=== PATIENT | female | born 1965 | race Caucasian/White ===

== ENCOUNTER 2016-11-21 07:45 | Emergency (ER) | payer OTHER ==
[2016-11-21] MEDS ORDERED: HYDROmorphone 1 MG/ML 1 ML SYRINGE IM STA (08:35)
[2016-11-21] MEDS ORDERED: KETOROLAC 60 MG/2 ML VIAL IM STA (08:35)
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
[2016-11-21 09:26] VITALS: BP 136/69; PULSE 84; RESP 18; TEMP 97.2
== END 2016-11-21 09:26 | disposition home or self-care (01) ==
LOC: EC 07:45
DX: G89.29 Other chronic pain (principal); M54.9 Dorsalgia, unspecified; F32.9 Major depressive disorder, single episode, unspecified; F41.9 Anxiety disorder, unspecified; M79.7 Fibromyalgia; F17.200 Nicotine dependence, unspecified, uncomplicated; Z88.0 Allergy status to penicillin; Z88.2 Allergy status to sulfonamides; Z88.1 Allergy status to other antibiotic agents; Z91.030 Bee allergy status; Z79.899 Other long term (current) drug therapy
CPT/HCPCS: 99283; 96372 ×2; J1885; J1170

== ENCOUNTER 2017-02-06 12:24 | Emergency (ER) | payer OTHER ==
[2017-02-06] MEDS ORDERED: HYDROmorphone 1 MG/ML 1 ML SYRINGE IM STA (13:33)
[2017-02-06] MEDS ORDERED: ORPHENADRINE 30 MG/ML 2 ML VIAL IM STA (13:33)
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
[2017-02-06 14:33] VITALS: BP 110/72; PULSE 97; RESP 18; TEMP 97.8
== END 2017-02-06 14:32 | disposition home or self-care (01) ==
LOC: EC 12:24
DX: G89.29 Other chronic pain (principal); M54.9 Dorsalgia, unspecified; F41.9 Anxiety disorder, unspecified; F32.9 Major depressive disorder, single episode, unspecified; F41.0 Panic disorder [episodic paroxysmal anxiety]; F17.200 Nicotine dependence, unspecified, uncomplicated; Z79.899 Other long term (current) drug therapy; Z88.0 Allergy status to penicillin; Z88.2 Allergy status to sulfonamides; Z91.030 Bee allergy status
CPT/HCPCS: 99283; 96372 ×2; J2360; J1170

== ENCOUNTER 2017-03-14 03:00 | Emergency (ER) | payer OTHER ==
[2017-03-14 03:07] VITALS: TEMP 97.3
[2017-03-14] MEDS ORDERED: KETOROLAC 60 MG/2 ML VIAL IM STA (03:14)
[2017-03-14] MEDS ORDERED: HYDROmorphone 1 MG/ML 1 ML SYRINGE IM STA (03:14)
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
[2017-03-14] MEDS ORDERED: ONDANSETRON ODT 4 MG TAB PO STA (03:24)
[2017-03-14 03:31] VITALS: BP 120/74; PULSE 80; RESP 16
== END 2017-03-14 03:40 | disposition home or self-care (01) ==
LOC: EC 03:00
DX: G89.29 Other chronic pain (principal); M54.5 Low back pain; M79.7 Fibromyalgia; F17.200 Nicotine dependence, unspecified, uncomplicated; Z88.0 Allergy status to penicillin; Z88.2 Allergy status to sulfonamides; Z91.030 Bee allergy status; Z79.899 Other long term (current) drug therapy
CPT/HCPCS: 99283; 96372 ×2; J1885; J1170

== ENCOUNTER 2017-05-10 03:58 | Emergency (ER) | payer OTHER ==
[2017-05-10 04:05] VITALS: TEMP 98
[2017-05-10] MEDS ORDERED: ONDANSETRON ODT 4 MG TAB PO STA (04:28)
[2017-05-10] MEDS ORDERED: KETOROLAC 60 MG/2 ML VIAL IM STA (04:28)
[2017-05-10] MEDS ORDERED: HYDROmorphone 1 MG/ML 1 ML SYRINGE IM STA (04:28)
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
[2017-05-10 04:55] VITALS: BP 146/80; PULSE 72; RESP 20
== END 2017-05-10 05:07 | disposition home or self-care (01) ==
LOC: EC 03:58
DX: M54.9 Dorsalgia, unspecified (principal); G89.29 Other chronic pain; R11.0 Nausea; M79.7 Fibromyalgia; F32.9 Major depressive disorder, single episode, unspecified; F41.9 Anxiety disorder, unspecified; F17.200 Nicotine dependence, unspecified, uncomplicated; Z79.899 Other long term (current) drug therapy; Z88.0 Allergy status to penicillin; Z88.1 Allergy status to other antibiotic agents; Z91.030 Bee allergy status
CPT/HCPCS: 99283; 96372; J1885

== ENCOUNTER 2018-01-16 08:26 | Emergency (ER) | payer OTHER ==
[2018-01-16 08:29] VITALS: TEMP 97.8
[2018-01-16] MEDS ORDERED: ONDANSETRON ODT 4 MG TAB PO STA (08:48)
[2018-01-16] MEDS ORDERED: BACLOFEN 10 MG TAB PO PRN (08:48)
[2018-01-16] MEDS ORDERED: oxyCODONE-APAP 10-325MG 1 EACH TAB PO STA (08:48)
--- NOTE | 2018-01-16 08:51 | ED ---
General Adult HPI - General Chief complaint: Back Pain/Injury Stated complaint: Back pain Time Seen by Provider: 01/16/18 08:41 Source: patient, RN notes reviewed, old records reviewed Mode of arrival: ambulatory Limitations: no limitations - History of Present Illness Initial comments: Patient 53-year-old female with significant past medical history for chronic back pain, presenting with a chief complaint of increased back pain. She states she had a fall earlier in the week. She states she was pushing a shopping cart when she had a hole in it went forward causing her to fall over. Patient states she tracks parents with pain at the time she had her Percocet. She states she's on Percocet yesterday. He is feeling increased pain today. States she does not receive her pain prescription until tomorrow. Patient does admit to some pain that radiates on the right leg tingling type sensation. She states she's had this in the past. Denies any bowel or bladder incontinence or retention. Denies any saddle anesthesia. Patient admits that she's had similar symptoms in the past with her chronic back pain. Patient denies any recent fever, chills, shortness of breath, chest pain, abdominal pain, nausea or vomiting, headaches or visual changes, or any other complaints. - Related Data Home Medications Medication Instructions Recorded Confirmed oxyCODONE-APAP 10-325MG [Percocet 1 tab PO Q6HR PRN 05/06/14 01/16/18 10-325 mg] Previous Rx's Medication Instructions Recorded Baclofen 10 mg PO TID #20 tab 01/16/18 Allergies Allergy/AdvReac Type Severity Reaction Status Date / Time Penicillins Allergy Rash/Hives Verified 01/16/18 09:01 sulfamethoxazole Allergy Unknown Verified 01/16/18 09:01 [From Bactrim] trimethoprim [From Bactrim] Allergy Unknown Verified 01/16/18 09:01 venom-honey bee Allergy Anaphylaxis Verified 01/16/18 09:01 [bee venom (honey bee)] Review of Systems ROS Statement: Those systems with pertinent positive or pertinent negative responses have been documented in the HPI. ROS Other: All systems not noted in ROS Statement are negative. Past Medical History Past Medical History: Fibromyalgia, Thyroid Disorder Additional Past Medical History / Comment(s): back pain, pt states she has lesions on her brain that could be the onset of MS History of Any Multi-Drug Resistant Organisms: None Reported Past Surgical History: Appendectomy, Hysterectomy Additional Past Surgical History / Comment(s): d&c Past Anesthesia/Blood Transfusion Reactions: No Reported Reaction Past Psychological History: Anxiety, Depression, Panic Disorder, PTSD Smoking Status: Current every day smoker Past Alcohol Use History: None Reported Past Drug Use History: None Reported - Past Family History Daughter(s) Family Medical History: Asthma General Exam - General Exam Comments Initial Comments: General: The patient is awake and alert, in no distress, and does not appear acutely ill. Eye: Pupils are equal, round and reactive to light, extra-ocular movements are intact. No nystagmus. There is normal conjunctiva bilaterally. No signs of icterus. Ears, nose, mouth and throat: There are moist mucous membranes and no oral lesions. Neck: The neck is supple, there is no tenderness or JVD. Cardiovascular: There is a regular rate and rhythm. No murmur, rub or gallop is appreciated. Respiratory: Lungs are clear to auscultation, respirations are non-labored, breath sounds are equal. No wheezes, stridor, rales, or rhonchi. Musculoskeletal: Normal ROM. Normal appearance of the cervical, thoracic, lumbar spine with no step-off or deformity. Patient does have tenderness midthoracic spine with mild tenderness to the lower lumbar. Strength 5/5. Sensation intact. Pulses equal bilaterally 2+. Neurological: A&O x 3. CN II-XII intact, There are no obvious motor or sensory deficits. Coordination appears grossly intact. Speech is normal. Skin: Skin is warm and dry and no rashes or lesions are noted. Psychiatric: Cooperative, appropriate mood & affect, normal judgment. Limitations: no limitations Course Vital Signs 01/16/18 01/16/18 08:28 09:31 Temperature 97.8 F Pulse Rate 99 86 Respiratory 20 16 Rate Blood Pressure 144/80 126/74 O2 Sat by Pulse 100 97 Oximetry Medical Decision Making - Medical Decision Making Patient reexamined at this time shows no signs of distress. Her x-rays are negative for any acute abnormalities. Results were discussed with the patient. Patient will be discharged home. He urinated prescription for baclofen. She is advised to follow-up with her pain specialist to make sure that it's okay but she feels this prescription. Advised to return for any other concerns. Disposition Clinical Impression: Chronic back pain Disposition: HOME SELF-CARE Condition: Good Instructions: Chronic Back Pain (ED) Additional Instructions: Please use medication as discussed and confirmed with your pain specialist prior to filling. Please return to emergency room if the symptoms increase or worsen or for any other concerns. Prescriptions: Baclofen 10 mg PO TID #20 tab Referrals: Dashawn Lopez DO [Primary Care Provider] - 1-2 days Time of Disposition: 10:03
[2018-01-16 09:32] VITALS: BP 126/74; PULSE 86; RESP 16
--- NOTE | 2018-01-16 09:42 | XR ---
EXAMINATION TYPE: XR thoracic spine complete DATE OF EXAM: 01/16/2018 COMPARISON: NONE HISTORY: 53 year-old female chronic back pain, fall TECHNIQUE: 3 views FINDINGS: 12 rib-bearing thoracic vertebral bodies. All pedicles are visualized. Mild endplate spondylosis mid to lower thoracic spine. Vertebral body heights are maintained and alignment is preserved. IMPRESSION: Mild endplate spondylosis mid to lower thoracic spine. No vertebral compression collapse or malalignm ent.
--- NOTE | 2018-01-16 09:54 | XR ---
EXAMINATION TYPE: XR lumbar spine 2 or 3V DATE OF EXAM: 01/16/2018 COMPARISON: 03/02/2016 HISTORY: 53-year-old female chronic back pain, worse since yesterday TECHNIQUE: 3 views FINDINGS: 5 lumbar type vertebral bodies. Facet arthropathy mid to lower lumbar spine. Trace grade 1 retrolisth esis at L3-L4 and also at L2-L3 was also present on 03/02/2016. Vertebral body heights are maintained. Small superior endplate Schmorl's node from T12 through L2 are unchanged. Mild degenerative disc dis ease mid to lower lumbar spine. IMPRESSION: 1. No vertebral compression collapse. Stable degenerative grade 1 retrolistheses at L2-L3 and L3-L4. 2. Facet arthropathy mid to lower lumbar spine and mild multilevel degenerative disc disease.
== END 2018-01-16 10:13 | disposition home or self-care (01) ==
LOC: EC 08:26
DX: M54.9 Dorsalgia, unspecified (principal); G89.29 Other chronic pain; M79.7 Fibromyalgia; F17.200 Nicotine dependence, unspecified, uncomplicated; Z88.0 Allergy status to penicillin; Z88.2 Allergy status to sulfonamides; Z91.030 Bee allergy status
CPT/HCPCS: 72072; 72100; 99284

== ENCOUNTER 2018-02-12 22:32 | Emergency (ER) | payer OTHER ==
[2018-02-12 22:36] VITALS: TEMP 97.4
[2018-02-13 00:17] LABS: Appearance,Urine Clear (Clear); Bacteria,Urine Rare /hpf; Bilirubin,Urine Negative (Negative); Blood,Urine Trace (Negative); Color,Urine Dark Yellow; Glucose,Urine (UA) Negative (Negative); Hyaline Casts,Urine 1 /lpf (0-2); Ketones,Urine Negative (Negative); Leukocyte Esterase,Urine Large (Negative); Mucus,Urine Rare /hpf; Nitrite,Urine Positive (Negative); PH, Urine 5.5 (5.0-8.0); Protein,Urine Trace (Negative); RBC,Urine 6 /hpf (0-5); Specific Gravity,Urine 1.022 (1.001-1.035); Squamous Epithelial Cell,Urine 2 /hpf (0-4); Urobilinogen,Urine <2.0 mg/dL (<2.0); WBC,Urine 67 /hpf (0-5)
--- NOTE | 2018-02-13 00:22 | ED ---
Nausea/Vomiting/Diarrhea HPI - General Chief complaint: Nausea/Vomiting/Diarrhea Stated complaint: Back pain Time Seen by Provider: 02/12/18 22:58 Source: patient Mode of arrival: ambulatory Limitations: no limitations - History of Present Illness Initial comments: 53-year-old female patient presents to the emergency department today complaining of withdrawal from her pain medication. Patient states that she has chronic back pain caused by a fracture many years ago. Patient states that she takes Percocet 10/325. States that she took too many over the month and has ran out early. States that she is unable to get a new prescription from her house painter helper for another week. States that she is having withdrawal symptoms that include shaking, sweats, nausea, and diarrhea. She denies any fevers or chills. States that she has gone through withdrawal before and her symptoms are the same. Patient states her last Percocet was yesterday morning. Patient also reports dysuria, frequency and urgency. States this been going on for the last few days. She is concerned she has a urinary tract infection. States that she has been taking [id number] Azo tablets and drinking cranberry juice without relief. Patient denies any recent rash, shortness breath, chest pain, abdominal pain, diarrhea, constipation, numbness, tingling, dizziness, weakness, headache, visual changes, or any other complaints. - Related Data Home Medications Medication Instructions Recorded Confirmed oxyCODONE-APAP 10-325MG [Percocet 1 tab PO Q6HR PRN 05/06/14 02/12/18 10-325 mg] Previous Rx's Medication Instructions Recorded Nitrofurantoin Monohyd/M-Cryst 100 mg PO Q12HR #14 cap 02/13/18 [Macrobid] Ondansetron [Zofran ODT] 4 mg PO Q8HR PRN #10 tab 02/13/18 Allergies Allergy/AdvReac Type Severity Reaction Status Date / Time Penicillins Allergy Rash/Hives Verified 02/12/18 22:41 sulfamethoxazole Allergy Unknown Verified 02/12/18 22:41 [From Bactrim] trimethoprim [From Bactrim] Allergy Unknown Verified 02/12/18 22:41 venom-honey bee Allergy Anaphylaxis Verified 02/12/18 22:41 [bee venom (honey bee)] Review of Systems ROS Statement: Those systems with pertinent positive or pertinent negative responses have been documented in the HPI. ROS Other: All systems not noted in ROS Statement are negative. Past Medical History Past Medical History: Fibromyalgia, Thyroid Disorder Additional Past Medical History / Comment(s): back pain, pt states she has lesions on her brain that could be the onset of MS History of Any Multi-Drug Resistant Organisms: None Reported Past Surgical History: Appendectomy, Hysterectomy Additional Past Surgical History / Comment(s): d&c Past Anesthesia/Blood Transfusion Reactions: No Reported Reaction Past Psychological History: Anxiety, Depression, Panic Disorder, PTSD Smoking Status: Current every day smoker Past Alcohol Use History: None Reported Past Drug Use History: None Reported - Past Family History Daughter(s) Family Medical History: Asthma General Exam Limitations: no limitations General appearance: alert, anxious, other (This is a well-developed, well- nourished adult female patient in no acute distress. Vital signs upon presentation are temperature 97.4F, pulse 123, respirations 24, blood pressure 141/90, pulse ox 100% on room air.) Eye exam: Present: normal appearance, PERRL, EOMI. Absent: scleral icterus, conjunctival injection, periorbital swelling ENT exam: Present: normal exam, normal oropharynx, mucous membranes moist Respiratory exam: Present: normal lung sounds bilaterally. Absent: respiratory distress, wheezes, rales, rhonchi, stridor Cardiovascular Exam: Present: regular rate, normal rhythm, normal heart sounds. Absent: systolic murmur, diastolic murmur, rubs, gallop, clicks GI/Abdominal exam: Present: soft, normal bowel sounds. Absent: distended, tenderness, guarding, rebound, rigid Back exam: Present: normal inspection Neurological exam: Present: alert, oriented X3, CN II-XII intact Psychiatric exam: Present: normal affect, normal mood Skin exam: Present: warm, dry, intact, normal color. Absent: rash Course Vital Signs 02/12/18 22:33 Temperature 97.4 F L Pulse Rate 123 H Respiratory 24 Rate Blood Pressure 141/90 O2 Sat by Pulse 100 Oximetry Medical Decision Making - Medical Decision Making 53-year-old female patient presents to the emergency department today complaining of opiate withdrawal and dysuria. Physical examination was unremarkable. Urine did show trace protein, trace blood, positive nitrates, large leukocyte esterase, 6 red blood cells, 67 white blood cells, rare bacteria , and rare mucous. We did give patient a dose of methadone 10 mg. She is instructed to follow-up with her house painter helper for any further medications. We will treat her with Macrobid for urinary tract infection as she is ALLERGIC to sulfa and penicillins. Urine was sent for culture. Return parameters discussed in detail. She verbalizes understanding and agrees with this plan. - Lab Data Lab Results 02/13/18 Range/Units 00:03 Urine Color Dark Yellow Urine Appearance Clear (Clear) Urine pH 5.5 (5.0-8.0) Ur Specific [place] 1.022 (1.001-1.035) Urine Protein Trace H (Negative) Urine Glucose (UA) Negative (Negative) Urine Ketones Negative (Negative) Urine Blood Trace H (Negative) Urine Nitrite Positive H (Negative) Urine Bilirubin Negative (Negative) Urine Urobilinogen <2.0 (<2.0) mg/dL Ur Leukocyte Esterase Large H (Negative) Urine RBC 6 H (0-5) /hpf Urine WBC 67 H (0-5) /hpf Ur Squamous Epith Cells 2 (0-4) /hpf Urine Bacteria Rare H (None) /hpf Hyaline Casts 1 (0-2) /lpf Urine Mucus Rare H (None) /hpf Disposition Clinical Impression: Urinary tract infection, Chronic back pain, Opiate withdrawal Disposition: HOME SELF-CARE Condition: Good Instructions: Urinary Tract Infection in Women (ED), Opioid Withdrawal (ED), Chronic Back Pain (ED) Additional Instructions: Increase fluids. Complete antibiotic prescription in full. Follow-up with your primary care physician for recheck in 1-2 days. Follow-up with your house painter helper for further narcotic medications. Return here immediately for any new, worsening, or concerning symptoms. Prescriptions: Nitrofurantoin Monohyd/M-Cryst [Macrobid] 100 mg PO Q12HR #14 cap Ondansetron [Zofran ODT] 4 mg PO Q8HR PRN #10 tab PRN Reason: Nausea Referrals: Dashawn Lopez DO [Primary Care Provider] - 1-2 days Time of Disposition: 01:24
[2018-02-13] MEDS ORDERED: METHADONE 10 MG TAB PO STA (00:41)
[2018-02-13] MEDS ORDERED: ONDANSETRON ODT 4 MG TAB PO STA (00:41)
[2018-02-13] MEDS ORDERED: NITROFURANTOIN MONOHYD/M-CRYST 100 MG CAP PO STA (01:20)
[2018-02-13 01:45] VITALS: BP 128/70; PULSE 87; RESP 18
== END 2018-02-13 01:45 | disposition home or self-care (01) ==
LOC: EC 22:32
DX: N39.0 Urinary tract infection, site not specified (principal); F11.23 Opioid dependence with withdrawal; M54.9 Dorsalgia, unspecified; G89.29 Other chronic pain; F17.200 Nicotine dependence, unspecified, uncomplicated; Z88.0 Allergy status to penicillin; Z88.1 Allergy status to other antibiotic agents; Z88.2 Allergy status to sulfonamides; Z91.030 Bee allergy status
CPT/HCPCS: 81001; 99283; S0109

== ENCOUNTER 2018-02-14 05:23 | Emergency (ER) | payer OTHER ==
[2018-02-14 05:35] LABS: Glucose,Whole Blood 123 mg/dL (75-99)
[2018-02-14] MEDS ORDERED: SODIUM CHLORIDE 0.9% 1,000 ML IV STA (05:47)
[2018-02-14] MEDS ORDERED: IPRATROPIUM-ALBUTEROL 3 ML NEB INHALATION STA (05:47)
[2018-02-14] MEDS ORDERED: ACETAMINOPHEN IV (For NPO) 1,000 MG in EMPTY BAG 1 BAG IVPB STA (05:48)
[2018-02-14 06:02] LABS: Basophils # (A) 0.1 k/uL (0-0.2); Basophils % (A) 1 %; Eosinophils # (A) 0.1 k/uL (0-0.7); Eosinophils % (A) 1 %; HCT 38.1 % (34.0-46.0); HGB 13.4 gm/dL (11.4-16.0); Lymphocytes # (A) 3.4 k/uL (1.0-4.8); Lymphocytes % (A) 35 %; MCH 31.5 pg (25.0-35.0); MCHC 35.1 g/dL (31.0-37.0); MCV 89.8 fL (80.0-100.0); Mean Platelet Volume 7.6; Monocytes # (A) 0.5 k/uL (0-1.0); Monocytes % (A) 6 %; Neutrophils # (A) 5.4 k/uL (1.3-7.7); Neutrophils % (A) 57 %; Platelet Count 297 k/uL (150-450); RBC 4.24 m/uL (3.80-5.40); RDW 12.5 % (11.5-15.5); WBC 9.6 k/uL (3.8-10.6)
[2018-02-14] MEDS ORDERED: cefTRIAXone 2,000 MG in SODIUM CHLORIDE 0.9% 100 ML IVPB STA (06:07)
[2018-02-14] MEDS ORDERED: KETOROLAC 30 MG/ML 1 ML VIAL IVP STA (06:11)
--- NOTE | 2018-02-14 06:11 | ED ---
General Adult HPI - General Source: patient, RN notes reviewed, old records reviewed Mode of arrival: EMS Limitations: no limitations <Carlos Roberts - Last Filed: 02/14/18 06:10> <Graham Daniel - Last Filed: 02/14/18 08:27> - General Chief complaint: Shortness of Breath Stated complaint: Abd pain Time Seen by Provider: 02/14/18 05:28 - History of Present Illness Initial comments: This is a 53-year-old female the ER for evaluation of shortness of breath. Shortness of breath chest pain chest pain radiating to her back. Positive cough and congestion recent fever. No recent travel history is no known sick contacts. Patient was recently hospitalized with some abdominal pain but in the ER and at the time so she'll urinary tract infection. (Carlos Roberts) - Related Data Home Medications Medication Instructions Recorded Confirmed oxyCODONE-APAP 10-325MG [Percocet 1 tab PO Q6HR PRN 05/06/14 02/12/18 10-325 mg] Previous Rx's Medication Instructions Recorded Nitrofurantoin Monohyd/M-Cryst 100 mg PO Q12HR #14 cap 02/13/18 [Macrobid] Ondansetron [Zofran ODT] 4 mg PO Q8HR PRN #10 tab 02/13/18 Azithromycin [Zithromax Z-pack] 250 mg PO DIRECTED #6 tab 02/14/18 predniSONE 50 mg PO DAILY #5 tablet 02/14/18 Allergies Allergy/AdvReac Type Severity Reaction Status Date / Time Penicillins Allergy Rash/Hives Verified 02/12/18 22:41 sulfamethoxazole Allergy Unknown Verified 02/12/18 22:41 [From Bactrim] trimethoprim [From Bactrim] Allergy Unknown Verified 02/12/18 22:41 venom-honey bee Allergy Anaphylaxis Verified 02/12/18 22:41 [bee venom (honey bee)] Review of Systems ROS Other: All systems not noted in ROS Statement are negative. <Carlos Roberts - Last Filed: 02/14/18 06:10> ROS Other: All systems not noted in ROS Statement are negative. <Graham Daniel - Last Filed: 02/14/18 08:27> ROS Statement: Those systems with pertinent positive or pertinent negative responses have been documented in the HPI. Past Medical History Past Medical History: Fibromyalgia, Thyroid Disorder Additional Past Medical History / Comment(s): back pain, pt states she has lesions on her brain that could be the onset of MS History of Any Multi-Drug Resistant Organisms: None Reported Past Surgical History: Appendectomy, Hysterectomy Additional Past Surgical History / Comment(s): d&c Past Anesthesia/Blood Transfusion Reactions: No Reported Reaction Past Psychological History: Anxiety, Depression, Panic Disorder, PTSD Smoking Status: Current every day smoker Past Alcohol Use History: None Reported Past Drug Use History: None Reported - Past Family History Daughter(s) Family Medical History: Asthma <Carlos Roberts - Last Filed: 02/14/18 06:10> General Exam Limitations: no limitations General appearance: alert, in no apparent distress Head exam: Present: atraumatic, normocephalic, normal inspection Eye exam: Present: normal appearance, PERRL, EOMI. Absent: scleral icterus, conjunctival injection, periorbital swelling ENT exam: Present: normal exam, mucous membranes moist Neck exam: Present: normal inspection. Absent: tenderness, meningismus, lymphadenopathy Respiratory exam: Present: normal lung sounds bilaterally. Absent: respiratory distress, wheezes, rales, rhonchi, stridor Cardiovascular Exam: Present: regular rate, normal rhythm, normal heart sounds. Absent: systolic murmur, diastolic murmur, rubs, gallop, clicks GI/Abdominal exam: Present: soft, normal bowel sounds. Absent: distended, tenderness, guarding, rebound, rigid Extremities exam: Present: normal inspection, full ROM, normal capillary refill. Absent: tenderness, pedal edema, joint swelling, calf tenderness Back exam: Present: normal inspection Neurological exam: Present: alert, oriented X3, CN II-XII intact Psychiatric exam: Present: normal affect, normal mood Skin exam: Present: warm, dry, intact, normal color. Absent: rash <Carlos Roberts - Last Filed: 02/14/18 06:10> Course <Carlos Roberts - Last Filed: 02/14/18 06:10> <Graham Daniel - Last Filed: 02/14/18 08:27> Vital Signs 02/14/18 02/14/18 02/14/18 05:25 06:03 06:12 Temperature 100.3 F H Pulse Rate 87 81 83 Respiratory 16 Rate Blood Pressure 138/78 O2 Sat by Pulse 99 Oximetry Is reassessed at down at 23, CT chest injuries unremarkable for pulmonary embolism notice a small nodule 2.4 mm in size, patient was advised to follow-up with family doctor with repeat chest CT in about a year time, there is no pneumonia noticed he is a smoker and we'll treat her bronchitis with Zithromax and no prednisone 50 mg daily for next 5 days she will continue her home meds and will return to the ER if symptoms get worse (Graham Daniel) - Reevaluation(s) Reevaluation #1: 02/14/18 06:11 Patient improvement breathing treatment of fever control (Carlos Roberts) EKG Findings - EKG Comments: EKG Findings:: EKG shows normal sinus rhythm rate of 82, ND 124, QRS 86, QTc 453 <Carlos Roberts - Last Filed: 02/14/18 06:10> Medical Decision Making - Lab Data Result diagrams: 02/14/18 05:29 <Carlos Roberts - Last Filed: 02/14/18 06:10> - Lab Data Result diagrams: 02/14/18 05:29 02/14/18 05:29 <Graham Daniel - Last Filed: 02/14/18 08:27> - Lab Data Lab Results 02/14/18 02/14/18 02/14/18 Range/Units 05:29 05:29 05:29 WBC 9.6 (3.8-10.6) k/uL RBC 4.24 (3.80-5.40) m/uL Hgb 13.4 (11.4-16.0) gm/dL Hct 38.1 (34.0-46.0) % MCV 89.8 (80.0-100.0) fL MCH 31.5 (25.0-35.0) pg MCHC 35.1 (31.0-37.0) g/dL RDW 12.5 (11.5-15.5) % Plt Count 297 (150-450) k/uL Neutrophils % 57 % Lymphocytes % 35 % Monocytes % 6 % Eosinophils % 1 % Basophils % 1 % Neutrophils # 5.4 (1.3-7.7) k/uL Lymphocytes # 3.4 (1.0-4.8) k/uL Monocytes # 0.5 (0-1.0) k/uL Eosinophils # 0.1 (0-0.7) k/uL Basophils # 0.1 (0-0.2) k/uL PT (9.0-12.0) sec INR (<1.2) APTT (22.0-30.0) sec Sodium (137-145) mmol/L Potassium (3.5-5.1) mmol/L Chloride (98-107) mmol/L Carbon Dioxide (22-30) mmol/L Anion Gap mmol/L BUN (7-17) mg/dL Creatinine (0.52-1.04) mg/dL Est GFR (CKD-EPI)AfAm (>60 ml/min/1.73 sqM) Est GFR (CKD-EPI)NonAf (>60 ml/min/1.73 sqM) Glucose (74-99) mg/dL POC Glucose (mg/dL) 123 H (75-99) mg/dL POC Glu Director Service ID Mark, Maria Eugenia Calcium (8.4-10.2) mg/dL Magnesium (1.6-2.3) mg/dL Total Bilirubin (0.2-1.3) mg/dL AST (14-36) U/L ALT (9-52) U/L Alkaline Phosphatase (38-126) U/L Total Creatine Kinase 82 (30-135) U/L CK-MB (CK-2) 0.9 (0.0-2.4) ng/mL CK-MB (CK-2) Rel Index 1.1 Troponin I <0.012 (0.000-0.034) ng/mL NT-Pro-B Natriuret Pep pg/mL Total Protein (6.3-8.2) g/dL Albumin (3.5-5.0) g/dL 02/14/18 02/14/18 02/14/18 Range/Units 05:29 05:29 05:29 WBC (3.8-10.6) k/uL RBC (3.80-5.40) m/uL Hgb (11.4-16.0) gm/dL Hct (34.0-46.0) % MCV (80.0-100.0) fL MCH (25.0-35.0) pg MCHC (31.0-37.0) g/dL RDW (11.5-15.5) % Plt Count (150-450) k/uL Neutrophils % % Lymphocytes % % Monocytes % % Eosinophils % % Basophils % % Neutrophils # (1.3-7.7) k/uL Lymphocytes # (1.0-4.8) k/uL Monocytes # (0-1.0) k/uL Eosinophils # (0-0.7) k/uL Basophils # (0-0.2) k/uL PT 10.5 (9.0-12.0) sec INR 1.1 (<1.2) APTT 25.4 (22.0-30.0) sec Sodium 142 (137-145) mmol/L Potassium 3.7 (3.5-5.1) mmol/L Chloride 106 (98-107) mmol/L Carbon Dioxide 22 (22-30) mmol/L Anion Gap 14 mmol/L BUN 11 (7-17) mg/dL Creatinine 0.70 (0.52-1.04) mg/dL Est GFR (CKD-EPI)AfAm >90 (>60 ml/min/1.73 sqM) Est GFR (CKD-EPI)NonAf >90 (>60 ml/min/1.73 sqM) Glucose 119 H (74-99) mg/dL POC Glucose (mg/dL) (75-99) mg/dL POC Glu Director Service ID Calcium 9.9 (8.4-10.2) mg/dL Magnesium 2.0 (1.6-2.3) mg/dL Total Bilirubin 0.6 (0.2-1.3) mg/dL AST 21 (14-36) U/L ALT 24 (9-52) U/L Alkaline Phosphatase 77 (38-126) U/L Total Creatine Kinase (30-135) U/L CK-MB (CK-2) (0.0-2.4) ng/mL CK-MB (CK-2) Rel Index Troponin I (0.000-0.034) ng/mL NT-Pro-B Natriuret Pep 103 pg/mL Total Protein 7.0 (6.3-8.2) g/dL Albumin 4.2 (3.5-5.0) g/dL Disposition <Carlos Roberts - Last Filed: 02/14/18 06:10> <Graham Daniel - Last Filed: 02/14/18 08:27> Clinical Impression: Dyspnea, Bronchitis, Lung nodule Disposition: HOME SELF-CARE Condition: Good Instructions: Acute Bronchitis (ED) Prescriptions: Azithromycin [Zithromax Z-pack] 250 mg PO DIRECTED #6 tab predniSONE 50 mg PO DAILY #5 tablet Referrals: Dashawn Lopez DO [Primary Care Provider] - 1-2 days
[2018-02-14 06:12] LABS: INR 1.1 (<1.2); Partial Thromboplastin Time 25.4 sec (22.0-30.0); Prothrombin Time 10.5 sec (9.0-12.0)
--- NOTE | 2018-02-14 06:13 | XR ---
EXAM: XR Chest, 2 Views CLINICAL HISTORY: ITS.REASON XR Reason: difficulty breathing TECHNIQUE: Frontal and lateral views of the chest. COMPARISON: Chest x-ray dated 03/02/2016. FINDINGS: Lungs: Unremarkable. The lungs are clear. Pleural space: Unremarkable. No pneumothorax. Heart: Unremarkable. No cardiomegaly. Mediastinum: Unremarkable. Bones/joints: Unremarkable. IMPRESSION: Normal chest x-rays.
[2018-02-14 06:15] LABS: ALT 24 U/L (9-52); AST 21 U/L (14-36); Albumin 4.2 g/dL (3.5-5.0); Alkaline Phosphatase 77 U/L (38-126); Anion Gap 14 mmol/L; Blood Urea Nitrogen 11 mg/dL (7-17); Calcium 9.9 mg/dL (8.4-10.2); Carbon Dioxide 22 mmol/L (22-30); Chloride 106 mmol/L (98-107); Glucose 119 mg/dL (74-99); Potassium 3.7 mmol/L (3.5-5.1); Sodium 142 mmol/L (137-145); Total Bilirubin 0.6 mg/dL (0.2-1.3)
[2018-02-14] MEDS ORDERED: cefTRIAXone IN SWFI 2,000 MG/20 ML SYRINGE IVP ONE (06:15)
[2018-02-14 06:33] LABS: Creatine Kinase 82 U/L (30-135)
[2018-02-14] MEDS ORDERED: MORPHINE SULFATE 4MG/4ML SYRG IVP STA (06:37)
[2018-02-14 06:46] LABS: Creatine Kinase MB 0.9 ng/mL (0.0-2.4); Troponin I <0.012 ng/mL (0.000-0.034)
[2018-02-14] MEDS ORDERED: RX INFO: IV CONTRAST WAS GIVEN 1 EACH MISC MISCELLANE PRN (06:54)
--- NOTE | 2018-02-14 08:11 | CT ---
EXAMINATION TYPE: CT angio chest DATE OF EXAM: 02/14/2018 COMPARISON: NONE HISTORY: 53-year-old female with abdominal pain TECHNIQUE: Contiguous axial scanning of the chest performed with IV Contrast, patient injected with 1 00 ml mL of Isovue 370. Coronal/sagittal MIP reconstructions performed. CT DLP: 152.40 mGycm Automated exposure control for dose reduction was used. FINDINGS: The heart is normal size with trace anterior pericardial thickening/fluid. Mild coronary vessel calci fications are present. Aorta is normal caliber with conventional arch vessel branching anatomy. Satisfactory opacification of the pulmonary arterial system without evidence for pulmonary embolus. Scattered nonenlarged mediastinal lymph nodes are present. No thoracic lymphadenopathy. 4 mm left upper lobe pulmonary nodule axial image 21. No consolidation or pleural effusion. Low attenuation of the hepatic parenchyma compatible with fatty infiltration. Bones: No osseous destructive process. IMPRESSION: 1. NO EVIDENCE FOR PULMONARY EMBOLUS OR ACUTE PULMONARY PROCESS. 2. 4 MM LEFT UPPER LOBE PULMONARY NODULE. ONE-YEAR FOLLOW-UP CT RECOMMENDED. 3. FINDINGS SUGGEST HEPATIC STEATOSIS.
[2018-02-14 08:49] VITALS: BP 110/81; PULSE 74; RESP 18; TEMP 97.8
== END 2018-02-14 09:27 | disposition home or self-care (01) ==
LOC: EC 05:23
DX: J40 Bronchitis, not specified as acute or chronic (principal); R91.1 Solitary pulmonary nodule; M54.9 Dorsalgia, unspecified; N39.0 Urinary tract infection, site not specified; F17.200 Nicotine dependence, unspecified, uncomplicated; Z88.0 Allergy status to penicillin; Z88.1 Allergy status to other antibiotic agents; Z91.030 Bee allergy status; Z82.5 Family history of asthma and other chronic lower respiratory diseases; Z53.9 Procedure and treatment not carried out, unspecified reason
CPT/HCPCS: 36415; 94640; 93005; 83880; 80053; 82550; 82553; 83735; 84484; 85025; 85610; 85730; 87040; 71046; 71275; 99285; 96374; 96375 ×3; 96361 ×3; J0696; J1885; J0131; Q9967; J2270

== ENCOUNTER 2018-04-15 22:50 | Emergency (ER) | payer OTHER ==
[2018-04-15 22:55] VITALS: RESP 18; TEMP 98.2
[2018-04-15] MEDS ORDERED: ACET/COD 300 MG/30 MG STARTER PACK 6 TAB BTL PO STA (23:09)
[2018-04-15] MEDS ORDERED: oxyCODONE-APAP 5-325MG 1 EACH TAB PO STA (23:09)
[2018-04-15] MEDS ORDERED: ONDANSETRON 4 MG ODT STARTER PACK 2 TAB BTL PO STA (23:09)
--- NOTE | 2018-04-15 23:28 | ED ---
Back Pain HPI - General Chief Complaint: Back Pain/Injury Stated Complaint: back pain Time Seen by Provider: 04/15/18 23:00 Source: patient, RN notes reviewed, old records reviewed Limitations: no limitations - History of Present Illness Initial Comments: 53-year-old female with history of chronic pain and chronic back pain and fractured presents today out of her pain medication. She states she's been out of her medicine for the past 4 days. Her last dose was on Monday. She was. It filled however the boat painter with the wrong date on her prescription. She cannot have her medications filled until Monday. Patient relates that she has had some nausea vomiting diarrhea. Denies any new or worsening changes in her back pain. No falls. - Related Data Home Medications Medication Instructions Recorded Confirmed oxyCODONE-APAP 10-325MG [Percocet 1 tab PO Q6HR PRN 05/06/14 04/15/18 10-325 mg] Allergies Allergy/AdvReac Type Severity Reaction Status Date / Time Penicillins Allergy Rash/Hives Verified 04/15/18 22:55 sulfamethoxazole Allergy Unknown Verified 04/15/18 22:55 [From Bactrim] trimethoprim [From Bactrim] Allergy Unknown Verified 04/15/18 22:55 venom-honey bee Allergy Anaphylaxis Verified 04/15/18 22:55 [bee venom (honey bee)] Review of Systems ROS Statement: Those systems with pertinent positive or pertinent negative responses have been documented in the HPI. ROS Other: All systems not noted in ROS Statement are negative. Past Medical History Past Medical History: Fibromyalgia, Thyroid Disorder Additional Past Medical History / Comment(s): back pain, pt states she has lesions on her brain that could be the onset of MS History of Any Multi-Drug Resistant Organisms: None Reported Past Surgical History: Appendectomy, Hysterectomy Additional Past Surgical History / Comment(s): d&c Past Anesthesia/Blood Transfusion Reactions: No Reported Reaction Past Psychological History: Anxiety, Depression, Panic Disorder, PTSD Smoking Status: Current every day smoker Past Alcohol Use History: None Reported Past Drug Use History: None Reported - Past Family History Daughter(s) Family Medical History: Asthma General Exam - General Exam Comments Initial Comments: 53-year-old female. Alert and oriented. No significant distress. Limitations: no limitations General appearance: alert, in no apparent distress Head exam: Present: atraumatic, normocephalic, normal inspection Eye exam: Present: normal appearance, PERRL, EOMI. Absent: scleral icterus, conjunctival injection, periorbital swelling ENT exam: Present: normal exam Neck exam: Present: normal inspection Respiratory exam: Present: normal lung sounds bilaterally. Absent: respiratory distress, wheezes, rales, rhonchi, stridor Cardiovascular Exam: Present: regular rate, normal rhythm, normal heart sounds. Absent: systolic murmur, diastolic murmur, rubs, gallop, clicks Extremities exam: Present: normal inspection, full ROM, normal capillary refill. Absent: tenderness, pedal edema, joint swelling, calf tenderness Back exam: Present: normal inspection, vertebral tenderness (Lumbar) Neurological exam: Present: alert, oriented X3, CN II-XII intact Psychiatric exam: Present: normal affect, normal mood Skin exam: Present: warm, dry, intact, normal color. Absent: rash Course Vital Signs 04/15/18 22:53 Temperature 98.2 F Pulse Rate 108 H Respiratory 18 Rate Blood Pressure 144/98 O2 Sat by Pulse 98 Oximetry Medical Decision Making - Medical Decision Making Patient's 53-year-old female presents today chief complaint of lower back pain. She's been out of her pain medication. Patient does not report was ran and consistent with the history. This time Patient was given 1 by mouth Percocet. Discussed I will write her for any further pain medication she contract. Was given Zofran. No other symptoms related to her percent pain. Is chronic. Denies any urinary symptoms per she is somewhat tender over her lumbar spine. Will be discharged at this time. Disposition Clinical Impression: Withdrawal from opioids, Chronic back pain greater than 3 months duration Disposition: HOME SELF-CARE Condition: Good Instructions: Chronic Back Pain (ED) Additional Instructions: Patient is follow-up with her primary care provider. His medication as prescribed. Return to emergency department if any alarming signs or symptoms occur. Is patient prescribed a controlled substance at d/c from ED?: No When asked, does pt state using other controlled substances?: No If prescribed controlled substance>3 days was MAPS reviewed?: No If opioid is for acute pain is fill amount 7 days or less?: No If Rx opioid, was Start Talking consent form obtained?: No Referrals: Dashawn Lopez DO [Primary Care Provider] - 1-2 days Time of Disposition: 23:27
[2018-04-15 23:59] VITALS: BP 140/78; PULSE 81
== END 2018-04-15 23:59 | disposition home or self-care (01) ==
LOC: EC 22:50
DX: M54.5 Low back pain (principal); G89.29 Other chronic pain; F11.23 Opioid dependence with withdrawal; R11.2 Nausea with vomiting, unspecified; R19.7 Diarrhea, unspecified; Z88.0 Allergy status to penicillin; Z88.2 Allergy status to sulfonamides; Z88.1 Allergy status to other antibiotic agents; Z91.030 Bee allergy status
CPT/HCPCS: 99284; S0119

== ENCOUNTER 2018-10-10 14:54 | Emergency (ER) | payer OTHER ==
[2018-10-10] MEDS ORDERED: HYDROmorphone 1 MG/ML 1 ML SYRINGE IVP STA ×2 (15:23→15:26)
--- NOTE | 2018-10-10 15:59 | ED ---
General Adult HPI - General Chief complaint: Back Pain/Injury Stated complaint: Pain all over Time Seen by Provider: 10/10/18 15:03 Source: patient, RN notes reviewed Mode of arrival: ambulatory Limitations: no limitations - History of Present Illness Initial comments: 53-year-old female presents to the emergency department for a chief complaint of back pain. Patient has a history of fibromyalgia. She describes the pain as a pain in the middle of her back. She states this pain is consistent with past flareups of fibromyalgia. She states her pain medicine is not working. Patient also complains of numbness and tingling in the right lower extremity with mild lower back pain. She states this is somewhat different than normal. She denies any weakness in the legs. She denies any fevers or chills. She denies any recent injuries. Patient denies any numbness or tingling in the groin or buttock, denies any difficulty urinating or having a bowel movement. Patient has no other complaints at this time including shortness of breath, chest pain, abdominal pain, nausea or vomiting, headache, or visual changes. - Related Data Home Medications Medication Instructions Recorded Confirmed oxyCODONE-APAP 10-325MG [Percocet 1 tab PO Q6HR PRN 05/06/14 10/10/18 10-325 mg] Allergies Allergy/AdvReac Type Severity Reaction Status Date / Time Penicillins Allergy Rash/Hives Verified 10/10/18 15:27 sulfamethoxazole Allergy Unknown Verified 10/10/18 15:27 [From Bactrim] trimethoprim [From Bactrim] Allergy Unknown Verified 10/10/18 15:27 venom-honey bee Allergy Anaphylaxis Verified 10/10/18 15:27 [bee venom (honey bee)] Review of Systems ROS Statement: Those systems with pertinent positive or pertinent negative responses have been documented in the HPI. ROS Other: All systems not noted in ROS Statement are negative. Past Medical History Past Medical History: Fibromyalgia, Thyroid Disorder Additional Past Medical History / Comment(s): back pain, pt states she has lesions on her brain that could be the onset of MS History of Any Multi-Drug Resistant Organisms: None Reported Past Surgical History: Appendectomy, Hysterectomy Additional Past Surgical History / Comment(s): d&c Past Anesthesia/Blood Transfusion Reactions: No Reported Reaction Past Psychological History: Anxiety, Depression, Panic Disorder, PTSD Smoking Status: Current every day smoker Past Alcohol Use History: None Reported Past Drug Use History: None Reported - Past Family History Daughter(s) Family Medical History: Asthma General Exam Limitations: no limitations General appearance: alert, in no apparent distress Head exam: Present: atraumatic, normocephalic, normal inspection Eye exam: Present: normal appearance, PERRL, EOMI. Absent: scleral icterus, conjunctival injection, periorbital swelling ENT exam: Present: normal exam, mucous membranes moist Neck exam: Present: normal inspection, full ROM. Absent: tenderness, meningismus, lymphadenopathy Respiratory exam: Present: normal lung sounds bilaterally. Absent: respiratory distress, wheezes, rales, rhonchi, stridor Cardiovascular Exam: Present: regular rate, normal rhythm, normal heart sounds. Absent: systolic murmur, diastolic murmur, rubs, gallop, clicks GI/Abdominal exam: Present: soft, normal bowel sounds. Absent: distended, tenderness, guarding, rebound, rigid Extremities exam: Present: normal capillary refill (Capillary refill less than 2 seconds and DP pulse 2+ in lower extremities bilaterally) Back exam: Present: tenderness (Tenderness noted in the thoracic and lumbar spines). Absent: full ROM (Patient has about 45 flexion of the lumbar spine), CVA tenderness (R), CVA tenderness (L) Neurological exam: Present: alert, oriented X3, CN II-XII intact Psychiatric exam: Present: normal affect, normal mood Course Vital Signs 10/10/18 14:57 Temperature 97.4 F L Pulse Rate 89 Respiratory 24 Rate Blood Pressure 149/89 O2 Sat by Pulse 99 Oximetry Medical Decision Making - Medical Decision Making 53-year-old female well known to this emergency department with a chief complaint of chronic pain. Patient states the pain in the middle of her back is consistent with previous episodes of fibromyalgia. However patient is having some numbness of the right proximal lower extremity. She does have intact sensation. Tenderness noted in the thoracic and lumbar spines. Lumbar CT was ordered which demonstrated degenerative disc disease without any canal compromise. There is mild bilateral neural foraminal stenosis. Patient was given pain medicine here in the emergency department, states she is much better. She is ready for discharge. She did ask for referral to another provider so will be given a referral to Dr. Oshea. She will return here if she has any worsening symptoms. Disposition Clinical Impression: Back pain, chronic Disposition: HOME SELF-CARE Condition: Good Instructions: Chronic Back Pain (ED) Additional Instructions: Please follow up with primary care or Dr. Oshea in one to 2 days. Please return to the emergency department if you have any worsening symptoms. Is patient prescribed a controlled substance at d/c from ED?: No Referrals: Dashawn Lopez DO [Primary Care Provider] - 1-2 days Tracey Oshea DO [Doctor of Osteopathic Medicine] - 1-2 days Time of Disposition: 17:11
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
--- NOTE | 2018-10-10 16:35 | CT ---
EXAMINATION TYPE: CT pelvis wo con DATE OF EXAM: 10/10/2018 COMPARISON: None HISTORY: 53-year-old female thoracolumbar pain. hx fracture TECHNIQUE: Contiguous axial scanning of the pelvis without IV contrast. Coronal and sagittal reconstr uctions performed. CT DLP: 806.5 mGycm Automated exposure control for dose reduction was used. FINDINGS: Osteopenia. SI joints appear symmetric and intact. Pubic symphysis is intact. Mild degenerative changes at the hips. No evidence for acute fracture, subluxation, or dislocation. There seems to be a small fat-containing indirect left inguinal hernia. No significant soft tissue abnormality otherwise identified. IMPRESSION: OSTEOPENIA WITHOUT ACUTE OSSEOUS ABNORMALITY SEEN. MILD BILATERAL HIP OA.
[2018-10-10 17:35] VITALS: BP 121/85; PULSE 93; RESP 18; TEMP 97.3
== END 2018-10-10 17:34 | disposition home or self-care (01) ==
LOC: EC 14:54
DX: G89.29 Other chronic pain (principal); M54.5 Low back pain; M51.36 Other intervertebral disc degeneration, lumbar region; M99.73 Connective tissue and disc stenosis of intervertebral foramina of lumbar region; R20.0 Anesthesia of skin; R20.2 Paresthesia of skin; F17.200 Nicotine dependence, unspecified, uncomplicated; Z88.0 Allergy status to penicillin; Z88.2 Allergy status to sulfonamides; Z91.030 Bee allergy status; Z53.8 Procedure and treatment not carried out for other reasons
CPT/HCPCS: 72192; 72131; 99283; 96374; J1170

== ENCOUNTER 2018-10-11 02:49 | Emergency (ER) | payer OTHER ==
--- NOTE | 2018-10-11 03:25 | ED ---
Back Pain HPI - General Chief Complaint: Back Pain/Injury Stated Complaint: BACK PAIN Time Seen by Provider: 10/11/18 03:24 Source: patient Limitations: no limitations - History of Present Illness Initial Comments: Kayley is a 53-year-old female with a history of chronic back pain, fibromyalgia for which she has been on 10 mg Percocet q6 hours for approximately the past 5 years. Patient states that recently she was referred to a new stained glass painter who decreased her Percocet from 6 hours to every 8 hours and she now only receives 120 rather than 150 Percocet at a time. Patient reports that she has attempted to be compliant with this new perception however her pain is not controlled and she is frequently still taking the medication every 6 hours. Patient states that her next refill is not until Monday and she ran medications yesterday and is in excruciating pain. Patient reports that the pain is in her lower back, similar to her chronic back pain. She was evaluated in our ER earlier today and had a full workup including a computed tomography scan with no acute findings. Patient states she is on no other medications aside from the Percocet, she is on no treatment for her fibromyalgia she does feel treated by the Percocet. Patient reports that she's undergone multiple therapies in the past including injections in her back which were unsuccessful in treating her pain. Patient denies any bowel or bladder incontinence or retention, any saddle anesthesia, any weakness in the lower extremities. - Related Data Home Medications Medication Instructions Recorded Confirmed oxyCODONE-APAP 10-325MG [Percocet 1 tab PO Q6HR PRN 05/06/14 10/10/18 10-325 mg] Previous Rx's Medication Instructions Recorded Lidocaine 5% Patch [Lidoderm] 1 patch TOPICAL DAILY #30 patch 10/11/18 Allergies Allergy/AdvReac Type Severity Reaction Status Date / Time Penicillins Allergy Rash/Hives Verified 10/11/18 02:56 sulfamethoxazole Allergy Unknown Verified 10/11/18 02:56 [From Bactrim] trimethoprim [From Bactrim] Allergy Unknown Verified 10/11/18 02:56 venom-honey bee Allergy Anaphylaxis Verified 10/11/18 02:56 [bee venom (honey bee)] Review of Systems ROS Statement: Those systems with pertinent positive or pertinent negative responses have been documented in the HPI. ROS Other: All systems not noted in ROS Statement are negative. Past Medical History Past Medical History: Fibromyalgia, Thyroid Disorder Additional Past Medical History / Comment(s): back pain, pt states she has lesions on her brain that could be the onset of MS History of Any Multi-Drug Resistant Organisms: None Reported Past Surgical History: Appendectomy, Hysterectomy Additional Past Surgical History / Comment(s): d&c Past Anesthesia/Blood Transfusion Reactions: No Reported Reaction Past Psychological History: Anxiety, Depression, Panic Disorder, PTSD Smoking Status: Current every day smoker Past Alcohol Use History: None Reported Past Drug Use History: None Reported - Past Family History Daughter(s) Family Medical History: Asthma General Exam - General Exam Comments Initial Comments: Physical Exam GENERAL: Patient is well-developed and well-nourished. Patient is nontoxic and well- hydrated and is in moderate distress. HENT: Normocephalic, Atraumatic. EYES: PERRL, EOMI PULMONARY: Unlabored respirations. No audible rales rhonchi or wheezing was noted. CARDIOVASCULAR: There is a regular rate and rhythm without any murmurs gallops or rubs. ABDOMEN: Soft and nontender with normal bowel sounds. SKIN: Skin is clear with no lesions or rashes and otherwise unremarkable. : Deferred NEUROLOGIC: Patient is alert and oriented x3. Moving all extremities spontaneously Normal strength in bilateral lower extremities Normal patellar reflexes bilaterally Will sensation bilateral lower extremities MUSCULOSKELETAL: Normal extremities with adequate strength and full range of motion. No lower extremity swelling or edema. No calf tenderness. PSYCHIATRIC: Tearful and agitated Limitations: no limitations Limitations: no limitations Course Vital Signs 10/11/18 10/11/18 02:52 05:19 Temperature 97.7 F 97.9 F Pulse Rate 95 100 Respiratory 18 19 Rate Blood Pressure 155/80 112/82 O2 Sat by Pulse 98 96 Oximetry Medical Decision Making - Medical Decision Making Patient was seen and evaluated history was obtained from patient with a history of chronic back pain returning to the ER tonight because she is out of her home Percocet because she took more than prescribed and she will not have a refill for another 2-3 days No red flags to her back pain, neurologically intact, ambulating throughout the emergency department Single dose by mouth Percocet given patient treated with Lidoderm patch and muscle relaxer Return parameters were discussed, questions pertaining to care were answered best my ability patient was discharged home in stable condition. Disposition Clinical Impression: Chronic back pain Disposition: HOME SELF-CARE Condition: Stable Instructions: Chronic Back Pain (ED) Prescriptions: Lidocaine 5% Patch [Lidoderm] 1 patch TOPICAL DAILY #30 patch Is patient prescribed a controlled substance at d/c from ED?: No Referrals: Dashawn Lopez DO [Primary Care Provider] - 1-2 days Ameena Tapia MD [STAFF PHYSICIAN] - 1-2 days Tracey Oshea DO [Doctor of Osteopathic Medicine] - 1-2 days Time of Disposition: 04:50
[2018-10-11] MEDS ORDERED: oxyCODONE-APAP 10-325MG 1 EACH TAB PO STA (04:16)
[2018-10-11] MEDS ORDERED: ORPHENADRINE 30 MG/ML 2 ML VIAL IM STA (04:16)
[2018-10-11] MEDS ORDERED: LIDOCAINE 5% PATCH TOPICAL ONE (05:00)
[2018-10-11 05:21] VITALS: BP 112/82; PULSE 100; RESP 19; TEMP 97.9
== END 2018-10-11 05:19 | disposition home or self-care (01) ==
LOC: EC 02:49
DX: G89.29 Other chronic pain (principal); M54.5 Low back pain; F17.200 Nicotine dependence, unspecified, uncomplicated; Z90.49 Acquired absence of other specified parts of digestive tract; Z90.710 Acquired absence of both cervix and uterus; Z88.0 Allergy status to penicillin; Z88.1 Allergy status to other antibiotic agents; Z88.2 Allergy status to sulfonamides; Z91.030 Bee allergy status
CPT/HCPCS: 96372; 99283

== ENCOUNTER 2018-12-11 03:49 | Emergency (ER) | payer OTHER ==
[2018-12-11] MEDS ORDERED: DIAZEPAM 5 MG/ML 2 ML INJ IVP STA (05:58)
[2018-12-11] MEDS ORDERED: HYDROmorphone 1 MG/ML 1 ML SYRINGE IVP STA (05:58)
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
[2018-12-11 06:57] VITALS: BP 141/86; PULSE 74; RESP 18; TEMP 98.2
== END 2018-12-11 06:46 | disposition home or self-care (01) ==
LOC: EC 03:49
DX: G89.29 Other chronic pain (principal); M54.9 Dorsalgia, unspecified; F17.200 Nicotine dependence, unspecified, uncomplicated; Z88.0 Allergy status to penicillin; Z88.2 Allergy status to sulfonamides; Z91.030 Bee allergy status
CPT/HCPCS: 99284; 96374; 96375; J3360; J1170

== ENCOUNTER 2019-06-09 16:23 | Emergency (ER) | payer OTHER ==
[2019-06-09 16:53] VITALS: RESP 18; TEMP 98.5
[2019-06-09] MEDS ORDERED: HYDROmorphone 0.5 MG/0.5 ML SYRINGE IM STA (17:37)
[2019-06-09] MEDS ORDERED: LIDOCAINE 5% PATCH TOPICAL STA (17:37)
[2019-06-09] MEDS ORDERED: KETOROLAC 30 MG/ML 1 ML VIAL IM STA (17:37)
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
[2019-06-09 18:24] VITALS: BP 133/80; PULSE 77
== END 2019-06-09 18:20 | disposition home or self-care (01) ==
LOC: EC 16:23
DX: M54.5 Low back pain (principal); F17.200 Nicotine dependence, unspecified, uncomplicated; Z88.0 Allergy status to penicillin; Z88.1 Allergy status to other antibiotic agents; Z88.2 Allergy status to sulfonamides; Z91.030 Bee allergy status
CPT/HCPCS: 99283; 96372 ×2; J1885; J1170

== ENCOUNTER 2019-09-03 08:38 | Emergency (ER) | payer OTHER ==
[2019-09-03] MEDS ORDERED: LIDOCAINE 5% PATCH TOPICAL STA (09:02)
[2019-09-03] MEDS ORDERED: MORPHINE SULFATE 4 MG/ML SYRINGE IVP STA (09:02)
[2019-09-03] MEDS ORDERED: methylPREDNISolone SOD SUCCI 125 MG/2 ML VIAL IV STA (09:02)
[2019-09-03] MEDS ORDERED: ORPHENADRINE 30 MG/ML 2 ML VIAL IVP STA (09:02)
[2019-09-03] MEDS ORDERED: KETOROLAC 30 MG/ML 1 ML VIAL IVP STA (09:02)
--- NOTE | 2019-09-03 09:08 | ED ---
Back Pain HPI - General Chief Complaint: Back Pain/Injury Stated Complaint: Back pain Time Seen by Provider: 09/03/19 08:48 Source: EMS, RN notes reviewed, old records reviewed Limitations: no limitations - History of Present Illness Initial Comments: Patient is a 54-year-old female presents restaurant today with treatment of chronic back pain. She denies any new fall or trauma. She denies any saddle anesthesias. Patient reports that she takes Percocet at home without any significant relief of her pain at this time. Patient states that she's had no fevers or chills or weight loss. She has known history of fracture at T12-L1. States she was in a back brace and follows up with Dr. Dunlap. Patient reports that today she felt that her pain management Percocet was not managed. Patient denies any recent fever, chills, shortness of breath, chest pain, abdominal pain, nausea vomiting, numbness or tingling, dysuria or hematuria, constipation or diarrhea, headaches or visual changes, or any other current symptoms - Related Data Home Medications Medication Instructions Recorded Confirmed oxyCODONE-APAP 10-325MG [Percocet 1 tab PO Q6HR PRN 05/06/14 10/10/18 10-325 mg] Previous Rx's Medication Instructions Recorded Lidocaine 5% Patch [Lidoderm] 1 patch TOPICAL DAILY #30 patch 10/11/18 Cyclobenzaprine [Flexeril] 10 mg PO TID #12 tab 09/03/19 Dexamethasone 0.75 mg PO DAILY #12 tab 09/03/19 Ibuprofen 800 mg PO TID #30 tablet 09/03/19 Allergies Allergy/AdvReac Type Severity Reaction Status Date / Time Penicillins Allergy Rash/Hives Verified 09/03/19 08:43 sulfamethoxazole Allergy Unknown Verified 09/03/19 08:43 [From Bactrim] trimethoprim [From Bactrim] Allergy Unknown Verified 09/03/19 08:43 venom-honey bee Allergy Anaphylaxis Verified 09/03/19 08:43 [bee venom (honey bee)] Review of Systems ROS Statement: Those systems with pertinent positive or pertinent negative responses have been documented in the HPI. ROS Other: All systems not noted in ROS Statement are negative. Past Medical History Past Medical History: Fibromyalgia, Thyroid Disorder Additional Past Medical History / Comment(s): back pain, pt states she has lesions on her brain that could be the onset of MS History of Any Multi-Drug Resistant Organisms: None Reported Past Surgical History: Appendectomy, Hysterectomy Additional Past Surgical History / Comment(s): d&c Past Anesthesia/Blood Transfusion Reactions: No Reported Reaction Past Psychological History: Anxiety, Depression, Panic Disorder, PTSD Smoking Status: Current every day smoker Past Alcohol Use History: None Reported Past Drug Use History: None Reported - Past Family History Daughter(s) Family Medical History: Asthma General Exam - General Exam Comments Initial Comments: 54 year old female. Alert and oriented. Patient appears in no significant distress at this time. Limitations: no limitations General appearance: alert Head exam: Present: atraumatic, normocephalic, normal inspection Eye exam: Present: normal appearance, PERRL, EOMI. Absent: scleral icterus, conjunctival injection, periorbital swelling ENT exam: Present: normal exam, mucous membranes moist Neck exam: Present: normal inspection. Absent: tenderness, meningismus, lymphadenopathy Respiratory exam: Present: normal lung sounds bilaterally. Absent: respiratory distress, wheezes, rales, rhonchi, stridor Cardiovascular Exam: Present: regular rate, normal rhythm, normal heart sounds. Absent: systolic murmur, diastolic murmur, rubs, gallop, clicks GI/Abdominal exam: Present: soft, normal bowel sounds. Absent: distended, tenderness, guarding, rebound, rigid Extremities exam: Present: normal inspection, other (2+ dorsalis pedis and posterior tibial pulse bilaterally. Patient has full range of motion of her knees and lower extremities. Strength is 5 out of 5 in lower extremities.) Back exam: Present: normal inspection, full ROM, paraspinal tenderness (Lumbar and thoracic right-sided paraspinal muscle tenderness. No skin changes. No vertebral tenderness at this time.). Absent: CVA tenderness (R), CVA tenderness (L) Neurological exam: Present: alert, oriented X3, CN II-XII intact Psychiatric exam: Present: normal affect, normal mood Skin exam: Present: warm, dry, intact, normal color. Absent: rash Course Vital Signs 09/03/19 08:39 Temperature 98.2 F Pulse Rate 102 H Respiratory 20 Rate Blood Pressure 127/92 O2 Sat by Pulse 98 Oximetry Medical Decision Making - Medical Decision Making Patient is a 34 [place] male with chronic back pain. She presents today via EMS. Patient states the pain is not being managed with her at-home Percocet. At this time Patient has no red flag symptoms. Denies saddle anesthesias. She states that she follows with Dr. Dunlap from pain management. She denies any new fall or trauma. She denies any abdominal pain, or dysuria. At this time Patient has some paraspinal muscle tenderness but no specific lumbar or thoracic vertebral tenderness. Patient states that she occasionally comes in for this. Upon review Patient started to spin to the emergency department multiple times for similar complaints. At this time Patient was given a short course and will start using a temperature medicine and one dose of pain medicine. Patient did tolerate these and states that she is feeling much better. I discussed the Patient can be discharged with a prescription for steroids and muscle relaxers. 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 All questions were answered. Disposition Clinical Impression: Chronic back pain greater than 3 months duration Disposition: HOME SELF-CARE Condition: Good Instructions (If sedation given, give patient instructions): Chronic Back Pain (DC) Additional Instructions: Please use medication as discussed. Please follow up with family doctor if symptoms have not improved over the next two days. Please return to the emergency room if your symptoms increase or worsen or for any other concerns. Prescriptions: Dexamethasone 0.75 mg PO DAILY #12 tab Cyclobenzaprine [Flexeril] 10 mg PO TID #12 tab Ibuprofen 800 mg PO TID #30 tablet Is patient prescribed a controlled substance at d/c from ED?: No Referrals: None,Stated [Primary Care Provider] - 1-2 days Dominique Bernard MD [STAFF PHYSICIAN] - 1-2 days Time of Disposition: 09:06
[2019-09-03 10:19] VITALS: BP 127/85; PULSE 82; RESP 16; TEMP 97.9
== END 2019-09-03 10:19 | disposition home or self-care (01) ==
LOC: EC 08:38
DX: G89.29 Other chronic pain (principal); M54.9 Dorsalgia, unspecified; F17.200 Nicotine dependence, unspecified, uncomplicated; Z88.0 Allergy status to penicillin; Z88.1 Allergy status to other antibiotic agents; Z88.2 Allergy status to sulfonamides; Z91.030 Bee allergy status
CPT/HCPCS: 99284; 96374; 96375 ×3; J2270; J2360; J2930; J1885

== ENCOUNTER 2019-09-03 21:37 | Emergency (ER) | payer OTHER ==
[2019-09-03 21:42] VITALS: TEMP 98.1
[2019-09-03] MEDS ORDERED: MORPHINE SULFATE 4 MG/ML SYRINGE IM STA (21:56)
--- NOTE | 2019-09-03 22:43 | XR ---
EXAMINATION TYPE: XR lumbar spine 2 or 3V DATE OF EXAM: 09/03/2019 COMPARISON: 01/16/2018 HISTORY: Back pain TECHNIQUE: 3 views FINDINGS: Lumbar vertebra have normal alignment. There is mild narrowing at L5-S1 disc. Abdominal aor ta is atheromatous. There is no compression fracture. There is some osteopenia. Sacroiliac joints are intact. IMPRESSION: Mild spondylosis at L5-S1. No fracture. No adverse change compared to old exam.
--- NOTE | 2019-09-03 22:45 | XR ---
EXAMINATION TYPE: XR thoracic spine complete 3 views DATE OF EXAM: 09/03/2019 COMPARISON: 02/14/2018 HISTORY: Back pain. FINDINGS: Thoracic vertebra have normal spacing and alignment. Posterior elements are intact. There is no para spinal mass. IMPRESSION: Normal thoracic spine. No change compared to old chest x-ray.
[2019-09-03 23:28] VITALS: BP 125/75; PULSE 80; RESP 18
[2019-09-03] MEDS ORDERED: ACET/COD 300 MG/30 MG STARTER PACK 6 TAB BTL PO STA (23:33)
[2019-09-03] MEDS ORDERED: KETOROLAC 30 MG/ML 1 ML VIAL IM STA (23:33)
--- NOTE | 2019-09-03 23:33 | ED ---
General Adult HPI - General Chief complaint: Back Pain/Injury Stated complaint: Pain all over Time Seen by Provider: 09/03/19 21:46 Source: patient, RN notes reviewed, old records reviewed Mode of arrival: ambulatory Limitations: no limitations - History of Present Illness Initial comments: 54-year-old female patient past history significant for chronic back pain. CV for chronic back pain. Patient to see seen in this emergency department today for the same problem. Patient points that she follows up with pain management however she ran out of her analgesics early. Patient complains of back pain thoracic and lumbar region denies any recent falls or trauma. Denies any other complaints. Systemic: Pt denies fatigue, fever/chills, rash. Pt denies weakness, night sweats, weight loss. Neuro: Pt denies headache, visual disturbances, syncope or pre-syncope. HEENT: Pt denies ocular discharge or irritation, otalgia, rhinorrhea, pharyngitis or notable lymphadenopathy. Cardiopulmonary: Pt denies chest pain, SOB, heart palpitations, dyspnea on exertion. Abdominal/GI: Pt denies abdominal pain, n/v/d. : Pt denies dysuria, burning w/ urination, frequency/urgency. Denies new onset urinary or bowel incontinence. MSK: Pt denies myalgia, loss of strength or function in extremities. Neuro: Pt denies new onset weakness, paresthesias. - Related Data Home Medications Medication Instructions Recorded Confirmed oxyCODONE-APAP 10-325MG [Percocet 1 tab PO Q6HR PRN 05/06/14 09/03/19 10-325 mg] Previous Rx's Medication Instructions Recorded Cyclobenzaprine [Flexeril] 10 mg PO TID #12 tab 09/03/19 Dexamethasone 0.75 mg PO DAILY #12 tab 09/03/19 Ibuprofen 800 mg PO TID #30 tablet 09/03/19 Allergies Allergy/AdvReac Type Severity Reaction Status Date / Time Penicillins Allergy Rash/Hives Verified 09/03/19 21:42 sulfamethoxazole Allergy Unknown Verified 09/03/19 21:42 [From Bactrim] trimethoprim [From Bactrim] Allergy Unknown Verified 09/03/19 21:42 venom-honey bee Allergy Anaphylaxis Verified 09/03/19 21:42 [bee venom (honey bee)] Review of Systems ROS Statement: Those systems with pertinent positive or pertinent negative responses have been documented in the HPI. ROS Other: All systems not noted in ROS Statement are negative. Past Medical History Past Medical History: Fibromyalgia, Thyroid Disorder Additional Past Medical History / Comment(s): back pain, pt states she has lesions on her brain that could be the onset of MS History of Any Multi-Drug Resistant Organisms: None Reported Past Surgical History: Appendectomy, Hysterectomy Additional Past Surgical History / Comment(s): d&c Past Anesthesia/Blood Transfusion Reactions: No Reported Reaction Past Psychological History: Anxiety, Depression, Panic Disorder, PTSD Smoking Status: Current every day smoker Past Alcohol Use History: None Reported Past Drug Use History: None Reported - Past Family History Daughter(s) Family Medical History: Asthma General Exam - General Exam Comments Initial Comments: Constitutional: NAD, AOX3, Pt has pleasant affect. HEENT: NC/AT, trachea midline, neck supple, no lymphadenopathy. Posterior pharynx non erythematous, without exudates. External ears appear normal, without discharge. Mucous membranes moist. Eyes PERRLA, EOM intact. There is no scleral icterus. No pallor noted. Cardiopulmonary: RRR, no murmurs, rubs or gallops, no JVD noted. Lungs CTAB in anterior and posterior paiz. No peripheral edema. Abdominal exam: Abdomen soft and non-distended. Abdomen non-tender to palpation in all 4 quadrants. Bowel sounds active in LLQ. No hepatosplenomegaly. No ecchymosis Neuro: CN II-XII grossly intact. No nuchal rigidity. No raccon eyes, no feliciano sign, no hemotympanum. No cervical spinal tenderness. MSK: 5 out of 5 strength psoas and quadriceps muscles. Ambulatory without difficulty. Right paralumbar region mildly nontender to palpation. No posterior calf tenderness bilaterally, homans sign negative bilaterally. Posterior tibialis and radial pulse +2 bilaterally. Sensation intact in upper and lower extremities. Full active ROM in upper and lower extremities, 5/5 stregnth. Limitations: no limitations Course Vital Signs 09/03/19 09/03/19 21:39 23:27 Temperature 98.1 F Pulse Rate 133 H 80 Respiratory 26 H 18 Rate Blood Pressure 155/96 125/75 O2 Sat by Pulse 98 98 Oximetry Medical Decision Making - Medical Decision Making 54 year old female patient is ED with chief complaint of chronic back pain. Patient is vital signs stable, afebrile. Physical exam displayed right paralumbar region tender to palpation. Plain films of thoracic and lumbar spine test acute process. Patient pain well-controlled ER. Patient discharged with outpatient follow-up with pain management. Case discussed with Dr. Guevara. Disposition Clinical Impression: Chronic back pain Disposition: HOME SELF-CARE Condition: Stable Instructions (If sedation given, give patient instructions): Back Pain (ED) Additional Instructions: Patient to adhere to previously discussed treatment plan and will take medication(s) as directed. Patient to follow up with PCP in 1-2 days. Patient to return to ED if symptoms do not improve. Follow up with pain management for continued evaluation. Is patient prescribed a controlled substance at d/c from ED?: No Referrals: None,Stated [Primary Care Provider] - 1-2 days
== END 2019-09-04 00:10 | disposition home or self-care (01) ==
LOC: EC 21:37
DX: M54.6 Pain in thoracic spine (principal); M54.5 Low back pain; G89.29 Other chronic pain; M79.7 Fibromyalgia; F17.200 Nicotine dependence, unspecified, uncomplicated; Z88.0 Allergy status to penicillin; Z88.2 Allergy status to sulfonamides; Z91.030 Bee allergy status; Z79.891 Long term (current) use of opiate analgesic
CPT/HCPCS: 72072; 72100; 99284; 96372 ×2; J2270; J1885

== ENCOUNTER 2019-10-01 06:14 | Emergency (ER) | payer OTHER ==
[2019-10-01 06:22] VITALS: BP 149/90; PULSE 90; RESP 17; TEMP 97.8
[2019-10-01] MEDS ORDERED: oxyCODONE-APAP 10-325MG 1 EACH TAB PO STA (06:22)
--- NOTE | 2019-10-01 06:36 | ED ---
Back Pain HPI - General Chief Complaint: Back Pain/Injury Stated Complaint: Generalized Pain Time Seen by Provider: 10/01/19 06:17 Source: convict guard Limitations: no limitations - History of Present Illness Initial Comments: 54 year female with history of fibromyalgia and chronic back pain presents emergency department for medication refill. Patient states she has been out of her medication of Percocet 10 mg for the past 2 days she states that she sees pain management. She openly admits that sometimes movement overnight which is severe pain she does take an extra tablet. She states that she ran out of her prescription to use early. She states she is beginning to have withdrawal symptoms and no longer take it she is unable to sleep and having abdominal upset. Denies any severe abdominal pain chest pain shortness of breath or any other complaints denies any changes in pain from her consistently chronic pain. Patient has no other complaints. Appears well. Brought in by EMS due to not having vehicle. - Related Data Home Medications Medication Instructions Recorded Confirmed oxyCODONE-APAP 10-325MG [Percocet 1 tab PO Q6HR PRN 05/06/14 09/03/19 10-325 mg] Previous Rx's Medication Instructions Recorded Cyclobenzaprine [Flexeril] 10 mg PO TID #12 tab 09/03/19 Dexamethasone 0.75 mg PO DAILY #12 tab 09/03/19 Ibuprofen 800 mg PO TID #30 tablet 09/03/19 oxyCODONE HCL/ACETAMINOPHEN 1 tab PO Q6HR PRN 3 Days #12 tab 10/01/19 [Percocet 10-325 mg] Allergies Allergy/AdvReac Type Severity Reaction Status Date / Time Penicillins Allergy Rash/Hives Verified 10/01/19 06:23 sulfamethoxazole Allergy Unknown Verified 10/01/19 06:23 [From Bactrim] trimethoprim [From Bactrim] Allergy Unknown Verified 10/01/19 06:23 venom-honey bee Allergy Anaphylaxis Verified 10/01/19 06:23 [bee venom (honey bee)] Review of Systems ROS Statement: Those systems with pertinent positive or pertinent negative responses have been documented in the HPI. ROS Other: All systems not noted in ROS Statement are negative. Past Medical History Past Medical History: Fibromyalgia, Thyroid Disorder Additional Past Medical History / Comment(s): back pain, pt states she has lesions on her brain that could be the onset of MS History of Any Multi-Drug Resistant Organisms: None Reported Past Surgical History: Appendectomy, Hysterectomy Additional Past Surgical History / Comment(s): d&c Past Anesthesia/Blood Transfusion Reactions: No Reported Reaction Past Psychological History: Anxiety, Depression, Panic Disorder, PTSD Smoking Status: Current every day smoker Past Alcohol Use History: None Reported Past Drug Use History: None Reported - Past Family History Daughter(s) Family Medical History: Asthma General Exam - General Exam Comments Initial Comments: General: The patient is awake and alert, in no distress, and does not appear acutely ill. Eye: +3 mm pupils are equal, round and reactive to light, extra-ocular movements are intact. No nystagmus. There is normal conjunctiva bilaterally. No signs of icterus. Ears, nose, mouth and throat: There are moist mucous membranes and no oral lesions. Neck: The neck is supple, there is no tenderness or JVD. Cardiovascular: There is a regular rate and rhythm. No murmur, rub or gallop is appreciated. Respiratory: Lungs are clear to auscultation, respirations are non-labored, breath sounds are equal. No wheezes, stridor, rales, or rhonchi. Gastrointestinal: Soft, non-distended, non-tender abdomen without masses or organomegaly noted. There is no rebound or guarding present. Musculoskeletal: Normal ROM, no tenderness. Strength 5/5. Sensation intact. Pulses equal bilaterally 2+. Neurological: A&O x 3. CN II-XII intact grossly, There are no obvious motor or sensory deficits. Coordination appears grossly intact. Speech is normal. Skin: Skin is warm and dry and no rashes or lesions are noted. No LE edema. Psychiatric: Cooperative, appropriate mood & affect, normal judgment. Limitations: no limitations Course Vital Signs 10/01/19 06:15 Temperature 97.8 F Pulse Rate 90 Respiratory 17 Rate Blood Pressure 149/90 O2 Sat by Pulse 98 Oximetry Medical Decision Making - Medical Decision Making 54 year old female presenting to emergency department for chief complaint of medication refill. Patient out of her chronic pain medication denies a change in her chronic pain. Patient states she is having withdrawals. I discussed the importance of keeping her contract with pain management as far as outpatient prescriptions, she verbalized understanding that this may interfere with future prescription. Patient MAPS reviewed, consistent with history, only 1 prescriber. Patient discharged after discussing case with attending Dr. Shipley who is agreeable with discharge at this time. Disposition Clinical Impression: Fibromyalgia, Chronic pain, Medication refill Disposition: HOME SELF-CARE Condition: Good Instructions (If sedation given, give patient instructions): Opioid Withdrawal (ED), Opioid Safety (ED) Additional Instructions: Please use medication as discussed. Please follow-up with pain management on as discussed. Please return to emergency room if the symptoms increase or worsen or for any other concerns. Prescriptions: oxyCODONE HCL/ACETAMINOPHEN [Percocet 10-325 mg] 1 tab PO Q6HR PRN 3 Days #12 tab PRN Reason: Severe Pain Is patient prescribed a controlled substance at d/c from ED?: Yes When asked, does pt state using other controlled substances?: Yes If prescribed controlled substance>3 days was MAPS reviewed?: Prescribed <3 Days If opioid is for acute pain is fill amount 7 days or less?: Yes If Rx opioid, was Start Talking consent form obtained?: Yes Referrals: None,Stated [Primary Care Provider] - 1-2 days [facility] Josesito morton [NON-STAFF] - 1-2 days Time of Disposition: 06:34
== END 2019-10-01 07:03 | disposition home or self-care (01) ==
LOC: EC 06:14
DX: M79.7 Fibromyalgia (principal); G89.29 Other chronic pain; M54.9 Dorsalgia, unspecified; Z76.0 Encounter for issue of repeat prescription; F19.939 Other psychoactive substance use, unspecified with withdrawal, unspecified; F17.200 Nicotine dependence, unspecified, uncomplicated; Z88.0 Allergy status to penicillin; Z88.2 Allergy status to sulfonamides; Z88.1 Allergy status to other antibiotic agents; Z91.030 Bee allergy status
CPT/HCPCS: 99284

== ENCOUNTER 2019-10-02 02:42 | Emergency (ER) | payer OTHER ==
[2019-10-02 02:49] VITALS: TEMP 98.4
--- NOTE | 2019-10-02 02:55 | ED ---
General Adult HPI - General Chief complaint: Back Pain/Injury Stated complaint: Vomiting,Back Pain Time Seen by Provider: 10/02/19 02:54 Source: EMS Mode of arrival: EMS Limitations: no limitations - History of Present Illness Initial comments: Laury is a 54-year-old female with a history of chronic back pain for which she follows with pain management and has been on Percocet 4 pills daily for a number of years. Patient admits she may have been taking extra pills over the past month and subsequently ran out of her medication 4 days early. Patient reports she ran medications on Monday, she was seen and evaluated in emergency department yesterday she was given a single pill which improved her symptoms of withdrawal, she was given a short prescription for Percocet however the pharmacy would not fill it due to her scheduled refill of 120 pills for . Patient contact her pain management doctor who will not refill her meds before . Patient reports she feels nauseated she's having diarrhea, cold sweats generalized muscle aches. Patient states that she has ran out of her medication one or 2 days early before and gone through some withdrawal but never this bad. Patient has been on narcotic pain medication for greater than 4 years. She denies any acute injuries falls or change in her pain. - Related Data Home Medications Medication Instructions Recorded Confirmed oxyCODONE-APAP 10-325MG [Percocet 1 tab PO Q6HR PRN 05/06/14 09/03/19 10-325 mg] Previous Rx's Medication Instructions Recorded Cyclobenzaprine [Flexeril] 10 mg PO TID #12 tab 09/03/19 Dexamethasone 0.75 mg PO DAILY #12 tab 09/03/19 Ibuprofen 800 mg PO TID #30 tablet 09/03/19 oxyCODONE HCL/ACETAMINOPHEN 1 tab PO Q6HR PRN 3 Days #12 tab 10/01/19 [Percocet 10-325 mg] Allergies Allergy/AdvReac Type Severity Reaction Status Date / Time Penicillins Allergy Rash/Hives Verified 10/02/19 02:50 sulfamethoxazole Allergy Unknown Verified 10/02/19 02:50 [From Bactrim] trimethoprim [From Bactrim] Allergy Unknown Verified 10/02/19 02:50 venom-honey bee Allergy Anaphylaxis Verified 10/02/19 02:50 [bee venom (honey bee)] Review of Systems ROS Statement: Those systems with pertinent positive or pertinent negative responses have been documented in the HPI. ROS Other: All systems not noted in ROS Statement are negative. Past Medical History Past Medical History: Fibromyalgia, Thyroid Disorder Additional Past Medical History / Comment(s): back pain, pt states she has lesions on her brain that could be the onset of MS, History of Any Multi-Drug Resistant Organisms: None Reported Past Surgical History: Appendectomy, Hysterectomy Additional Past Surgical History / Comment(s): d&c, Past Anesthesia/Blood Transfusion Reactions: No Reported Reaction Past Psychological History: Anxiety, Depression, Panic Disorder, PTSD Smoking Status: Current every day smoker Past Alcohol Use History: None Reported Past Drug Use History: Opiates, Prescription Drug Abuse - Past Family History Daughter(s) Family Medical History: Asthma General Exam - General Exam Comments Initial Comments: Physical Exam GENERAL: Patient is well-developed and well-nourished. Patient is nontoxic and well-hydrated and is in no distress. HENT: Normocephalic, Atraumatic. EYES: PERRL, EOMI PULMONARY: Unlabored respirations. CARDIOVASCULAR: RRR Warm and well perfused extremities ABDOMEN: Non-distended SKIN: No rashes or bruising Skin is Moist, patient is noted to be sweating and have piloerection : Deferred NEUROLOGIC: Alert and oriented Normal speech Normal gait MUSCULOSKELETAL: Moving all extremities with no apparent injury PSYCHIATRIC: No SI/HI Limitations: no limitations Course Vital Signs 10/02/19 10/02/19 02:43 03:21 Temperature 98.4 F Pulse Rate 99 101 H Respiratory 17 18 Rate Blood Pressure 98/67 131/82 O2 Sat by Pulse 94 L 94 L Oximetry Medical Decision Making - Medical Decision Making Patient was seen and evaluated, history is obtained from the patient, patient is dependent on narcotic pain medication and admits to taking extra medicines over the past month, therefore she grew Percocet 4 days early. Her withdrawal was abated somewhat after having a single dose of oral Percocet yesterday however she continues to have symptoms today and was unable to fill her prescription. Her pain management doctor would not fill her prescription early. She sees them on . On physical exam the patient appears to be acutely withdrawing, her skin is moist to the touch, she is clearly uncomfortable, she has piloerection. She's been experiencing nausea and diarrhea. At this point I do not feel it would benefit the patient to force her to withdraw for another day and a half, she will be given a Tylenol 3 starter pack to get her through until she gets her prescription filled. The long discussion with the patient about her narcotic dependence and need to follow up with pain management to discuss alternate pain management options. Patient does not have primary care and requests referral to a new clock and watch hands painter. Referrals to both were given at discharge. Disposition Clinical Impression: Chronic back pain greater than 3 months duration, Narcotic dependence Disposition: HOME SELF-CARE Condition: Stable Instructions (If sedation given, give patient instructions): Fibromyalgia (ED), Pain Management (ED), Chronic Pain (ED) Is patient prescribed a controlled substance at d/c from ED?: No Referrals: None,Stated [Primary Care Provider] - 1-2 days Dav Caba MD [STAFF PHYSICIAN] - 1-2 days Shanae Hidalgo MD [REFERRING] - 1-2 days Ameena Tapia MD [STAFF PHYSICIAN] - 1-2 days Tracey Oshea DO [Doctor of Osteopathic Medicine] - 1-2 days
[2019-10-02] MEDS ORDERED: ACET/COD 300 MG/30 MG STARTER PACK 6 TAB BTL PO STA (03:02)
[2019-10-02 03:21] VITALS: BP 131/82; PULSE 101; RESP 18
== END 2019-10-02 03:25 | disposition home or self-care (01) ==
LOC: EC 02:42
DX: G89.29 Other chronic pain (principal); M54.9 Dorsalgia, unspecified; F11.20 Opioid dependence, uncomplicated; F17.200 Nicotine dependence, unspecified, uncomplicated; Z88.0 Allergy status to penicillin; Z88.2 Allergy status to sulfonamides; Z91.030 Bee allergy status
CPT/HCPCS: 99284

== ENCOUNTER 2019-11-03 16:09 | Emergency (ER) | payer OTHER ==
[2019-11-03] MEDS ORDERED: HYDROmorphone 1 MG/ML 1 ML SYRINGE IVP STA (16:20)
[2019-11-03] MEDS ORDERED: ORPHENADRINE 30 MG/ML 2 ML VIAL IVP STA (16:20)
[2019-11-03] MEDS ORDERED: KETOROLAC 30 MG/ML 1 ML VIAL IVP STA (16:20)
--- NOTE | 2019-11-03 16:26 | ED ---
General Adult HPI - General Stated complaint: BACK PAIN Time Seen by Provider: 11/03/19 16:12 Source: patient, EMS, RN notes reviewed Mode of arrival: EMS Limitations: no limitations - History of Present Illness Initial comments: 54-year-old female presents emergency Department with chief complaint of chronic back pain exacerbation. Patient has increasing back pain, fibromyalgia issues. Patient does take chronic pain medication states is not helping. Patient states that she's has pain diffusely primary back. Patient offers no other complaints this time denies any medication changes. She did not run out of her medications. Patient denies fever, chills, headache, dizziness, shortness breath, vomiting diarrhea constipation. - Related Data Home Medications Medication Instructions Recorded Confirmed oxyCODONE-APAP 10-325MG [Percocet 1 tab PO Q6HR PRN 05/06/14 09/03/19 10-325 mg] Previous Rx's Medication Instructions Recorded Cyclobenzaprine [Flexeril] 10 mg PO TID #12 tab 09/03/19 Dexamethasone 0.75 mg PO DAILY #12 tab 09/03/19 Ibuprofen 800 mg PO TID #30 tablet 09/03/19 oxyCODONE HCL/ACETAMINOPHEN 1 tab PO Q6HR PRN 3 Days #12 tab 10/01/19 [Percocet 10-325 mg] Allergies Allergy/AdvReac Type Severity Reaction Status Date / Time Penicillins Allergy Rash/Hives Verified 10/02/19 02:50 sulfamethoxazole Allergy Unknown Verified 10/02/19 02:50 [From Bactrim] trimethoprim [From Bactrim] Allergy Unknown Verified 10/02/19 02:50 venom-honey bee Allergy Anaphylaxis Verified 10/02/19 02:50 [bee venom (honey bee)] Review of Systems ROS Statement: Those systems with pertinent positive or pertinent negative responses have been documented in the HPI. ROS Other: All systems not noted in ROS Statement are negative. Past Medical History Past Medical History: Fibromyalgia, Thyroid Disorder Additional Past Medical History / Comment(s): back pain, pt states she has lesions on her brain that could be the onset of MS, History of Any Multi-Drug Resistant Organisms: None Reported Past Surgical History: Appendectomy, Hysterectomy Additional Past Surgical History / Comment(s): d&c, Past Anesthesia/Blood Transfusion Reactions: No Reported Reaction Past Psychological History: Anxiety, Depression, Panic Disorder, PTSD Smoking Status: Current every day smoker Past Alcohol Use History: None Reported Past Drug Use History: Opiates, Prescription Drug Abuse - Past Family History Daughter(s) Family Medical History: Asthma General Exam Limitations: no limitations General appearance: alert, in no apparent distress Head exam: Present: atraumatic, normocephalic, normal inspection Eye exam: Present: normal appearance, PERRL, EOMI. Absent: scleral icterus, conjunctival injection, periorbital swelling ENT exam: Present: normal exam, normal oropharynx, mucous membranes moist Neck exam: Present: normal inspection, full ROM. Absent: tenderness, meningismus, lymphadenopathy Respiratory exam: Present: normal lung sounds bilaterally. Absent: respiratory distress, wheezes, rales, rhonchi, stridor Cardiovascular Exam: Present: regular rate, normal rhythm, normal heart sounds. Absent: systolic murmur, diastolic murmur, rubs, gallop, clicks Extremities exam: Present: normal inspection, full ROM, normal capillary refill. Absent: tenderness, pedal edema, joint swelling, calf tenderness Back exam: Present: full ROM, tenderness, paraspinal tenderness, vertebral tenderness Neurological exam: Present: alert, oriented X3 Skin exam: Present: warm, dry, intact, normal color. Absent: rash Medical Decision Making - Medical Decision Making Patient presented for acute exacerbation of chronic back issues. Patient has no red flag symptoms denies any bowel bladder incontinence or retention. Patient be discharged after pain medication return parameters were discussed. Disposition Clinical Impression: Acute exacerbation of chronic low back pain Disposition: HOME SELF-CARE Condition: Stable Instructions (If sedation given, give patient instructions): Chronic Back Pain (DC) Additional Instructions: Please return to the Emergency Department if symptoms worsen or any other concerns. Is patient prescribed a controlled substance at d/c from ED?: No Referrals: None,Stated [Primary Care Provider] - 1-2 days Time of Disposition: 16:25
[2019-11-03 16:33] VITALS: BP 127/75; PULSE 72; RESP 16; TEMP 97.9
== END 2019-11-03 18:02 | disposition home or self-care (01) ==
LOC: EC 16:09
DX: G89.29 Other chronic pain (principal); M54.5 Low back pain; M79.7 Fibromyalgia; F11.10 Opioid abuse, uncomplicated; F17.200 Nicotine dependence, unspecified, uncomplicated; Z88.0 Allergy status to penicillin; Z88.2 Allergy status to sulfonamides; Z88.1 Allergy status to other antibiotic agents; Z91.030 Bee allergy status
CPT/HCPCS: 99284; 96374; 96375 ×2; J2360; J1885; J1170

== ENCOUNTER 2020-01-07 13:07 | Emergency (ER) | payer OTHER ==
[2020-01-07] MEDS ORDERED: SODIUM CHLORIDE 0.9% 1,000 ML IV STA (13:49)
[2020-01-07] MEDS ORDERED: ACET/COD 300 MG/30 MG STARTER PACK 6 TAB BTL PO STA (14:24)
[2020-01-07] MEDS ORDERED: KETOROLAC 30 MG/ML 1 ML VIAL IVP STA (14:24)
[2020-01-07] MEDS ORDERED: HYDROmorphone 0.5 MG/0.5 ML SYRINGE IVP STA (14:24)
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
[2020-01-07 14:31] LABS: Basophils % (A) 0 %; Eosinophils % (A) 0 %; HCT 44.2 % (34.0-46.0); HGB 14.8 gm/dL (11.4-16.0); Lymphocytes # (A) 1.3 k/uL (1.0-4.8); Lymphocytes % (A) 12 %; MCH 30.7 pg (25.0-35.0); MCHC 33.5 g/dL (31.0-37.0); MCV 91.6 fL (80.0-100.0); Mean Platelet Volume 8.3; Monocytes # (A) 0.5 k/uL (0-1.0); Monocytes % (A) 5 %; Neutrophils # (A) 8.3 k/uL (1.3-7.7); Neutrophils % (A) 82 %; Platelet Count 228 k/uL (150-450); RBC 4.82 m/uL (3.80-5.40); RDW 12.5 % (11.5-15.5); WBC 10.2 k/uL (3.8-10.6)
[2020-01-07 14:42] LABS: African American GFR (CKD) >90 (>60 ml/min/1.73 sqM); Anion Gap 8 mmol/L; Blood Urea Nitrogen 11 mg/dL (7-17); Calcium 9.7 mg/dL (8.4-10.2); Carbon Dioxide 26 mmol/L (22-30); Chloride 106 mmol/L (98-107); Glucose 113 mg/dL (74-99); Non-African American GFR(CKD) >90 (>60 ml/min/1.73 sqM); Potassium 3.5 mmol/L (3.5-5.1); Sodium 140 mmol/L (137-145)
[2020-01-07 14:43] VITALS: BP 129/80; PULSE 79; RESP 18; TEMP 98.4
== END 2020-01-07 14:54 | disposition home or self-care (01) ==
LOC: EC 13:07
DX: G89.29 Other chronic pain (principal); M54.9 Dorsalgia, unspecified; M79.7 Fibromyalgia; R50.9 Fever, unspecified; F11.10 Opioid abuse, uncomplicated; F17.200 Nicotine dependence, unspecified, uncomplicated; Z76.5 Malingerer [conscious simulation]; Z88.0 Allergy status to penicillin; Z88.2 Allergy status to sulfonamides; Z88.1 Allergy status to other antibiotic agents; Z91.030 Bee allergy status
CPT/HCPCS: 36415; 93005; 80048; 85025; 99284; 96374; 96375; 96361; J1885; J1170

== ENCOUNTER 2020-02-04 19:39 | Emergency (ER) | payer OTHER ==
[2020-02-04 19:49] VITALS: TEMP 98.2
[2020-02-04 20:30] VITALS: RESP 18
[2020-02-04] MEDS ORDERED: cloNIDine 0.1 MG/24HR PATCH TRANSDERM STA (20:33)
[2020-02-04] MEDS ORDERED: ACET/COD 300 MG/30 MG STARTER PACK 6 TAB BTL PO STA (20:33)
[2020-02-04] MEDS ORDERED: HYDROmorphone 1 MG/ML 1 ML SYRINGE IM STA (20:33)
--- NOTE | 2020-02-04 20:38 | ED ---
Recheck HPI - General Chief Complaint: Neck Pain/Injury Stated Complaint: Back Pain Time Seen by Provider: 02/04/20 19:52 Source: patient, RN notes reviewed, old records reviewed Mode of arrival: ambulatory Limitations: no limitations - History of Present Illness Initial Comments: This is a 55-year-old female DF for evaluation no new injuries or trauma no fevers no falls. No neurological complaints no loss of bowel or bladder patient is going to some mild pain medication opiate withdrawal history of opiate use. Patient denying any new symptoms aside from the pain medication needed MD Complaint: other (pain control) -: days(s) Initial Visit For: other (pain) Returns Today for: Called Because of Abnormal Lab/Test Symptoms Since Prior Visit: no new symptoms Context: planned re-check Associated Symptoms: none Treatments Prior to Arrival: other medications - Related Data Home Medications Medication Instructions Recorded Confirmed oxyCODONE-APAP 10-325MG [Percocet 1 tab PO Q6HR PRN 05/06/14 01/07/20 10-325 mg] Allergies Allergy/AdvReac Type Severity Reaction Status Date / Time Penicillins Allergy Rash/Hives Verified 02/04/20 19:49 sulfamethoxazole Allergy Unknown Verified 02/04/20 19:49 [From Bactrim] trimethoprim [From Bactrim] Allergy Unknown Verified 02/04/20 19:49 venom-honey bee Allergy Anaphylaxis Verified 02/04/20 19:49 [bee venom (honey bee)] Review of Systems ROS Statement: Those systems with pertinent positive or pertinent negative responses have been documented in the HPI. ROS Other: All systems not noted in ROS Statement are negative. Past Medical History Past Medical History: Fibromyalgia, Thyroid Disorder Additional Past Medical History / Comment(s): back pain, pt states she has lesions on her brain that could be the onset of MS, History of Any Multi-Drug Resistant Organisms: None Reported Past Surgical History: Appendectomy, Hysterectomy Additional Past Surgical History / Comment(s): d&c, Past Anesthesia/Blood Transfusion Reactions: No Reported Reaction Past Psychological History: Anxiety, Depression, Panic Disorder, PTSD Smoking Status: Current every day smoker Past Alcohol Use History: None Reported Past Drug Use History: Opiates, Prescription Drug Abuse - Past Family History Daughter(s) Family Medical History: Asthma General Exam Limitations: no limitations General appearance: alert, in no apparent distress Head exam: Present: atraumatic, normocephalic, normal inspection Eye exam: Present: normal appearance, PERRL, EOMI. Absent: scleral icterus, conjunctival injection, periorbital swelling ENT exam: Present: normal exam, mucous membranes moist Neck exam: Present: normal inspection. Absent: tenderness, meningismus, lymphadenopathy Respiratory exam: Present: normal lung sounds bilaterally. Absent: respiratory distress, wheezes, rales, rhonchi, stridor Cardiovascular Exam: Present: normal rhythm, tachycardia, normal heart sounds. Absent: systolic murmur, diastolic murmur, rubs, gallop, clicks GI/Abdominal exam: Present: soft, normal bowel sounds. Absent: distended, tenderness, guarding, rebound, rigid Extremities exam: Present: normal inspection, full ROM, normal capillary refill. Absent: tenderness, pedal edema, joint swelling, calf tenderness Back exam: Present: normal inspection Neurological exam: Present: alert, oriented X3, CN II-XII intact Psychiatric exam: Present: normal affect, normal mood Skin exam: Present: warm, dry, intact, normal color. Absent: rash Course Vital Signs 02/04/20 02/04/20 19:46 20:29 Temperature 98.2 F Pulse Rate 138 H 120 H Respiratory 20 18 Rate Blood Pressure 100/73 O2 Sat by Pulse 95 99 Oximetry - Reevaluation(s) Reevaluation #1: 02/04/20 20:36 medical record is reviewed Reevaluation #2: 02/04/20 20:37 patients pain is controlled Medical Decision Making - Medical Decision Making 55 female to the ER for evaluation patient with us today for evaluation regards to back pain acute on chronic back pain patient given pain control can be discharged home Disposition Clinical Impression: Mechanical back pain, Medicine refill Disposition: HOME SELF-CARE Condition: Good Instructions (If sedation given, give patient instructions): Chronic Back Pain (DC) Is patient prescribed a controlled substance at d/c from ED?: No Referrals: Rajeev Grajeda MD [Primary Care Provider] - 1-2 days
[2020-02-04 20:57] VITALS: BP 115/75; PULSE 110
== END 2020-02-04 21:03 | disposition home or self-care (01) ==
LOC: EC 19:39
DX: M54.9 Dorsalgia, unspecified (principal); Z76.0 Encounter for issue of repeat prescription; F17.200 Nicotine dependence, unspecified, uncomplicated; Z88.0 Allergy status to penicillin; Z88.1 Allergy status to other antibiotic agents; Z88.2 Allergy status to sulfonamides; Z91.030 Bee allergy status
CPT/HCPCS: 99283; 96372; J1170

== ENCOUNTER 2020-02-17 15:17 | Emergency (ER) | payer OTHER ==
[2020-02-17 15:27] VITALS: BP 128/86; PULSE 112; RESP 22; TEMP 98.5
[2020-02-17] MEDS ORDERED: KETOROLAC 30 MG/ML 1 ML VIAL IM STA (16:00)
[2020-02-17] MEDS ORDERED: ACET/COD 300 MG/30 MG STARTER PACK 6 TAB BTL PO STA (16:00)
[2020-02-17] MEDS ORDERED: MORPHINE SULFATE 4 MG/ML SYRINGE IM STA (16:00)
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
== END 2020-02-17 16:22 | disposition home or self-care (01) ==
LOC: EC 15:17
DX: G89.29 Other chronic pain (principal); M54.9 Dorsalgia, unspecified; F17.200 Nicotine dependence, unspecified, uncomplicated; Z88.0 Allergy status to penicillin; Z88.1 Allergy status to other antibiotic agents; Z88.2 Allergy status to sulfonamides; Z91.030 Bee allergy status
CPT/HCPCS: 99283; 96372 ×2; J2270; J1885

== ENCOUNTER 2020-02-18 05:36 | Emergency (ER) | payer OTHER ==
[2020-02-18 05:42] VITALS: RESP 18
[2020-02-18] MEDS ORDERED: LORazepam 2 MG/ML INJ IV STA (06:29)
[2020-02-18] MEDS ORDERED: HYDROmorphone 0.5 MG/0.5 ML SYRINGE IVP STA (06:29)
[2020-02-18 06:32] LABS: Basophils % (A) 0 %; Eosinophils # (A) 0.1 k/uL (0-0.7); Eosinophils % (A) 1 %; HCT 41.5 % (34.0-46.0); Lymphocytes # (A) 2.1 k/uL (1.0-4.8); Lymphocytes % (A) 25 %; MCH 30.6 pg (25.0-35.0); MCHC 33.9 g/dL (31.0-37.0); MCV 90.3 fL (80.0-100.0); Monocytes # (A) 0.5 k/uL (0-1.0); Monocytes % (A) 6 %; Neutrophils # (A) 5.5 k/uL (1.3-7.7); Neutrophils % (A) 66 %; Platelet Count 208 k/uL (150-450); RBC 4.59 m/uL (3.80-5.40); RDW 12.5 % (11.5-15.5); WBC 8.4 k/uL (3.8-10.6)
[2020-02-18 06:37] VITALS: BP 115/85; PULSE 86
[2020-02-18 06:42] LABS: ALT 12 U/L (4-34); AST 19 U/L (14-36); African American GFR (CKD) >90 (>60 ml/min/1.73 sqM); Albumin 4.2 g/dL (3.5-5.0); Alkaline Phosphatase 77 U/L (38-126); Anion Gap 7 mmol/L; Blood Urea Nitrogen 10 mg/dL (7-17); Calcium 9.3 mg/dL (8.4-10.2); Carbon Dioxide 25 mmol/L (22-30); Chloride 105 mmol/L (98-107); Glucose 106 mg/dL (74-99); Non-African American GFR(CKD) >90 (>60 ml/min/1.73 sqM); Potassium 3.9 mmol/L (3.5-5.1); Sodium 137 mmol/L (137-145); Total Bilirubin 0.6 mg/dL (0.2-1.3); Total Protein 6.9 g/dL (6.3-8.2)
--- NOTE | 2020-02-18 06:44 | ED ---
Back Pain HPI - General Chief Complaint: Back Pain/Injury Stated Complaint: Back pain Source: patient, EMS - History of Present Illness Initial Comments: 55-year-old female presenting today for chief complaint of mid back pain x 3 days. Patient states that she has history of a thoracic bulging disc. She states the pain is midline. She denies any change in characteristic for her chronic back pain. She states she had recent MRI. No known aneurysm. Patient denies any chest pain abdominal pain and shortness of breath. Patient states that she was reduced from 4 Percocet to 2 Percocet she believes she is withdrawing from opioids. Patient states that her primary care provider is currently managing her pain management since he is going to increase the Percocet this afternoon. Patient states she presented yesterday however she states enough medications to hold her over until today. Patient is a vomiting, nausea, or diarrhea. Patient denies fevers, IVDU, history of cancer, denies arm weakness, leg weakness, sensation deficits, loss of bowel/bladder control. Patient has no other complaints, presenting for pain control. - Related Data Home Medications Medication Instructions Recorded Confirmed oxyCODONE-APAP 10-325MG [Percocet 1 tab PO Q6HR PRN 05/06/14 01/07/20 10-325 mg] Allergies Allergy/AdvReac Type Severity Reaction Status Date / Time Penicillins Allergy Rash/Hives Verified 02/17/20 15:27 sulfamethoxazole Allergy Unknown Verified 02/17/20 15:27 [From Bactrim] trimethoprim [From Bactrim] Allergy Unknown Verified 02/17/20 15:27 venom-honey bee Allergy Anaphylaxis Verified 02/17/20 15:27 [bee venom (honey bee)] Review of Systems ROS Statement: Those systems with pertinent positive or pertinent negative responses have been documented in the HPI. ROS Other: All systems not noted in ROS Statement are negative. Past Medical History Past Medical History: Fibromyalgia, Thyroid Disorder Additional Past Medical History / Comment(s): back pain, pt states she has lesions on her brain that could be the onset of MS, History of Any Multi-Drug Resistant Organisms: None Reported Past Surgical History: Appendectomy, Hysterectomy Additional Past Surgical History / Comment(s): d&c, Past Anesthesia/Blood Transfusion Reactions: No Reported Reaction Past Psychological History: Anxiety, Depression, Panic Disorder, PTSD Smoking Status: Current every day smoker Past Alcohol Use History: None Reported Past Drug Use History: Opiates, Prescription Drug Abuse - Past Family History Daughter(s) Family Medical History: Asthma General Exam - General Exam Comments Initial Comments: General: The patient is awake and alert, in no distress, and does not appear acutely ill. Eye: Pupils are equal, round and reactive to light, extra-ocular movements are intact. No nystagmus. There is normal conjunctiva bilaterally. No signs of icterus. Ears, nose, mouth and throat: There are moist mucous membranes and no oral lesions. Neck: The neck is supple, there is no tenderness or JVD. Cardiovascular: There is a regular rate and rhythm. No murmur, rub or gallop is appreciated. Respiratory: Lungs are clear to auscultation, respirations are non-labored, breath sounds are equal. No wheezes, stridor, rales, or rhonchi. GI: No abdominal pain to palpation or pulsatile masses. Musculoskeletal: Midline tenderness to palpation of the thoracic spine, mid/lower-patient nearly jumps to palpation, no skin changes. No pain of cervical or lumbar spine. Normal ROM, no tenderness of the UE and LE. Strength 5/5 of the UE and LE. Sensation intact of the UE and LE b/l equal. Radial pulses equal bilaterally 2+. Ambulating without difficulty. Neurological: A&O x 3. CN II-XII intact grossly, There are no obvious motor or sensory deficits. Coordination appears grossly intact. Speech is normal. Skin: Skin is warm and dry and no rashes or lesions are noted. Psychiatric: Cooperative, appropriate mood & affect, normal judgment. Course Vital Signs 02/18/20 02/18/20 02/18/20 05:39 06:37 07:24 Temperature 98.5 F 98 F Pulse Rate 105 H 86 Respiratory 18 18 Rate Blood Pressure 136/104 115/85 O2 Sat by Pulse 100 97 Oximetry Medical Decision Making - Medical Decision Making 55yo female presenting today for cc of thoracic back pain. Very reproducible. Pt described as typical back pain. Pt thinks she is withdrawing from opiods as her rx reduced. to be refilled today. Patient dimer (-). Labs WNL. NO chest pain no SOB. Patient is neurvascularly intact. Patient BP normalized. She states she feels better after treatment, will discharge with pcp f/u. Dr. Gonzalez agreeable to care plan. - Lab Data Result diagrams: 02/18/20 06:22 02/18/20 06:22 Lab Results 02/18/20 02/18/20 02/18/20 Range/Units 06:22 06:22 06:22 WBC 8.4 (3.8-10.6) k/uL RBC 4.59 (3.80-5.40) m/uL Hgb 14.0 (11.4-16.0) gm/dL Hct 41.5 (34.0-46.0) % MCV 90.3 (80.0-100.0) fL MCH 30.6 (25.0-35.0) pg MCHC 33.9 (31.0-37.0) g/dL RDW 12.5 (11.5-15.5) % Plt Count 208 (150-450) k/uL Neutrophils % 66 % Lymphocytes % 25 % Monocytes % 6 % Eosinophils % 1 % Basophils % 0 % Neutrophils # 5.5 (1.3-7.7) k/uL Lymphocytes # 2.1 (1.0-4.8) k/uL Monocytes # 0.5 (0-1.0) k/uL Eosinophils # 0.1 (0-0.7) k/uL Basophils # 0.0 (0-0.2) k/uL D-Dimer 0.23 (<0.60) mg/L FEU Sodium 137 (137-145) mmol/L Potassium 3.9 (3.5-5.1) mmol/L Chloride 105 (98-107) mmol/L Carbon Dioxide 25 (22-30) mmol/L Anion Gap 7 mmol/L BUN 10 (7-17) mg/dL Creatinine 0.51 L (0.52-1.04) mg/dL Est GFR (CKD-EPI)AfAm >90 (>60 ml/min/1.73 sqM) Est GFR (CKD-EPI)NonAf >90 (>60 ml/min/1.73 sqM) Glucose 106 H (74-99) mg/dL Calcium 9.3 (8.4-10.2) mg/dL Total Bilirubin 0.6 (0.2-1.3) mg/dL AST 19 (14-36) U/L ALT 12 (4-34) U/L Alkaline Phosphatase 77 (38-126) U/L Total Protein 6.9 (6.3-8.2) g/dL Albumin 4.2 (3.5-5.0) g/dL Disposition Clinical Impression: Chronic back pain, Elevated blood pressure reading Disposition: HOME SELF-CARE Condition: Good Instructions (If sedation given, give patient instructions): Acute Low Back Pain (ED) Additional Instructions: Please use medication as discussed. Please follow-up with family doctor in the next 2 days. Please return to emergency room if the symptoms increase or worsen or for any other concerns. Is patient prescribed a controlled substance at d/c from ED?: No Referrals: Rajeev Grajeda MD [Primary Care Provider] - 1-2 days Time of Disposition: 07:07
[2020-02-18 07:25] VITALS: TEMP 98
== END 2020-02-18 07:24 | disposition home or self-care (01) ==
LOC: EC 05:36
DX: M54.6 Pain in thoracic spine (principal); G89.29 Other chronic pain; R03.0 Elevated blood-pressure reading, without diagnosis of hypertension; Z76.0 Encounter for issue of repeat prescription; F17.200 Nicotine dependence, unspecified, uncomplicated; Z88.0 Allergy status to penicillin; Z88.2 Allergy status to sulfonamides; Z91.030 Bee allergy status
CPT/HCPCS: 36415; 85379; 80053; 85025; 99284; 96374; 96375; J2060; J1170

== ENCOUNTER 2020-02-24 05:37 | Emergency (ER) | payer OTHER ==
[2020-02-24] MEDS ORDERED: cloNIDine 0.3 MG/24HR PATCH TRANSDERM STA (05:43)
[2020-02-24] MEDS ORDERED: ACET/COD 300 MG/30 MG STARTER PACK 6 TAB BTL PO STA (05:43)
[2020-02-24] MEDS ORDERED: HYDROmorphone 1 MG/ML 1 ML SYRINGE IVP STA (05:43)
[2020-02-24] MEDS ORDERED: DEXAMETHASONE SOD PHOSPHATE 10 MG/ML 1 ML VIAL IV STA (05:43)
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
[2020-02-24 05:46] VITALS: TEMP 98.3
[2020-02-24 06:39] VITALS: BP 117/82; PULSE 89; RESP 18
== END 2020-02-24 06:42 | disposition home or self-care (01) ==
LOC: EC 05:37
DX: Z76.0 Encounter for issue of repeat prescription (principal); G89.29 Other chronic pain; M54.9 Dorsalgia, unspecified; F17.200 Nicotine dependence, unspecified, uncomplicated; Z88.0 Allergy status to penicillin; Z88.2 Allergy status to sulfonamides; Z91.030 Bee allergy status
CPT/HCPCS: 99284; 96374; 96375; J1100; J1170

== ENCOUNTER 2020-04-10 07:56 | Emergency (ER) | payer OTHER ==
[2020-04-10 08:05] VITALS: BP 125/90; PULSE 106; RESP 18; TEMP 98.7
[2020-04-10] MEDS ORDERED: HYDROmorphone 1 MG/ML 1 ML SYRINGE IVP STA (08:13)
[2020-04-10] MEDS ORDERED: ORPHENADRINE 30 MG/ML 2 ML VIAL IVP STA (08:13)
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
== END 2020-04-10 08:47 | disposition home or self-care (01) ==
LOC: EC 07:56
DX: G89.29 Other chronic pain (principal); M54.9 Dorsalgia, unspecified; T50.991A Poisoning by other drugs, medicaments and biological substances, accidental (unintentional), initial encounter; F17.200 Nicotine dependence, unspecified, uncomplicated; Z88.0 Allergy status to penicillin; Z88.2 Allergy status to sulfonamides; Z88.1 Allergy status to other antibiotic agents; Z91.030 Bee allergy status; Z87.81 Personal history of (healed) traumatic fracture
CPT/HCPCS: 96374; 96375; 99284; J2360; J1170

== ENCOUNTER 2020-04-10 15:14 | Emergency (ER) | payer OTHER ==
[2020-04-10 15:34] VITALS: PULSE 92; RESP 18; TEMP 98.2
[2020-04-10] MEDS ORDERED: ACET/COD 300 MG/30 MG STARTER PACK 6 TAB BTL PO STA (16:46)
[2020-04-10] MEDS ORDERED: HYDROmorphone 1 MG/ML 1 ML SYRINGE IM STA (16:46)
[2020-04-10] MEDS ORDERED: ORPHENADRINE 30 MG/ML 2 ML VIAL IM STA (16:46)
[2020-04-10] MEDS ORDERED: cloNIDine 0.1 MG/24HR PATCH TRANSDERM SCH (17:00)
--- NOTE | 2020-04-10 17:10 | ED ---
Back Pain HPI - General Chief Complaint: Back Pain/Injury Stated Complaint: back pain Time Seen by Provider: 04/10/20 16:19 Source: patient, RN notes reviewed, old records reviewed Limitations: physical limitation - History of Present Illness Initial Comments: Patient is a 55-year-old female presents emergency room today with chronic back pain, concern for opiate withdrawal. Patient reportedly seen her department earlier today. She reports that she has been out of her chronic pain medication for the past few days. Patient states she has had upcoming appointment on Monday with a orthopedic pain management back specialist. - Related Data Home Medications Medication Instructions Recorded Confirmed oxyCODONE-APAP 10-325MG [Percocet 1 tab PO Q6HR PRN 05/06/14 01/07/20 10-325 mg] Allergies Allergy/AdvReac Type Severity Reaction Status Date / Time Penicillins Allergy Rash/Hives Verified 04/10/20 15:33 sulfamethoxazole Allergy Unknown Verified 04/10/20 15:33 [From Bactrim] trimethoprim [From Bactrim] Allergy Unknown Verified 04/10/20 15:33 venom-honey bee Allergy Anaphylaxis Verified 04/10/20 15:33 [bee venom (honey bee)] Review of Systems ROS Statement: Those systems with pertinent positive or pertinent negative responses have been documented in the HPI. ROS Other: All systems not noted in ROS Statement are negative. Past Medical History Past Medical History: Fibromyalgia, Hypertension, Thyroid Disorder Additional Past Medical History / Comment(s): back pain, pt states she has lesions on her brain that could be the onset of MS, History of Any Multi-Drug Resistant Organisms: None Reported Past Surgical History: Appendectomy, Hysterectomy Additional Past Surgical History / Comment(s): d&c, Past Anesthesia/Blood Transfusion Reactions: No Reported Reaction Past Psychological History: Anxiety, Depression, Panic Disorder, PTSD Smoking Status: Current every day smoker Past Alcohol Use History: None Reported Past Drug Use History: Opiates, Prescription Drug Abuse - Past Family History Daughter(s) Family Medical History: Asthma General Exam - General Exam Comments Initial Comments: 55 year old female, no distress. He is tearful and anxious. She is somewhat shaky and states that she is going through withdrawal. Limitations: physical limitation General appearance: alert, in no apparent distress Head exam: Present: atraumatic, normocephalic, normal inspection Eye exam: Present: normal appearance, PERRL, EOMI. Absent: scleral icterus, conjunctival injection, periorbital swelling ENT exam: Present: normal exam, mucous membranes moist Neck exam: Present: normal inspection. Absent: tenderness, meningismus, lymphadenopathy Respiratory exam: Present: normal lung sounds bilaterally. Absent: respiratory distress, wheezes, rales, rhonchi, stridor Cardiovascular Exam: Present: regular rate, normal rhythm, normal heart sounds. Absent: systolic murmur, diastolic murmur, rubs, gallop, clicks GI/Abdominal exam: Present: soft, normal bowel sounds. Absent: distended, tenderness, guarding, rebound, rigid Extremities exam: Present: normal inspection, full ROM, normal capillary refill. Absent: tenderness, pedal edema, joint swelling, calf tenderness Back exam: Present: normal inspection Neurological exam: Present: alert, oriented X3, CN II-XII intact Psychiatric exam: Present: normal affect, normal mood Skin exam: Present: warm, dry, intact, normal color. Absent: rash Course Vital Signs 04/10/20 15:30 Temperature 98.2 F Pulse Rate 92 Respiratory 18 Rate Blood Pressure 128/68 O2 Sat by Pulse 100 Oximetry Medical Decision Making - Medical Decision Making This patient's a 55-year-old female presents emergency department today with evaluation for concern for chronic pain. She does have an upcoming appointment with a back orthopedic paint maker this coming Monday. She is out of her hydrocodone past 2 days. Patient seen earlier in the emergency department was given IM Dilaudid and Toradol. Patient was advised no further pain medication to be given from the ER at this time. Patient was given a clonidine patch to help with withdrawal symptoms. I did discuss the Patient can receive one Tylenol 3 starter pack. Otherwise Patient should be discharged in stable condition as all of her pain is chronic without any saddle anesthesias. She is ambulatory in the exam room with no assistive devices. She has no abdominal pain and denies any change in urination or bowel habits. Patient is agreeable to this plan. Discussed return parameters. Disposition Clinical Impression: Chronic back pain, Overuse of medication Disposition: HOME SELF-CARE Condition: Good Instructions (If sedation given, give patient instructions): Acute Low Back Pain (ED) Additional Instructions: Patient is to follow-up with your paint maker. Recommended keeping clonidine patch on for the next week. Patient advised to return to emergency department if any alarming signs or symptoms occur. Is patient prescribed a controlled substance at d/c from ED?: No Referrals: Rajeev Grajeda MD [Primary Care Provider] - 1-2 days Time of Disposition: 17:10
[2020-04-10 17:23] VITALS: BP 105/82
== END 2020-04-10 17:16 | disposition home or self-care (01) ==
LOC: EC 15:14
DX: G89.29 Other chronic pain (principal); M54.9 Dorsalgia, unspecified; T65.91XA Toxic effect of unspecified substance, accidental (unintentional), initial encounter; F17.200 Nicotine dependence, unspecified, uncomplicated; F11.23 Opioid dependence with withdrawal; Z88.0 Allergy status to penicillin; Z88.2 Allergy status to sulfonamides; Z88.1 Allergy status to other antibiotic agents; Z91.030 Bee allergy status
CPT/HCPCS: 96372 ×3; 99284 ×3; 96374; 96375; J2360; J1170

== ENCOUNTER 2020-04-12 00:49 | Emergency (ER) | payer OTHER ==
[2020-04-12 00:55] VITALS: TEMP 99.5
--- NOTE | 2020-04-12 01:22 | ED ---
Back Pain HPI - General Chief Complaint: Back Pain/Injury Stated Complaint: back pain Time Seen by Provider: 04/12/20 00:51 Source: patient Limitations: no limitations - History of Present Illness Initial Comments: 55yo female presenting today for cc of low back pain. Patient states she has chronic low back pain and has been out of her percocets for days. Patient states that she cannot stand the pain she cannot sleep. She states she is withdrawing, she states she has had loose stools and abdominal cramping. She states she woke up and had soiled herself. Denies urinary retention, leg weakness, radiation of the pain, numbness of legs. Patient denies fevers. Patient has no additional complaints. Patient is able to ambulate. Patient appears well on arrival. No distress. Brought in by EMS due to lack of transportation. - Related Data Home Medications Medication Instructions Recorded Confirmed oxyCODONE-APAP 10-325MG [Percocet 1 tab PO QID 05/06/14 04/12/20 10-325 mg] Atenolol 25 mg PO BID 04/12/20 04/12/20 QUEtiapine [SEROquel] 25 mg PO HS 04/12/20 04/12/20 Allergies Allergy/AdvReac Type Severity Reaction Status Date / Time Penicillins Allergy Rash/Hives Verified 04/12/20 11:37 sulfamethoxazole Allergy Unknown Verified 04/12/20 11:37 [From Bactrim] trimethoprim [From Bactrim] Allergy Unknown Verified 04/12/20 11:37 venom-honey bee Allergy Anaphylaxis Verified 04/12/20 11:37 [bee venom (honey bee)] Review of Systems ROS Statement: Those systems with pertinent positive or pertinent negative responses have been documented in the HPI. ROS Other: All systems not noted in ROS Statement are negative. Past Medical History Past Medical History: Fibromyalgia, Hypertension, Thyroid Disorder Additional Past Medical History / Comment(s): back pain, pt states she has lesions on her brain that could be the onset of MS, History of Any Multi-Drug Resistant Organisms: None Reported Past Surgical History: Appendectomy, Hysterectomy Additional Past Surgical History / Comment(s): d&c, Past Anesthesia/Blood Transfusion Reactions: No Reported Reaction Past Psychological History: Anxiety, Depression, Panic Disorder, PTSD Smoking Status: Current every day smoker Past Alcohol Use History: None Reported Past Drug Use History: Opiates, Prescription Drug Abuse - Past Family History Daughter(s) Family Medical History: Asthma General Exam - General Exam Comments Initial Comments: General: The patient is awake and alert, in no distress, and does not appear acutely ill. Eye: Pupils are equal, round and reactive to light, extra-ocular movements are intact. No nystagmus. There is normal conjunctiva bilaterally. No signs of icterus. Cardiovascular: There is a regular rate and rhythm. No murmur, rub or gallop is appreciated. Respiratory: Lungs are clear to auscultation, respirations are non-labored, breath sounds are equal. No wheezes, stridor, rales, or rhonchi. Musculoskeletal: Normal ROM of the hips, knees, ankles and feet b/l. Strength 5/5 of the LE b/l equally. Sensation intact of the LE equal b/l. DP Pulses equal bilaterally 2+. (-) SLR b/l. Patient has no myoclonus or fasiculations of the LE. Paient has +2/5 DTR of the achilles and patellar. IRAIDA/genital: Normal rectal tone. No perineal numbness. Neurological: A&O x 3. CN II-XII intact grossly, There are no obvious motor or sensory deficits. Coordination appears grossly intact. Speech is normal. Skin: Skin is warm and dry and no rashes or lesions are noted. Psychiatric: Cooperative, appropriate mood & affect, normal judgment. Limitations: no limitations Course Vital Signs 04/12/20 04/12/20 04/12/20 00:52 02:00 02:25 Temperature 99.5 F 99.5 F 99.5 F Pulse Rate 83 74 74 Respiratory 18 16 16 Rate Blood Pressure 118/72 99/65 99/65 O2 Sat by Pulse 99 100 100 Oximetry - Reevaluation(s) Reevaluation #1: 04/12/20 01:26 25-75cc Medical Decision Making - Medical Decision Making 55yo female presenting to the ER today for low back pain. History of chronic pain, out of medications. Patient has no fevers. Normal rectal tone. Very strong LE b/l. Normal DTR. Ambulates without difficulty, no fevers, no IVDU. Discussed history provided including diarrhea upon awakening, physical examination findings with attending Dr. Salgado who recommend and is agreeable to discharge with clonidine patch for withdrawal symptoms and one time dose of percocet, recommend patient discuss withdrawal with pain management clinic. Disposition Clinical Impression: Chronic low back pain, Opioid withdrawal Disposition: HOME SELF-CARE Condition: Good Instructions (If sedation given, give patient instructions): Acute Low Back Pain (ED) Additional Instructions: Please use medication as discussed. Please follow-up with family doctor in the next 2 days. Please return to emergency room if the symptoms increase or worsen or for any other concerns. Is patient prescribed a controlled substance at d/c from ED?: No Referrals: Rajeev Grajeda MD [Primary Care Provider] - 1-2 days Time of Disposition: 01:25
[2020-04-12] MEDS ORDERED: oxyCODONE-APAP 10-325MG 1 EACH TAB PO STA (01:24)
[2020-04-12] MEDS ORDERED: cloNIDine 0.3 MG/24HR PATCH TRANSDERM ONE (01:30)
[2020-04-12 02:07] VITALS: BP 99/65; PULSE 74; RESP 16
[2020-04-12] MEDS ORDERED: ACET/COD 300 MG/30 MG STARTER PACK 6 TAB BTL PO STA (02:19)
== END 2020-04-12 02:30 | disposition home or self-care (01) ==
LOC: EC 00:49
DX: M54.5 Low back pain (principal); G89.29 Other chronic pain; F11.23 Opioid dependence with withdrawal; I10 Essential (primary) hypertension; F41.0 Panic disorder [episodic paroxysmal anxiety]; F31.9 Bipolar disorder, unspecified; F17.200 Nicotine dependence, unspecified, uncomplicated; Z79.899 Other long term (current) drug therapy; Z88.0 Allergy status to penicillin; Z88.1 Allergy status to other antibiotic agents; Z88.2 Allergy status to sulfonamides; Z91.030 Bee allergy status
CPT/HCPCS: 99284

== ENCOUNTER 2020-04-12 08:31 | Observation (INO) | payer OTHER ==
[2020-04-12] MEDS ORDERED: KETOROLAC 30 MG/ML 1 ML VIAL IVP STA (08:38)
[2020-04-12] MEDS ORDERED: ORPHENADRINE 30 MG/ML 2 ML VIAL IVP STA (08:38)
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
[2020-04-12 09:12] LABS: Basophils % (A) 0 %; Eosinophils # (A) 0.2 k/uL (0-0.7); Eosinophils % (A) 2 %; HCT 41.4 % (34.0-46.0); HGB 13.9 gm/dL (11.4-16.0); Lymphocytes # (A) 3.8 k/uL (1.0-4.8); Lymphocytes % (A) 38 %; MCH 30.9 pg (25.0-35.0); MCHC 33.6 g/dL (31.0-37.0); Mean Platelet Volume 8.3; Monocytes # (A) 0.5 k/uL (0-1.0); Monocytes % (A) 5 %; Neutrophils # (A) 5.4 k/uL (1.3-7.7); Neutrophils % (A) 53 %; Platelet Count 247 k/uL (150-450); RBC 4.49 m/uL (3.80-5.40); RDW 12.5 % (11.5-15.5); WBC 10.2 k/uL (3.8-10.6)
[2020-04-12 09:18] LABS: ALT 15 U/L (4-34); AST 28 U/L (14-36); African American GFR (CKD) >90 (>60 ml/min/1.73 sqM); Albumin 4.4 g/dL (3.5-5.0); Alkaline Phosphatase 55 U/L (38-126); Anion Gap 13 mmol/L; Blood Urea Nitrogen 12 mg/dL (7-17); Calcium 9.7 mg/dL (8.4-10.2); Carbon Dioxide 21 mmol/L (22-30); Chloride 105 mmol/L (98-107); Glucose 85 mg/dL (74-99); Non-African American GFR(CKD) >90 (>60 ml/min/1.73 sqM); Potassium 3.4 mmol/L (3.5-5.1); Sodium 139 mmol/L (137-145); Total Bilirubin 1.1 mg/dL (0.2-1.3); Total Protein 7.3 g/dL (6.3-8.2)
[2020-04-12 09:34] LABS: Appearance,Urine Clear (Clear); Bacteria,Urine Rare /hpf; Bilirubin,Urine Negative (Negative); Blood,Urine Negative (Negative); Color,Urine Yellow; Glucose,Urine (UA) Negative (Negative); Hyaline Casts,Urine 22 /lpf (0-2); Ketones,Urine Negative (Negative); Leukocyte Esterase,Urine Small (Negative); Mucus,Urine Moderate /hpf; Nitrite,Urine Negative (Negative); Protein,Urine Trace (Negative); RBC,Urine <1 /hpf (0-5); Specific Gravity,Urine 1.033 (1.001-1.035); Squamous Epithelial Cell,Urine 9 /hpf (0-4); WBC,Urine 10 /hpf (0-5)
--- NOTE | 2020-04-12 10:05 | CT ---
EXAMINATION TYPE: CT thor lumbar spine w con DATE OF EXAM: 04/12/2020 COMPARISON: 10/02/2018 CT lumbar spine. HISTORY: Increased chronic back pain with incontinence CT DLP: 715.7 mGycm Automated exposure control for dose reduction was used. CONTRAST: Performed with IV Contrast, patient injected with 100 ml mL of Isovue 300. FINDINGS: There are chronic mild compression deformities of T12 and L1 as seen on the prior of 10/10/2018. No n ew compression deformity of the lumbar spine seen. Very minimal retrolisthesis of L5 on S1 otherwise no malalignment of the thoracolumbar spine. Multilevel degenerative disc disease. CT technique limits evaluation of the spinal canal. However no high-grade spinal canal stenosis is se en in the thoracic spine. Multilevel ligamentum flavum buckling and calcifications of the ligamentum flavum are seen with multilevel facet arthropathy and disc desiccation. Probable vertebral body heman gioma at T5. Left eccentric disc bulge at L1-L2 appears to create mild neural foraminal narrowing on CT. No gross evidence of spinal canal stenosis. Left eccentric disc bulge at L2-L3 appears to create mild bilatera l neural foraminal narrowing without gross spinal canal stenosis on CT. Broad-based disc bulge at L3- L4, facet arthropathy and minimal ligamentum flavum buckling contribute to mild bilateral neural fora kvng narrowing without significant spinal canal stenosis. Broad-based disc bulge at L4-L5 and facet arthropathy appears to create moderate bilateral neural foraminal narrowing and mild spinal canal stephanie nosis. At L5-S1 small central disc herniation and broad-based disc bulge appear to create mild bilate ral neural foraminal narrowing without significant spinal canal stenosis. There is a 3 mm solid pulmonary nodule in the left lung apex on image 13. Mild background centrilobul ar emphysematous change of the lungs. Mild coronary artery calcifications in the left main and left a nterior descending coronary arteries. Hypoattenuation of the hepatic parenchyma most commonly relates to hepatic steatosis and limits evaluation for hepatic masses. Moderate atheromatous change of the v isualized thoracic and abdominal aorta as well as its branches. Diffuse pancreatic ductal prominence is seen measuring 2 mm. Nonspecific 8 mm adrenal gland nodule. The sacrum demonstrates osseous demine ralization. IMPRESSION: 1. Chronic compression deformities of T12 and L1 and chronic mild retrolisthesis of L5 on S1. 2. Mild spinal canal stenosis at L4-L5 and multilevel disc desiccation. No gross disc herniation on C T other than a small herniation at L5-S1, however given the symptoms of incontinence neurology or luz rosurgical consultation recommended to evaluate the need for stat MRI to exclude cauda equina syndrom e. 3. Mild degenerative disc disease of the thoracic spine without evidence of high-grade spinal canal s tenosis. 4. 3 mm left apical solid pulmonary nodule and underlying mild emphysematous change. Nonemergent foll ow-up full CT thorax recommended for full evaluation of the chest. 5. Partially visualized probable steatosis. Correlate with liver function tests. 6. Diffuse pancreatic ductal prominence is seen. Nonemergent follow-up MRCP could be utilized to furt her assess this finding. Right adrenal gland nodule that also be assessed with MRCP with and without contrast performed as this nodule is currently indeterminant.
[2020-04-12] MEDS ORDERED: NALOXONE 0.4 MG/ML 1 ML VIAL IV PRN (11:09)
[2020-04-12] MEDS ORDERED: ONDANSETRON 4 MG/2 ML VIAL IVP PRN (11:09)
[2020-04-12] MEDS ORDERED: SODIUM CHLORIDE 0.9% 500 ML 500 ML IV ONE (11:34)
[2020-04-12] MEDS: HYDROmorphone 1 MG/ML 1 ML SYRINGE IVP PRN ×2 (11:41→15:11)
[2020-04-12] MEDS: SODIUM CHLORIDE 0.9% 1,000 ML IV SCH (11:43)
--- NOTE | 2020-04-12 15:09 | MR ---
EXAMINATION TYPE: MR tspine/lspine wo/w con DATE OF EXAM: 04/12/2020 COMPARISON: Thoracic spine MR scan 03/15/2016. Lumbar spine CT 10/10/2018 HISTORY: Intractable back pain with urinary and fecal incontinence CONTRAST: Standard multiplanar, multisequence MRI departmental protocol utilizing 4.5 mL intravenous Gadavist g adolinium contrast. There are multiple discrete foci of increased signal on the T2 images within the T1 T4 T5 T9 vertebra l bodies which show some variable enhancement. Thoracic lesions not changed compared to 03/15/2016 and consistent with multiple hemangiomas. There is no thoracic spinal stenosis. There is no significant p osterior thoracic disc herniation. There is small posterior disc herniation at C3-4. Thoracic spinal cord has normal signal pattern without evidence of edema. There is no evidence of a syrinx. There is small posterior disc bulging at T12-L1. Lumbar vertebra have normal alignment. There is mild narrowing of the disc spaces. There is mild post erior disc bulging at L4-5 and L5-S1. There is 5% depression of the superior endplate of T12 and L1. There is no significant edema. This is consistent with old minimal fractures. Unchanged compared to exam. There are scattered rounded areas of increased signal in the L5 and S1 vertebral bodies on T2 and T1 images without enhancement consistent with some fatty marrow replacement. There is no l umbar spinal stenosis. Posterior elements are intact. There is no lumbar paraspinal mass. The sacroil iac joints appear intact. The neural foramina are fairly well-maintained in the lumbar spine. IMPRESSION: Old minimal compression fractures of T12 and L1. No acute fracture seen. Multiple thoracic hemangioma ta. No thoracic or lumbar spinal stenosis.
[2020-04-12] MEDS ORDERED: POTASSIUM CHLORIDE ER 20 MEQ TAB.ER PO ONE (15:49)
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
[2020-04-12] MEDS ORDERED: oxyCODONE-APAP 10-325MG 1 EACH TAB PO SCH (18:00)
[2020-04-12] MEDS: ATENOLOL 25 MG TAB PO SCH (20:15)
[2020-04-12] MEDS ORDERED: SODIUM CHLORIDE 0.9% 1,000 ML IV ONE (20:33)
[2020-04-12] MEDS ORDERED: QUEtiapine 25 MG TAB PO SCH (21:00)
[2020-04-13] MEDS: HYDROmorphone 0.5 MG/0.5 ML SYRINGE IVP PRN ×4 (00:08→11:50)
[2020-04-13 08:02] VITALS: BP 105/57; PULSE 48; RESP 12; TEMP 98.4
[2020-04-13] MEDS: ATENOLOL 25 MG TAB PO SCH (08:31)
[2020-04-13] MEDS ORDERED: oxyCODONE-APAP 10-325MG 1 EACH TAB PO PRN (08:40)
[2020-04-13] MEDS: SODIUM CHLORIDE 0.9% 1,000 ML IV SCH (11:51)
[2020-04-13 15:00] VITALS: BMI 16.6
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
--- NOTE | 2020-04-13 15:58 | P.CNOR ---
History of Present Illness - [facility] Consult date: 04/13/20 Requesting physician: Jose Antonio Remy Consult reason: low back pain, back pain (Thoracic back pain) History of present illness: Patient is a very pleasant 55-year-old female who is seen and examined at bedside for further evaluation for intractable back pain. Patient has presented to the emergency department 4 times over the past week for treatment for her back pain. She is known to have chronic back pain. She previously followed with Dr. Farmer for pain management. She has been taking Percocet 10 mg/325 mg 4 times a day and Seroquel as prescribed for some control of her symptoms. More recently she does not feel this medication is providing any significant control of her symptoms. She denies any specific lower extremity weakness radiculopathy bilaterally. She states occasionally she feels generally weak in the lower extremities. She states she ready for discharge home today and has a scheduled appointment with Dr. Houston for pain management tomorrow, 04/14/2020. During her admission she has had CT and MRI imaging of the thoracic and lumbar spines. She does admit that prior to her most recent presentation to the emergency department she lost her bowel at home without her knowledge and had an episode of urinary incontinence. Since her admittance to the hospital she has been able to urinate without difficulty and states her urination is normal. She denies any saddle anesthesia. There was some concern for cauda equina syndrome and emergent MRI of the thoracic and lumbar spines was ordered. Patient does admit to fibromyalgia. She has a history of hypertension. Past Medical History Past Medical History: Fibromyalgia, Hypertension, Musculoskeletal Disorder Additional Past Medical History / Comment(s): back pain, pt states she has lesions on her brain that could be the onset of MS, History of Any Multi-Drug Resistant Organisms: None Reported Past Surgical History: Appendectomy, Hysterectomy Additional Past Surgical History / Comment(s): d&c, Past Anesthesia/Blood Transfusion Reactions: No Reported Reaction Past Psychological History: Anxiety, Depression, Panic Disorder, PTSD Smoking Status: Current every day smoker Past Alcohol Use History: None Reported Past Drug Use History: Opiates, Prescription Drug Abuse - Past Family History Mother Family Medical History: Cancer, Rheumatoid Arthritis (RA) Additional Family Medical History / Comment(s): lymphoma Daughter(s) Family Medical History: Asthma Medications and Allergies Home Medications Medication Instructions Recorded Confirmed Type oxyCODONE-APAP 10-325MG [Percocet 1 tab PO QID 05/06/14 04/12/20 History 10-325 mg] QUEtiapine [SEROquel] 25 mg PO HS 04/12/20 04/12/20 History Atenolol 12.5 mg PO BID #0 04/13/20 04/12/20 Rx oxyCODONE-APAP 10-325MG [Percocet 1 each PO Q6H PRN #4 tab 04/13/20 Rx 10-325 mg] Allergies Allergy/AdvReac Type Severity Reaction Status Date / Time Penicillins Allergy Rash/Hives Verified 04/12/20 11:37 sulfamethoxazole Allergy Unknown Verified 04/12/20 11:37 [From Bactrim] trimethoprim [From Bactrim] Allergy Unknown Verified 04/12/20 11:37 venom-honey bee Allergy Anaphylaxis Verified 04/12/20 11:37 [bee venom (honey bee)] Physical Examination Physical exam: Patient is awake, alert, and oriented 3 Vital signs stable Good chest excursion with deep inspiration and expiration Examination of thoracic and lumbar spine reveals skin is intact with no abrasions, serrations, or bruises; no erythema, purulence or signs of infection Some pain with palpation along the midline of the mid thoracic spine Mild pain with palpation along the midline of the lower lumbar spine Dorsiflexion, plantarflexion, and extensor hallucis longus positive sustained bilaterally Patient is able to perform active range of motion of the bilateral lower extremities without significant difficulty No lower extremity hyperreflexia bilaterally Straight leg test negative bilateral lower extremities Negative Lasegue's test bilaterally No signs or symptoms of DVT; no calf pain No pain with internal and external rotation of the hips bilaterally Neurovascularly intact Results Pertinent studies: MRIs of the thoracic and lumbar spine taken on 04/12/2020: Hemangioma at T1, T4, T5, and T9 which has not changes compared to previous imaging taken on 03/15/2016; evidence of chronic T12 and L1 superior endplate compression fractu re deformities with approximately 5% height loss consistent with chronic fracture which is unchanged as compared to previous imaging from 03/15/2016; L5 and S1 scatter around areas of increased signal consistent with fatty marrow replacement; no evidence of thoracic or lumbar spinal canal stenosis; thoracic spinal cord has normal signal and pattern without edema; no evidence of acute fractures; no lumbar paraspinal mass; L4-5 and L5-S1 mild disc bulging CT of the thoracic and lumbar spine taken on 04/12/2020: Mild T12 and L1 chronic superior endplate compression fracture deformity; L4-5 degenerative disc disease and slight retrolisthesis; L5-S1 retrolisthesis; midthoracic degenerative disc disease with anterior osteophytic spurring - Labs Labs: H & H 04/12/20 Range/Units 08:55 Hgb 13.9 (11.4-16.0) gm/dL Hct 41.4 (34.0-46.0) % Result Diagrams: 04/12/20 08:55 04/12/20 08:55 Assessment and Plan Assessment: Assessment: Intractable thoracic back pain Intractable lumbar back pain Episode of loss of bowel and bladder without sensation at home T12 and L1 chronic compression fracture deformities T1, T4, T5, and T9 hemangiomas Lumbar degenerative disc disease Fibromyalgia Hypertension (1) Thoracic back pain Current Visit: Yes Status: Acute Code(s): M54.6 - PAIN IN THORACIC SPINE SNOMED Code(s): 627589793 (2) Fibromyalgia Current Visit: Yes Status: Acute Code(s): M79.7 - FIBROMYALGIA SNOMED Code(s): 229665328 (3) Hypertension Current Visit: Yes Status: Acute Code(s): I10 - ESSENTIAL (PRIMARY) HYPERTENSION SNOMED Code(s): 07993172 (4) Hemangioma of bone Current Visit: Yes Status: Acute Code(s): D18.09 - HEMANGIOMA OF OTHER SITES SNOMED Code(s): 564528662229539 (5) Intractable back pain Current Visit: Yes Status: Acute Code(s): M54.9 - DORSALGIA, UNSPECIFIED SNOMED Code(s): 497497300 (6) Chronic back pain Current Visit: No Status: Acute Code(s): M54.9 - DORSALGIA, UNSPECIFIED; G8 9.29 - OTHER CHRONIC PAIN SNOMED Code(s): 897875970 Plan: Plan: 1. Patient has been discussed in detail with Dr. Tex Oshea. Imaging has been reviewed by myself and Dr. Tex Oshea. After physical examination of the pat ient, further discussion with the patient, and reviewing available, we are not currently planning for any acute surgical intervention in regards to her thoracic or lumbar spines. Patient has had multiple imaging performed since her admittance to the hospital including CT and MRI imaging of the thoracic and lumbar spines. This imaging does not show evidence of any significant herniated nucleus pulposus or canal stenosis throughout the thoracic or lumbar spines. She does not clinically appear to have cauda equina syndrome. She's had improvement in urination since her admittance. She denies any abnormal sensation including denying saddle anesthesia. There is no evidence of acute fracture. She does not have evidence of significant neural foraminal stenosis. She continues to experience thoracic back pain and low back pain. She is known to have chronic back pain and her imaging has not had significant changes compared to previous imaging taken on 03/15/2016. At this time, we recommend continuing with conservative treatment and exhausting conservative treatment before discussing the possibility of surgical intervention. She previously followed with Dr. Farmer in pain management. She is currently scheduled for further treatment and evaluation with Dr. Zavala tomorrow for further evaluation and to discuss treatment options. She feels she is ready for discharge home today. We discussed we feel that it is an appropriate plan of care to follow-up with pain management in the outpatient setting. At this time, patient is clear for discharge from an orthopedic spine standpoint. We will plan for follow-up in the outpatient setting on an as-needed basis. Patient feels his a good plan of care. 2. Patient will continue be seen and examined by medicine. Time with Patient: Greater than 30 (Including obtaining history, physical examination, reviewing of imaging, and dictation.)
== END 2020-04-13 15:58 | disposition home or self-care (01) ==
LOC: EC 08:31 → 1SOBS 11:24
PROVIDERS: ADMIT Internal Medicine; ATTEND Internal Medicine
DX: M48.55XG Collapsed vertebra, not elsewhere classified, thoracolumbar region, subsequent encounter for fracture with delayed healing (principal); M51.27 Other intervertebral disc displacement, lumbosacral region; M51.36 Other intervertebral disc degeneration, lumbar region; M43.17 Spondylolisthesis, lumbosacral region; M51.34 Other intervertebral disc degeneration, thoracic region; D18.09 Hemangioma of other sites; F11.20 Opioid dependence, uncomplicated; T40.0X5A Adverse effect of opium, initial encounter; R91.1 Solitary pulmonary nodule; I95.9 Hypotension, unspecified; M79.7 Fibromyalgia; E87.6 Hypokalemia; R15.9 Full incontinence of feces; R32 Unspecified urinary incontinence; I10 Essential (primary) hypertension; E07.9 Disorder of thyroid, unspecified; G93.9 Disorder of brain, unspecified; F41.9 Anxiety disorder, unspecified; F32.9 Major depressive disorder, single episode, unspecified; F41.0 Panic disorder [episodic paroxysmal anxiety]; F43.10 Post-traumatic stress disorder, unspecified; F17.200 Nicotine dependence, unspecified, uncomplicated; Z88.0 Allergy status to penicillin; Z88.2 Allergy status to sulfonamides; Z91.030 Bee allergy status; Z90.49 Acquired absence of other specified parts of digestive tract; Z90.710 Acquired absence of both cervix and uterus; Z98.890 Other specified postprocedural states; Z82.5 Family history of asthma and other chronic lower respiratory diseases; Z80.7 Family history of other malignant neoplasms of lymphoid, hematopoietic and related tissues; Z82.61 Family history of arthritis; V89.2XXD Person injured in unspecified motor-vehicle accident, traffic, subsequent encounter
CPT/HCPCS: 96361 ×3; 96376 ×2; 96374; 96375; 99284; 99285; 36415; 80053; 83690; 83735; 85025; 81001; 72129; 72132; 72157; 72158; G0378 ×2; U0003; J2360; J1885; J1170 ×2; A9585; Q9967

== ENCOUNTER 2020-04-15 05:29 | Emergency (ER) | payer OTHER ==
[2020-04-15 05:36] VITALS: BP 113/66; PULSE 57; RESP 18; TEMP 97.8
--- NOTE | 2020-04-15 06:15 | ED ---
Back Pain HPI - General Chief Complaint: Back Pain/Injury Stated Complaint: Back Pain Time Seen by Provider: 04/15/20 06:05 Source: patient - History of Present Illness Initial Comments: 55-year-old female history of chronic back pain recently admitted for r/o cauda equina with (-) MRI studies to support significant stenosis of lumbar region or findings suggestive of cauda equina. Pt state she still has pain and state she needs epidural injections and physical therapy that is starting next week. Patient states that she cannot take the pain. Patient denies urinary retention or loss of bowel bladder control. Denies fevers, IVDU. Patient denies numbness of her legs, or weakness. Patient states she just needs something to take the pain away. Patient states she is running low on her percocet. Patient frequently comes to the ER, and admit she is in opiod withdrawl she states the clonidine patches do not work. Patient has no additional complaints. Upon arrival pt appears well. - Related Data Home Medications Medication Instructions Recorded Confirmed oxyCODONE-APAP 10-325MG [Percocet 1 tab PO QID 05/06/14 04/12/20 10-325 mg] QUEtiapine [SEROquel] 25 mg PO HS 04/12/20 04/12/20 Previous Rx's Medication Instructions Recorded Atenolol 12.5 mg PO BID #0 04/13/20 oxyCODONE-APAP 10-325MG [Percocet 1 each PO Q6H PRN #4 tab 04/13/20 10-325 mg] Allergies Allergy/AdvReac Type Severity Reaction Status Date / Time Penicillins Allergy Rash/Hives Verified 04/12/20 11:37 sulfamethoxazole Allergy Unknown Verified 04/12/20 11:37 [From Bactrim] trimethoprim [From Bactrim] Allergy Unknown Verified 04/12/20 11:37 venom-honey bee Allergy Anaphylaxis Verified 04/12/20 11:37 [bee venom (honey bee)] Review of Systems ROS Statement: Those systems with pertinent positive or pertinent negative responses have been documented in the HPI. ROS Other: All systems not noted in ROS Statement are negative. Past Medical History Past Medical History: Fibromyalgia, Hypertension, Musculoskeletal Disorder Additional Past Medical History / Comment(s): back pain, pt states she has lesions on her brain that could be the onset of MS, History of Any Multi-Drug Resistant Organisms: None Reported Past Surgical History: Appendectomy, Hysterectomy Additional Past Surgical History / Comment(s): d&c, Past Anesthesia/Blood Transfusion Reactions: No Reported Reaction Past Psychological History: Anxiety, Depression, Panic Disorder, PTSD Smoking Status: Current every day smoker Past Alcohol Use History: None Reported Past Drug Use History: Opiates, Prescription Drug Abuse - Past Family History Mother Family Medical History: Cancer, Rheumatoid Arthritis (RA) Additional Family Medical History / Comment(s): lymphoma Daughter(s) Family Medical History: Asthma General Exam - General Exam Comments Initial Comments: General: The patient is awake and alert, in no distress Eye: +3 mm pupils are equal, round and reactive to light, extra-ocular movements are intact. No nystagmus. There is normal conjunctiva bilaterally. No signs of icterus. Cardiovascular: There is a regular rate and rhythm. No murmur, rub or gallop is appreciated. Respiratory: Lungs are clear to auscultation, respirations are non-labored, breath sounds are equal. No wheezes, stridor, rales, or rhonchi. Gastrointestinal: Soft, non-distended, non-tender abdomen without masses or organomegaly noted. There is no rebound or guarding present. Musculoskeletal: Normal ROM, no tenderness. Strength 5/5 of the LE b/l. Sensation intact of the LE b/l, including the saddle region.No myoclonus, flaccid nature of legs, fasciculations. Radial pulses equal bilaterally 2+. (_) SLR. Ambulatory. Refused rectal exam. Neurological: A&O x 3. CN II-XII intact grossly, There are no obvious motor or sensory deficits. Coordination appears grossly intact. Speech is normal. Skin: Skin is warm and dry and no rashes or lesions are noted. Psychiatric: Cooperative, appropriate mood & affect, normal judgment. Course Vital Signs 04/15/20 05:34 Temperature 97.8 F Pulse Rate 57 L Respiratory 18 Rate Blood Pressure 113/66 O2 Sat by Pulse 100 Oximetry Medical Decision Making - Medical Decision Making 55yo female presenting today for cc of low back pain. No complaints consistent with cauda equina. (-) MRI for significant low back stenosis/no signs of cauda equina. Denies loss of bowel bladder control, urinary retention, loss of sensation, weakness of the LE. Refused rectal exam. Patient will be discharged without opioids as she has management out patient with a pain clinic. Patient is agreeable to this, she appears disappointment. I did discuss subxone/methadone clinic as form of chronic pain management. Dr. Gonzalez is agreeable to care plan and discharge. Disposition Clinical Impression: Chronic back pain Disposition: HOME SELF-CARE Condition: Good Instructions (If sedation given, give patient instructions): Chronic Back Pain (DC) Additional Instructions: Please use medication as discussed. Please follow-up with your pain clinic for chronic low back pain. Please return to emergency room if the symptoms increase or worsen or for any other concerns. Is patient prescribed a controlled substance at d/c from ED?: No Referrals: None,Stated [Primary Care Provider] - 1-2 days Tracey Oshea DO [Doctor of Osteopathic Medicine] - 1-2 days Time of Disposition: 06:15
== END 2020-04-15 06:27 | disposition home or self-care (01) ==
LOC: EC 05:29
DX: M54.5 Low back pain (principal); G89.29 Other chronic pain; F32.9 Major depressive disorder, single episode, unspecified; F41.9 Anxiety disorder, unspecified; F43.10 Post-traumatic stress disorder, unspecified; F41.0 Panic disorder [episodic paroxysmal anxiety]; I10 Essential (primary) hypertension; F17.200 Nicotine dependence, unspecified, uncomplicated; F11.23 Opioid dependence with withdrawal; Z79.899 Other long term (current) drug therapy; Z88.0 Allergy status to penicillin; Z88.2 Allergy status to sulfonamides; Z91.030 Bee allergy status; Z90.710 Acquired absence of both cervix and uterus; Z90.49 Acquired absence of other specified parts of digestive tract; Z80.7 Family history of other malignant neoplasms of lymphoid, hematopoietic and related tissues
CPT/HCPCS: 99283

== ENCOUNTER 2020-05-08 08:35 | Emergency (ER) | payer OTHER ==
[2020-05-08 08:52] VITALS: BP 134/94; PULSE 91; RESP 16; TEMP 97.1
[2020-05-08] MEDS ORDERED: KETOROLAC 30 MG/ML 1 ML VIAL IM STA (09:08)
[2020-05-08] MEDS ORDERED: MORPHINE SULFATE 4 MG/ML SYRINGE IVP STA (09:08)
--- NOTE | 2020-05-08 09:17 | ED ---
General Adult HPI - General Chief complaint: Back Pain/Injury Stated complaint: BACK PAIN Time Seen by Provider: 05/08/20 08:46 Source: patient, EMS, RN notes reviewed, old records reviewed Mode of arrival: EMS Limitations: no limitations - History of Present Illness Initial comments: 55-year-old female with chronic back pain who follows with a pain doctor, neurologist, and spine Dr. presents with acute on chronic back pain after being out of her Percocet and Amory. She has been out for the past several days. She states she cannot have her prescription refilled until Monday of next week which is 5 days from now. She does have a pain contract. She denies any new injury, states the pain is typical of her chronic pain, no acute change. No b owel or bladder dysfunction. No fever. - Related Data Home Medications Medication Instructions Recorded Confirmed oxyCODONE-APAP 10-325MG [Percocet 1 tab PO QID 05/06/14 04/12/20 10-325 mg] QUEtiapine [SEROquel] 25 mg PO HS 04/12/20 04/12/20 Previous Rx's Medication Instructions Recorded Atenolol 12.5 mg PO BID #0 04/13/20 oxyCODONE-APAP 10-325MG [Percocet 1 each PO Q6H PRN #4 tab 04/13/20 10-325 mg] Ibuprofen [Motrin] 600 mg PO Q8HR PRN #24 tab 05/08/20 Allergies Allergy/AdvReac Type Severity Reaction Status Date / Time Penicillins Allergy Rash/Hives Verified 04/12/20 11:37 sulfamethoxazole Allergy Unknown Verified 04/12/20 11:37 [From Bactrim] trimethoprim [From Bactrim] Allergy Unknown Verified 04/12/20 11:37 venom-honey bee Allergy Anaphylaxis Verified 04/12/20 11:37 [bee venom (honey bee)] Review of Systems ROS Statement: Those systems with pertinent positive or pertinent negative responses have been documented in the HPI. ROS Other: All systems not noted in ROS Statement are negative. Past Medical History Past Medical History: Fibromyalgia, Hypertension, Musculoskeletal Disorder Additional Past Medical History / Comment(s): back pain, pt states she has lesions on her brain that could be the onset of MS, History of Any Multi-Drug Resistant Organisms: None Reported Past Surgical History: Appendectomy, Hysterectomy Additional Past Surgical History / Comment(s): d&c, Past Anesthesia/Blood Transfusion Reactions: No Reported Reaction Past Psychological History: Anxiety, Depression, Panic Disorder, PTSD Smoking Status: Current every day smoker Past Alcohol Use History: None Reported Past Drug Use History: Opiates, Prescription Drug Abuse - Past Family History Mother Family Medical History: Cancer, Rheumatoid Arthritis (RA) Additional Family Medical History / Comment(s): lymphoma Daughter(s) Family Medical History: Asthma General Exam Limitations: no limitations General appearance: alert, in no apparent distress Head exam: Present: atraumatic, normocephalic Eye exam: Present: normal appearance, PERRL ENT exam: Present: normal exam Neck exam: Present: normal inspection. Absent: tenderness, meningismus Respiratory exam: Present: normal lung sounds bilaterally. Absent: respiratory distress, wheezes Cardiovascular Exam: Present: regular rate, normal rhythm GI/Abdominal exam: Present: soft. Absent: distended, tenderness, guarding, re bound Extremities exam: Present: normal inspection, normal capillary refill. Absent: pedal edema Back exam: Present: normal inspection Neurological exam: Present: alert, oriented X3, CN II-XII intact. Absent: motor sensory deficit Psychiatric exam: Present: normal affect, normal mood Skin exam: Present: warm, dry, intact Course Vital Signs 05/08/20 08:48 Temperature 97.1 F L Pulse Rate 91 Respiratory 16 Rate Blood Pressure 134/94 O2 Sat by Pulse 99 Oximetry Medical Decision Making - Medical Decision Making 55-year-old female presents for chronic back pain out of her opiate pain medication. No alarming features on history or physical exam. Patient has an appointment with her pain specialist on Monday today is Monday. She's given Toradol, and morphine in the emergency department for symptomatic control. She is not currently on any anti-inflammatory and has no known ALLERGIES to anti- inflammatory medication. She will be prescribed Motrin. She will maintain her appointment with her pain specialist. Disposition Clinical Impression: Overuse of medication, Chronic back pain Disposition: HOME SELF-CARE Condition: Fair Instructions (If sedation given, give patient instructions): Chronic Pain (ED) Prescriptions: Ibuprofen [Motrin] 600 mg PO Q8HR PRN #24 tab PRN Reason: Pain Is patient prescribed a controlled substance at d/c from ED?: No Referrals: None,Stated [Primary Care Provider] - 1-2 days Andria Houston MD [Medical Doctor] - 1-2 days Time of Disposition: 09:16
== END 2020-05-08 09:41 | disposition home or self-care (01) ==
LOC: EC 08:35
DX: G89.29 Other chronic pain (principal); M54.9 Dorsalgia, unspecified; Z91.14 Patient's other noncompliance with medication regimen; I10 Essential (primary) hypertension; F41.0 Panic disorder [episodic paroxysmal anxiety]; F32.9 Major depressive disorder, single episode, unspecified; F17.200 Nicotine dependence, unspecified, uncomplicated; Z79.899 Other long term (current) drug therapy; Z88.0 Allergy status to penicillin; Z88.1 Allergy status to other antibiotic agents; Z88.2 Allergy status to sulfonamides; Z91.030 Bee allergy status
CPT/HCPCS: 96372; 96374; 99284

== ENCOUNTER 2020-05-09 07:22 | Emergency (ER) | payer OTHER ==
[2020-05-09] MEDS ORDERED: MORPHINE SULFATE 4 MG/ML SYRINGE IVP STA (07:44)
[2020-05-09] MEDS ORDERED: ONDANSETRON 4 MG/2 ML VIAL IVP STA (07:44)
[2020-05-09 07:56] VITALS: BP 135/95; PULSE 79; RESP 20; TEMP 98.2
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
== END 2020-05-09 08:11 | disposition home or self-care (01) ==
LOC: EC 07:22
DX: G89.29 Other chronic pain (principal); M54.5 Low back pain; F41.0 Panic disorder [episodic paroxysmal anxiety]; F31.9 Bipolar disorder, unspecified; F17.200 Nicotine dependence, unspecified, uncomplicated; Z79.899 Other long term (current) drug therapy; Z88.0 Allergy status to penicillin; Z88.1 Allergy status to other antibiotic agents; Z88.2 Allergy status to sulfonamides; Z91.030 Bee allergy status
CPT/HCPCS: 99284; 96374; 96375; J2270; J2405

== ENCOUNTER 2020-05-10 01:43 | Emergency (ER) | payer OTHER ==
--- NOTE | 2020-05-10 02:04 | ED ---
Recheck HPI - General Chief Complaint: Back Pain/Injury Stated Complaint: Back Pain Time Seen by Provider: 05/10/20 01:51 Source: patient, RN notes reviewed, old records reviewed Mode of arrival: ambulatory - History of Present Illness Initial Comments: This is a 55-year-old female facility for evaluation of recurrent chronic back pain. Patient will also admits nausea vomiting diarrhea today. Patient has been missing follow-up appointments for continued care. Multiple ER visits in the last week as well as patient has persistent symptoms here in the ER pain and severe anxiety MD Complaint: other (Worsening pain) -: unknown Returns Today for: persistent/worsening pain related to initial visit Symptoms Since Prior Visit: worsening pain Associated Symptoms: none - Related Data Previous Rx's Medication Instructions Recorded Famotidine [Pepcid] 20 mg PO BID #30 tablet 05/12/20 Ibuprofen [Motrin] 600 mg PO Q6HR PRN #30 tab 05/12/20 Sertraline [Zoloft] 50 mg PO DAILY #30 tab 05/12/20 Allergies Allergy/AdvReac Type Severity Reaction Status Date / Time Penicillins Allergy Rash/Hives Verified 05/12/20 07:11 sulfamethoxazole Allergy Unknown Verified 05/12/20 07:11 [From Bactrim] trimethoprim [From Bactrim] Allergy Unknown Verified 05/12/20 07:11 venom-honey bee Allergy Anaphylaxis Verified 05/12/20 07:11 [bee venom (honey bee)] Review of Systems ROS Statement: Those systems with pertinent positive or pertinent negative responses have been documented in the HPI. ROS Other: All systems not noted in ROS Statement are negative. Past Medical History Past Medical History: Fibromyalgia, Hypertension, Musculoskeletal Disorder Additional Past Medical History / Comment(s): back pain, pt states she has lesions on her brain that could be the onset of MS, History of Any Multi-Drug Resistant Organisms: None Reported Past Surgical History: Appendectomy, Hysterectomy Additional Past Surgical History / Comment(s): d&c, Past Anesthesia/Blood Transfusion Reactions: No Reported Reaction Past Psychological History: Anxiety, Depression, Panic Disorder, PTSD Smoking Status: Current every day smoker Past Alcohol Use History: None Reported Past Drug Use History: Opiates, Prescription Drug Abuse - Past Family History Mother Family Medical History: Cancer, Rheumatoid Arthritis (RA) Additional Family Medical History / Comment(s): lymphoma Daughter(s) Family Medical History: Asthma General Exam General appearance: alert, in no apparent distress, anxious Head exam: Present: atraumatic, normocephalic, normal inspection Eye exam: Present: normal appearance, PERRL, EOMI. Absent: scleral icterus, conjunctival injection, periorbital swelling ENT exam: Present: normal exam, mucous membranes moist Neck exam: Present: normal inspection. Absent: tenderness, meningismus, lymphadenopathy Respiratory exam: Present: normal lung sounds bilaterally. Absent: respiratory distress, wheezes, rales, rhonchi, stridor Cardiovascular Exam: Present: regular rate, normal rhythm, normal heart sounds. Absent: systolic murmur, diastolic murmur, rubs, gallop, clicks GI/Abdominal exam: Present: soft, normal bowel sounds. Absent: distended, tenderness, guarding, rebound, rigid Extremities exam: Present: normal inspection, full ROM, normal capillary refill. Absent: tenderness, pedal edema, joint swelling, calf tenderness Back exam: Present: normal inspection Neurological exam: Present: alert, oriented X3, CN II-XII intact Psychiatric exam: Present: normal affect, normal mood Skin exam: Present: warm, dry, intact, normal color. Absent: rash Course Vital Signs 05/10/20 05/10/20 01:51 03:17 Temperature 98.2 F 98 F Pulse Rate 107 H 88 Respiratory 19 16 Rate Blood Pressure 148/109 130/79 O2 Sat by Pulse 96 99 Oximetry - Reevaluation(s) Reevaluation #1: Medical records reviewed Patient has current pain control Medical Decision Making - Medical Decision Making 55 female DF for evaluation of pain patient has severe chronic back pain. Generalized pain. Symptoms resolved and patient will be discharged Disposition Clinical Impression: Chronic back pain, Intractable back pain, Medication requested Disposition: HOME SELF-CARE Condition: Good Instructions (If sedation given, give patient instructions): Acute Low Back Pain (ED) Is patient prescribed a controlled substance at d/c from ED?: No Referrals: None,Stated [Primary Care Provider] - 1-2 days
[2020-05-10] MEDS ORDERED: HYDROmorphone 1 MG/ML 1 ML SYRINGE IM STA (02:11)
[2020-05-10] MEDS ORDERED: ACET/COD 300 MG/30 MG STARTER PACK 6 TAB BTL PO STA (03:12)
[2020-05-10 03:18] VITALS: BP 130/79; PULSE 88; RESP 16; TEMP 98
== END 2020-05-10 03:17 | disposition home or self-care (01) ==
LOC: EC 01:43
DX: M54.9 Dorsalgia, unspecified (principal); R11.2 Nausea with vomiting, unspecified; R19.7 Diarrhea, unspecified; F17.200 Nicotine dependence, unspecified, uncomplicated; G89.29 Other chronic pain; Z88.0 Allergy status to penicillin; Z88.2 Allergy status to sulfonamides; Z91.030 Bee allergy status; Z76.0 Encounter for issue of repeat prescription
CPT/HCPCS: 99283; 96372; J1170

== ENCOUNTER 2020-05-10 21:52 | Emergency (ER) | payer OTHER ==
[2020-05-10 22:06] VITALS: BP 129/82; PULSE 90; RESP 18; TEMP 98.8
[2020-05-11] MEDS ORDERED: MORPHINE SULFATE 4 MG/ML SYRINGE IM STA (01:10)
--- NOTE | 2020-05-11 01:10 | ED ---
Back Pain HPI - General Chief Complaint: Back Pain/Injury Stated Complaint: Back Pain Time Seen by Provider: 05/11/20 00:28 Source: EMS - History of Present Illness Initial Comments: Patient is a 55-year-old female presenting to the emergency Department, via EMS, with complaints of low back pain. Patient has been here on multiple occasions for back pain, she was here earlier today for same complaint. Patient received 50 of fentanyl in the EMS prior to arrival. She is in a pain contract, she takes at home pain meds. Patient denies any falls or injuries. She states she has appointment with her pain doctor tomorrow morning. She denies any numbness and tingling to her extremities. She denies any saddle paresthesias. She denies any new complaints. He denies any recent fever or chills. She has no further complaints at this time. Upon arrival to the ER, her vital signs are stable. - Related Data Home Medications Medication Instructions Recorded Confirmed oxyCODONE-APAP 10-325MG [Percocet 1 tab PO QID 05/06/14 04/12/20 10-325 mg] QUEtiapine [SEROquel] 25 mg PO HS 04/12/20 04/12/20 Previous Rx's Medication Instructions Recorded Atenolol 12.5 mg PO BID #0 04/13/20 oxyCODONE-APAP 10-325MG [Percocet 1 each PO Q6H PRN #4 tab 04/13/20 10-325 mg] Ibuprofen [Motrin] 600 mg PO Q8HR PRN #24 tab 05/08/20 Allergies Allergy/AdvReac Type Severity Reaction Status Date / Time Penicillins Allergy Rash/Hives Verified 05/10/20 22:06 sulfamethoxazole Allergy Unknown Verified 05/10/20 22:06 [From Bactrim] trimethoprim [From Bactrim] Allergy Unknown Verified 05/10/20 22:06 venom-honey bee Allergy Anaphylaxis Verified 05/10/20 22:06 [bee venom (honey bee)] Review of Systems ROS Statement: Those systems with pertinent positive or pertinent negative responses have been documented in the HPI. ROS Other: All systems not noted in ROS Statement are negative. Past Medical History Past Medical History: Fibromyalgia, Hypertension, Musculoskeletal Disorder Additional Past Medical History / Comment(s): back pain, pt states she has lesions on her brain that could be the onset of MS, History of Any Multi-Drug Resistant Organisms: None Reported Past Surgical History: Appendectomy, Hysterectomy Additional Past Surgical History / Comment(s): d&c, Past Anesthesia/Blood Transfusion Reactions: No Reported Reaction Past Psychological History: Anxiety, Depression, Panic Disorder, PTSD Smoking Status: Current every day smoker Past Alcohol Use History: None Reported Past Drug Use History: Opiates, Prescription Drug Abuse - Past Family History Mother Family Medical History: Cancer, Rheumatoid Arthritis (RA) Additional Family Medical History / Comment(s): lymphoma Daughter(s) Family Medical History: Asthma General Exam - General Exam Comments Initial Comments: GENERAL: Patient is teary-eyed, no acute distress. HEAD: Atraumatic, normocephalic. EYES: Pupils equal round and reactive to light, extraocular movements intact, sclera anicteric, conjunctiva are normal. ENT: TMs normal, nares patent, oropharynx clear without exudates. Moist mucous membranes. NECK: Normal range of motion, supple without lymphadenopathy or JVD. LUNGS: Breath sounds clear to auscultation bilaterally and equal. No wheezes rales or rhonchi. HEART: Regular rate and rhythm without murmurs, rubs or gallops. ABDOMEN: Soft, nontender, normoactive bowel sounds. No guarding, no rebound. No masses appreciated. : Deferred EXTREMITIES: Normal range of motion, no pitting or edema. No clubbing or cyanosis. Strength is 5 out of 5 upper and lower extremities bilaterally. No pain with palpation of the lower lumbar spine. NEUROLOGICAL: Cranial nerves II through XII grossly intact. Normal speech, normal gait. PSYCH: Normal mood, normal affect. SKIN: Warm, Dry, normal turgor, no rashes or lesions noted. Course Vital Signs 05/10/20 05/11/20 22:03 01:31 Temperature 98.8 F 98.8 F Pulse Rate 90 90 Respiratory 18 18 Rate Blood Pressure 129/82 129/82 O2 Sat by Pulse 97 97 Oximetry Medical Decision Making - Medical Decision Making Patient is a 55-year-old female here for acute on chronic back pain. She has a pain contract, takes at home pain meds. She was here earlier today for same complaint. She received 50 of fentanyl EMS prior to arrival. Her exam reveals no acute neuro deficits. She states her pain is the same as it always is. I discussed with patient that I will not give her Dilaudid. I will give patient 4 mg of morphine, I did offer Tylenol 3 starter pack, patient refused. Patient will follow up with her doctor in the morning. She is stable for discharge. Return parameters were discussed with the patient and she verbalized understanding. Case discussed with Dr. Roberts. Disposition Clinical Impression: Medication requested, Chronic back pain greater than 3 months duration Disposition: HOME SELF-CARE Condition: Stable Instructions (If sedation given, give patient instructions): Chronic Back Pain (DC) Additional Instructions: Please return to the Emergency Department if symptoms worsen or any other concerns. Follow-up with your pain management doctor. Is patient prescribed a controlled substance at d/c from ED?: No Referrals: None,Stated [Primary Care Provider] - 1-2 days
== END 2020-05-11 01:32 | disposition home or self-care (01) ==
LOC: EC 21:52
DX: G89.29 Other chronic pain (principal); M54.5 Low back pain; F32.9 Major depressive disorder, single episode, unspecified; F17.200 Nicotine dependence, unspecified, uncomplicated; Z79.899 Other long term (current) drug therapy; Z88.2 Allergy status to sulfonamides; Z88.0 Allergy status to penicillin; Z91.030 Bee allergy status; Z76.0 Encounter for issue of repeat prescription
CPT/HCPCS: 96372 ×2; 99283 ×2; J2270; J1170

== ENCOUNTER 2020-05-12 01:12 | Observation (INO) | payer OTHER ==
--- NOTE | 2020-05-12 01:22 | ED ---
Recheck HPI - General Stated Complaint: Back Pain Time Seen by Provider: 05/12/20 01:18 Source: RN notes reviewed, old records reviewed Limitations: no limitations - History of Present Illness Initial Comments: This is a 55-year-old female DF for evaluation patient was facility for evaluation. Chronic back pain. Patient again presents back pain today. No fevers no other complaints MD Complaint: medication refill request, other (Severe back pain) -: unknown Returns Today for: persistent/worsening pain related to initial visit Symptoms Since Prior Visit: worsening pain Associated Symptoms: none Treatments Prior to Arrival: other medications - Related Data Previous Rx's Medication Instructions Recorded Famotidine [Pepcid] 20 mg PO BID #30 tablet 05/12/20 Ibuprofen [Motrin] 600 mg PO Q6HR PRN #30 tab 05/12/20 Sertraline [Zoloft] 50 mg PO DAILY #30 tab 05/12/20 Allergies Allergy/AdvReac Type Severity Reaction Status Date / Time Penicillins Allergy Rash/Hives Verified 05/12/20 07:11 sulfamethoxazole Allergy Unknown Verified 05/12/20 07:11 [From Bactrim] trimethoprim [From Bactrim] Allergy Unknown Verified 05/12/20 07:11 venom-honey bee Allergy Anaphylaxis Verified 05/12/20 07:11 [bee venom (honey bee)] Review of Systems ROS Statement: Those systems with pertinent positive or pertinent negative responses have been documented in the HPI. ROS Other: All systems not noted in ROS Statement are negative. Past Medical History Past Medical History: Fibromyalgia, Hypertension, Musculoskeletal Disorder Additional Past Medical History / Comment(s): back pain, pt states she has lesions on her brain that could be the onset of MS, History of Any Multi-Drug Resistant Organisms: None Reported Past Surgical History: Appendectomy, Hysterectomy Additional Past Surgical History / Comment(s): d&c, Past Anesthesia/Blood Transfusion Reactions: No Reported Reaction Past Psychological History: Anxiety, Depression, Panic Disorder, PTSD Smoking Status: Current every day smoker Past Alcohol Use History: None Reported Past Drug Use History: Opiates, Prescription Drug Abuse - Past Family History Mother Family Medical History: Cancer, Rheumatoid Arthritis (RA) Additional Family Medical History / Comment(s): lymphoma Daughter(s) Family Medical History: Asthma General Exam General appearance: alert, in no apparent distress Head exam: Present: atraumatic, normocephalic, normal inspection Eye exam: Present: normal appearance, PERRL, EOMI. Absent: scleral icterus, conjunctival injection, periorbital swelling ENT exam: Present: normal exam, mucous membranes moist Neck exam: Present: normal inspection. Absent: tenderness, meningismus, lymphadenopathy Respiratory exam: Present: normal lung sounds bilaterally. Absent: respiratory distress, wheezes, rales, rhonchi, stridor Cardiovascular Exam: Present: regular rate, normal rhythm, normal heart sounds. Absent: systolic murmur, diastolic murmur, rubs, gallop, clicks GI/Abdominal exam: Present: soft, normal bowel sounds. Absent: distended, tenderness, guarding, rebound, rigid Extremities exam: Present: normal inspection, full ROM, normal capillary refill. Absent: tenderness, pedal edema, joint swelling, calf tenderness Back exam: Present: normal inspection Neurological exam: Present: alert, oriented X3, CN II-XII intact Psychiatric exam: Present: normal affect, normal mood Skin exam: Present: warm, dry, intact, normal color. Absent: rash Course Vital Signs 05/12/20 05/12/20 05/12/20 01:21 06:11 07:28 Temperature 98 F Pulse Rate 94 63 59 L Respiratory 18 18 16 Rate Blood Pressure 132/81 140/80 122/76 O2 Sat by Pulse 99 100 97 Oximetry 05/12/20 05/12/20 08:04 08:39 Temperature 98.1 F Pulse Rate 56 L 62 Respiratory 14 Rate Blood Pressure 116/71 O2 Sat by Pulse 97 Oximetry Medical Decision Making - Medical Decision Making 55 female to the ER for acute on chronic back pain. Patient will be discharged home. - Lab Data Result diagrams: 05/12/20 01:47 05/12/20 01:47 - EKG Data -: EKG Interpreted by Me (EKG is sinus rhythm 70 8 PM 114 QRS 124 QTc 513) Disposition Clinical Impression: Intractable back pain, Fibromyalgia, Depression, Anxiety Disposition: ADMITTED IP TO THIS HOSP Condition: Fair Is patient prescribed a controlled substance at d/c from ED?: No
[2020-05-12] MEDS ORDERED: diphenhydrAMINE 50 MG/ML 1 ML VIAL IVP PRN (01:32)
[2020-05-12] MEDS ORDERED: DIAZEPAM 5 MG/ML 2 ML INJ IVP STA (01:32)
[2020-05-12] MEDS ORDERED: DIAZEPAM 5 MG/ML 2 ML INJ IVP PRN (01:32)
[2020-05-12] MEDS ORDERED: ONDANSETRON 4 MG/2 ML VIAL IVP STA (01:32)
[2020-05-12] MEDS ORDERED: diphenhydrAMINE 50 MG/ML 1 ML VIAL IVP STA (01:32)
[2020-05-12] MEDS ORDERED: KETOROLAC 30 MG/ML 1 ML VIAL IVP STA (01:32)
[2020-05-12] MEDS ORDERED: SODIUM CHLORIDE 0.9% 1,000 ML IV STA ×2 (01:32)
[2020-05-12] MEDS ORDERED: ONDANSETRON 4 MG/2 ML VIAL IVP PRN (01:32)
[2020-05-12] MEDS ORDERED: HYDROmorphone 1 MG/ML 1 ML SYRINGE IVP STA (01:32)
[2020-05-12 01:57] LABS: Basophils # (A) 0.1 k/uL (0-0.2); Basophils % (A) 1 %; Eosinophils # (A) 0.1 k/uL (0-0.7); Eosinophils % (A) 1 %; HCT 42.9 % (34.0-46.0); HGB 14.1 gm/dL (11.4-16.0); Lymphocytes # (A) 3.2 k/uL (1.0-4.8); Lymphocytes % (A) 26 %; MCH 30.7 pg (25.0-35.0); MCHC 32.9 g/dL (31.0-37.0); MCV 93.3 fL (80.0-100.0); Mean Platelet Volume 7.5; Monocytes # (A) 0.7 k/uL (0-1.0); Monocytes % (A) 6 %; Neutrophils % (A) 65 %; Platelet Count 323 k/uL (150-450); RBC 4.59 m/uL (3.80-5.40); WBC 12.3 k/uL (3.8-10.6)
[2020-05-12 02:10] LABS: ALT 10 U/L (4-34); AST 19 U/L (14-36); African American GFR (CKD) >90 (>60 ml/min/1.73 sqM); Albumin 4.6 g/dL (3.5-5.0); Alkaline Phosphatase 60 U/L (38-126); Anion Gap 10 mmol/L; Blood Urea Nitrogen 13 mg/dL (7-17); C Reactive Protein <5.0 mg/L (<10.0); Calcium 10.1 mg/dL (8.4-10.2); Carbon Dioxide 23 mmol/L (22-30); Chloride 104 mmol/L (98-107); Creatine Kinase 59 U/L (30-135); Glucose 118 mg/dL (74-99); Magnesium 1.9 mg/dL (1.6-2.3); Non-African American GFR(CKD) >90 (>60 ml/min/1.73 sqM); Phosphorus 4.4 mg/dL (2.5-4.5); Potassium 3.8 mmol/L (3.5-5.1); Sodium 137 mmol/L (137-145); Total Protein 7.3 g/dL (6.3-8.2)
[2020-05-12 04:05] LABS: Appearance,Urine Cloudy (Clear); Bacteria,Urine Rare /hpf; Bilirubin,Urine Negative (Negative); Blood,Urine Negative (Negative); Color,Urine Yellow; Glucose,Urine (UA) Negative (Negative); Hyaline Casts,Urine 27 /lpf (0-2); Ketones,Urine Negative (Negative); Leukocyte Esterase,Urine Small (Negative); Mucus,Urine Many /hpf; Nitrite,Urine Negative (Negative); PH, Urine 5.5 (5.0-8.0); Protein,Urine Negative (Negative); RBC,Urine 2 /hpf (0-5); Specific Gravity,Urine 1.025 (1.001-1.035); Squamous Epithelial Cell,Urine 8 /hpf (0-4); WBC,Urine 7 /hpf (0-5)
[2020-05-12] MEDS: HYDROmorphone 1 MG/ML 1 ML SYRINGE IVP PRN ×2 (06:07→11:56)
[2020-05-12 08:06] VITALS: RESP 14
--- NOTE | 2020-05-12 10:08 | P.CN ---
Psychiatric Consult - . Consult date: 05/12/20 Consult:: IDENTIFYING DATA: She is a 55-year-old female with history of a chronic pain condition with multiple presentations to the ED regarding pain and pain management. The hospitalist consulted psychiatry for the evaluation of depression and anxiety. HISTORY OF PRESENT ILLNESS: I reviewed the medical record, her MAPS record and interviewed the patient. She complained of chronic and recurrent pain for which she alleged she is had inadequate treatment. Other than the pain, her only other concern was not having anybody who could help her if she were unable to care for herself (fall in her apartment). She denies that she has a close or supportive relationship with family or friends. She has little contact with her neighbors at the apartment building. When I inquired about depression and anxiety she replied that her problem is pain. She becomes depressed or anxious when the pain worsens or when the pain is uncontrolled different or inadequately treated. She specifically denied that she is feeling depressed or having thoughts of or suicide. She denied experiencing persistent uncontrollable anxiety. She denied expressing panic attacks or having obsessions or compulsions. She denied a history of alcohol or or drugs to get high, help her sleep or change her mood. She denied experiencing psychotic symptoms such as hallucinations, paranoia or thought disturbances. There is no urine drug screen, serum alcohol or BAT to corroborate her history. PAST PSYCHIATRIC HISTORY: She reported one psychiatric hospitalization "about 10 years ago" after the of her mother. She met with an outpatient provider after discharge "briefly". She spoke disparagingly of her experience with individual therapy. Her primary care provider has prescribed antidepressants but she cannot remember the name of the medication or medications. She similarly complained that she found no benefit from antidepressant medications. She denied history of suicide attempts or gestures. PAST MEDICAL HISTORY: She has a history of back pain with multiple emergency room visits (at least 30 since 2017 for pain or opioid withdrawal). Many of the progress notes indicate that her presentation was related to opiate withdrawal after not being unable to obtain a prescription for opiate pain medication or "running out" of her pain medications. She had at least one primary provider discharge her from this clinic for her using opiate pain medications more than was prescribed. Note that some of the progress notes indicate that the severity of her pain complaints are disproportionate to the findings on assessment and examination. ALLERGIES: Penicillins, sulfamethoxazole, trimethoprim SUBSTANCE USE HISTORY: She denied a history of substance abuse or substance use problems. She denied participation in substance abuse treatment program. She denied that she abuses her opiate pain medications. FAMILY PSYCHIATRIC/SUBSTANCE USE HISTORY: Her father had history of alcohol use disorder SOCIAL HISTORY: She was raised by her mother after parents divorce when she was approximately 1 years old. She has 1 brother whom she has not spoken to him" 25 years". She had "unhappy" marriage. She is estranged from her only daughter. She lives alone in an apartment. She is unemployed and receives disability. MENTAL STATUS EXAM: She presented as a thin 55-year-old female who looked older than her stated age. She is laying in bed and only made intermittent eye contact. She had no distinguishing features or prominent physical abnormalities. She had a blunted facial expression. She was alert and oriented to person, place and time. She showed psychomotor retardation but no abnormal involuntary movements. Speech was spontaneous with decreased rate and rhythm. Her affect was dysphoric and primarily angry. She denied suicidal ideation and wishes. She denied homicidal ideation. She denied feeling hopeless, helpless or worthless. She ruminated about pain and pain treatment. She did not express ideas reference or paranoid ideation or delusions. Her thinking was concrete. Associations were coherent, logical and goal directed. She denied hallucinations did not appear to be responding to internal stimuli. IMPRESSIONS: She is a 55-year-old female who has a 20+ year history of complaints related to back pain. She has had multiple presentations to emergency room with complaints of worsening pain or for experiencing opiate withdrawal. Her focus during our encounter was pain in the adequate treatment of her pain. She denies feeling depressed or anxious except when she is experiencing worsening pain or experiencing withdrawal from opiate pain medications. She was angry and guarded during our interview. She has some other predisposing factors for a somatic symptom disorder including childhood adversity, comorbid medical illness and poor coping ability. DIAGNOSIS: Somatic symptoms disorder with predominant pain, opioid dependence, rule out opioid use disorder RECOMMENDATION: There is no indication for transfer to the psychiatric assessment time. She would best be treated by a single provider who is experience with managing chronic pain complaints and issues related to chronic prescription of opiate pain medications (limited time record her appointments, brief physical examination, avoidance necessary diagnostic tests etc.). She wo uld be a candidate for treatment with buprenorphine. Treatment with a SSRI or an SNRI may be helpful as long as the patient does not think that these medication are prescribed as attempt to substitute for the narcotic pain medications. Consider Zoloft 50 mg daily and explained that the purpose of the medication is to help alleviate the anxiety and distress surrounding the treatment of her chronic pain. Thank you for this consult. Psychiatry will sign off on the case. 05/12/20 09:36
[2020-05-12 11:59] VITALS: BP 130/77; PULSE 71; TEMP 98.4
[2020-05-12] MEDS ORDERED: KETOROLAC 30 MG/ML 1 ML VIAL IVP PRN (12:30)
--- NOTE | 2020-05-12 15:47 | P.DS ---
Providers Date of admission: 05/12/20 01:34 Attending physician: Dakotah Sands Consults: 05/12/20 01:35 Consult Physician Routine Consulting Provider: Rajeev Josue Reason/Comments: anxiety,depression Do you want consulting provider notified?: Yes Primary care physician: Stated None Hospital Course: Please refer to my history of present illness for further details Patient Condition at Discharge: Fair Plan - Discharge Summary New Discharge Prescriptions: New Ibuprofen [Motrin] 600 mg PO Q6HR PRN #30 tab PRN Reason: Pain Famotidine [Pepcid] 20 mg PO BID #30 tablet Sertraline [Zoloft] 50 mg PO DAILY #30 tab Discharge Medication List Famotidine [Pepcid] 20 mg PO BID #30 tablet 05/12/20 [Rx] Ibuprofen [Motrin] 600 mg PO Q6HR PRN #30 tab 05/12/20 [Rx] Sertraline [Zoloft] 50 mg PO DAILY #30 tab 05/12/20 [Rx] Follow up Appointment(s)/Referral(s): Shanae Hidalgo MD [REFERRING] - 1 Week None,Stated [Primary Care Provider] - 1-2 days Discharge Disposition: HOME SELF-CARE
--- NOTE | 2020-05-12 15:47 | P.HPIM ---
History of Present Illness Patient is a 55-year-old female seen is much severe 10/10 in severity and was subsequently admitted for pain management. Patient denied any weakness does have generalized weakness in both extended loss of bowel or bladder incontinence patient denying tingling numbness of diuretic left the symptoms at this time patient had any fever chills. Patient pain is better controlled at this time. Patient was evaluated by psychiatry for significant anxiety symptoms. 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 Review of Systems REVIEW OF SYSTEMS: CONSTITUTIONAL: No fever, no malaise, no fatigue. HEENT: No recent visual problems or hearing problems. Denied any sore throat. CARDIOVASCULAR: No chest pain, orthopnea, PND, no palpitations, no syncope. PULMONARY: No shortness of breath, no cough, no hemoptysis. GASTROINTESTINAL: No diarrhea, no nausea, no vomiting, no abdominal pain. NEUROLOGICAL: No headaches, no weakness, no numbness. HEMATOLOGICAL: Denies any bleeding or petechiae. GENITOURINARY: Denies any burning micturition, frequency, or urgency. MUSCULOSKELETAL/RHEUMATOLOGICAL: As mentioned in HPI ENDOCRINE: Denies any polyuria or polydipsia. The rest of the 14-point review of systems is negative. Past Medical History Past Medical History: Fibromyalgia, Hypertension, Musculoskeletal Disorder Additional Past Medical History / Comment(s): back pain, pt states she has lesions on her brain that could be the onset of MS, History of Any Multi-Drug Resistant Organisms: None Reported Past Surgical History: Appendectomy, Hysterectomy Additional Past Surgical History / Comment(s): d&c, Past Anesthesia/Blood Transfusion Reactions: No Reported Reaction Past Psychological History: Anxiety, Depression, Panic Disorder, PTSD Smoking Status: Current every day smoker Past Alcohol Use History: None Reported Past Drug Use History: Opiates, Prescription Drug Abuse - Past Family History Mother Family Medical History: Cancer, Rheumatoid Arthritis (RA) Additional Family Medical History / Comment(s): lymphoma Daughter(s) Family Medical History: Asthma Medications and Allergies Home Medications Medication Instructions Recorded Confirmed Type Famotidine [Pepcid] 20 mg PO BID #30 tablet 05/12/20 Rx Ibuprofen [Motrin] 600 mg PO Q6HR PRN #30 tab 05/12/20 Rx Sertraline [Zoloft] 50 mg PO DAILY #30 tab 05/12/20 Rx Allergies Allergy/AdvReac Type Severity Reaction Status Date / Time Penicillins Allergy Rash/Hives Verified 05/12/20 07:11 sulfamethoxazole Allergy Unknown Verified 05/12/20 07:11 [From Bactrim] trimethoprim [From Bactrim] Allergy Unknown Verified 05/12/20 07:11 venom-honey bee Allergy Anaphylaxis Verified 05/12/20 07:11 [bee venom (honey bee)] Physical Exam Vitals: Vital Signs Temp Pulse Pulse Resp BP BP Pulse Ox 05/12/20 11:57 98.4 F 71 14 130/77 99 05/12/20 11:56 14 05/12/20 08:39 62 05/12/20 08:04 98.1 F 56 L 14 116/71 97 05/12/20 07:28 59 L 16 122/76 97 05/12/20 06:11 63 18 140/80 100 05/12/20 01:21 98 F 94 18 132/81 99 Intake and Output 05/12/20 05/12/20 05/12/20 06:59 14:59 22:59 Other: Voiding Method Toilet Weight 51.256 kg 51.256 kg PHYSICAL EXAMINATION: GENERAL: The patient is alert and oriented x3, not in any acute distress. Well developed, well nourished. HEENT: Pupils are round and equally reacting to light. EOMI. No scleral icterus. No conjunctival pallor. Normocephalic, atraumatic. No pharyngeal erythema. No thyromegaly. CARDIOVASCULAR: S1 and S2 present. No murmurs, rubs, or gallops. PULMONARY: Chest is clear to auscultation, no wheezing or crackles. ABDOMEN: Soft, nontender, nondistended, normoactive bowel sounds. No palpable organomegaly. MUSCULOSKELETAL: No joint swelling or deformity. EXTREMITIES: No cyanosis, clubbing, or pedal edema. NEUROLOGICAL: Gross neurological examination did not reveal any focal deficits. SKIN: No rashes. Results CBC & Chem 7: 05/12/20 01:47 05/12/20 01:47 Labs: Abnormal Lab Results - Last 24 Hours (Table) 05/12/20 05/12/20 05/12/20 Range/Units 01:47 01:47 02:57 WBC 12.3 H (3.8-10.6) k/uL Neutrophils # 8.0 H (1.3-7.7) k/uL Glucose 118 H (74-99) mg/dL Urine Appearance Cloudy H (Clear) Ur Leukocyte Esterase Small H (Negative) Urine WBC 7 H (0-5) /hpf Ur Squamous Epith Cells 8 H (0-4) /hpf Urine Bacteria Rare H (None) /hpf Hyaline Casts 27 H (0-2) /lpf Urine Mucus Many H (None) /hpf Thrombosis Risk Factor Assmnt - Choose All That Apply Any of the Below Risk Factors Present?: Yes Each Factor Represents 1 point: Age 41-60 years Other Risk Factors: No Thrombosis Risk Factor Assessment Total Risk Factor Score: 1 Thrombosis Risk Factor Assessment Level: Low Risk Assessment and Plan Plan: -Severe back pain patient does have chronic back pain patient doesn't have any red flag signs of back pain. Patient the will follow with Dr. mancilla as an outpatient will be given prescription for ibuprofen and GI prophylaxis will be discharged. -Severe anxiety for which patient will be started on Zoloft. -Fibromyalgia -Hypertension -Depression
[2020-05-12] MEDS ORDERED: FAMOTIDINE 20 MG TAB PO SCH (21:00)
== END 2020-05-12 13:40 | disposition home or self-care (01) ==
LOC: EC 01:12 → 1SOBS 01:34
PROVIDERS: ADMIT Hospitalist; ATTEND Hospitalist
DX: G89.29 Other chronic pain (principal); M54.9 Dorsalgia, unspecified; F41.9 Anxiety disorder, unspecified; F45.9 Somatoform disorder, unspecified; F11.20 Opioid dependence, uncomplicated; T40.0X5A Adverse effect of opium, initial encounter; M79.7 Fibromyalgia; I10 Essential (primary) hypertension; F32.9 Major depressive disorder, single episode, unspecified; G93.9 Disorder of brain, unspecified; F41.0 Panic disorder [episodic paroxysmal anxiety]; F43.10 Post-traumatic stress disorder, unspecified; F17.200 Nicotine dependence, unspecified, uncomplicated; Z03.818 Encounter for observation for suspected exposure to other biological agents ruled out; Z79.899 Other long term (current) drug therapy; Z79.1 Long term (current) use of non-steroidal anti-inflammatories (NSAID); Z88.0 Allergy status to penicillin; Z88.2 Allergy status to sulfonamides; Z91.030 Bee allergy status; Z90.49 Acquired absence of other specified parts of digestive tract; Z90.710 Acquired absence of both cervix and uterus; Z98.890 Other specified postprocedural states; Z80.7 Family history of other malignant neoplasms of lymphoid, hematopoietic and related tissues; Z82.61 Family history of arthritis; Z82.5 Family history of asthma and other chronic lower respiratory diseases; Z81.1 Family history of alcohol abuse and dependence
CPT/HCPCS: 96376 ×2; 96361; 96374; 96375; 99285; 93005; 80053; 82550; 83735; 84100; 85025; 86140; 81001; G0378; U0003; J1200; J3360; J2405; J1885; J1170

== ENCOUNTER 2020-05-13 01:41 | Emergency (ER) | payer OTHER ==
[2020-05-13] MEDS ORDERED: HYDROmorphone 1 MG/ML 1 ML SYRINGE IM STA (02:32)
[2020-05-13] MEDS ORDERED: ACET/COD 300 MG/30 MG STARTER PACK 6 TAB BTL PO STA (02:32)
--- NOTE | 2020-05-13 02:32 | ED ---
Abdominal Pain HPI - General Chief Complaint: Abdominal Pain Stated Complaint: abd pain Time Seen by Provider: 05/13/20 01:44 Source: EMS, RN notes reviewed, old records reviewed Mode of arrival: EMS Limitations: no limitations - History of Present Illness Initial Comments: This is a 35-year-old female DF for evaluation well-known to our facility for pa in addiction, narcotic abuse, patient presents with severe back pain back pain abdominal pain worsen prior. Patient has no new symptoms MD Complaint: abdominal pain, flank pain, other (Back pain) -: year(s), unknown Location: diffuse, epigastric, suprapubic, bilateral flank Radiation: back Migration to: bilateral flank Severity: severe Severity scale (1-10): 8 Quality: aching, sharp Consistency: constant Improves With: nothing Worsens With: nothing Context: other (History of severe pain) Associated Symptoms: denies other symptoms - Related Data Previous Rx's Medication Instructions Recorded Famotidine [Pepcid] 20 mg PO BID #30 tablet 05/12/20 Ibuprofen [Motrin] 600 mg PO Q6HR PRN #30 tab 05/12/20 Sertraline [Zoloft] 50 mg PO DAILY #30 tab 05/12/20 Allergies Allergy/AdvReac Type Severity Reaction Status Date / Time Penicillins Allergy Rash/Hives Verified 05/12/20 07:11 sulfamethoxazole Allergy Unknown Verified 05/12/20 07:11 [From Bactrim] trimethoprim [From Bactrim] Allergy Unknown Verified 05/12/20 07:11 venom-honey bee Allergy Anaphylaxis Verified 05/12/20 07:11 [bee venom (honey bee)] Review of Systems ROS Statement: Those systems with pertinent positive or pertinent negative responses have been documented in the HPI. ROS Other: All systems not noted in ROS Statement are negative. Past Medical History Past Medical History: Fibromyalgia, Hypertension, Musculoskeletal Disorder Additional Past Medical History / Comment(s): back pain, pt states she has lesions on her brain that could be the onset of MS, History of Any Multi-Drug Resistant Organisms: None Reported Past Surgical History: Appendectomy, Hysterectomy Additional Past Surgical History / Comment(s): d&c, Past Anesthesia/Blood Transfusion Reactions: No Reported Reaction Past Psychological History: Anxiety, Depression, Panic Disorder, PTSD Smoking Status: Current every day smoker Past Alcohol Use History: None Reported Past Drug Use History: Opiates, Prescription Drug Abuse - Past Family History Mother Family Medical History: Cancer, Rheumatoid Arthritis (RA) Additional Family Medical History / Comment(s): lymphoma Daughter(s) Family Medical History: Asthma General Exam Limitations: no limitations General appearance: alert, in no apparent distress Head exam: Present: atraumatic, normocephalic, normal inspection Eye exam: Present: normal appearance, PERRL, EOMI. Absent: scleral icterus, conjunctival injection, periorbital swelling ENT exam: Present: normal exam, mucous membranes moist Neck exam: Present: normal inspection. Absent: tenderness, meningismus, lymphadenopathy Respiratory exam: Present: normal lung sounds bilaterally. Absent: respiratory distress, wheezes, rales, rhonchi, stridor Cardiovascular Exam: Present: regular rate, normal rhythm, normal heart sounds. Absent: systolic murmur, diastolic murmur, rubs, gallop, clicks GI/Abdominal exam: Present: soft, normal bowel sounds. Absent: distended, tenderness, guarding, rebound, rigid Extremities exam: Present: normal inspection, full ROM, normal capillary refill. Absent: tenderness, pedal edema, joint swelling, calf tenderness Back exam: Present: normal inspection Neurological exam: Present: alert, oriented X3, CN II-XII intact Psychiatric exam: Present: normal affect, normal mood Skin exam: Present: warm, dry, intact, normal color. Absent: rash Course Vital Signs 05/13/20 05/13/20 05/13/20 01:42 02:28 03:17 Temperature 98 F 98.9 F Pulse Rate 86 72 84 Respiratory 18 20 23 Rate Blood Pressure 149/83 135/80 140/85 O2 Sat by Pulse 99 100 96 Oximetry - Reevaluation(s) Reevaluation #1: Medical records reviewed No distress not homicidal or suicidal Medical Decision Making - Medical Decision Making 55 female DF for evaluation of pain chronic pain. Patient given pain control resources here in the emergency department. Will be discharged home Disposition Clinical Impression: Intractable back pain, Medication requested, Fibromyalgia, Gastroenteritis Disposition: HOME SELF-CARE Condition: Fair Instructions (If sedation given, give patient instructions): Acute Diarrhea (ED) Is patient prescribed a controlled substance at d/c from ED?: No Referrals: None,Stated [Primary Care Provider] - 1-2 days
[2020-05-13 03:19] VITALS: BP 140/85; PULSE 84; RESP 23; TEMP 98.9
== END 2020-05-13 03:17 | disposition home or self-care (01) ==
LOC: EC 01:41
DX: K52.9 Noninfective gastroenteritis and colitis, unspecified (principal); M79.7 Fibromyalgia; M54.9 Dorsalgia, unspecified; Z76.0 Encounter for issue of repeat prescription; F17.200 Nicotine dependence, unspecified, uncomplicated; Z88.2 Allergy status to sulfonamides; Z88.0 Allergy status to penicillin; Z91.030 Bee allergy status; Z90.49 Acquired absence of other specified parts of digestive tract; Z90.710 Acquired absence of both cervix and uterus
CPT/HCPCS: 99284; 96372; J1170

== ENCOUNTER → 2020-05-18 | Outpatient (CLI) | payer OTHER ==
[2020-05-20 12:25] LABS: IgG - CSF 3.6 mg/dL (0.0 - 3.4); IgG/Albumin Index (CSF) 0.52 (0.00 - 0.77); Immunoglobulin G 768 mg/dL (700 - 1600)
== END | disposition home or self-care (01) ==
LOC: LABWHC1 12:20
PROVIDERS: ATTEND Nurse Practitioner Family
DX: G35 Multiple sclerosis (principal)
CPT/HCPCS: 36415; 82040; 82042; 82784; 83916

== ENCOUNTER 2020-05-28 09:06 | Observation (INO) | payer OTHER ==
[2020-05-28] MEDS ORDERED: LORazepam 2 MG/ML INJ IV STA (09:12)
[2020-05-28] MEDS ORDERED: HYDROmorphone 0.5 MG/0.5 ML SYRINGE IVP STA (09:12)
--- NOTE | 2020-05-28 09:15 | ED ---
General Adult HPI - General Chief complaint: Recheck/Abnormal Lab/Rx Stated complaint: Lower Back Pain Source: patient, EMS, RN notes reviewed, old records reviewed Mode of arrival: EMS Limitations: no limitations - History of Present Illness Initial comments: This is a 55-year-old female who presents emergency Department complaining of a day and a half of back pain and a headache. Patient states on the sixth of this month she got a spinal tap and then yesterday she had an epidural. Patient states she had already had a headache in the back pain prior to the epidural. Patient denies any chest pain. Patient denies any palpitations. Patient denies any recent fever chills or cough. Patient denies any numbness weakness. Patient denies lightheaded or dizzy. EMS stated the patient's heart rate got up to 180 at times. Patient denies any abdominal pain patient denies nausea vomiting diarrhea. - Related Data Home Medications Medication Instructions Recorded Confirmed oxyCODONE HCL/ACETAMINOPHEN 1 tab PO TID PRN 05/28/20 05/28/20 [Percocet 10-325 mg] Allergies Allergy/AdvReac Type Severity Reaction Status Date / Time Penicillins Allergy Rash/Hives Verified 05/28/20 11:27 sulfamethoxazole Allergy Unknown Verified 05/28/20 11:27 [From Bactrim] trimethoprim [From Bactrim] Allergy Unknown Verified 05/28/20 11:27 venom-honey bee Allergy Anaphylaxis Verified 05/28/20 11:27 [bee venom (honey bee)] Review of Systems ROS Statement: Those systems with pertinent positive or pertinent negative responses have been documented in the HPI. ROS Other: All systems not noted in ROS Statement are negative. Past Medical History Past Medical History: Fibromyalgia, Hypertension, Musculoskeletal Disorder Additional Past Medical History / Comment(s): back pain, pt states she has lesions on her brain that could be the onset of MS, History of Any Multi-Drug Resistant Organisms: None Reported Past Surgical History: Appendectomy, Hysterectomy Additional Past Surgical History / Comment(s): d&c, Past Anesthesia/Blood Transfusion Reactions: No Reported Reaction Past Psychological History: Anxiety, Depression, Panic Disorder, PTSD Past Alcohol Use History: None Reported Past Drug Use History: Opiates, Prescription Drug Abuse - Past Family History Mother Family Medical History: Cancer, Rheumatoid Arthritis (RA) Additional Family Medical History / Comment(s): lymphoma Daughter(s) Family Medical History: Asthma Father Family Medical History: Liver Disease Additional Family Medical History / Comment(s): Father had alcoholic cirrhosis. He is . General Exam - General Exam Comments Initial Comments: GENERAL: Patient is well-developed and well-nourished. Patient is nontoxic and well- hydrated and is in mild distress. ENT: Neck is soft and supple. No significant lymphadenopathy is noted. Oropharynx is clear. Moist mucous membranes. Neck has full range of motion without eliciting any pain. EYES: The sclera were anicteric and conjunctiva were pink and moist. Extraocular movements were intact and pupils were equal round and reactive to light. Eyelids were unremarkable. PULMONARY: Unlabored respirations. Good breath sounds bilaterally. No audible rales rhonchi or wheezing was noted. CARDIOVASCULAR: Patient is tachycardic at about 130 beats a minute. ABDOMEN: Soft and nontender with normal bowel sounds. SKIN: Skin is clear with no lesions or rashes and otherwise unremarkable. NEUROLOGIC: Patient is alert and oriented x3. Cranial nerves II through XII are grossly intact. Motor and sensory are also intact. Normal speech, volume and content. Symmetrical smile. MUSCULOSKELETAL: Normal extremities with adequate strength and full range of motion. LYMPHATICS: No significant lymphadenopathy is noted PSYCHIATRIC: Normal psychiatric evaluation. 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 Patient's EKG Shows a Right Bundle Shazia Block. Patient Has No ST Segment Elevation or Depression. Patient had a high lactate acidosis secondary to hypoperfusion - Lab Data Result diagrams: 05/28/20 09:16 05/28/20 09:16 Lab Results 05/28/20 05/28/20 05/28/20 Range/Units 09:16 09:16 09:16 WBC 7.0 (3.8-10.6) k/uL RBC 4.63 (3.80-5.40) m/uL Hgb 14.2 (11.4-16.0) gm/dL Hct 43.4 (34.0-46.0) % MCV 93.7 (80.0-100.0) fL MCH 30.8 (25.0-35.0) pg MCHC 32.8 (31.0-37.0) g/dL RDW 12.8 (11.5-15.5) % Plt Count 243 (150-450) k/uL Neutrophils % 79 % Lymphocytes % 18 % Monocytes % 2 % Eosinophils % 1 % Basophils % 0 % Neutrophils # 5.5 (1.3-7.7) k/uL Lymphocytes # 1.2 (1.0-4.8) k/uL Monocytes # 0.2 (0-1.0) k/uL Eosinophils # 0.1 (0-0.7) k/uL Basophils # 0.0 (0-0.2) k/uL PT 9.9 (9.0-12.0) sec INR 1.0 (<1.2) APTT 23.8 (22.0-30.0) sec D-Dimer 0.25 (<0.60) mg/L FEU Sodium 137 (137-145) mmol/L Potassium 3.4 L (3.5-5.1) mmol/L Chloride 105 (98-107) mmol/L Carbon Dioxide 19 L (22-30) mmol/L Anion Gap 13 mmol/L BUN 11 (7-17) mg/dL Creatinine 0.48 L (0.52-1.04) mg/dL Est GFR (CKD-EPI)AfAm >90 (>60 ml/min/1.73 sqM) Est GFR (CKD-EPI)NonAf >90 (>60 ml/min/1.73 sqM) Glucose 199 H (74-99) mg/dL Lactic Ac Sepsis Rflx Plasma Lactic Acid Enrique (0.7-2.0) mmol/L Calcium 9.9 (8.4-10.2) mg/dL Magnesium 1.7 (1.6-2.3) mg/dL Total Bilirubin 0.6 (0.2-1.3) mg/dL AST 20 (14-36) U/L ALT 19 (4-34) U/L Alkaline Phosphatase 80 (38-126) U/L Troponin I (0.000-0.034) ng/mL NT-Pro-B Natriuret Pep pg/mL Total Protein 6.9 (6.3-8.2) g/dL Albumin 4.5 (3.5-5.0) g/dL 05/28/20 05/28/20 05/28/20 Range/Units 09:16 09:16 09:16 WBC (3.8-10.6) k/uL RBC (3.80-5.40) m/uL Hgb (11.4-16.0) gm/dL Hct (34.0-46.0) % MCV (80.0-100.0) fL MCH (25.0-35.0) pg MCHC (31.0-37.0) g/dL RDW (11.5-15.5) % Plt Count (150-450) k/uL Neutrophils % % Lymphocytes % % Monocytes % % Eosinophils % % Basophils % % Neutrophils # (1.3-7.7) k/uL Lymphocytes # (1.0-4.8) k/uL Monocytes # (0-1.0) k/uL Eosinophils # (0-0.7) k/uL Basophils # (0-0.2) k/uL PT (9.0-12.0) sec INR (<1.2) APTT (22.0-30.0) sec D-Dimer (<0.60) mg/L FEU Sodium (137-145) mmol/L Potassium (3.5-5.1) mmol/L Chloride (98-107) mmol/L Carbon Dioxide (22-30) mmol/L Anion Gap mmol/L BUN (7-17) mg/dL Creatinine (0.52-1.04) mg/dL Est GFR (CKD-EPI)AfAm (>60 ml/min/1.73 sqM) Est GFR (CKD-EPI)NonAf (>60 ml/min/1.73 sqM) Glucose (74-99) mg/dL Lactic Ac Sepsis Rflx Plasma Lactic Acid Enrique 5.1 H* (0.7-2.0) mmol/L Calcium (8.4-10.2) mg/dL Magnesium (1.6-2.3) mg/dL Total Bilirubin (0.2-1.3) mg/dL AST (14-36) U/L ALT (4-34) U/L Alkaline Phosphatase (38-126) U/L Troponin I <0.012 (0.000-0.034) ng/mL NT-Pro-B Natriuret Pep 329 pg/mL Total Protein (6.3-8.2) g/dL Albumin (3.5-5.0) g/dL 05/28/20 Range/Units 10:04 WBC (3.8-10.6) k/uL RBC (3.80-5.40) m/uL Hgb (11.4-16.0) gm/dL Hct (34.0-46.0) % MCV (80.0-100.0) fL MCH (25.0-35.0) pg MCHC (31.0-37.0) g/dL RDW (11.5-15.5) % Plt Count (150-450) k/uL Neutrophils % % Lymphocytes % % Monocytes % % Eosinophils % % Basophils % % Neutrophils # (1.3-7.7) k/uL Lymphocytes # (1.0-4.8) k/uL Monocytes # (0-1.0) k/uL Eosinophils # (0-0.7) k/uL Basophils # (0-0.2) k/uL PT (9.0-12.0) sec INR (<1.2) APTT (22.0-30.0) sec D-Dimer (<0.60) mg/L FEU Sodium (137-145) mmol/L Potassium (3.5-5.1) mmol/L Chloride (98-107) mmol/L Carbon Dioxide (22-30) mmol/L Anion Gap mmol/L BUN (7-17) mg/dL Creatinine (0.52-1.04) mg/dL Est GFR (CKD-EPI)AfAm (>60 ml/min/1.73 sqM) Est GFR (CKD-EPI)NonAf (>60 ml/min/1.73 sqM) Glucose (74-99) mg/dL Lactic Ac Sepsis Rflx Y Plasma Lactic Acid Enrique (0.7-2.0) mmol/L Calcium (8.4-10.2) mg/dL Magnesium (1.6-2.3) mg/dL Total Bilirubin (0.2-1.3) mg/dL AST (14-36) U/L ALT (4-34) U/L Alkaline Phosphatase (38-126) U/L Troponin I (0.000-0.034) ng/mL NT-Pro-B Natriuret Pep pg/mL Total Protein (6.3-8.2) g/dL Albumin (3.5-5.0) g/dL Disposition Clinical Impression: Tachycardia, Lactic acidosis Disposition: ADMITTED IP TO THIS [facility] Time of Disposition: 11:31
[2020-05-28 09:33] LABS: Basophils % (A) 0 %; Eosinophils # (A) 0.1 k/uL (0-0.7); Eosinophils % (A) 1 %; HCT 43.4 % (34.0-46.0); HGB 14.2 gm/dL (11.4-16.0); Lymphocytes # (A) 1.2 k/uL (1.0-4.8); Lymphocytes % (A) 18 %; MCH 30.8 pg (25.0-35.0); MCHC 32.8 g/dL (31.0-37.0); MCV 93.7 fL (80.0-100.0); Mean Platelet Volume 8.1; Monocytes # (A) 0.2 k/uL (0-1.0); Monocytes % (A) 2 %; Neutrophils # (A) 5.5 k/uL (1.3-7.7); Neutrophils % (A) 79 %; Platelet Count 243 k/uL (150-450); RBC 4.63 m/uL (3.80-5.40); RDW 12.8 % (11.5-15.5)
--- NOTE | 2020-05-28 09:38 | XR ---
EXAMINATION TYPE: XR chest 2V DATE OF EXAM: 05/28/2020 COMPARISON: Prior chest x-ray dated 02/14/2018 HISTORY: Difficulty breathing TECHNIQUE: Frontal and lateral views of the chest are obtained. FINDINGS: There is no focal air space opacity, pleural effusion, or pneumothorax seen. The cardiac silhouette size is within normal limits. The osseous structures are intact. IMPRESSION: No acute cardiopulmonary process.
--- NOTE | 2020-05-28 09:40 | CT ---
EXAMINATION TYPE: CT brain wo con DATE OF EXAM: 05/28/2020 COMPARISON: None HISTORY: 55 year-old female New onset headache TECHNIQUE: Examination was done in axial plane without intravenous contrast. Coronal and sagittal r econstructions performed. CT DLP: 1099.4 mGycm Automated exposure control for dose reduction was used. FINDINGS: There is no evidence of acute intracranial hemorrhage, acute ischemic changes, mass, mass-effect, or extra-axial fluid collection. There is no effacement of cerebral sulci or basal subarachnoid cister ns. There is no hydrocephalus. There is no midline shift. Boyer-white matter distinction is preserv ed. Very mild bifrontal cerebral cortical atrophy. Paranasal sinuses and mastoid air cells well pneumatized. Orbits and globes are intact. IMPRESSION: No acute intracranial abnormality seen.
[2020-05-28 09:46] LABS: D-Dimer 0.25 mg/L FEU (<0.60); Partial Thromboplastin Time 23.8 sec (22.0-30.0); Prothrombin Time 9.9 sec (9.0-12.0)
[2020-05-28 09:54] LABS: AST 20 U/L (14-36); African American GFR (CKD) >90 (>60 ml/min/1.73 sqM); Albumin 4.5 g/dL (3.5-5.0); Alkaline Phosphatase 80 U/L (38-126); Anion Gap 13 mmol/L; Blood Urea Nitrogen 11 mg/dL (7-17); Calcium 9.9 mg/dL (8.4-10.2); Carbon Dioxide 19 mmol/L (22-30); Chloride 105 mmol/L (98-107); Glucose 199 mg/dL (74-99); Magnesium 1.7 mg/dL (1.6-2.3); Non-African American GFR(CKD) >90 (>60 ml/min/1.73 sqM); Potassium 3.4 mmol/L (3.5-5.1); Sodium 137 mmol/L (137-145); Total Bilirubin 0.6 mg/dL (0.2-1.3); Total Protein 6.9 g/dL (6.3-8.2)
[2020-05-28 10:04] LABS: ALT 19 U/L (4-34)
[2020-05-28] MEDS ORDERED: SODIUM CHLORIDE 0.9% 1,000 ML IV ONE (11:31)
--- NOTE | 2020-05-28 12:57 | P.CRDCN ---
History of Present Illness History of present illness: HISTORY OF PRESENTING ILLNESS This is a pleasant 55-year-old female past medical history significant for chronic back pain and daily nicotine dependence. She denies prior history of coronary artery disease and does not follow regularly with a trouble shooter for any reason. We have been asked to see in consultation for tachycardia. She presented to the hospital with symptoms of back pain and headache. She follows regularly with Dr. Houston and recently underwent epidural infusion. She states this did not relieve her back discomfort at all. On admission EKG revealed sinus tachycardia with left anterior fascicular block and right bundle branch block. Heart rate was 131. She was given IV Dilaudid and Ativan. Her heart rate has come down. Currently on the bedside monitor heart rate is in the 70s. She denies ever having symptoms of chest discomfort or palpitations. She has no shortness of breath, dizziness, nausea, vomiting or diaphoresis. Laboratory data reviewed, CBC unremarkable, d-dimer 0.25, sodium 137, potassium 3.4, creatinine 0.48, lactic acid 5.1, magnesium 1.7, cardiac enzymes negative 1, NTproBNP 329. She takes no daily cardiac medications. REVIEW OF SYSTEMS At the time of my exam: CONSTITUTIONAL: Denies fever or chills. CARDIOVASCULAR: Denies chest pain, shortness of breath, orthopnea, PND or palpitations. RESPIRATORY: Denies cough. GASTROINTESTINAL: Denies abdominal pain, diarrhea, constipation, nausea or vomiting. MUSCULOSKELETAL: Complains of upper mid back discomfort. NEUROLOGIC: Denies numbness, tingling or weakness. ENDOCRINE: Denies fatigue, weight change, polydipsia or polyurina. GENITOURINARY: Denies burning, hematuria or urgency with micturation. HEMATOLOGIC: Denies history of anemia or bleeding. PHYSICAL EXAMINATION Blood pressure 118/74 heart rate 79 afebrile and maintaining oxygen saturation on nasal cannula. CONSTITUTIONAL: No apparent distress. Frail. HEENT: Head is normocephalic. Pupils are equal, round. Sclerae anicteric. Mucous membranes of the mouth are moist. No JVD. No carotid bruit. CHEST EXAMINATION: Lungs are clear to auscultation. No chest wall tenderness is noted on palpation or with deep breathing. Diminished bilaterally. HEART EXAMINATION: Regular rate and rhythm. S1, S2 heard. No murmurs, gallops or rub. ABDOMEN: Soft, nontender. Positive bowel sounds. EXTREMITIES: 2+ peripheral pulses, no lower extremity edema and no calf tenderness. NEUROLOGIC EXAMINATION: Patient is awake, alert and oriented x3. ASSESSMENT Sinus tachycardia, resolved. Likely secondary to pain. Chronic back pain Chronic nicotine dependence PLAN Sinus tachycardia secondary to pain. Improved when her pain was under control. We will obtain a 2-D echocardiogram and Doppler study to assess cardiac structu re and function. No further cardiac workup at this time, we will continue to follow as needed. Thank you kindly for this consultation. Nurse Practitioner note has been reviewed, I agree with a documented findings and plan of care. Patient was seen and examined. Past Medical History Past Medical History: Fibromyalgia, Hypertension, Musculoskeletal Disorder Additional Past Medical History / Comment(s): back pain, pt states she has lesions on her brain that could be the onset of MS, History of Any Multi-Drug Resistant Organisms: None Reported Past Surgical History: Appendectomy, Hysterectomy Additional Past Surgical History / Comment(s): d&c, Past Anesthesia/Blood Transfusion Reactions: No Reported Reaction Past Psychological History: Anxiety, Depression, Panic Disorder, PTSD Past Alcohol Use History: None Reported Past Drug Use History: Opiates, Prescription Drug Abuse - Past Family History Mother Family Medical History: Cancer, Rheumatoid Arthritis (RA) Additional Family Medical History / Comment(s): lymphoma Daughter(s) Family Medical History: Asthma Medications and Allergies Home Medications Medication Instructions Recorded Confirmed Type oxyCODONE HCL/ACETAMINOPHEN 1 tab PO TID PRN 05/28/20 05/28/20 History [Percocet 10-325 mg] Allergies Allergy/AdvReac Type Severity Reaction Status Date / Time Penicillins Allergy Rash/Hives Verified 05/28/20 11:27 sulfamethoxazole Allergy Unknown Verified 05/28/20 11:27 [From Bactrim] trimethoprim [From Bactrim] Allergy Unknown Verified 05/28/20 11:27 venom-honey bee Allergy Anaphylaxis Verified 05/28/20 11:27 [bee venom (honey bee)] Physical Exam Vitals: Vital Signs Temp Pulse Pulse Resp BP Pulse Ox 05/28/20 12:00 79 18 118/74 99 05/28/20 11:00 98.6 F 75 16 111/75 98 05/28/20 10:58 76 18 125/77 98 05/28/20 09:20 103 H 05/28/20 09:11 130 H 05/28/20 09:07 99.2 F 120 H 18 161/101 99 Intake and Output 05/27/20 05/28/20 05/28/20 22:59 06:59 14:59 Other: Weight 51.256 kg Results 05/28/20 09:16 05/28/20 09:16 Cardiac Enzymes 05/28/20 05/28/20 Range/Units 09:16 09:16 AST 20 (14-36) U/L Troponin I <0.012 (0.000-0.034) ng/mL Coagulation 05/28/20 Range/Units 09:16 PT 9.9 (9.0-12.0) sec APTT 23.8 (22.0-30.0) sec CBC 05/28/20 Range/Units 09:16 WBC 7.0 (3.8-10.6) k/uL RBC 4.63 (3.80-5.40) m/uL Hgb 14.2 (11.4-16.0) gm/dL Hct 43.4 (34.0-46.0) % Plt Count 243 (150-450) k/uL Comprehensive Metabolic Panel 05/28/20 Range/Units 09:16 Sodium 137 (137-145) mmol/L Potassium 3.4 L (3.5-5.1) mmol/L Chloride 105 (98-107) mmol/L Carbon Dioxide 19 L (22-30) mmol/L BUN 11 (7-17) mg/dL Creatinine 0.48 L (0.52-1.04) mg/dL Glucose 199 H (74-99) mg/dL Calcium 9.9 (8.4-10.2) mg/dL AST 20 (14-36) U/L ALT 19 (4-34) U/L Alkaline Phosphatase 80 (38-126) U/L Total Protein 6.9 (6.3-8.2) g/dL Albumin 4.5 (3.5-5.0) g/dL Current Medications Generic Name Dose Route Start Last Admin Trade Name Freq PRN Reason Stop Dose Admin Sodium Chloride 1,000 mls @ 130 mls/hr 05/28/20 11:31 Saline 0.9% IV 05/28/20 19:12 .[id number] ONE Intake and Output 05/27/20 05/28/20 05/28/20 22:59 06:59 14:59 Other: Weight 51.256 kg Patient Weight 05/29/20 06:59 Weight 51.256 kg 05/28/20 09:16 05/28/20 09:16
[2020-05-28 13:47] VITALS: PULSE 81; TEMP 98
[2020-05-28] MEDS ORDERED: oxyCODONE-APAP 10-325MG 1 EACH TAB PO PRN (15:00)
--- NOTE | 2020-05-28 15:07 | P.HPIM ---
History of Present Illness 55-year-old the female came in because of headache. Patient had an epidural steroid injection since then patient was having headache which is about the 9/10 in severity present is 6 tested in severity after Dilaudid. Patient has chronic back pain for which patient received epidural steroid injection patient had an LP few days ago to rule out the multiple sclerosis and at that time there is no localized banding that was evident. Although patient does have chronic weakness because of the neuropathy from her back pain patient does have significant weakness more on the left than right side in the lower legs with some atrophy in the left lower limb. Patient heart rate was very high at 131 sinus tachycardia. Patient is also found to have lactic is doses although there is no infection that was evident patient denied dysuria denied any cough runny nose patient denied any flulike symptoms denied any photophobia neck rigidity does have headache as mentioned above. Review of Systems REVIEW OF SYSTEMS: CONSTITUTIONAL: No fever, no malaise, no fatigue. HEENT: No recent visual problems or hearing problems. Denied any sore throat. CARDIOVASCULAR: No chest pain, orthopnea, PND, no palpitations, no syncope. PULMONARY: No shortness of breath, no cough, no hemoptysis. GASTROINTESTINAL: No diarrhea, no nausea, no vomiting, no abdominal pain. NEUROLOGICAL: no weakness, no numbness. HEMATOLOGICAL: Denies any bleeding or petechiae. GENITOURINARY: Denies any burning micturition, frequency, or urgency. MUSCULOSKELETAL/RHEUMATOLOGICAL: Denies any joint pain, swelling, or any muscle pain. ENDOCRINE: Denies any polyuria or polydipsia. The rest of the 14-point review of systems is negative. Past Medical History Past Medical History: Fibromyalgia, Hypertension, Musculoskeletal Disorder Additional Past Medical History / Comment(s): back pain, pt states she has lesions on her brain that could be the onset of MS, History of Any Multi-Drug Resistant Organisms: None Reported Past Surgical History: Appendectomy, Hysterectomy Additional Past Surgical History / Comment(s): d&c, Past Anesthesia/Blood Transfusion Reactions: No Reported Reaction Past Psychological History: Anxiety, Depression, Panic Disorder, PTSD Past Alcohol Use History: None Reported Past Drug Use History: Opiates, Prescription Drug Abuse - Past Family History Mother Family Medical History: Cancer, Rheumatoid Arthritis (RA) Additional Family Medical History / Comment(s): lymphoma Father Family Medical History: Liver Disease Additional Family Medical History / Comment(s): Father had alcoholic cirrhosis. He is . Daughter(s) Family Medical History: Asthma Medications and Allergies Home Medications Medication Instructions Recorded Confirmed Type oxyCODONE HCL/ACETAMINOPHEN 1 tab PO TID PRN 05/28/20 05/28/20 History [Percocet 10-325 mg] Allergies Allergy/AdvReac Type Severity Reaction Status Date / Time Penicillins Allergy Rash/Hives Verified 05/28/20 11:27 sulfamethoxazole Allergy Unknown Verified 05/28/20 11:27 [From Bactrim] trimethoprim [From Bactrim] Allergy Unknown Verified 05/28/20 11:27 venom-honey bee Allergy Anaphylaxis Verified 05/28/20 11:27 [bee venom (honey bee)] Physical Exam Vitals: Vital Signs Temp Pulse Pulse Resp BP Pulse Ox 05/28/20 13:46 98.0 F 81 20 113/65 99 05/28/20 12:00 79 18 118/74 99 05/28/20 11:00 98.6 F 75 16 111/75 98 05/28/20 10:58 76 18 125/77 98 05/28/20 09:20 103 H 05/28/20 09:11 130 H 05/28/20 09:07 99.2 F 120 H 18 161/101 99 Intake and Output 05/28/20 05/28/20 05/28/20 06:59 14:59 22:59 Other: Weight 51.256 kg PHYSICAL EXAMINATION: GENERAL: The patient is alert and oriented x3, not in any acute distress. Well developed, well nourished. HEENT: Pupils are round and equally reacting to light. EOMI. No scleral icterus. No conjunctival pallor. Normocephalic, atraumatic. No pharyngeal erythema. No thyromegaly. CARDIOVASCULAR: S1 and S2 present. No murmurs, rubs, or gallops. PULMONARY: Chest is clear to auscultation, no wheezing or crackles. ABDOMEN: Soft, nontender, nondistended, normoactive bowel sounds. No palpable organomegaly. MUSCULOSKELETAL: No joint swelling or deformity. EXTREMITIES: No cyanosis, clubbing, or pedal edema. NEUROLOGICAL: Gross neurological examination did not reveal any new focal deficits. But does have chronic weakness predominantly in the left leg with atrophy of the left the leg calf muscles SKIN: No rashes. Results CBC & Chem 7: 05/28/20 09:16 05/28/20 09:16 Labs: Abnormal Lab Results - Last 24 Hours (Table) 05/28/20 05/28/20 Range/Units 09:16 09:16 Potassium 3.4 L (3.5-5.1) mmol/L Carbon Dioxide 19 L (22-30) mmol/L Creatinine 0.48 L (0.52-1.04) mg/dL Glucose 199 H (74-99) mg/dL Plasma Lactic Acid Enrique 5.1 H* (0.7-2.0) mmol/L Thrombosis Risk Factor Assmnt - Choose All That Apply Any of the Below Risk Factors Present?: Yes Each Factor Represents 1 point: Age 41-60 years Other Risk Factors: No Other congenital or acquired thrombophilia - If yes, enter type in comment: No Thrombosis Risk Factor Assessment Total Risk Factor Score: 1 Thrombosis Risk Factor Assessment Level: Low Risk Assessment and Plan Plan: -Lactic acidosis etiology is probably intravascularly lesion dehydration patient improved with IV fluids will be monitored overnight there is no evidence of sepsis at this time patient doesn't use metformin or any other medications that can cause lactic is doses -Headache appears to be secondary to epidural steroid injection, we'll consult anesthesia to see if patient will be a candidate for blood patch. There is no evidence of meningitis -Chronic low back pain -Sinus tachycardia secondary to intravascular depletion, patient will be continued on IV fluids
[2020-05-28] MEDS ORDERED: SODIUM CHLORIDE 0.9% 1,000 ML IV SCH (15:15)
[2020-05-28 15:45] VITALS: BP 121/85; RESP 18
[2020-05-28] MEDS: POTASSIUM CHLORIDE ER 20 MEQ TAB.ER PO STA ×2 (16:10→16:14)
--- NOTE | 2020-05-28 18:55 | P.PN ---
Progress Note - Text Progress Note Date: 05/28/20 Anesthesiology Consultation Patient is a 55 y/o F admitted with complaint of severe headache. Patient states that the headache started 05/24 and has been persistent since then. The patient underwent a lumbar puncture 05/18. The headache became very severe 05/27, about 6 hours after the patient underwent an epidural steroid injection for back pain. The patient states that the headache is 10/10 without a postural component. Some improvement with dilaudid. The patient denies fever, change in vision or loss in bladder or bowel function. The patient does complain of subjective lower extremity weakness. The patient does have a history of migraine, but states this headache is different. Patient states she has a "broken back" and is supposed to see a neurosurgeon. Past Medical History Past Medical History: Fibromyalgia, Hypertension, Musculoskeletal Disorder Additional Past Medical History / Comment(s): back pain, pt states she has lesions on her brain that could be the onset of MS, History of Any Multi-Drug Resistant Organisms: None Reported Past Surgical History: Appendectomy, Hysterectomy Additional Past Surgical History / Comment(s): d&c, Past Anesthesia/Blood Transfusion Reactions: No Reported Reaction Past Psychological History: Anxiety, Depression, Panic Disorder, PTSD Past Alcohol Use History: None Reported Past Drug Use History: Opiates, Prescription Drug Abuse - Past Family History Mother Family Medical History: Cancer, Rheumatoid Arthritis (RA) Additional Family Medical History / Comment(s): lymphoma Father Family Medical History: Liver Disease Additional Family Medical History / Comment(s): Father had alcoholic cirrhosis. He is . Daughter(s) Family Medical History: Asthma Medications and Allergies Home Medications Medication Instructions Recorded Confirmed Type oxyCODONE HCL/ACETAMINOPHEN 1 tab PO TID PRN 05/28/20 05/28/20 History [Percocet 10-325 mg] Allergies Allergy/AdvReac Type Severity Reaction Status Date / Time Penicillins Allergy Rash/Hives Verified 05/28/20 11:27 sulfamethoxazole Allergy Unknown Verified 05/28/20 11:27 [From Bactrim] trimethoprim [From Bactrim] Allergy Unknown Verified 05/28/20 11:27 venom-honey bee Allergy Anaphylaxis Verified 05/28/20 11:27 [bee venom (honey bee)] Physical Exam Vitals: Vital Signs Temp Pulse Pulse Resp BP Pulse Ox 05/28/20 13:46 98.0 F 81 20 113/65 99 05/28/20 12:00 79 18 118/74 99 05/28/20 11:00 98.6 F 75 16 111/75 98 05/28/20 10:58 76 18 125/77 98 05/28/20 09:20 103 H 05/28/20 09:11 130 H 05/28/20 09:07 99.2 F 120 H 18 161/101 99 Intake and Output 05/28/20 05/28/20 05/28/20 06:59 14:59 22:59 Other: Weight 51.256 kg Her back has several healing puncture sites in the L5-S1 interspace. There is no erythema or hematoma appreciated. The site is minimally tender. There is no significant lower extremity weakness. A/P Headache of unknown etiology, possible atypical post dural puncture headache - Obtain records regarding latest procedures. Uncommon headache after epidural unless accidental dural puncture took place. - MRI lumbar spine. Her symptoms are atypical and given subjective lower extremity weakness and prior back issues, MRI is warranted prior to intervention - hydration - caffeine - evaluation of acidosis - r/o meningitis - will consider blood patch after further evaluation
--- NOTE | 2020-05-29 10:00 | ECHOF ---
Referral Reason:tachycardia MEASUREMENTS -------- HEIGHT: 165.1 cm WEIGHT: 51.3 kg BP: 118/74 RVIDd: 3.0 cm (< 3.3) IVSd: 1.0 cm (0.6 - 1.1) LVIDd: 3.5 cm (3.9 - 5.3) LVPWd: 1.1 cm (0.6 - 1.1) IVSs: 1.4 cm LVIDs: 2.4 cm LVPWs: 1.5 cm LAESV Index (A-L): 19.02 ml/m Ao Diam: 3.1 cm (2.0 - 3.7) AV Cusp: 1.8 cm (1.5 - 2.6) MV EXCURSION: 15.387 mm (> 18.000) MV EF SLOPE: 85 mm/s (70 - 150) MV E Cosme: 1.02 m/s MV DecT: 154 ms MV A Cosme: 0.79 m/s MV E/A Ratio: 1.29 RAP: 5.00 mmHg RVSP: 29.89 mmHg FINDINGS -------- Sinus rhythm. This was a technically adequate study. LV size, wall thickness and systolic function are normal, with an EF greater than 55%. The left elliot tricular size is normal. The diastolic filling pattern is normal for the age of the patient 15.32. The right ventricle is normal in size. Normal LA size by volume 22+/-6 ml/m2. The right atrial size is normal. Interatrial and interventricular septum intact. The aortic valve is trileaflet, and appears structurally normal. No aortic stenosis or regurgitation. The mitral valve is normal. Mild mitral regurgitation is present. Mild tricuspid regurgitation present. Right ventricular systolic pressure is normal at < 35 mmHg. The right ventricular systolic pressure, as measured by Doppler, is 29.89mmHg. Trace/mild (physiologic) pulmonic regurgitation. The aortic root size is normal. Normal inferior vena cava with normal inspiratory collapse consistent with estimated right atrial pre ssure of 5 mmHg. There is no pericardial effusion. CONCLUSIONS -------- 1. LV size, wall thickness and systolic function are normal, with an EF greater than 55%. 2. The diastolic filling pattern is normal for the age of the patient 15.32 3. Normal LA size by volume 22+/-6 ml/m2. 4. The aortic valve is trileaflet, and appears structurally normal. No aortic stenosis or regurgitati on. 5. Mild mitral regurgitation is present. 6. Mild tricuspid regurgitation present. 7. Trace/mild (physiologic) pulmonic regurgitation. 8. There is no pericardial effusion. NURSE: Mony Muñiz RDCS
--- NOTE | 2020-05-31 13:27 | P.DS ---
Providers Date of admission: 05/28/20 11:39 Expected date of discharge: 05/28/20 Attending physician: Gonzalo Boogie Consults: 05/28/20 11:31 Consult Physician Urgent Consulting Provider: [facility] Consult Reason/Comments: Tachycardia Do you want consulting provider notified?: Yes 05/28/20 15:04 Consult to Anesthesia Routine Consulting Provider: Anesthesia,Services Consult Reason/Comments: Possible Blood Patch Primary care physician: Stated None Hospital Course: Patient left AGAINST MEDICAL ADVICE Plan - Discharge Summary Discharge Rx Participant: No New Discharge Prescriptions: No Action oxyCODONE HCL/ACETAMINOPHEN [Percocet 10-325 mg] 1 tab PO TID PRN PRN Reason: Pain Discharge Medication List oxyCODONE HCL/ACETAMINOPHEN [Percocet 10-325 mg] 1 tab PO TID PRN 05/28/20 [History] Follow up Appointment(s)/Referral(s): None,Stated [Primary Care Provider] - 1-2 days Discharge Disposition: Left Against Medical Advice
== END 2020-05-28 17:28 | disposition left against medical advice (07) ==
LOC: EC 09:06 → 3NCARDOBS 11:39 → 1SOBS 13:34
PROVIDERS: ADMIT Internal Medicine; ATTEND Internal Medicine
DX: E87.2 Acidosis (principal); E86.0 Dehydration; G89.29 Other chronic pain; M54.5 Low back pain; Z53.29 Procedure and treatment not carried out because of patient's decision for other reasons; M62.562 Muscle wasting and atrophy, not elsewhere classified, left lower leg; I45.2 Bifascicular block; R00.0 Tachycardia, unspecified; R53.1 Weakness; E87.6 Hypokalemia; M79.7 Fibromyalgia; I10 Essential (primary) hypertension; F17.200 Nicotine dependence, unspecified, uncomplicated; Z90.710 Acquired absence of both cervix and uterus; Z98.890 Other specified postprocedural states; F41.9 Anxiety disorder, unspecified; F41.0 Panic disorder [episodic paroxysmal anxiety]; F43.10 Post-traumatic stress disorder, unspecified; F32.9 Major depressive disorder, single episode, unspecified; F11.11 Opioid abuse, in remission; Z82.61 Family history of arthritis; Z82.5 Family history of asthma and other chronic lower respiratory diseases; Z80.7 Family history of other malignant neoplasms of lymphoid, hematopoietic and related tissues; Z83.79 Family history of other diseases of the digestive system; Z81.1 Family history of alcohol abuse and dependence; Z88.0 Allergy status to penicillin; Z79.891 Long term (current) use of opiate analgesic; Z88.2 Allergy status to sulfonamides; Z91.030 Bee allergy status
CPT/HCPCS: 96361; 96374; 96375; 99285; 36415; 93005; 93306; 85379; 83880; 80053; 83605; 83735; 84484; 85025; 85610; 85730; 71046; 70450; G0378 ×2; U0003; J2060; J1170

== ENCOUNTER 2020-06-01 08:20 | Emergency (ER) | payer OTHER ==
[2020-06-01 08:29] VITALS: TEMP 98.5
[2020-06-01] MEDS ORDERED: KETOROLAC 60 MG/2 ML VIAL IVP STA (09:04)
--- NOTE | 2020-06-01 09:08 | ED ---
General Adult HPI - General Chief complaint: Back Pain/Injury Stated complaint: Back Pain, DENY Time Seen by Provider: 06/01/20 08:20 Source: patient, EMS Mode of arrival: EMS Limitations: no limitations - History of Present Illness Initial comments: This is a 55-year-old female presents emergency Department complaining that her chronic back pain is out of hand. Patient states the pain is the same as always been but it's just worse and her Percocet aren't working. Patient has been emergency department multiple times for similar. Patient has not followed up with her neurologist since her last visit. Patient states she has no neurologic deficit. Patient denies any new trauma. Patient denies any recent fever chills per patient denies any weakness or numbness. Patient denies any chest pain difficult breathing shortness of breath. - Related Data Home Medications Medication Instructions Recorded Confirmed oxyCODONE HCL/ACETAMINOPHEN 1 tab PO TID PRN 05/28/20 06/01/20 [Percocet 10-325 mg] QUEtiapine [SEROquel] 25 mg PO DAILY 06/01/20 06/01/20 Previous Rx's Medication Instructions Recorded predniSONE [Deltasone] 40 mg PO DAILY #8 tab 06/01/20 Allergies Allergy/AdvReac Type Severity Reaction Status Date / Time Penicillins Allergy Rash/Hives Verified 06/01/20 09:09 sulfamethoxazole Allergy Unknown Verified 06/01/20 09:09 [From Bactrim] trimethoprim [From Bactrim] Allergy Unknown Verified 06/01/20 09:09 venom-honey bee Allergy Anaphylaxis Verified 06/01/20 09:09 [bee venom (honey bee)] Review of Systems ROS Statement: Those systems with pertinent positive or pertinent negative responses have been documented in the HPI. ROS Other: All systems not noted in ROS Statement are negative. Past Medical History Past Medical History: Fibromyalgia, Hypertension, Musculoskeletal Disorder Additional Past Medical History / Comment(s): back pain, pt states she has lesions on her brain that could be the onset of MS, History of Any Multi-Drug Resistant Organisms: None Reported Past Surgical History: Appendectomy, Hysterectomy Additional Past Surgical History / Comment(s): d&c, Past Anesthesia/Blood Transfusion Reactions: No Reported Reaction Past Psychological History: Anxiety, Depression, Panic Disorder, PTSD Smoking Status: Current some day smoker Past Alcohol Use History: None Reported Past Drug Use History: None Reported, Opiates, Prescription Drug Abuse - Past Family History Mother Family Medical History: Cancer, Rheumatoid Arthritis (RA) Additional Family Medical History / Comment(s): lymphoma Father Family Medical History: Liver Disease Additional Family Medical History / Comment(s): Father had alcoholic cirrhosis. He is . Daughter(s) Family Medical History: Asthma General Exam - General Exam Comments Initial Comments: GENERAL: Patient is well-developed and well-nourished. Patient is nontoxic and well-hy drated and is in mild distress. ENT: Neck is soft and supple. No significant lymphadenopathy is noted. Oropharynx is clear. Moist mucous membranes. Neck has full range of motion without eliciting any pain. EYES: The sclera were anicteric and conjunctiva were pink and moist. Extraocular movements were intact and pupils were equal round and reactive to light. Eyelids were unremarkable. PULMONARY: Unlabored respirations. Good breath sounds bilaterally. No audible rales rhonchi or wheezing was noted. CARDIOVASCULAR: There is a regular rate and rhythm without any murmurs gallops or rubs. ABDOMEN: Soft and nontender with normal bowel sounds. SKIN: Skin is clear with no lesions or rashes and otherwise unremarkable. NEUROLOGIC: Patient is alert and oriented x3. Cranial nerves II through XII are grossly intact. Motor and sensory are also intact. Normal speech, volume and content. Symmetrical smile. MUSCULOSKELETAL: Normal extremities with adequate strength and full range of motion. No lower extremity swelling or edema. No calf tenderness. LYMPHATICS: No significant lymphadenopathy is noted PSYCHIATRIC: Normal psychiatric evaluation. Limitations: no limitations Course Vital Signs 06/01/20 06/01/20 08:25 11:08 Temperature 98.5 F Pulse Rate 109 H 95 Respiratory 16 18 Rate Blood Pressure 139/97 154/98 O2 Sat by Pulse 94 L 97 Oximetry Medical Decision Making - Medical Decision Making EKG shows sinus rhythm with occasional PAC at a rate of 98 bpm WA interval is 124 QRS is 1:30 for QT interval 390 QTC is 497. Patient has a right bundle branch block. CT of the back did not show any signs of an abscess or hematoma. It did show some disc bulging which might cause some L5 radiculopathy bilaterally. Patient did receive steroids this time. I spoke with Dr. Rosemarie Houston wanted the patient to call the office today to make an earlier appointment and he would follow-up as an outpatient. Disposition Clinical Impression: Sciatica, Chronic back pain Disposition: HOME SELF-CARE Instructions (If sedation given, give patient instructions): Chronic Back Pain (DC) Prescriptions: predniSONE [Deltasone] 40 mg PO DAILY #8 tab Is patient prescribed a controlled substance at d/c from ED?: No Referrals: Andria Houston MD [Medical Doctor] - 06/01/20 Time of Disposition: 11:03
--- NOTE | 2020-06-01 10:16 | CT ---
EXAMINATION TYPE: CT lumbar spine wo/w con DATE OF EXAM: 06/01/2020 COMPARISON: 04/12/2020 HISTORY: 55-year-old female Low back pain TECHNIQUE: Contiguous axial scanning of the lumbar spine performed without and with IV Contrast, pilar ent injected with 100 mL of Isovue 300. Coronal/sagittal reconstructions performed. CT DLP: 957.5 mGycm Automated exposure control for dose reduction was used. FINDINGS: Stable 7 mm right adrenal nodule. Chronic mild superior endplate deformities of T12 and L1. Otherwise, vertebral body heights are prese rved. Moderate to severe degenerative disc disease L5-S1 with loss of disc height and vacuum phenomenon. Mild degenerative disc disease at additional levels of bulging discs, particularly at L4-L5 and L5-S1 . Facet arthropathy lower lumbar spine with grade 1 retrolisthesis at L4-L5 and L5-S1. Bulging discs at L4-L5 and L5-S1 impress on the ventral thecal sac but do not cause significant spina l canal stenosis by CT. On the left, there is mild neuroforaminal stenosis at L4-L5 and L5-S1. On the right, mild neuroforaminal stenosis at L4-L5. Diffuse disc bulge at L4-L5 may abut the traversing L5 nerve roots on both sides. This should be rivka elated with patient's symptoms. No prevertebral paravertebral soft tissue abnormalities identified. IMPRESSION: 1. RELATIVELY SIMILAR APPEARANCE COMPARED TO 04/12/2020. 2. CHRONIC MILD SUPERIOR END PLATE DEFORMITIES OF T12 AND L1. NO NEW VERTEBRAL COMPRESSION COLLAPSE. 3. SEVERE DEGENERATIVE DISC DISEASE L5-S1 AND MILD DEGENERATIVE DISC DISEASE AT ADDITIONAL LEVELS. KS LD FACET ARTHROPATHY. 4. SIMILAR TRACE GRADE 1 RETROLISTHESES AT L4-L5 AND L5-S1. 5. NO SIGNIFICANT SPINAL CANAL STENOSIS BY CT. 6. DIFFUSE DISC BULGE AT L4-L5 MAY ABUT THE BILATERAL TRAVERSING L5 NERVE ROOTS. CORRELATE FOR ANY RA DICULAR SYMPTOMS. 7. MILD NEURAL FORAMINAL NARROWING L4-L5 AND L5-S1.
[2020-06-01] MEDS ORDERED: methylPREDNISolone SOD SUCCI 125 MG/2 ML VIAL IV STA (10:59)
[2020-06-01 11:09] VITALS: BP 154/98; PULSE 95; RESP 18
== END 2020-06-01 11:26 | disposition home or self-care (01) ==
LOC: EC 08:20
DX: M51.26 Other intervertebral disc displacement, lumbar region (principal); M54.30 Sciatica, unspecified side; I45.10 Unspecified right bundle-branch block; F32.9 Major depressive disorder, single episode, unspecified; F43.10 Post-traumatic stress disorder, unspecified; F41.9 Anxiety disorder, unspecified; F17.200 Nicotine dependence, unspecified, uncomplicated; Z79.899 Other long term (current) drug therapy; Z91.030 Bee allergy status; Z88.0 Allergy status to penicillin; Z88.2 Allergy status to sulfonamides
CPT/HCPCS: 93005; 72133; 99285; 96374; 96375; J2930; J1885; Q9967

== ENCOUNTER 2020-06-07 14:47 | Observation (INO) | payer OTHER ==
[2020-06-07] MEDS ORDERED: FAMOTIDINE 20 MG/2 ML VIAL IV STA (15:37)
[2020-06-07] MEDS ORDERED: SODIUM CHLORIDE 0.9% 1,000 ML IV STA (15:37)
[2020-06-07] MEDS ORDERED: MORPHINE SULFATE 4 MG/ML SYRINGE IV STA (15:37)
[2020-06-07] MEDS ORDERED: ONDANSETRON 4 MG/2 ML VIAL IVP STA (15:37)
[2020-06-07] MEDS ORDERED: SODIUM CHLORIDE 0.9% 500 ML 500 ML IV STA (15:37)
--- NOTE | 2020-06-07 15:40 | ED ---
General Adult HPI - General Chief complaint: Nausea/Vomiting/Diarrhea Stated complaint: N/V/D, back pain Time Seen by Provider: 06/07/20 15:10 Source: patient, RN notes reviewed Mode of arrival: ambulatory Limitations: no limitations - History of Present Illness Initial comments: Patient is a pleasant 55-year-old female presenting to the emergency department with 2 separate complaints. One patient has chronic back pain and fibromyalgia. Patient has previous back fracture and is in the process of having a pain pump placed. Patient requests pain medication for her chronic pain. Patient also has had nausea vomiting and diarrhea over the past day and a half. Patient has vomited around 4 times and has had diarrhea 7 or 8 times. No abdominal pain. No fevers. No chronic abdominal problems. Patient still has some nausea at this time. - Related Data Home Medications Medication Instructions Recorded Confirmed oxyCODONE HCL/ACETAMINOPHEN 1 tab PO TID PRN 05/28/20 06/01/20 [Percocet 10-325 mg] QUEtiapine [SEROquel] 25 mg PO DAILY 06/01/20 06/01/20 Previous Rx's Medication Instructions Recorded predniSONE [Deltasone] 40 mg PO DAILY #8 tab 06/01/20 Allergies Allergy/AdvReac Type Severity Reaction Status Date / Time Penicillins Allergy Rash/Hives Verified 06/07/20 14:58 sulfamethoxazole Allergy Unknown Verified 06/07/20 14:58 [From Bactrim] trimethoprim [From Bactrim] Allergy Unknown Verified 06/07/20 14:58 venom-honey bee Allergy Anaphylaxis Verified 06/07/20 14:58 [bee venom (honey bee)] Review of Systems ROS Statement: Those systems with pertinent positive or pertinent negative responses have been documented in the HPI. ROS Other: All systems not noted in ROS Statement are negative. Constitutional: Denies: fever Eyes: Denies: eye pain ENT: Denies: ear pain Respiratory: Denies: cough Cardiovascular: Denies: chest pain Endocrine: Denies: fatigue Gastrointestinal: Reports: nausea, vomiting, diarrhea. Denies: abdominal pain Genitourinary: Denies: dysuria Musculoskeletal: Reports: as per HPI, back pain Skin: Denies: rash Neurological: Denies: weakness Past Medical History Past Medical History: Fibromyalgia, Hypertension, Musculoskeletal Disorder Additional Past Medical History / Comment(s): back pain, pt states she has lesions on her brain that could be the onset of MS, History of Any Multi-Drug Resistant Organisms: None Reported Past Surgical History: Appendectomy, Hysterectomy Additional Past Surgical History / Comment(s): d&c, Past Anesthesia/Blood Transfusion Reactions: No Reported Reaction Past Psychological History: Anxiety, Depression, Panic Disorder, PTSD Smoking Status: Current some day smoker Past Alcohol Use History: None Reported Past Drug Use History: None Reported, Opiates, Prescription Drug Abuse - Past Family History Mother Family Medical History: Cancer, Rheumatoid Arthritis (RA) Additional Family Medical History / Comment(s): lymphoma Father Family Medical History: Liver Disease Additional Family Medical History / Comment(s): Father had alcoholic cirrhosis. He is . Daughter(s) Family Medical History: Asthma General Exam Limitations: no limitations General appearance: alert, in no apparent distress Head exam: Present: normocephalic Eye exam: Present: normal appearance Neck exam: Present: normal inspection Respiratory exam: Present: normal lung sounds bilaterally Cardiovascular Exam: Present: regular rate, normal rhythm Expanded Peripheral pulses: 2+: Dorsalis Pedis (R), Dorsalis Pedis (L) GI/Abdominal exam: Present: soft, normal bowel sounds. Absent: distended, tenderness, guarding, rebound, rigid, pulsatile mass Extremities exam: Present: normal inspection Neurological exam: Present: alert Psychiatric exam: Present: normal affect, normal mood Skin exam: Present: normal color Course Vital Signs 06/07/20 06/07/20 14:56 16:26 Temperature 98.3 F Pulse Rate 129 H 70 Respiratory 20 18 Rate Blood Pressure 123/70 127/78 O2 Sat by Pulse 100 100 Oximetry Medical Decision Making - Medical Decision Making Patient reevaluated and resting comfortably sitting up in bed. Patient updated on results and plan. Secondary to hypokalemia patient will be held for monitoring and repeat levels. Case was discussed in detail with Dr. Cohen, covering for hospital call who will admit. - Lab Data Result diagrams: 06/07/20 15:47 06/07/20 15:47 Lab Results 06/07/20 06/07/20 Range/Units 15:47 15:47 WBC 14.2 H (3.8-10.6) k/uL RBC 5.28 (3.80-5.40) m/uL Hgb 16.6 H (11.4-16.0) gm/dL Hct 47.9 H (34.0-46.0) % MCV 90.7 (80.0-100.0) fL MCH 31.5 (25.0-35.0) pg MCHC 34.7 (31.0-37.0) g/dL RDW 12.6 (11.5-15.5) % Plt Count 333 (150-450) k/uL Neutrophils % 71 % Lymphocytes % 20 % Monocytes % 5 % Eosinophils % 2 % Basophils % 1 % Neutrophils # 10.0 H (1.3-7.7) k/uL Lymphocytes # 2.8 (1.0-4.8) k/uL Monocytes # 0.7 (0-1.0) k/uL Eosinophils # 0.3 (0-0.7) k/uL Basophils # 0.1 (0-0.2) k/uL Sodium 134 L (137-145) mmol/L Potassium 2.4 L* (3.5-5.1) mmol/L Chloride 98 (98-107) mmol/L Carbon Dioxide 24 (22-30) mmol/L Anion Gap 12 mmol/L BUN 10 (7-17) mg/dL Creatinine 0.78 (0.52-1.04) mg/dL Est GFR (CKD-EPI)AfAm >90 (>60 ml/min/1.73 sqM) Est GFR (CKD-EPI)NonAf 85 (>60 ml/min/1.73 sqM) Glucose 122 H (74-99) mg/dL Calcium 10.0 (8.4-10.2) mg/dL Total Bilirubin 0.8 (0.2-1.3) mg/dL AST 16 (14-36) U/L ALT 10 (4-34) U/L Alkaline Phosphatase 75 (38-126) U/L Total Protein 7.2 (6.3-8.2) g/dL Albumin 4.8 (3.5-5.0) g/dL Amylase 60 (30-110) U/L Lipase 103 (23-300) U/L Disposition Clinical Impression: Hypokalemia, Chronic back pain greater than 3 months duration Disposition: ADMITTED IP TO THIS HOSP Is patient prescribed a controlled substance at d/c from ED?: No Referrals: None,Stated [Primary Care Provider] - 1-2 days Decision Time: 17:08
[2020-06-07 16:01] LABS: Basophils # (A) 0.1 k/uL (0-0.2); Basophils % (A) 1 %; Eosinophils # (A) 0.3 k/uL (0-0.7); Eosinophils % (A) 2 %; HCT 47.9 % (34.0-46.0); HGB 16.6 gm/dL (11.4-16.0); Lymphocytes # (A) 2.8 k/uL (1.0-4.8); Lymphocytes % (A) 20 %; MCH 31.5 pg (25.0-35.0); MCHC 34.7 g/dL (31.0-37.0); MCV 90.7 fL (80.0-100.0); Mean Platelet Volume 8.3; Monocytes # (A) 0.7 k/uL (0-1.0); Monocytes % (A) 5 %; Neutrophils % (A) 71 %; Platelet Count 333 k/uL (150-450); RBC 5.28 m/uL (3.80-5.40); RDW 12.6 % (11.5-15.5); WBC 14.2 k/uL (3.8-10.6)
[2020-06-07 16:09] LABS: ALT 10 U/L (4-34); AST 16 U/L (14-36); African American GFR (CKD) >90 (>60 ml/min/1.73 sqM); Albumin 4.8 g/dL (3.5-5.0); Alkaline Phosphatase 75 U/L (38-126); Amylase 60 U/L (30-110); Anion Gap 12 mmol/L; Blood Urea Nitrogen 10 mg/dL (7-17); Carbon Dioxide 24 mmol/L (22-30); Chloride 98 mmol/L (98-107); Glucose 122 mg/dL (74-99); Lipase 103 U/L (23-300); Non-African American GFR(CKD) 85 (>60 ml/min/1.73 sqM); Sodium 134 mmol/L (137-145); Total Bilirubin 0.8 mg/dL (0.2-1.3); Total Protein 7.2 g/dL (6.3-8.2)
[2020-06-07 16:18] LABS: Potassium 2.4 mmol/L (3.5-5.1)
[2020-06-07] MEDS ORDERED: POTASSIUM CHLORIDE ER 20 MEQ TAB.ER PO STA (16:34)
[2020-06-07] MEDS ORDERED: POTASSIUM CHLORIDE 20 MEQ in WATER FOR INJECTION 1 100ML.BAG IVPB STA (16:34)
[2020-06-07] MEDS ORDERED: NALOXONE 0.4 MG/ML 1 ML VIAL IV PRN (17:08)
[2020-06-07] MEDS ORDERED: ONDANSETRON 4 MG/2 ML VIAL IVP PRN (17:08)
[2020-06-07] MEDS ORDERED: 0.9% NACL WITH KCL 20 MEQ/L 1,000 ML IV SCH (17:15)
[2020-06-07] MEDS: MORPHINE SULFATE 4 MG/ML SYRINGE IV PRN ×2 (19:28→23:24)
[2020-06-07] MEDS: POTASSIUM CHLORIDE ER 20 MEQ TAB.ER PO SCH (21:42)
[2020-06-07 23:49] VITALS: RESP 18
[2020-06-08] MEDS: MORPHINE SULFATE 4 MG/ML SYRINGE IV PRN (03:54)
[2020-06-08 07:43] LABS: African American GFR (CKD) >90 (>60 ml/min/1.73 sqM); Anion Gap 2 mmol/L; Blood Urea Nitrogen 8 mg/dL (7-17); Calcium 8.4 mg/dL (8.4-10.2); Carbon Dioxide 24 mmol/L (22-30); Chloride 114 mmol/L (98-107); Glucose 80 mg/dL (74-99); Non-African American GFR(CKD) >90 (>60 ml/min/1.73 sqM); Potassium 3.8 mmol/L (3.5-5.1); Sodium 140 mmol/L (137-145)
[2020-06-08] MEDS ORDERED: PANTOPRAZOLE 40 MG/10 ML VIAL IV SCH (09:00)
[2020-06-08] MEDS ORDERED: oxyCODONE-APAP 10-325MG 1 EACH TAB PO SCH ×2 (09:30→09:45)
[2020-06-08] MEDS: POTASSIUM CHLORIDE ER 20 MEQ TAB.ER PO SCH (09:38)
[2020-06-08 09:48] VITALS: BP 125/70; PULSE 68; TEMP 98.3
--- NOTE | 2020-06-17 00:42 | P.HPIM ---
History of Present Illness H&P Date: 06/08/20 Chief Complaint: N/V Patient is a 55-year-old female with a known history of chronic back pain and fibromyalgia admitted to hospital with intractable nausea vomiting and diarrhea.. Patient did have epidural steroid injection previously. Patient was also found to have severe hypokalemia. No complaints abdominal pain. No fever no chills. Potassium was replaced. Laboratory showed WBC 14.2, hemoglobin 16.6 and platelets 333 Potassium 2.4 Sodium 134 Lipase 103 Coronavirus PCR negative. Review of Systems Constitutional: Patient denies any fever or chills . No generalized weakness or weight loss. Abdomen: Patient denied nausea vomiting and diarrhea and abdominal pain. Cardiovascular: Patient denies any chest pain or short of breath no palpitations. Respiratory: patient denied any cough is from production. No shortness of breath Neurologic: Patient denied any numbness or tingling headache. Musculoskeletal: Patient denies any complaints of joint swelling or deformity. Skin: Negative Psychiatric: Negative Endocrine: No heat or cold intolerance. No recent weight gain. Genitourinary: No dysuria or hematuria. All other 14 point ROS negative except the above Past Medical History Past Medical History: Fibromyalgia, Hypertension, Musculoskeletal Disorder Additional Past Medical History / Comment(s): back pain, pt states she has lesions on her brain that could be the onset of MS, History of Any Multi-Drug Resistant Organisms: None Reported Past Surgical History: Appendectomy, Hysterectomy Additional Past Surgical History / Comment(s): d&c, Past Anesthesia/Blood Transfusion Reactions: No Reported Reaction Past Psychological History: Anxiety, Depression, Panic Disorder, PTSD Additional Psychological History / Comment(s): Pt resides alone in an apartment. She uses no assistive device. She drives. Smoking Status: Current some day smoker Past Alcohol Use History: None Reported Additional Past Alcohol Use History / Comment(s): Pt started smoking in 1981 and is a 0.5 ppd or less smoker. Past Drug Use History: None Reported, Opiates, Prescription Drug Abuse Additional Drug Use History / Comment(s): Past medical record documents op iate/PDA but pt denies any drug use. - Past Family History Mother Family Medical History: Cancer, Rheumatoid Arthritis (RA) Additional Family Medical History / Comment(s): lymphoma Father Family Medical History: Liver Disease Additional Family Medical History / Comment(s): Father had alcoholic cirrhosis. He is . Daughter(s) Family Medical History: Asthma Medications and Allergies Home Medications Medication Instructions Recorded Confirmed Type oxyCODONE HCL/ACETAMINOPHEN 1 tab PO TID PRN 05/28/20 06/07/20 History [Percocet 10-325 mg] Allergies Allergy/AdvReac Type Severity Reaction Status Date / Time Penicillins Allergy Rash/Hives Verified 06/10/20 03:41 sulfamethoxazole Allergy Unknown Verified 06/10/20 03:41 [From Bactrim] trimethoprim [From Bactrim] Allergy Unknown Verified 06/10/20 03:41 venom-honey bee Allergy Anaphylaxis Verified 06/10/20 03:41 [bee venom (honey bee)] Physical Exam PHYSICAL EXAMINATION: Patient is lying in the bed comfortably, no acute distress, awake alert and oriented.. HEENT: Normocephalic. Neck is supple. Pupils reactive. Nostrils clear. Oral cavity is moist. Ears reveal no drainage. Neck reveals no JVD, carotid bruits, or thyromegaly. CHEST EXAMINATION: Trachea is central. Symmetrical expansion. Lung paiz clear to auscultation and percussion. CARDIAC: Normal S1, S2 with no gallops. No murmurs , irregularly irregular rhythm ABDOMEN: Soft. Bowel sounds normal. No organomegaly. No abdominal bruits. Extremities: trace edema. No clubbing or cyanosis Neurologically awake, alert, oriented x3 with well-coordinated movements. No focal deficits noted Skin: No rash or skin lesions. Psychiatric: Coperative. Nonsuicidal Musculoskeletal: No joint swelling or deformity. Normal range of motion. Results CBC & Chem 7: 06/07/20 15:47 06/08/20 06:39 Thrombosis Risk Factor Assmnt - DVT/VTE Prophylaxis DVT/VTE Prophylaxis: Pharmacologic Prophylaxis ordered - Choose All That Apply Each Factor Represents 1 point: Age 41-60 years Thrombosis Risk Factor Assessment Total Risk Factor Score: 1 Thrombosis Risk Factor Assessment Level: Low Risk Assessment and Plan Assessment: Nausea vomiting and diarrhea likely due to acute gastroenteritis. Hypokalemia severe Chronic back pain Leukocytosis Fibromyalgia Being worked up for multiple sclerosis Anxiety/depression/panic disorder/PTSD Ongoing nicotine addiction Plan: Patient will be continued for supplementation. Continue with IV hydration. Continue with pain management with her back pain. Follow closely and further recommendations based on the clinical course.
--- NOTE | 2020-06-17 00:43 | P.DS ---
Providers Date of admission: 06/07/20 17:08 Expected date of discharge: 06/08/20 Attending physician: Orlin Cohen Primary care physician: Stated None Hospital Course: Patient left AGAINST MEDICAL ADVICE. Patient Condition at Discharge: Undetermined Plan - Discharge Summary Discharge Rx Participant: No New Discharge Prescriptions: No Action oxyCODONE HCL/ACETAMINOPHEN [Percocet 10-325 mg] 1 tab PO TID PRN PRN Reason: Pain Discharge Medication List oxyCODONE HCL/ACETAMINOPHEN [Percocet 10-325 mg] 1 tab PO TID PRN 05/28/20 [History] Follow up Appointment(s)/Referral(s): None,Stated [Primary Care Provider] - 1-2 days Discharge Disposition: Left Against Medical Advice
== END 2020-06-08 10:28 | disposition left against medical advice (07) ==
LOC: EC 14:47 → 3SCARD 17:08 → INTOOBSV 17:08 → 3SCARD 18:37 → UNDODISIN 06-08 10:28
PROVIDERS: ADMIT Internal Medicine; ATTEND Internal Medicine
DX: E87.6 Hypokalemia (principal); R11.2 Nausea with vomiting, unspecified; R19.7 Diarrhea, unspecified; Z53.29 Procedure and treatment not carried out because of patient's decision for other reasons; G89.29 Other chronic pain; M54.9 Dorsalgia, unspecified; E87.2 Acidosis; E86.0 Dehydration; R51 Headache; R00.0 Tachycardia, unspecified; G62.9 Polyneuropathy, unspecified; M62.562 Muscle wasting and atrophy, not elsewhere classified, left lower leg; M79.7 Fibromyalgia; D72.829 Elevated white blood cell count, unspecified; I10 Essential (primary) hypertension; G93.9 Disorder of brain, unspecified; F41.9 Anxiety disorder, unspecified; F32.9 Major depressive disorder, single episode, unspecified; F41.0 Panic disorder [episodic paroxysmal anxiety]; F43.10 Post-traumatic stress disorder, unspecified; F17.210 Nicotine dependence, cigarettes, uncomplicated; Z03.818 Encounter for observation for suspected exposure to other biological agents ruled out; Z87.81 Personal history of (healed) traumatic fracture; Z79.891 Long term (current) use of opiate analgesic; Z79.899 Other long term (current) drug therapy; Z88.0 Allergy status to penicillin; Z88.2 Allergy status to sulfonamides; Z91.030 Bee allergy status; Z90.49 Acquired absence of other specified parts of digestive tract; Z90.710 Acquired absence of both cervix and uterus; Z98.890 Other specified postprocedural states; Z80.7 Family history of other malignant neoplasms of lymphoid, hematopoietic and related tissues; Z82.61 Family history of arthritis; Z83.79 Family history of other diseases of the digestive system; Z81.1 Family history of alcohol abuse and dependence; Z82.5 Family history of asthma and other chronic lower respiratory diseases
CPT/HCPCS: 96376 ×3; 96361; 96365; 96366; 96375; 99285; 36415; 80053; 80048; 82150; 83690; 85025; G0378 ×2; U0003; J2270 ×2; J3480; J2405; C9113

== ENCOUNTER 2020-06-10 03:35 | Emergency (ER) | payer OTHER ==
[2020-06-10 03:41] VITALS: TEMP 98.7
--- NOTE | 2020-06-10 03:57 | ED ---
Recheck HPI - General Chief Complaint: Back Pain/Injury Stated Complaint: Back Pain Time Seen by Provider: 06/10/20 03:43 Source: patient, RN notes reviewed, old records reviewed Mode of arrival: EMS - History of Present Illness Initial Comments: This is a 55-year-old female well-known to this facility patient is safe for evaluation regarding persistent chronic back pain. She was admitted to hospital last night significant medical advice initiated to some work work at her home. Patient presents today with again persistent back pain with no active nausea vomiting. Patient states she does have follow-up for evaluation regards to pain pump MD Complaint: medication refill request (Pain medications) -: year(s) Returns Today for: persistent/worsening pain related to initial visit Symptoms Since Prior Visit: worsening pain Context: ran out of medication Associated Symptoms: none Treatments Prior to Arrival: Given Pain Meds on - Related Data Home Medications Medication Instructions Recorded Confirmed oxyCODONE HCL/ACETAMINOPHEN 1 tab PO TID PRN 05/28/20 06/07/20 [Percocet 10-325 mg] Allergies Allergy/AdvReac Type Severity Reaction Status Date / Time Penicillins Allergy Rash/Hives Verified 06/10/20 03:41 sulfamethoxazole Allergy Unknown Verified 06/10/20 03:41 [From Bactrim] trimethoprim [From Bactrim] Allergy Unknown Verified 06/10/20 03:41 venom-honey bee Allergy Anaphylaxis Verified 06/10/20 03:41 [bee venom (honey bee)] Review of Systems ROS Statement: Those systems with pertinent positive or pertinent negative responses have been documented in the HPI. ROS Other: All systems not noted in ROS Statement are negative. Past Medical History Past Medical History: Fibromyalgia, Hypertension, Musculoskeletal Disorder Additional Past Medical History / Comment(s): back pain, pt states she has lesions on her brain that could be the onset of MS, History of Any Multi-Drug Resistant Organisms: None Reported Past Surgical History: Appendectomy, Hysterectomy Additional Past Surgical History / Comment(s): d&c, Past Anesthesia/Blood Transfusion Reactions: No Reported Reaction Past Psychological History: Anxiety, Depression, Panic Disorder, PTSD Smoking Status: Current some day smoker Past Alcohol Use History: None Reported Past Drug Use History: None Reported, Opiates, Prescription Drug Abuse - Past Family History Mother Family Medical History: Cancer, Rheumatoid Arthritis (RA) Additional Family Medical History / Comment(s): lymphoma Father Family Medical History: Liver Disease Additional Family Medical History / Comment(s): Father had alcoholic cirrhosis. He is . Daughter(s) Family Medical History: Asthma General Exam General appearance: alert, in no apparent distress Head exam: Present: atraumatic, normocephalic, normal inspection Eye exam: Present: normal appearance, PERRL, EOMI. Absent: scleral icterus, conjunctival injection, periorbital swelling ENT exam: Present: normal exam, mucous membranes moist Neck exam: Present: normal inspection. Absent: tenderness, meningismus, lymphadenopathy Respiratory exam: Present: normal lung sounds bilaterally. Absent: respiratory distress, wheezes, rales, rhonchi, stridor Cardiovascular Exam: Present: regular rate, normal rhythm, normal heart sounds. Absent: systolic murmur, diastolic murmur, rubs, gallop, clicks GI/Abdominal exam: Present: soft, normal bowel sounds. Absent: distended, tenderness, guarding, rebound, rigid Extremities exam: Present: normal inspection, full ROM, normal capillary refill. Absent: tenderness, pedal edema, joint swelling, calf tenderness Back exam: Present: normal inspection Neurological exam: Present: alert, oriented X3, CN II-XII intact Psychiatric exam: Present: normal affect, normal mood Skin exam: Present: warm, dry, intact, normal color. Absent: rash Course Vital Signs 06/10/20 06/10/20 03:36 04:48 Temperature 98.7 F Pulse Rate 89 83 Respiratory 19 18 Rate Blood Pressure 133/84 133/77 O2 Sat by Pulse 100 100 Oximetry Medical Decision Making - Medical Decision Making 55 female who has persistent back pain given pain control here in the ER feeling better and can be discharged home Disposition Clinical Impression: Intractable back pain Disposition: HOME SELF-CARE Condition: Fair Instructions (If sedation given, give patient instructions): Acute Low Back Pain (ED) Is patient prescribed a controlled substance at d/c from ED?: No Referrals: None,Stated [Primary Care Provider] - 1-2 days
[2020-06-10] MEDS ORDERED: ONDANSETRON 4 MG ODT STARTER PACK 2 TAB BTL PO STA (04:17)
[2020-06-10] MEDS ORDERED: ACET/COD 300 MG/30 MG STARTER PACK 6 TAB BTL PO STA (04:17)
[2020-06-10] MEDS ORDERED: HYDROmorphone 1 MG/ML 1 ML SYRINGE IM STA (04:17)
[2020-06-10] MEDS ORDERED: ONDANSETRON ODT 4 MG TAB PO STA (04:17)
[2020-06-10 04:48] VITALS: BP 133/77; PULSE 83; RESP 18
== END 2020-06-10 04:48 | disposition home or self-care (01) ==
LOC: EC 03:35
DX: M54.9 Dorsalgia, unspecified (principal); I10 Essential (primary) hypertension; F17.200 Nicotine dependence, unspecified, uncomplicated; Z88.0 Allergy status to penicillin; Z88.1 Allergy status to other antibiotic agents; Z88.2 Allergy status to sulfonamides; Z91.030 Bee allergy status
CPT/HCPCS: 96372; 99284

== ENCOUNTER 2020-07-02 02:36 | Emergency (ER) | payer OTHER ==
[2020-07-02] MEDS ORDERED: HYDROmorphone 0.5 MG/0.5 ML SYRINGE IVP STA (03:17)
[2020-07-02] MEDS ORDERED: PROMETHAZINE INJ 25 MG in SODIUM CHLORIDE 0.9% 50 ML IVPB STA (03:26)
[2020-07-02] MEDS ORDERED: SODIUM CHLORIDE 0.9% 500 ML 500 ML IV STA (03:26)
[2020-07-02 04:03] LABS: African American GFR (CKD) >90 (>60 ml/min/1.73 sqM); Anion Gap 7 mmol/L; Blood Urea Nitrogen 6 mg/dL (7-17); Calcium 9.3 mg/dL (8.4-10.2); Carbon Dioxide 23 mmol/L (22-30); Chloride 107 mmol/L (98-107); Glucose 112 mg/dL (74-99); Non-African American GFR(CKD) >90 (>60 ml/min/1.73 sqM); Potassium 3.2 mmol/L (3.5-5.1); Sodium 137 mmol/L (137-145)
[2020-07-02] MEDS ORDERED: POTASSIUM CHLORIDE ER 20 MEQ TAB.ER PO STA (04:06)
--- NOTE | 2020-07-02 04:16 | ED ---
Back Pain HPI - General Chief Complaint: Back Pain/Injury Stated Complaint: Back pain Time Seen by Provider: 07/02/20 02:51 Source: patient, EMS Limitations: physical limitation - History of Present Illness Initial Comments: Patient's 55 year old woman with history of chronic back pain, presenting to have evaluation of her pain. The patient does state that she had not been able see the size painter and therefore does not have adequate medication to manage. No new trauma. No weakness or numbness of the extremities. No change in bladder or bowel function and no saddle anesthesia MD Complaint: back pain -: hour(s) Similar Symptoms Previously: Yes Place: home Radiation: none Severity: severe Quality: aching Consistency: constant Improves With: immobilization Worsens With: movement Context: turning/twisting Associated Symptoms: denies other symptoms - Related Data Home Medications Medication Instructions Recorded Confirmed oxyCODONE HCL/ACETAMINOPHEN 1 tab PO TID PRN 05/28/20 07/02/20 [Percocet 10-325 mg] Allergies Allergy/AdvReac Type Severity Reaction Status Date / Time Penicillins Allergy Rash/Hives Verified 07/02/20 18:24 sulfamethoxazole Allergy Unknown Verified 07/02/20 18:24 [From Bactrim] venom-honey bee Allergy Anaphylaxis Verified 07/02/20 18:24 [bee venom (honey bee)] Review of Systems ROS Statement: Those systems with pertinent positive or pertinent negative responses have been documented in the HPI. ROS Other: All systems not noted in ROS Statement are negative. Constitutional: Denies: fever, chills, weakness Respiratory: Denies: cough, dyspnea Cardiovascular: Denies: chest pain, palpitations, edema Gastrointestinal: Denies: abdominal pain, vomiting, diarrhea, constipation Genitourinary: Denies: dysuria, hematuria Musculoskeletal: Reports: as per HPI, back pain Neurological: Denies: weakness, numbness, paresthesias Past Medical History Past Medical History: Fibromyalgia, Hypertension, Musculoskeletal Disorder Additional Past Medical History / Comment(s): back pain, pt states she has lesions on her brain that could be the onset of MS, History of Any Multi-Drug Resistant Organisms: None Reported Past Surgical History: Appendectomy, Hysterectomy Additional Past Surgical History / Comment(s): d&c, Past Anesthesia/Blood Transfusion Reactions: No Reported Reaction Past Psychological History: Anxiety, Depression, Panic Disorder, PTSD Smoking Status: Current some day smoker Past Alcohol Use History: None Reported Past Drug Use History: None Reported, Opiates, Prescription Drug Abuse - Past Family History Mother Family Medical History: Cancer, Rheumatoid Arthritis (RA) Additional Family Medical History / Comment(s): lymphoma Father Family Medical History: Liver Disease Additional Family Medical History / Comment(s): Father had alcoholic cirrhosis. He is . Daughter(s) Family Medical History: Asthma General Exam Limitations: physical limitation General appearance: alert, in no apparent distress Head exam: Present: atraumatic, normocephalic Eye exam: Present: normal appearance. Absent: scleral icterus, conjunctival injection ENT exam: Present: normal oropharynx Neck exam: Present: normal inspection, full ROM Respiratory exam: Present: normal lung sounds bilaterally. Absent: respiratory distress, wheezes, rales, rhonchi, stridor Cardiovascular Exam: Present: regular rate, normal rhythm, normal heart sounds. Absent: systolic murmur, diastolic murmur, rubs, gallop GI/Abdominal exam: Present: soft. Absent: distended, tenderness, guarding, rebound, rigid, mass Extremities exam: Present: normal inspection, normal capillary refill. Absent: pedal edema, calf tenderness Back exam: Present: normal inspection. Absent: CVA tenderness (R), CVA tenderness (L), vertebral tenderness Neurological exam: Present: alert. Absent: reflexes normal Skin exam: Present: warm, dry, intact, normal color. Absent: rash Course Vital Signs 07/02/20 07/02/20 07/02/20 02:37 03:40 04:00 Temperature 97.6 F 97.9 F 97.5 F L Pulse Rate 107 H 84 74 Respiratory 18 18 16 Rate Blood Pressure 137/101 127/85 149/96 O2 Sat by Pulse 98 98 100 Oximetry Medical Decision Making - Lab Data Result diagrams: 07/02/20 03:28 Lab Results 07/02/20 Range/Units 03:28 Sodium 137 (137-145) mmol/L Potassium 3.2 L (3.5-5.1) mmol/L Chloride 107 (98-107) mmol/L Carbon Dioxide 23 (22-30) mmol/L Anion Gap 7 mmol/L BUN 6 L (7-17) mg/dL Creatinine 0.44 L (0.52-1.04) mg/dL Est GFR (CKD-EPI)AfAm >90 (>60 ml/min/1.73 sqM) Est GFR (CKD-EPI)NonAf >90 (>60 ml/min/1.73 sqM) Glucose 112 H (74-99) mg/dL Calcium 9.3 (8.4-10.2) mg/dL Disposition Clinical Impression: Mechanical back pain Disposition: HOME SELF-CARE Condition: Good Instructions (If sedation given, give patient instructions): Chronic Back Pain (DC) Is patient prescribed a controlled substance at d/c from ED?: Yes When asked, does pt state using other controlled substances?: No If prescribed controlled substance>3 days was MAPS reviewed?: Prescribed <3 Days If opioid is for acute pain is fill amount 7 days or less?: Yes If Rx opioid, was Start Talking consent form obtained?: Yes Referrals: None,Stated [Primary Care Provider] - 1-2 days
[2020-07-02 04:36] VITALS: BP 149/96; PULSE 74; RESP 16; TEMP 97.5
== END 2020-07-02 04:45 | disposition home or self-care (01) ==
LOC: EC 02:36
DX: M54.9 Dorsalgia, unspecified (principal); G89.29 Other chronic pain; M79.7 Fibromyalgia; F17.200 Nicotine dependence, unspecified, uncomplicated; Z88.0 Allergy status to penicillin; Z91.030 Bee allergy status; Z88.2 Allergy status to sulfonamides
CPT/HCPCS: 36415; 80048; 96365; 96375; 99284; J2550; J1170; 96374

== ENCOUNTER 2020-07-02 17:29 | Emergency (ER) | payer OTHER ==
[2020-07-02 17:39] VITALS: RESP 18; TEMP 98.1
[2020-07-02] MEDS ORDERED: DEXAMETHASONE SOD PHOSPHATE 4 MG/ML 1 ML VIAL IV STA (18:04)
[2020-07-02] MEDS ORDERED: HYDROmorphone 1 MG/ML 1 ML SYRINGE IVP STA (18:08)
--- NOTE | 2020-07-02 18:18 | ED ---
Back Pain HPI - General Chief Complaint: Back Pain/Injury Stated Complaint: Back Pain, Vomiting Time Seen by Provider: 07/02/20 17:56 Source: EMS Limitations: no limitations - History of Present Illness Initial Comments: [place] 5[place] with past medical history chronic back pain presenting for back pain with incontinence. Patient states she has had back pain with incontinence for the past day beginning this morning. She also states that her low back pain is so bad that its causing nausea, vomiting.denies IV drug use history of cancer or fevers.Patient states that pain is in the same regions that it normally is near the fracture of C7/T1 that she has and in the lower back. She states today it is mostly in the lumbar spine. Pt denies additional complaints. She denies loss of sensation of the LE but admits to some slight weakness. Patient has no additional complaints. Patient appears uncomfortable. - Related Data Home Medications Medication Instructions Recorded Confirmed oxyCODONE HCL/ACETAMINOPHEN 1 tab PO TID PRN 05/28/20 06/07/20 [Percocet 10-325 mg] Previous Rx's Medication Instructions Recorded Hydrocodone/Acetaminophen [[place] 1 each PO Q6HR PRN #15 tab 07/02/20 5-325] Allergies Allergy/AdvReac Type Severity Reaction Status Date / Time Penicillins Allergy Rash/Hives Verified 07/02/20 17:36 sulfamethoxazole Allergy Unknown Verified 07/02/20 17:36 [From Bactrim] trimethoprim [From Bactrim] Allergy Unknown Verified 07/02/20 17:36 venom-honey bee Allergy Anaphylaxis Verified 07/02/20 17:36 [bee venom (honey bee)] Review of Systems ROS Statement: Those systems with pertinent positive or pertinent negative responses have been documented in the HPI. ROS Other: All systems not noted in ROS Statement are negative. Past Medical History Past Medical History: Fibromyalgia, Hypertension, Musculoskeletal Disorder Additional Past Medical History / Comment(s): back pain, pt states she has lesions on her brain that could be the onset of MS, History of Any Multi-Drug Resistant Organisms: None Reported Past Surgical History: Appendectomy, Hysterectomy Additional Past Surgical History / Comment(s): d&c, Past Anesthesia/Blood Transfusion Reactions: No Reported Reaction Past Psychological History: Anxiety, Depression, Panic Disorder, PTSD Smoking Status: Current some day smoker Past Alcohol Use History: None Reported Past Drug Use History: None Reported, Opiates, Prescription Drug Abuse - Past Family History Mother Family Medical History: Cancer, Rheumatoid Arthritis (RA) Additional Family Medical History / Comment(s): lymphoma Father Family Medical History: Liver Disease Additional Family Medical History / Comment(s): Father had alcoholic cirrhosis. He is . Daughter(s) Family Medical History: Asthma General Exam - General Exam Comments Initial Comments: General: The patient is awake and alert, in no distress Eye: +3 mm pupils are equal, round and reactive to light, extra-ocular movements are intact. No nystagmus. There is normal conjunctiva bilaterally. No signs of icterus. Ears, nose, mouth and throat: There are moist mucous membranes and no oral lesions. Neck: The neck is supple, there is no tenderness or JVD. Cardiovascular: There is a regular rate and rhythm. No murmur, rub or gallop is appreciated. Respiratory: Lungs are clear to auscultation, respirations are non-labored, breath sounds are equal. No wheezes, stridor, rales, or rhonchi. Gastrointestinal: Soft, non-distended, non-tender abdomen without masses or organomegaly noted. There is no rebound or guarding present. Rectal: No tone, stool in bed. Musculoskeletal: normal inspection of the cervical thoracic and lumbar spine. Patient is midline tenderness to palpation over the upper thoracic and lower lumbar midline. Normal ROM, with + SLR b/l. Strength 5/5 of the LE b/l. Sensation intact equal b/l. DP pulses equal bilaterally 2+. Neurological: A&O x 3. CN II-XII intact grossly, There are no obvious motor or sensory deficits. Coordination appears grossly intact. Speech is normal. Skin: Skin is warm and dry and no rashes or lesions are noted. Psychiatric: Cooperative, appropriate mood & affect, normal judgment. Limitations: no limitations Course Vital Signs 07/02/20 17:34 Temperature 98.1 F Pulse Rate 93 Respiratory 18 Rate Blood Pressure 150/127 O2 Sat by Pulse 95 Oximetry Medical Decision Making - Medical Decision Making 55-year-old female well-known to emergency department for low back pain. Compla ining of incontinence of stool with increasing low back pain. I have performed rectal examination on her before with normal tone, today no tone, stool in bed. Patient case discussed with Dr. Soni who is agreeable to transfer with administration of decadron prior for emergent MRI and neurosurgery consultation. Patient is agreeable to transfer. Pain medications administered. Dr. Calvillo accepted transfer--patient will be transported via EMS Disposition Clinical Impression: Bowel incontinence, Low back pain Disposition: OTHER INSTITUTION NOT DEFINED Condition: Serious Is patient prescribed a controlled substance at d/c from ED?: No Referrals: None,Stated [Primary Care Provider] - 1-2 days Time of Disposition: 18:18 - Out of Hospital Transfer - Req. Specs Out of Hospital Transfer - Requested Specifics: Other Emergency Center ([facility])
[2020-07-02 18:30] VITALS: BP 149/91; PULSE 82
== END 2020-07-02 18:54 | disposition other institution (70) ==
LOC: EC 17:29
DX: M54.5 Low back pain (principal); R15.9 Full incontinence of feces; F17.200 Nicotine dependence, unspecified, uncomplicated; Z88.0 Allergy status to penicillin; Z88.1 Allergy status to other antibiotic agents; Z88.2 Allergy status to sulfonamides; Z91.030 Bee allergy status
CPT/HCPCS: 99284; 96374; 96375; J1100; J1170

== ENCOUNTER 2020-07-07 06:55 | Emergency (ER) | payer OTHER ==
[2020-07-07 06:58] VITALS: BP 124/99; PULSE 112; RESP 20; TEMP 97.9
[2020-07-07] MEDS ORDERED: ORPHENADRINE 30 MG/ML 2 ML VIAL IM STA (07:16)
[2020-07-07] MEDS ORDERED: KETOROLAC 15 MG/ML 1 ML VIAL IM STA (07:16)
--- NOTE | 2020-07-07 07:22 | ED ---
General Adult HPI - General Chief complaint: Back Pain/Injury Stated complaint: Back pain Source: patient Mode of arrival: ambulatory Limitations: no limitations - History of Present Illness Initial comments: 55-year-old female with a past medical history of hypertension, fibromyalgia, back pain presents to the emergency department for a chief complaint of acute on chronic back pain. Patient reports that she has a history of fractures in her back and that she has chronic pain. States her pain is worse today. States she does take Percocet for pain but it does not seem to be helping. Patient denies fevers or chills. Denies bladder or bowel changes. Denies weakness of the lower extremities. Denies radiating pain down lower extremities. Patient was transferred to another institution 5 days ago for decreased rectal tone with back pain. Patient states everything was fine and she was discharged home. Patient is requesting a fentanyl patch. Patient has no other complaints at this time including shortness of breath, chest pain, abdominal pain, nausea or vomiting, headache, or visual changes. - Related Data Home Medications Medication Instructions Recorded Confirmed oxyCODONE HCL/ACETAMINOPHEN 1 tab PO TID PRN 05/28/20 07/07/20 [Percocet 10-325 mg] Previous Rx's Medication Instructions Recorded Cyclobenzaprine [Flexeril] 10 mg PO TID #14 tab 07/07/20 Ibuprofen [Motrin] 600 mg PO Q6HR PRN #20 tab 07/07/20 Allergies Allergy/AdvReac Type Severity Reaction Status Date / Time Penicillins Allergy Rash/Hives Verified 07/07/20 07:49 sulfamethoxazole Allergy Unknown Verified 07/07/20 07:49 [From Bactrim] venom-honey bee Allergy Anaphylaxis Verified 07/07/20 07:49 [bee venom (honey bee)] Review of Systems ROS Statement: Those systems with pertinent positive or pertinent negative responses have been documented in the HPI. ROS Other: All systems not noted in ROS Statement are negative. Past Medical History Past Medical History: Fibromyalgia, Hypertension, Musculoskeletal Disorder Additional Past Medical History / Comment(s): back pain, pt states she has lesions on her brain that could be the onset of MS, History of Any Multi-Drug Resistant Organisms: None Reported Past Surgical History: Appendectomy, Hysterectomy Additional Past Surgical History / Comment(s): d&c, Past Anesthesia/Blood Transfusion Reactions: No Reported Reaction Past Psychological History: Anxiety, Depression, Panic Disorder, PTSD Smoking Status: Current some day smoker Past Alcohol Use History: None Reported Past Drug Use History: None Reported, Opiates, Prescription Drug Abuse - Past Family History Mother Family Medical History: Cancer, Rheumatoid Arthritis (RA) Additional Family Medical History / Comment(s): lymphoma Father Family Medical History: Liver Disease Additional Family Medical History / Comment(s): Father had alcoholic cirrhosis. He is . Daughter(s) Family Medical History: Asthma General Exam Limitations: no limitations General appearance: alert, in no apparent distress Head exam: Present: atraumatic, normocephalic, normal inspection Eye exam: Present: normal appearance, PERRL, EOMI. Absent: scleral icterus, conjunctival injection, periorbital swelling ENT exam: Present: normal exam, mucous membranes moist Neck exam: Present: normal inspection, full ROM. Absent: tenderness, meningismus, lymphadenopathy Respiratory exam: Present: normal lung sounds bilaterally. Absent: respiratory distress, wheezes, rales, rhonchi, stridor Cardiovascular Exam: Present: regular rate, normal rhythm, normal heart sounds. Absent: systolic murmur, diastolic murmur, rubs, gallop, clicks GI/Abdominal exam: Present: soft, normal bowel sounds. Absent: distended, tenderness, guarding, rebound, rigid Back exam: Absent: CVA tenderness (R), CVA tenderness (L) Neurological exam: Present: alert Course Vital Signs 07/07/20 06:57 Temperature 97.9 F Pulse Rate 112 H Respiratory 20 Rate Blood Pressure 124/99 O2 Sat by Pulse 99 Oximetry Medical Decision Making - Medical Decision Making HPI as documented. Vitals are stable. Patient was given IM Toradol and Norflex. Patient had significant improvement in symptoms. Patient now sitting up in bed stating she feels much better. Patient able to ambulate. Patient will continue to take home pain medication. Patient does not have any history of kidney disease, will also prescribe Motrin and muscle relaxer. Patient will follow-up with his doctor in one to 2 days. Disposition Clinical Impression: Back pain Disposition: HOME SELF-CARE Condition: Good Instructions (If sedation given, give patient instructions): Acute Low Back Pain (ED) Additional Instructions: Please follow up with primary care in 1-2 days. Return to the emergency room for any worsening symptoms. Prescriptions: Cyclobenzaprine [Flexeril] 10 mg PO TID #14 tab Ibuprofen [Motrin] 600 mg PO Q6HR PRN #20 tab PRN Reason: Pain Is patient prescribed a controlled substance at d/c from ED?: No Referrals: Shanae Hidalgo MD [REFERRING] - 1-2 days Time of Disposition: 08:03
== END 2020-07-07 08:09 | disposition home or self-care (01) ==
LOC: EC 06:55
DX: M54.9 Dorsalgia, unspecified (principal); G89.29 Other chronic pain; I10 Essential (primary) hypertension; F17.200 Nicotine dependence, unspecified, uncomplicated; Z88.0 Allergy status to penicillin; Z88.2 Allergy status to sulfonamides; Z91.030 Bee allergy status
CPT/HCPCS: 99283; 96372 ×2; J2360; J1885

== ENCOUNTER 2020-07-08 01:45 | Emergency (ER) | payer OTHER ==
[2020-07-08 01:59] VITALS: TEMP 99.2
[2020-07-08] MEDS ORDERED: HYDROmorphone 0.5 MG/0.5 ML SYRINGE IM STA (02:12)
[2020-07-08] MEDS ORDERED: ACET/COD 300 MG/30 MG STARTER PACK 6 TAB BTL PO STA (02:12)
--- NOTE | 2020-07-08 02:13 | ED ---
Back Pain HPI - General Chief Complaint: Back Pain/Injury Stated Complaint: back pain Time Seen by Provider: 07/08/20 01:50 Source: patient, EMS Limitations: physical limitation - History of Present Illness Initial Comments: 55-year-old female with history of opiate addiction and chronic pain presents emergency department today for chief complaint of low back pain patient states is her typical chronic back pain states she can on retake it denies any loss of bowel bladder control urinary retention today denies any weakness of the legs or loss of sensation. Patient has a falls or trauma IV drug use or fevers. Patient has no additional complaints. - Related Data Home Medications Medication Instructions Recorded Confirmed oxyCODONE HCL/ACETAMINOPHEN 1 tab PO TID PRN 05/28/20 07/07/20 [Percocet 10-325 mg] Previous Rx's Medication Instructions Recorded Cyclobenzaprine [Flexeril] 10 mg PO TID #14 tab 07/07/20 Ibuprofen [Motrin] 600 mg PO Q6HR PRN #20 tab 07/07/20 Allergies Allergy/AdvReac Type Severity Reaction Status Date / Time Penicillins Allergy Rash/Hives Verified 07/08/20 02:00 sulfamethoxazole Allergy Unknown Verified 07/08/20 02:00 [From Bactrim] venom-honey bee Allergy Anaphylaxis Verified 07/08/20 02:00 [bee venom (honey bee)] Review of Systems ROS Statement: Those systems with pertinent positive or pertinent negative responses have been documented in the HPI. ROS Other: All systems not noted in ROS Statement are negative. Past Medical History Past Medical History: Fibromyalgia, Hypertension, Musculoskeletal Disorder Additional Past Medical History / Comment(s): back pain, pt states she has lesions on her brain that could be the onset of MS, History of Any Multi-Drug Resistant Organisms: None Reported Past Surgical History: Appendectomy, Hysterectomy Additional Past Surgical History / Comment(s): d&c, Past Anesthesia/Blood Transfusion Reactions: No Reported Reaction Past Psychological History: Anxiety, Depression, Panic Disorder, PTSD Smoking Status: Current some day smoker Past Alcohol Use History: None Reported Past Drug Use History: None Reported, Opiates, Prescription Drug Abuse - Past Family History Mother Family Medical History: Cancer, Rheumatoid Arthritis (RA) Additional Family Medical History / Comment(s): lymphoma Father Family Medical History: Liver Disease Additional Family Medical History / Comment(s): Father had alcoholic cirrhosis. He is . Daughter(s) Family Medical History: Asthma General Exam - General Exam Comments Initial Comments: General: The patient is awake and alert, in no distress, and does not appear acutely ill. Eye: Pupils are equal, round and reactive to light, extra-ocular movements are intact. No nystagmus. There is normal conjunctiva bilaterally. No signs of icterus. Ears, nose, mouth and throat: There are moist mucous membranes and no oral lesions. Neck: The neck is supple, there is no tenderness or JVD. Cardiovascular: There is a regular rate and rhythm. No murmur, rub or gallop is appreciated. Respiratory: Lungs are clear to auscultation, respirations are non-labored, breath sounds are equal. No wheezes, stridor, rales, or rhonchi. Gastrointestinal: Soft, non-distended, non-tender abdomen without masses or organomegaly noted. There is no rebound or guarding present. Musculoskeletal: MIldline tenderness and paraspine of lumbar spine. Normal ROM, no tenderness. Strength 5/5 of the LE b/l. Sensation intact of the LE b/l. DP pulses equal bilaterally 2+. Neurological: A&O x 3. CN II-XII intact, There are no obvious motor or sensory deficits. Coordination appears grossly intact. Speech is normal. Skin: Skin is warm and dry and no rashes or lesions are noted. Psychiatric: Cooperative, appropriate mood & affect, normal judgment. Limitations: physical limitation Course Vital Signs 07/08/20 07/08/20 01:53 02:59 Temperature 99.2 F Pulse Rate 92 95 Respiratory 17 18 Rate Blood Pressure 142/115 136/81 O2 Sat by Pulse 98 98 Oximetry Medical Decision Making - Medical Decision Making 55 chronic back pain. Denies urinary or bowel changes. No extremity findings. No falls. Discharged with symptomatic treatment. Dr. Guevara agreeable to care plan. Disposition Clinical Impression: Chronic low back pain Disposition: HOME SELF-CARE Condition: Good Instructions (If sedation given, give patient instructions): Chronic Pain (ED) Additional Instructions: Please use medication as discussed. Please follow-up with family doctor in the next 2 days. Please return to emergency room if the symptoms increase or worsen or for any other concerns. Is patient prescribed a controlled substance at d/c from ED?: No Referrals: None,Stated [Primary Care Provider] - 1-2 days Time of Disposition: 02:13
[2020-07-08 03:02] VITALS: BP 136/81; PULSE 95; RESP 18
== END 2020-07-08 02:59 | disposition home or self-care (01) ==
LOC: EC 01:45
DX: M54.5 Low back pain (principal); G89.29 Other chronic pain; F17.200 Nicotine dependence, unspecified, uncomplicated; Z88.0 Allergy status to penicillin; Z88.2 Allergy status to sulfonamides; Z91.030 Bee allergy status
CPT/HCPCS: 99283; 96372; J1170

== ENCOUNTER 2020-08-21 00:56 | Emergency (ER) | payer OTHER ==
[2020-08-21 01:07] VITALS: RESP 18; TEMP 98.7
[2020-08-21] MEDS ORDERED: HYDROmorphone 1 MG/ML 1 ML SYRINGE IVP STA (01:32)
--- NOTE | 2020-08-21 02:24 | ED ---
Back Pain HPI - General Source: patient, EMS Limitations: no limitations <Flavia Fletcher - Last Filed: 08/21/20 02:53> <Halina Guevara - Last Filed: 08/21/20 04:45> - General Chief Complaint: Back Pain/Injury Stated Complaint: Back pain Time Seen by Provider: 08/21/20 01:05 - History of Present Illness Initial Comments: 55yo female presenting for cc of back pain, pain all over. Pt states she has fibromyalgia and has chronic pain management by Dr Baltazar. Patient states she has her usual back pain. Denies new falls/trauma, weakness of the legs, sensation deficits. Patient denies chest pain, sob, nausea, vomiting, diarrhea, denies u rinary retention. Patient appears nontoxic on arrival. Patient states that her HR was elevated in the EMS but she "didnt feel it" denies SOB, palpitations, syncope, presyncope, or chest pain. (Flavia Fletcher) - Related Data Home Medications Medication Instructions Recorded Confirmed oxyCODONE HCL/ACETAMINOPHEN 1 tab PO TID PRN 05/28/20 07/07/20 [Percocet 10-325 mg] Previous Rx's Medication Instructions Recorded Cyclobenzaprine [Flexeril] 10 mg PO TID #14 tab 07/07/20 Ibuprofen [Motrin] 600 mg PO Q6HR PRN #20 tab 07/07/20 Allergies Allergy/AdvReac Type Severity Reaction Status Date / Time Penicillins Allergy Rash/Hives Verified 08/21/20 01:07 sulfamethoxazole Allergy Unknown Verified 08/21/20 01:07 [From Bactrim] venom-honey bee Allergy Anaphylaxis Verified 08/21/20 01:07 [bee venom (honey bee)] Review of Systems ROS Other: All systems not noted in ROS Statement are negative. <Flavia Fletcher - Last Filed: 08/21/20 02:53> ROS Other: All systems not noted in ROS Statement are negative. <Halina Guevara - Last Filed: 08/21/20 04:45> ROS Statement: Those systems with pertinent positive or pertinent negative responses have been documented in the HPI. Past Medical History Past Medical History: Fibromyalgia, Hypertension, Musculoskeletal Disorder Additional Past Medical History / Comment(s): back pain, pt states she has lesions on her brain that could be the onset of MS, History of Any Multi-Drug Resistant Organisms: None Reported Past Surgical History: Appendectomy, Hysterectomy Additional Past Surgical History / Comment(s): d&c, Past Anesthesia/Blood Transfusion Reactions: No Reported Reaction Past Psychological History: Anxiety, Depression, Panic Disorder, PTSD Smoking Status: Current some day smoker Past Alcohol Use History: None Reported Past Drug Use History: None Reported, Opiates, Prescription Drug Abuse - Past Family History Mother Family Medical History: Cancer, Rheumatoid Arthritis (RA) Additional Family Medical History / Comment(s): lymphoma Father Family Medical History: Liver Disease Additional Family Medical History / Comment(s): Father had alcoholic cirrhosis. He is . Daughter(s) Family Medical History: Asthma <Flavia Fletcher - Last Filed: 08/21/20 02:53> General Exam Limitations: no limitations <Flavia Fletcher - Last Filed: 08/21/20 02:53> - General Exam Comments Initial Comments: General: The patient is awake and alert, in no distress, and does not appear acutely ill. Eye: +3 mm pupils are equal, round and reactive to light, extra-ocular movements are intact. No nystagmus. There is normal conjunctiva bilaterally. No signs of icterus. Cardiovascular: There is a regular rate and rhythm. No murmur, rub or gallop is appreciated. Respiratory: Lungs are clear to auscultation, respirations are non-labored, breath sounds are equal. No wheezes, stridor, rales, or rhonchi. Musculoskeletal: Normal inspection. Some mildine lumbar pain, paraspinal as well. Normal ROM, no tenderness. Strength 5/5 of the LE b/l. Sensation intact of the LE b/l. Radial pulses equal bilaterally 2+. Refused rectal. Neurological: A&O x 3. CN II-XII intact grossly, There are no obvious motor or sensory deficits. Coordination appears grossly intact. Speech is normal. Skin: Skin is warm and dry and no rashes or lesions are noted. Psychiatric: Cooperative, appropriate mood & affect, normal judgment. (Flavia Fletcher) Course <Flavia Fletcher - Last Filed: 08/21/20 02:53> Vital Signs 08/21/20 08/21/20 08/21/20 01:03 03:02 03:19 Temperature 98.7 F Pulse Rate 105 H 100 Respiratory 18 18 Rate Blood Pressure 144/106 124/96 O2 Sat by Pulse 99 97 Oximetry 08/21/20 04:23 Temperature Pulse Rate 96 Respiratory 18 Rate Blood Pressure 130/72 O2 Sat by Pulse 98 Oximetry - Reevaluation(s) Reevaluation #1: pt states that previously her potassium has been low and would like that checked as well. Pt at this time pending results was signed out to my attenidng Dr. Guevara 08/21/20 02:54 (Flavia Fletcher) Medical Decision Making <Flavia Fletcher - Last Filed: 08/21/20 02:53> - Lab Data Result diagrams: 08/21/20 03:21 08/21/20 03:21 <Halina Guevara - Last Filed: 08/21/20 04:45> - Medical Decision Making EKG no changes from previous. Denies cardiovascular symptoms. Admits to low back pain, leg pain which is chronic sees Dr. Baltazar. Given 1 dose for break through pain. Pt will be discharged with PCP and pain management f/u. Dr. Guevara is agreeable to this care plan. (Flavia Fletcher) Patient care was signed out to me by Flavia Fletcher, 55-year-old female with known chronic back pain presenting to the ER today via EMS with exacerbation of her back pain. Patient states that she runs out of her pain medications early. EMS did report that the patient had some tachycardia in route to the hospital. This resolved and patient reported she never had any palpitations or chest pain. However she has had hypokalemia in the past therefore labs are obtained. Labs revealed mild hypokalemia potassium will be replaced with a single dose of oral potassium. At this time patient stable for discharge home. Advised to follow- up with her pain management doctor regarding her chronic back pain. (Halina Guevara) - Lab Data Lab Results 08/21/20 08/21/20 Range/Units 03:21 03:21 WBC 8.8 (3.8-10.6) k/uL RBC 4.83 (3.80-5.40) m/uL Hgb 14.8 (11.4-16.0) gm/dL Hct 43.8 (34.0-46.0) % MCV 90.6 (80.0-100.0) fL MCH 30.6 (25.0-35.0) pg MCHC 33.8 (31.0-37.0) g/dL RDW 13.1 (11.5-15.5) % Plt Count 227 (150-450) k/uL Neutrophils % 68 % Lymphocytes % 25 % Monocytes % 5 % Eosinophils % 1 % Basophils % 1 % Neutrophils # 5.9 (1.3-7.7) k/uL Lymphocytes # 2.2 (1.0-4.8) k/uL Monocytes # 0.4 (0-1.0) k/uL Eosinophils # 0.0 (0-0.7) k/uL Basophils # 0.0 (0-0.2) k/uL Sodium 140 (137-145) mmol/L Potassium 3.4 L (3.5-5.1) mmol/L Chloride 111 H (98-107) mmol/L Carbon Dioxide 25 (22-30) mmol/L Anion Gap 4 mmol/L BUN 7 (7-17) mg/dL Creatinine 0.55 (0.52-1.04) mg/dL Est GFR (CKD-EPI)AfAm >90 (>60 ml/min/1.73 sqM) Est GFR (CKD-EPI)NonAf >90 (>60 ml/min/1.73 sqM) Glucose 106 H (74-99) mg/dL Calcium 9.5 (8.4-10.2) mg/dL Magnesium 1.9 (1.6-2.3) mg/dL Total Bilirubin 0.9 (0.2-1.3) mg/dL AST 16 (14-36) U/L ALT 8 (4-34) U/L Alkaline Phosphatase 65 (38-126) U/L Total Protein 6.7 (6.3-8.2) g/dL Albumin 4.2 (3.5-5.0) g/dL Disposition <Flavia Fletcher L - Last Filed: 08/21/20 02:53> Is patient prescribed a controlled substance at d/c from ED?: No <Halina Guevara P - Last Filed: 08/21/20 04:45> Clinical Impression: Elevated blood pressure reading, Opioid use, Chronic pain Disposition: HOME SELF-CARE Condition: Stable Additional Instructions: Please use medication as discussed. Please follow-up with family doctor in the next 2 days. Please return to emergency room if the symptoms increase or worsen or for any other concerns. Referrals: None,Stated [Primary Care Provider] - 1-2 days
[2020-08-21 03:38] LABS: Basophils % (A) 1 %; Eosinophils % (A) 1 %; HCT 43.8 % (34.0-46.0); HGB 14.8 gm/dL (11.4-16.0); Lymphocytes # (A) 2.2 k/uL (1.0-4.8); Lymphocytes % (A) 25 %; MCH 30.6 pg (25.0-35.0); MCHC 33.8 g/dL (31.0-37.0); MCV 90.6 fL (80.0-100.0); Mean Platelet Volume 7.7; Monocytes # (A) 0.4 k/uL (0-1.0); Monocytes % (A) 5 %; Neutrophils # (A) 5.9 k/uL (1.3-7.7); Neutrophils % (A) 68 %; Platelet Count 227 k/uL (150-450); RBC 4.83 m/uL (3.80-5.40); RDW 13.1 % (11.5-15.5); WBC 8.8 k/uL (3.8-10.6)
[2020-08-21 03:39] LABS: ALT 8 U/L (4-34); AST 16 U/L (14-36); African American GFR (CKD) >90 (>60 ml/min/1.73 sqM); Albumin 4.2 g/dL (3.5-5.0); Alkaline Phosphatase 65 U/L (38-126); Anion Gap 4 mmol/L; Blood Urea Nitrogen 7 mg/dL (7-17); Calcium 9.5 mg/dL (8.4-10.2); Carbon Dioxide 25 mmol/L (22-30); Chloride 111 mmol/L (98-107); Glucose 106 mg/dL (74-99); Magnesium 1.9 mg/dL (1.6-2.3); Non-African American GFR(CKD) >90 (>60 ml/min/1.73 sqM); Potassium 3.4 mmol/L (3.5-5.1); Sodium 140 mmol/L (137-145); Total Bilirubin 0.9 mg/dL (0.2-1.3); Total Protein 6.7 g/dL (6.3-8.2)
[2020-08-21] MEDS ORDERED: POTASSIUM CHLORIDE ER 20 MEQ TAB.ER PO STA (03:42)
[2020-08-21 04:25] VITALS: BP 130/72; PULSE 96
== END 2020-08-21 04:25 | disposition home or self-care (01) ==
LOC: EC 00:56
DX: R03.0 Elevated blood-pressure reading, without diagnosis of hypertension (principal); F11.90 Opioid use, unspecified, uncomplicated; G89.29 Other chronic pain; M54.5 Low back pain; E87.6 Hypokalemia; F17.200 Nicotine dependence, unspecified, uncomplicated; Z88.0 Allergy status to penicillin; Z88.2 Allergy status to sulfonamides; Z91.030 Bee allergy status
CPT/HCPCS: 36415; 93005; 80053; 83735; 85025; 99284; 96374; J1170

== ENCOUNTER 2020-08-23 02:03 | Observation (INO) | payer OTHER ==
[2020-08-23 02:55] LABS: Basophils % (A) 0 %; Eosinophils # (A) 0.1 k/uL (0-0.7); Eosinophils % (A) 1 %; HCT 43.3 % (34.0-46.0); HGB 14.6 gm/dL (11.4-16.0); Lymphocytes # (A) 2.1 k/uL (1.0-4.8); Lymphocytes % (A) 21 %; MCH 30.2 pg (25.0-35.0); MCHC 33.6 g/dL (31.0-37.0); Mean Platelet Volume 7.7; Monocytes # (A) 0.6 k/uL (0-1.0); Monocytes % (A) 6 %; Neutrophils # (A) 6.8 k/uL (1.3-7.7); Neutrophils % (A) 70 %; Platelet Count 244 k/uL (150-450); RBC 4.81 m/uL (3.80-5.40); WBC 9.7 k/uL (3.8-10.6)
--- NOTE | 2020-08-23 03:11 | ED ---
General Adult HPI - General Chief complaint: Back Pain/Injury Stated complaint: Back Pain Time Seen by Provider: 08/23/20 02:04 Source: patient, EMS Mode of arrival: EMS Limitations: no limitations - History of Present Illness Initial comments: Laury is a 55-year-old female who is very well-known to the emergency department for frequent visits for back pain. Patient presents the ER today planing of syncopal event, back pain. Patient reports that she follows with Dr. Stapleton who has decreased her prescription narcotics so she's been taking more than she should therefore she ran out early she is not scheduled to see him for refill until the and she is currently out of narcotics. Because of that she's been seen in our ER 2 times this week. Both times in route to the hospital EMS noted the patient's heart rate increases to the 180s without p rovocation. During her stay in our emergency department earlier in the week her heart rate was stable her labs were unremarkable her pain was managed and she was discharged home. Patient reports that tonight she was walking around her house when she passed out she didn't feel any palpitations or lightheadedness prior to passing out. She denies any chest pain. She reports pain throughout her entire back, pain is chronic and not changed. EMS reports that they were called due to her passing out and having back pain. Upon their arrival they noted that the temperature in her apartment seemed to be over 90, she was wearing to sweatshirts and still appeared to be cold. - Related Data Home Medications Medication Instructions Recorded Confirmed oxyCODONE HCL/ACETAMINOPHEN 1 tab PO TID PRN 05/28/20 07/07/20 [Percocet 10-325 mg] Previous Rx's Medication Instructions Recorded Cyclobenzaprine [Flexeril] 10 mg PO TID #14 tab 07/07/20 Ibuprofen [Motrin] 600 mg PO Q6HR PRN #20 tab 07/07/20 Allergies Allergy/AdvReac Type Severity Reaction Status Date / Time Penicillins Allergy Rash/Hives Verified 08/21/20 01:07 sulfamethoxazole Allergy Unknown Verified 08/21/20 01:07 [From Bactrim] venom-honey bee Allergy Anaphylaxis Verified 08/21/20 01:07 [bee venom (honey bee)] Review of Systems ROS Statement: Those systems with pertinent positive or pertinent negative responses have been documented in the HPI. ROS Other: All systems not noted in ROS Statement are negative. Past Medical History Past Medical History: Fibromyalgia, Hypertension, Musculoskeletal Disorder Additional Past Medical History / Comment(s): back pain, pt states she has lesions on her brain that could be the onset of MS, History of Any Multi-Drug Resistant Organisms: None Reported Past Surgical History: Appendectomy, Hysterectomy Additional Past Surgical History / Comment(s): d&c, Past Anesthesia/Blood Transfusion Reactions: No Reported Reaction Past Psychological History: Anxiety, Depression, Panic Disorder, PTSD Smoking Status: Current some day smoker Past Alcohol Use History: None Reported Past Drug Use History: None Reported, Opiates, Prescription Drug Abuse - Past Family History Mother Family Medical History: Cancer, Rheumatoid Arthritis (RA) Additional Family Medical History / Comment(s): lymphoma Father Family Medical History: Liver Disease Additional Family Medical History / Comment(s): Father had alcoholic cirrhosis. He is . Daughter(s) Family Medical History: Asthma General Exam - General Exam Comments Initial Comments: Physical Exam GENERAL: Chronically ill appearing HENT: Normocephalic, Atraumatic. EYES: PERRL, EOMI PULMONARY: Unlabored respirations. No audible rales rhonchi or wheezing was noted. CARDIOVASCULAR: There is a regular rate and rhythm without any murmurs gallops or rubs. ABDOMEN: Soft and nontender with normal bowel sounds. SKIN: Skin is clear with no lesions or rashes and otherwise unremarkable. : Deferred NEUROLOGIC: Patient is alert and oriented x3. Moving all extremities spontaneously MUSCULOSKELETAL: Normal extremities with adequate strength and full range of motion. No lower extremity swelling or edema. No calf tenderness. PSYCHIATRIC: Normal psychiatric evaluation. Limitations: no limitations Course Vital Signs 08/23/20 08/23/20 02:04 03:03 Temperature 99 F Pulse Rate 89 89 Respiratory 20 18 Rate Blood Pressure 154/93 144/96 O2 Sat by Pulse 100 98 Oximetry EKG Findings - EKG Comments: EKG Findings:: Initial EKG was obtained due to tachydysrhythmia in route to the hospital, EKG obtained at 2:13 AM, rate is 90 rhythm is sinus with PVCs and fu farshad complexes, there is leftward axis right bundle branch block, SD is 126, QRS mildly widened 132, QTc prolonged at [address] elevations or depressions no evidence of ischemia or infarction. Repeat EKG was obtained while the patient was somewhat tachycardic, EKG obtained at 3:03 AM, rate is variable, rhythm appears to be some sinus with a short run of possible atrial flutter versus sinus tachycardia. Measurable SD is 128, QRS 134, QTC prolonged at [address] elevations or depressions no ischemia or infarction Medical Decision Making - Medical Decision Making The patient was seen and evaluated, history is obtained from the patient and EMS I'm very familiar with this patient as she was seen in the ER earlier in the week This is the second time the patient has presented with back pain and profound tachycardia with rates in the 170s to 180s noted by EMS Patient's chronic pain will be treated with high dose fentanyl patch Cardiac labs, TSH electrolytes were ordered Initial EKG is sinus tachycardia with fusion complexes Repeat EKG has a short run of narrow complex regular tachycardia I suspect is likely atrial flutter with a 2-1 block versus SVT Patient was noted to become profoundly tachycardic upon standing, at this time I feel the patient needs further evaluation by cardiology possible tilt table test. Patient agreeable to admission, requesting additional narcotics, advised that she will not be given any. - Lab Data Result diagrams: 08/23/20 02:46 08/23/20 02:46 Lab Results 08/23/20 08/23/20 08/23/20 Range/Units 02:46 02:46 02:46 WBC 9.7 (3.8-10.6) k/uL RBC 4.81 (3.80-5.40) m/uL Hgb 14.6 (11.4-16.0) gm/dL Hct 43.3 (34.0-46.0) % MCV 90.0 (80.0-100.0) fL MCH 30.2 (25.0-35.0) pg MCHC 33.6 (31.0-37.0) g/dL RDW 13.0 (11.5-15.5) % Plt Count 244 (150-450) k/uL Neutrophils % 70 % Lymphocytes % 21 % Monocytes % 6 % Eosinophils % 1 % Basophils % 0 % Neutrophils # 6.8 (1.3-7.7) k/uL Lymphocytes # 2.1 (1.0-4.8) k/uL Monocytes # 0.6 (0-1.0) k/uL Eosinophils # 0.1 (0-0.7) k/uL Basophils # 0.0 (0-0.2) k/uL PT 10.4 (9.0-12.0) sec INR 1.0 (<1.2) APTT 23.9 (22.0-30.0) sec Sodium 138 (137-145) mmol/L Potassium 3.4 L (3.5-5.1) mmol/L Chloride 108 H (98-107) mmol/L Carbon Dioxide 23 (22-30) mmol/L Anion Gap 7 mmol/L BUN 6 L (7-17) mg/dL Creatinine 0.55 (0.52-1.04) mg/dL Est GFR (CKD-EPI)AfAm >90 (>60 ml/min/1.73 sqM) Est GFR (CKD-EPI)NonAf >90 (>60 ml/min/1.73 sqM) Glucose 118 H (74-99) mg/dL Calcium 9.5 (8.4-10.2) mg/dL Magnesium 1.7 (1.6-2.3) mg/dL Total Bilirubin 1.1 (0.2-1.3) mg/dL AST 16 (14-36) U/L ALT 9 (4-34) U/L Alkaline Phosphatase 58 (38-126) U/L Troponin I (0.000-0.034) ng/mL Total Protein 6.6 (6.3-8.2) g/dL Albumin 4.1 (3.5-5.0) g/dL TSH 1.020 (0.465-4.680) mIU/L 08/23/20 Range/Units 02:46 WBC (3.8-10.6) k/uL RBC (3.80-5.40) m/uL Hgb (11.4-16.0) gm/dL Hct (34.0-46.0) % MCV (80.0-100.0) fL MCH (25.0-35.0) pg MCHC (31.0-37.0) g/dL RDW (11.5-15.5) % Plt Count (150-450) k/uL Neutrophils % % Lymphocytes % % Monocytes % % Eosinophils % % Basophils % % Neutrophils # (1.3-7.7) k/uL Lymphocytes # (1.0-4.8) k/uL Monocytes # (0-1.0) k/uL Eosinophils # (0-0.7) k/uL Basophils # (0-0.2) k/uL PT (9.0-12.0) sec INR (<1.2) APTT (22.0-30.0) sec Sodium (137-145) mmol/L Potassium (3.5-5.1) mmol/L Chloride (98-107) mmol/L Carbon Dioxide (22-30) mmol/L Anion Gap mmol/L BUN (7-17) mg/dL Creatinine (0.52-1.04) mg/dL Est GFR (CKD-EPI)AfAm (>60 ml/min/1.73 sqM) Est GFR (CKD-EPI)NonAf (>60 ml/min/1.73 sqM) Glucose (74-99) mg/dL Calcium (8.4-10.2) mg/dL Magnesium (1.6-2.3) mg/dL Total Bilirubin (0.2-1.3) mg/dL AST (14-36) U/L ALT (4-34) U/L Alkaline Phosphatase (38-126) U/L Troponin I <0.012 (0.000-0.034) ng/mL Total Protein (6.3-8.2) g/dL Albumin (3.5-5.0) g/dL TSH (0.465-4.680) mIU/L - EKG Data -: EKG Interpreted by Me Disposition Clinical Impression: Arrhythmia, Chronic pain, Hypokalemia, Opioid use Disposition: ADMITTED IP TO THIS [facility] Condition: Stable Referrals: None,Stated [Primary Care Provider] - 1-2 days
[2020-08-23 03:23] LABS: ALT 9 U/L (4-34); AST 16 U/L (14-36); African American GFR (CKD) >90 (>60 ml/min/1.73 sqM); Albumin 4.1 g/dL (3.5-5.0); Alkaline Phosphatase 58 U/L (38-126); Anion Gap 7 mmol/L; Blood Urea Nitrogen 6 mg/dL (7-17); Calcium 9.5 mg/dL (8.4-10.2); Carbon Dioxide 23 mmol/L (22-30); Chloride 108 mmol/L (98-107); Glucose 118 mg/dL (74-99); Magnesium 1.7 mg/dL (1.6-2.3); Non-African American GFR(CKD) >90 (>60 ml/min/1.73 sqM); Potassium 3.4 mmol/L (3.5-5.1); Sodium 138 mmol/L (137-145); Total Bilirubin 1.1 mg/dL (0.2-1.3); Total Protein 6.6 g/dL (6.3-8.2)
--- NOTE | 2020-08-23 03:27 | XR ---
EXAMINATION TYPE: XR chest 2V DATE OF EXAM: 08/23/2020 COMPARISON: 05/28/2020 HISTORY: Chest pain TECHNIQUE: FINDINGS: Heart and mediastinum are normal. Lungs are clear. Diaphragm is normal. Bony thorax appears normal. Pulmonary vascularity is normal. IMPRESSION: Normal chest. No change.
[2020-08-23] MEDS ORDERED: NALOXONE 0.4 MG/ML 1 ML VIAL IV PRN (03:41)
[2020-08-23] MEDS ORDERED: POTASSIUM CHLORIDE ER 20 MEQ TAB.ER PO STA (03:41)
[2020-08-23 03:51] LABS: Partial Thromboplastin Time 23.9 sec (22.0-30.0); Prothrombin Time 10.4 sec (9.0-12.0)
[2020-08-23] MEDS: 0.9% NACL WITH KCL 20 MEQ/L 1,000 ML IV SCH ×2 (04:47→15:55)
[2020-08-23] MEDS: CYCLOBENZAPRINE 10 MG TAB PO SCH ×3 (04:49→20:50)
[2020-08-23] MEDS: oxyCODONE-APAP 10-325MG 1 EACH TAB PO PRN ×3 (06:13→22:30)
--- NOTE | 2020-08-23 08:59 | P.CRDCN ---
<Abril Ricketts A - Last Filed: 08/23/20 14:35> History of Present Illness Consult date: 08/23/20 Consult reason: sycope History of present illness: History of present illness: This is 55-year-old female past medical history significant for chronic back pain status post multiple ER visits and hospitalizations and daily nicotine dependence. 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 Patient has apparently been out of her norm call for several days. She states she still has not been eating or sleeping for the past 3 days. She has had 2 ER visits this week regarding back pain. EMS on both occasions noted that her heart rate was 180s. Yesterday she was trying to go to sleep but got up to go to the bathroom and half-way she fell in the hallway. She does not recall anything until she woke up. She denies having any lightheadedness or dizziness palpitations prior to this episode. Patient does give history that she periodically has palpitations when she walks a block. She also has lightheadedness and shortness of breath with this. Patient also complains of a pinching sensation in the lower sternal area. Patient has lost 20 pounds in the past 2 and half months. She states it's because of pain and lack of appetite. Patient was recently seen in May regarding sinus tachycardia. Echocardiogram at that time revealed EF greater than 55%, mild mitral regurgitation, mild tricuspid regurgitation. Patient presented to [facility] emergency center with temperature of 99, heart rate 89, blood pressure 154/93, pulse ox 100%. EKG and route to the hospital was a sinus rhythm at rate of 90 with PVCs and fusion complexes with right bundle branch block and prolonged QT. EKG revealed sinus tachycardia with left anterior fascicular block and right bundle branch block. CBC was unremarkable. Sodium 138, potassium 3.4 status post replacement, chloride 108, CO2 23, BUN 6 and creatinine 0.55. Blood sugar 118. Liver function tests were normal. TSH 1.020. Apparently orthostatics were attempted in the emergency center and heart rate on top to 170 bpm. Patient has been on strict bedrest and admitted to the cardiac stepdown unit. She has had episodes of tachycardia up to the 110s with with episodes of aberrancy. Orthostatics this morning revealed no significant blood pressure change but heart rate went from 68 to 113. Patient is a smoker one pack per day for 25 years and recently cut back to 3 cigarettes per day. She denies any alcohol use, marijuana use or street drug use. Review Of Systems: Constitutional: No fever, no chills. Reports reports weakness, fatigue. Reports insomnia. EENT: No headache. Reports dizziness. Lungs: No shortness of breath, cough, no sputum production. No wheezing. Cardiovascular: Reports chest pain, no lower extremity edema. Reports palpitations. No paroxysmal nocturnal dyspnea. No orthopnea. Reports lightheadedness or dizziness. Reports syncopal episodes. Abdominal: No abdominal pain. Reports mucous stools, Reports loss of appetite. Musculoskeletal: No myalgias. Reports muscle weakness, no gait dysfunction, no frequent falls. Reports back pain. Integumentary: No wounds, no lesions. No rash or pruritus. Neurologic: No aphasia. No facial droop. No change in mentation. No head injury. No headache. Physical examination: Gen: This is a thin 55-year-old female. Patient is resting in bed and awakens easily to verbal stimuli. She appears to be in no acute distress. VS: Afebrile, heart rate 84, blood pressure 156/92, pulse ox 98% on room air. HEENT: Head is atraumatic, normocephalic. Pupils equal, round. Sclerae is anicteric. NECK: Supple. No JVD. No lymphadenopathy. No thyromegaly. LUNGS: Clear to auscultation. No wheezes or rhonchi. No intercostal retractions. HEART: Regular rate and rhythm. No murmur. ABDOMEN: Soft. Bowel sounds are present. No masses. No tenderness. EXTREMITIES: No pedal edema. No calf tenderness. NEUROLOGICAL: Patient is awake, alert and oriented x3. Cranial nerves 2 through 12 are grossly intact. Assessment: Syncopal episode Sinus tachycardia with episodes of lightheadedness, shortness of breath and chest pain Hypokalemia Chronic back pain Tobacco use and dependence Plan: Orthostatics as above Patient may be up with supervision Obtain repeat troponins Possible stress test Obtain 2-D echocardiogram and Doppler study to assess cardiac structure and function Further recommendations to follow based upon clinical course Thank you kindly for this consultation. Nurse practitioner note has been reviewed, I agree with documented findings and plan of care. Patient was seen and examined. Past Medical History Past Medical History: Fibromyalgia, Hypertension, Musculoskeletal Disorder Additional Past Medical History / Comment(s): back pain, pt states she has lesions on her brain that could be the onset of MS, History of Any Multi-Drug Resistant Organisms: None Reported Past Surgical History: Appendectomy, Hysterectomy Additional Past Surgical History / Comment(s): d&c, Past Anesthesia/Blood Transfusion Reactions: No Reported Reaction Past Psychological History: Anxiety, Depression, Panic Disorder, PTSD Smoking Status: Current some day smoker Past Alcohol Use History: None Reported Past Drug Use History: None Reported, Opiates, Prescription Drug Abuse - Past Family History Mother Family Medical History: Cancer, Rheumatoid Arthritis (RA) Additional Family Medical History / Comment(s): lymphoma Father Family Medical History: Liver Disease Additional Family Medical History / Comment(s): Father had alcoholic cirrhosis. He is . Daughter(s) Family Medical History: Asthma Medications and Allergies Home Medications Medication Instructions Recorded Confirmed Type Cyclobenzaprine [Flexeril] 10 mg PO TID #14 tab 07/07/20 08/23/20 Rx Acetaminophen Tab [Tylenol] 500 mg PO BID PRN 08/23/20 08/23/20 History oxyCODONE-APAP 10-325MG [Percocet 1 tab PO QID 08/23/20 08/23/20 History 10-325 mg] traMADol HCL 50 mg PO DAILY PRN 08/23/20 08/23/20 History Allergies Allergy/AdvReac Type Severity Reaction Status Date / Time Penicillins Allergy Rash/Hives Verified 08/23/20 10:04 sulfamethoxazole Allergy Unknown Verified 08/23/20 10:04 [From Bactrim] venom-honey bee Allergy Anaphylaxis Verified 08/23/20 10:04 [bee venom (honey bee)] Physical Exam Vitals: Vital Signs Temp Pulse Pulse Resp BP BP Pulse Ox 08/23/20 04:25 98 F 84 18 156/92 98 08/23/20 03:03 89 18 144/96 98 08/23/20 02:04 99 F 89 20 154/93 100 Intake and Output 08/22/20 08/23/20 08/23/20 22:59 06:59 14:59 Output Total 250 Balance -250 Output: Urine 250 Other: # Voids 1 Weight 41.5 kg Results 08/23/20 02:46 08/23/20 02:46 Cardiac Enzymes 08/23/20 08/23/20 Range/Units 02:46 02:46 AST 16 (14-36) U/L Troponin I <0.012 (0.000-0.034) ng/mL Coagulation 08/23/20 Range/Units 02:46 PT 10.4 (9.0-12.0) sec APTT 23.9 (22.0-30.0) sec CBC 08/23/20 Range/Units 02:46 WBC 9.7 (3.8-10.6) k/uL RBC 4.81 (3.80-5.40) m/uL Hgb 14.6 (11.4-16.0) gm/dL Hct 43.3 (34.0-46.0) % Plt Count 244 (150-450) k/uL Comprehensive Metabolic Panel 08/23/20 Range/Units 02:46 Sodium 138 (137-145) mmol/L Potassium 3.4 L (3.5-5.1) mmol/L Chloride 108 H (98-107) mmol/L Carbon Dioxide 23 (22-30) mmol/L BUN 6 L (7-17) mg/dL Creatinine 0.55 (0.52-1.04) mg/dL Glucose 118 H (74-99) mg/dL Calcium 9.5 (8.4-10.2) mg/dL AST 16 (14-36) U/L ALT 9 (4-34) U/L Alkaline Phosphatase 58 (38-126) U/L Total Protein 6.6 (6.3-8.2) g/dL Albumin 4.1 (3.5-5.0) g/dL Current Medications Generic Name Dose Route Start Last Admin Trade Name Freq PRN Reason Stop Dose Admin Cyclobenzaprine HCl 10 mg 08/23/20 09:00 08/23/20 04:49 Cyclobenzaprine 10 Mg Tab PO 10 mg TID CORBIN Administration Potassium Chloride/Sodium Chloride 1,000 mls @ 75 mls/hr 08/23/20 03:45 08/23/20 04:47 Ns-Kcl 20 Meq/L Iv Solution IV 75 mls/hr .[id number] CORBIN Administration Naloxone HCl 0.2 mg 08/23/20 03:41 Naloxone 0.4 Mg/Ml 1 Ml Vial IV Q2M PRN Opioid Reversal Oxycodone/Acetaminophen 1 each 08/23/20 06:08 08/23/20 06:13 Oxycodone-Apap 10-325mg 1 Each Tab PO 1 each TID PRN Administration Pain Intake and Output 08/22/20 08/23/20 08/23/20 22:59 06:59 14:59 Output Total 250 Balance -250 Output: Urine 250 Other: # Voids 1 Weight 41.5 kg 08/23/20 02:46 08/23/20 02:46 <Fernie Nascimento - Last Filed: 08/23/20 16:12> History of Present Illness History of present illness: Patient with episodes of shortness breath with exertion Which has been worse over the past 2-3 months. She additionally admits to a syncopal episode which o ccurred yesterday while walking in the hallway. Troponins have been negative. TSH within normal limits. She does have some sinus tachycardia which may be related to anxiety however I would like to check a CTA to rule out PE. Additionally check a 2-D echo to evaluate for any change from May given she feels her symptoms have been worsening. I would also like to check a exercise stress echo to evaluate for patient's exercise capacity, patient's heart rate with exercise and to rule out any significant coronary artery disease. Patient does have intermittent right bundle branch block which appears as well as narrow complex on telemetry with some abberancy. EKG showing sinus rhythm with right bundle branch block and left axis deviation. Given syncope may consider outpatient event monitor upon discharge. Physical Exam Vitals: Vital Signs Temp Pulse Pulse Pulse Pulse Pulse Resp 08/23/20 15:51 97.7 F 77 16 08/23/20 11:14 97.8 F 80 18 08/23/20 08:00 97.9 F 93 113 H 68 16 08/23/20 04:25 98 F 84 18 08/23/20 03:03 89 18 08/23/20 02:04 99 F 89 20 BP BP BP BP BP BP Pulse Ox 08/23/20 15:51 103/64 97 08/23/20 11:14 143/76 97 08/23/20 08:00 133/89 146/79 141/79 100 08/23/20 04:25 156/92 98 08/23/20 03:03 144/96 98 08/23/20 02:04 154/93 100 Intake and Output 08/23/20 08/23/20 08/23/20 06:59 14:59 22:59 Intake Total 840 Output Total 250 300 Balance -250 540 Intake: IV 600 0.9% NaCl with KCl 20 Meq 600 /l 1,000 ml @ 75 mls/hr IV .[id number] CORBIN Rx#: [id number] Oral 240 Output: Urine 250 300 Other: # Voids 1 Weight 41.5 kg 41.5 kg Results 08/23/20 02:46 08/23/20 02:46 Cardiac Enzymes 08/23/20 08/23/20 08/23/20 Range/Units 02:46 02:46 09:14 AST 16 (14-36) U/L Troponin I <0.012 <0.012 (0.000-0.034) ng/mL 08/23/20 Range/Units 12:19 AST (14-36) U/L Troponin I <0.012 (0.000-0.034) ng/mL Coagulation 08/23/20 Range/Units 02:46 PT 10.4 (9.0-12.0) sec APTT 23.9 (22.0-30.0) sec CBC 08/23/20 Range/Units 02:46 WBC 9.7 (3.8-10.6) k/uL RBC 4.81 (3.80-5.40) m/uL Hgb 14.6 (11.4-16.0) gm/dL Hct 43.3 (34.0-46.0) % Plt Count 244 (150-450) k/uL Comprehensive Metabolic Panel 08/23/20 Range/Units 02:46 Sodium 138 (137-145) mmol/L Potassium 3.4 L (3.5-5.1) mmol/L Chloride 108 H (98-107) mmol/L Carbon Dioxide 23 (22-30) mmol/L BUN 6 L (7-17) mg/dL Creatinine 0.55 (0.52-1.04) mg/dL Glucose 118 H (74-99) mg/dL Calcium 9.5 (8.4-10.2) mg/dL AST 16 (14-36) U/L ALT 9 (4-34) U/L Alkaline Phosphatase 58 (38-126) U/L Total Protein 6.6 (6.3-8.2) g/dL Albumin 4.1 (3.5-5.0) g/dL Current Medications Generic Name Dose Route Start Last Admin Trade Name Freq PRN Reason Stop Dose Admin Cyclobenzaprine HCl 10 mg 08/23/20 09:00 08/23/20 15:55 Cyclobenzaprine 10 Mg Tab PO 10 mg TID CORBIN Administration Famotidine 20 mg 08/23/20 21:00 Famotidine 20 Mg Tab PO Q12HR CORBIN Heparin Sodium (Porcine) 5,000 unit 08/23/20 21:00 Heparin Sodium,Porcine 5,000 Unit/Ml 1 Ml Vial SQ Q12HR CORBIN Potassium Chloride/Sodium Chloride 1,000 mls @ 75 mls/hr 08/23/20 03:45 08/23/20 15:55 Ns-Kcl 20 Meq/L Iv Solution IV 75 mls/hr .[id number] CORBIN Administration Naloxone HCl 0.2 mg 08/23/20 03:41 Naloxone 0.4 Mg/Ml 1 Ml Vial IV Q2M PRN Opioid Reversal Oxycodone/Acetaminophen 1 each 08/23/20 06:08 08/23/20 13:42 Oxycodone-Apap 10-325mg 1 Each Tab PO 1 each TID PRN Administration Pain Tramadol HCl 50 mg 08/23/20 10:34 Tramadol 50 Mg Tab PO DAILY PRN Breakthrough Pain Intake and Output 08/23/20 08/23/20 08/23/20 06:59 14:59 22:59 Intake Total 840 Output Total 250 300 Balance -250 540 Intake: IV 600 0.9% NaCl with KCl 20 Meq 600 /l 1,000 ml @ 75 mls/hr IV .[id number] CORBIN Rx#: [id number] Oral 240 Output: Urine 250 300 Other: # Voids 1 Weight 41.5 kg 41.5 kg Patient Weight 08/24/20 06:59 Weight 41.5 kg 08/23/20 02:46 08/23/20 02:46
[2020-08-23] MEDS ORDERED: traMADol 50 MG TAB PO PRN (10:34)
--- NOTE | 2020-08-23 11:09 | P.HPIM ---
History of Present Illness This is a pleasant 55 years old female with past medical history of fibromyalgia, chronic back pain including thoracic back pain, hypertension, hemangioma of the bone, pure dependence, sinus tachycardia secondary to pain. She follows up with Dr. Stapleton for pain management and MAPS was checked and recently she was on oxycodone-acetaminophen 7.5-325 mg 4 times a day and Ultram 30 mg once daily. As per emergency room note Dr. Stapleton has decreased her prescription for narcotics and she ended up using more than she supposed to be an She was out of her narcotics and she was in the emergency room twice for this reasonwhere she was tachycardic, pain was treated and she was discharged home. patient states that She does not follow up with PCP as an outpatient, I discussed with her to go to Dr. Meek as he can prescribe Suboxone and she refused for unknown reason. Then we advised her to call her insurance provider [employer] to find PCP and in the meantime for her to [facility] clinic patient presents because of syncope, she was going to the restroom yesterday and in the middle she found herself on the floor and she's not sure for how long she has been on the floor. No urine or bowel incontinence, no document and seizure-like activity, no tongue biting. she denies chest pain or dyspnea or abdominal pain. She has little diarrhea and vomiting.no dizziness. Vitals are stable. Labs including CBC, INR, BMP and liver enzymes and troponin are unremarkable TSH is normal at 1.0. Potassium slightly low at 3.4 Recent echocardiogram on 05/28/2020 showing ejection fraction of greater than 55% and normal diastolic filling pattern. EKG shows sinus tachycardia at 119 and QTC of 540, another EKG showing sinus rhythm at 90 BPM with PVC or fusion complex and right bundle-branch block and QTC 479 Chest x-ray: Normal chest. In the emergency room patient was started on fentanyl patch 1 and normal saline with KCl at 75 mL/h. Review of Systems CONSTITUTIONAL: No fever, no malaise, no fatigue. HEENT: No recent visual problems or hearing problems. Denied any sore throat. CARDIOVASCULAR: No orthopnea, PND, no palpitations, no syncope. PULMONARY: No shortness of breath, no cough, no hemoptysis. GASTROINTESTINAL: No diarrhea, no nausea, no vomiting, no abdominal pain. Normoactive bowel sounds. NEUROLOGICAL: No headaches, no weakness, no numbness. HEMATOLOGICAL: Denies any bleeding or petechiae. GENITOURINARY: Denies any burning micturition, frequency, or urgency. MUSCULOSKELETAL/RHEUMATOLOGICAL: Denies any joint pain, swelling, or any muscle pain. ENDOCRINE: Denies any polyuria or polydipsia. Past Medical History Past Medical History: Fibromyalgia, Hypertension, Musculoskeletal Disorder Additional Past Medical History / Comment(s): back pain, pt states she has lesions on her brain that could be the onset of MS, History of Any Multi-Drug Resistant Organisms: None Reported Past Surgical History: Appendectomy, Hysterectomy Additional Past Surgical History / Comment(s): d&c, Past Anesthesia/Blood Transfusion Reactions: No Reported Reaction Past Psychological History: Anxiety, Depression, Panic Disorder, PTSD Smoking Status: Current some day smoker Past Alcohol Use History: None Reported Past Drug Use History: None Reported, Opiates, Prescription Drug Abuse - Past Family History Mother Family Medical History: Cancer, Rheumatoid Arthritis (RA) Additional Family Medical History / Comment(s): lymphoma Father Family Medical History: Liver Disease Additional Family Medical History / Comment(s): Father had alcoholic cirrhosis. He is . Daughter(s) Family Medical History: Asthma Medications and Allergies Home Medications Medication Instructions Recorded Confirmed Type Cyclobenzaprine [Flexeril] 10 mg PO TID #14 tab 07/07/20 08/23/20 Rx Acetaminophen Tab [Tylenol] 500 mg PO BID PRN 08/23/20 08/23/20 History oxyCODONE-APAP 10-325MG [Percocet 1 tab PO QID 08/23/20 08/23/20 History 10-325 mg] traMADol HCL 50 mg PO DAILY PRN 08/23/20 08/23/20 History Allergies Allergy/AdvReac Type Severity Reaction Status Date / Time Penicillins Allergy Rash/Hives Verified 08/23/20 10:04 sulfamethoxazole Allergy Unknown Verified 08/23/20 10:04 [From Bactrim] venom-honey bee Allergy Anaphylaxis Verified 08/23/20 10:04 [bee venom (honey bee)] Physical Exam Vitals: Vital Signs Temp Pulse Pulse Resp BP BP Pulse Ox 08/23/20 04:25 98 F 84 18 156/92 98 08/23/20 03:03 89 18 144/96 98 08/23/20 02:04 99 F 89 20 154/93 100 Intake and Output 08/22/20 08/23/20 08/23/20 22:59 06:59 14:59 Output Total 250 Balance -250 Output: Urine 250 Other: # Voids 1 Weight 41.5 kg -GENERAL: The patient is alert and oriented x3, not in any acute distress. thin built HEENT: Pupils are round and equally reacting to light. EOMI. No scleral icterus. No conjunctival pallor. Normocephalic, atraumatic. No pharyngeal erythema. No thyromegaly. CARDIOVASCULAR: S1 and S2 present. No murmurs, rubs, or gallops. PULMONARY: Chest is clear to auscultation, no wheezing or crackles. ABDOMEN: Soft, nontender, nondistended, normoactive bowel sounds. No palpable organomegaly. MUSCULOSKELETAL: No joint swelling or deformity. EXTREMITIES: No cyanosis, clubbing, or pedal edema. NEUROLOGICAL: Gross neurological examination did not reveal any focal deficits. SKIN: No rashes. No petechiae Results CBC & Chem 7: 08/23/20 02:46 08/23/20 02:46 Labs: Abnormal Lab Results - Last 24 Hours (Table) 08/23/20 Range/Units 02:46 Potassium 3.4 L (3.5-5.1) mmol/L Chloride 108 H (98-107) mmol/L BUN 6 L (7-17) mg/dL Glucose 118 H (74-99) mg/dL Thrombosis Risk Factor Assmnt - Choose All That Apply Any of the Below Risk Factors Present?: Yes Each Factor Represents 1 point: Age 41-60 years, Medical pt on bed rest Other Risk Factors: No Other congenital or acquired thrombophilia - If yes, enter type in comment: No Thrombosis Risk Factor Assessment Total Risk Factor Score: 2 Thrombosis Risk Factor Assessment Level: Low Risk Assessment and Plan Assessment: Syncope, rule out cardiac causes Sinus tachycardia secondary to pain Opioid dependence and possible opioid use disorder Hemangioma of bone Hypertension Chronic severe back pain including thoracic back pain, has been evaluated before by spine surgeon and recommended conservative treatment Fibromyalgia Plan: This is a pleasant 55 years old female presents with syncope and ongoing back pain. Continue with telemetry and cardiology consult patient is counseled extensively aboutPhysical therapy to strengthen her muscles regarding her chronic pain, to follow up with her neurologist as an outpatient, follow-up with her PCP as an outpatient, to try to get help regard her opioid dependence for example and described her Suboxone or similar medication and she agreed. She does not have PCP but she agrees to go to the [facility] clinic upon discharge Last the patient was evaluated by psychiatrist on 05/12/2020, he started her on Zoloft ( it as one of her home medication) and found the patient a candidate for treatment with both buprenorphine for her opioid use and possible disorder Labs and medication were reviewed.. Continue same treatment. Continue with symptomatic treatment. Resume home medication. Monitor lytes and vitals. DVT and GI prophylaxis. Further recommendations depends on the clinical course of the patient DVT prophylaxis: Subcutaneous heparin GI Prophylaxis: Pepcid PT/OT: Pending
[2020-08-23 14:01] VITALS: BMI 15.2
--- NOTE | 2020-08-23 17:40 | CT ---
EXAMINATION TYPE: CT chest angio for PE DATE OF EXAM: 08/23/2020 COMPARISON: 02/14/2018 HISTORY: chest pain, SOB CT DLP: 201.7 mGycm Automated exposure control for dose reduction was used. CONTRAST: Performed with IV Contrast, patient injected with 70cc mL of Isovue 370. There are 3-D post processed images. Heart size is normal. There is no pericardial effusion. There is no pleural effusion. Gallbladder is large and measures 4.4 cm that could relate to some gallbladder dysfunction. No gallbladder wall thic kening seen. Lungs are clear of infiltrate. There is no evidence of a pulmonary mass. There is no mediastinal adenopathy. There are no hilar masses. There are calcified granulomata in the mediastinum. There is normal contrast opacification of the pulmonary arteries. There are no filling defects. Thoracic vertebra have normal alignment. There is no compression fracture. Sternum is intact. The rib s appear intact. IMPRESSION: Negative exam. No evidence of pulmonary embolism. Large gallbladder could relate to gallbladder dysfu nction.
[2020-08-23] MEDS: HEPARIN SODIUM,PORCINE 5,000 UNIT/ML 1 ML VIAL SQ SCH (20:50)
[2020-08-23] MEDS: FAMOTIDINE 20 MG TAB PO SCH (20:50)
[2020-08-23] MEDS ORDERED: FAMOTIDINE 20 MG/2 ML VIAL IV SCH (21:00)
[2020-08-24] MEDS: 0.9% NACL WITH KCL 20 MEQ/L 1,000 ML IV SCH ×2 (05:19→22:24)
[2020-08-24] MEDS: oxyCODONE-APAP 10-325MG 1 EACH TAB PO PRN ×3 (06:20→15:20)
[2020-08-24 07:08] LABS: African American GFR (CKD) >90 (>60 ml/min/1.73 sqM); Anion Gap 4 mmol/L; Basophils # (A) 0.1 k/uL (0-0.2); Basophils % (A) 1 %; Blood Urea Nitrogen 6 mg/dL (7-17); Calcium 8.7 mg/dL (8.4-10.2); Carbon Dioxide 23 mmol/L (22-30); Chloride 113 mmol/L (98-107); Eosinophils # (A) 0.1 k/uL (0-0.7); Eosinophils % (A) 2 %; Glucose 76 mg/dL (74-99); HCT 38.2 % (34.0-46.0); HGB 12.5 gm/dL (11.4-16.0); Lymphocytes % (A) 48 %; MCHC 32.7 g/dL (31.0-37.0); MCV 94.8 fL (80.0-100.0); Magnesium 1.8 mg/dL (1.6-2.3); Monocytes # (A) 0.4 k/uL (0-1.0); Monocytes % (A) 6 %; Neutrophils # (A) 2.7 k/uL (1.3-7.7); Neutrophils % (A) 42 %; Non-African American GFR(CKD) >90 (>60 ml/min/1.73 sqM); Platelet Count 187 k/uL (150-450); Potassium 4.6 mmol/L (3.5-5.1); RBC 4.03 m/uL (3.80-5.40); RDW 13.4 % (11.5-15.5); Sodium 140 mmol/L (137-145); WBC 6.3 k/uL (3.8-10.6)
--- NOTE | 2020-08-24 07:57 | US ---
EXAMINATION TYPE: US liver DATE OF EXAM: 08/24/2020 COMPARISON: Correlation CT chest 08/23/2020 CLINICAL HISTORY: 55-year-old female with pain, rule out GB disease . TECHNIQUE: Multiple sonographic images of the right upper quadrant are obtained. FINDINGS: EXAM MEASUREMENTS: Liver Length: 12.1 cm Gallbladder Wall: 0.1 cm CBD: 5.6 mm Right Kidney: 9.7 x 4.0 x 4.7 cm Pancreas: Pancreatic tail is obscured by bowel gas, portions visualized wnl, prominent main pancreat ic duct at 2.2 mm falls within acceptable limits. Liver: wnl Gallbladder: wnl Evidence for sonographic Lagos's sign: no CBD: Upper limits of normal in caliber. Right Kidney: No hydronephrosis. IMPRESSION: 1. No gallstones or ancillary findings of acute cholecystitis at this time. 2. Bile duct upper limits of normal in caliber at 5.6 mm, acceptable given patient's age. Correlate w ith alkaline phosphatase and bilirubin levels.
[2020-08-24] MEDS ORDERED: DOBUTamine DRIP for NUC MED 500 MG in DEXTROSE/WATER 1 250ML.BAG IV ONE (09:20)
[2020-08-24] MEDS: CYCLOBENZAPRINE 10 MG TAB PO SCH ×3 (11:00→20:14)
[2020-08-24] MEDS: FAMOTIDINE 20 MG TAB PO SCH ×2 (11:03→20:14)
[2020-08-24] MEDS: HEPARIN SODIUM,PORCINE 5,000 UNIT/ML 1 ML VIAL SQ SCH ×2 (11:03→22:24)
--- NOTE | 2020-08-24 11:44 | ECHOF ---
Referral Reason:arrythmia/syncope MEASUREMENTS -------- HEIGHT: 165.1 cm WEIGHT: 41.3 kg BP: RVIDd: 1.9 cm (< 3.3) IVSd: 1.0 cm (0.6 - 1.1) LVIDd: 4.8 cm (3.9 - 5.3) LVPWd: 1.3 cm (0.6 - 1.1) IVSs: 1.3 cm LVIDs: 3.2 cm LVPWs: 1.6 cm LA Diam: 3.1 cm (2.7 - 3.8) Ao Diam: 2.4 cm (2.0 - 3.7) AV Cusp: 1.7 cm (1.5 - 2.6) MV EXCURSION: 20.477 mm (> 18.000) MV EF SLOPE: 114 mm/s (70 - 150) EPSS: 0.5 cm MV E Cosme: 0.63 m/s MV DecT: 134 ms MV A Cosme: 0.42 m/s MV E/A Ratio: 1.51 RAP: 5.00 mmHg RVSP: 21.80 mmHg TAPSE: 20.48 mm FINDINGS -------- Sinus rhythm. This was a technically adequate study. LV size, wall thickness and systolic function are normal, with an EF greater than 55%. The left elliot tricular size is normal. The diastolic filling pattern is normal for the age of the patient 9.47. The right ventricle is normal in size. The left atrial size is normal. The right atrial size is normal. The aortic valve is trileaflet, and appears structurally normal. No aortic stenosis or regurgitation. The mitral valve is normal. Mild mitral regurgitation is present. Mild tricuspid regurgitation present. Right ventricular systolic pressure is normal at < 35 mmHg. Trace/mild (physiologic) pulmonic regurgitation. The aortic root size is normal. There is no pericardial effusion. CONCLUSIONS -------- 1. LV size, wall thickness and systolic function are normal, with an EF greater than 55%. 2. The diastolic filling pattern is normal for the age of the patient 9.47 3. The left atrial size is normal. 4. The aortic valve is trileaflet, and appears structurally normal. No aortic stenosis or regurgitati on. 5. Mild mitral regurgitation is present. 6. Mild tricuspid regurgitation present. 7. Trace/mild (physiologic) pulmonic regurgitation. 8. There is no pericardial effusion. UPFITTER: Temi Cabrera RDCS
--- NOTE | 2020-08-24 11:45 | ECHOS ---
STRESS ECHOCARDIOGRAM INDICATIONS: Shortness of breath/syncope BASELINE HEART RATE: 60 BASELINE BLOOD PRESSURE: 98/54 MAXIMUM HEART RATE: 150 MAXIMUM BLOOD PRESSURE: 155/71 85% MPHR: 139 100% MPHR: 163 MAXIMUM STAGE REACHED: 4 TOTAL EXERCISE TIME: 11:31 CLINICAL INFORMATION: Baseline rhythm is a sinus mechanism, rate of 60, normal axis and intervals. Normal echocardiogram. Baseline blood pressure 98/54 mmHg. Patient received an infusion of dobutamine. Peak rate 150 beats per minute which is equal to 92% of maximum predicted heart rate. Peak blood pressure 155/71 Hg. Electrocardiograph monitoring revealed rate-related right bundle branch block. FINDINGS: Baseline echocardiogram revealed normal wall motion. At peak infusion, there was normal wall motion augmentation with no hypokinesis or dyskinesis. CONCLUSION: 1. Nondiagnostic electrocardiograph response to dobutamine infusion with rate-related right bundle branch block. 2. Normal stress echocardiogram with no evidence of stress-induced ischemia. MMODL / IJN: [id number] /
--- NOTE | 2020-08-24 12:35 | P.GSCN ---
History of Present Illness Consult date: 08/24/20 History of present illness: this 55-year-old female presented with Hospital for chief complaint of syncope and feeling that she is getting short of breath on exertion. She is currently getting cardiac workup. During her workup in the emergency department she had ultrasound and computed tomography scan performed. CT was read as a distended gallbladder ultrasound did not show any call bladder wall thickening gallstones and pericholecystic fluid or sludge. Patient's liver profile is within normal limits. She states that she does have a pinching pain which is in her midepigastric area and substernal. She denies any GERD. She says this is intermittent from time to time. Nothing makes it better nothing makes it worse she is not currently having any pain. She states she's had no change in her bowel movements denies any nausea vomiting she denies any fevers or recent illness. She's had an appendectomy before in the past back in 2014. Past Medical History Past Medical History: Fibromyalgia, Hypertension, Musculoskeletal Disorder Additional Past Medical History / Comment(s): back pain, pt states she has lesions on her brain that could be the onset of MS, History of Any Multi-Drug Resistant Organisms: None Reported Past Surgical History: Appendectomy, Hysterectomy Additional Past Surgical History / Comment(s): d&c, Past Anesthesia/Blood Transfusion Reactions: No Reported Reaction Past Psychological History: Anxiety, Depression, Panic Disorder, PTSD Smoking Status: Current some day smoker Past Alcohol Use History: None Reported Past Drug Use History: None Reported, Opiates, Prescription Drug Abuse - Past Family History Mother Family Medical History: Cancer, Rheumatoid Arthritis (RA) Additional Family Medical History / Comment(s): lymphoma Father Family Medical History: Liver Disease Additional Family Medical History / Comment(s): Father had alcoholic cirrhosis. He is . Daughter(s) Family Medical History: Asthma Medications and Allergies Home Medications Medication Instructions Recorded Confirmed Type Cyclobenzaprine [Flexeril] 10 mg PO TID #14 tab 07/07/20 08/23/20 Rx Acetaminophen Tab [Tylenol] 500 mg PO BID PRN 08/23/20 08/23/20 History oxyCODONE-APAP 10-325MG [Percocet 1 tab PO QID 08/23/20 08/23/20 History 10-325 mg] traMADol HCL 50 mg PO DAILY PRN 08/23/20 08/23/20 History Allergies Allergy/AdvReac Type Severity Reaction Status Date / Time Penicillins Allergy Rash/Hives Verified 08/23/20 10:04 sulfamethoxazole Allergy Unknown Verified 08/23/20 10:04 [From Bactrim] venom-honey bee Allergy Anaphylaxis Verified 08/23/20 10:04 [bee venom (honey bee)] Surgical - Exam Osteopathic Statement: *. No significant issues noted on an osteopathic structural exam other than those noted in the History and Physical/Consult. Vital Signs Temp Pulse Resp BP Pulse Ox 99 F 89 20 154/93 100 08/23/20 02:04 08/23/20 02:04 08/23/20 02:04 08/23/20 02:04 08/23/20 02:04 - General well developed, well nourished, no distress - Neck trachea midline - Cardiovascular Rhythm: regular - Abdomen Abdomen: soft, non tender - Psychiatric oriented to time, oriented to person, oriented to place Results - Labs 08/24/20 06:36 08/24/20 06:36 Abnormal Lab Results - Last 24 Hours (Table) 08/24/20 Range/Units 06:36 Chloride 113 H (98-107) mmol/L BUN 6 L (7-17) mg/dL Diabetes panel 08/24/20 Range/Units 06:36 Sodium 140 (137-145) mmol/L Potassium 4.6 (3.5-5.1) mmol/L Chloride 113 H (98-107) mmol/L Carbon Dioxide 23 (22-30) mmol/L BUN 6 L (7-17) mg/dL Creatinine 0.66 (0.52-1.04) mg/dL Glucose 76 (74-99) mg/dL Calcium 8.7 (8.4-10.2) mg/dL Calcium panel 08/24/20 Range/Units 06:36 Calcium 8.7 (8.4-10.2) mg/dL Pituitary panel 08/24/20 Range/Units 06:36 Sodium 140 (137-145) mmol/L Potassium 4.6 (3.5-5.1) mmol/L Chloride 113 H (98-107) mmol/L Carbon Dioxide 23 (22-30) mmol/L BUN 6 L (7-17) mg/dL Creatinine 0.66 (0.52-1.04) mg/dL Glucose 76 (74-99) mg/dL Calcium 8.7 (8.4-10.2) mg/dL Adrenal panel 08/24/20 Range/Units 06:36 Sodium 140 (137-145) mmol/L Potassium 4.6 (3.5-5.1) mmol/L Chloride 113 H (98-107) mmol/L Carbon Dioxide 23 (22-30) mmol/L BUN 6 L (7-17) mg/dL Creatinine 0.66 (0.52-1.04) mg/dL Glucose 76 (74-99) mg/dL Calcium 8.7 (8.4-10.2) mg/dL Assessment and Plan Assessment: midepigastric pain, syncope, shortness of breath on exertion Plan: There is no clinical signs of acute cholecystitis at this time. The mildly distended gallbladder is likely secondary to the patient being nothing by mouth she states she did not have much to eat prior to the exam. No plans for acute surgical intervention. recommend following up with cardiology recommendations. Please contact me directly with any further concerns
--- NOTE | 2020-08-24 14:18 | P.PN ---
Subjective Progress Note Date: 08/24/20 CHIEF COMPLAINT: Syncope HISTORY OF PRESENT ILLNESS: Patient examined this afternoon at the bedside. She denies chest pain or pressure. Denies shortness of breath. Denies dizziness or lightheadedness. Vital signs are stable. She complains of being tired and states she has not slept well since been in the hospital. Echocardiogram completed revealed ejection fraction greater than 55%, mild mitral regurgitation, and mild tricuspid regurgitation. PHYSICAL EXAM: VITAL SIGNS: Reviewed. GENERAL: Well-developed in no acute distress. NECK: Supple. No JVD or thyromegaly LUNGS: Respirations even and unlabored. Lungs essentially clear to auscultation bilaterally. HEART: Regular rate and rhythm. S1 and S2 heard. EXTREMITIES: Normal range of motion. No clubbing or cyanosis. Peripheral pulses intact. No lower extremity edema ASSESSMENT: Syncope Hypokalemia, resolved Chronic back pain Nicotine dependence PLAN: Patient underwent dobutamine stress echocardiogram which did not show evidence of stress-induced ischemia. Patient may be discharged home today from a cardiac standpoint. Nurse practitioner note has been reviewed by physician. Signing provider agrees with the documented findings, assessment, and plan of care. Objective - Vital Signs Vital signs: Vital Signs Temp 97.8 F 08/24/20 04:00 Pulse 82 08/24/20 04:00 Resp 18 08/24/20 04:00 BP 136/74 08/24/20 04:00 Pulse Ox 96 08/24/20 04:00 Intake & Output 08/23/20 08/24/20 08/24/20 18:59 06:59 18:59 Intake Total 1080 Output Total 300 Balance 780 Weight 41.5 kg 41.7 kg 41.7 kg Intake: IV 600 0.9% NaCl with KCl 20 Meq 600 /l 1,000 ml @ 75 mls/hr IV .[id number] CORBIN Rx#: [id number] Oral 480 Output: Urine 300 Other: # Voids 0 1 - Labs CBC & Chem 7: 08/24/20 06:36 08/24/20 06:36 Labs: Abnormal Lab Results - Last 24 Hours (Table) 08/24/20 Range/Units 06:36 Chloride 113 H (98-107) mmol/L BUN 6 L (7-17) mg/dL
--- NOTE | 2020-08-24 20:13 | P.PN ---
Subjective This is a pleasant 55 years old female with past medical history of fibromyalgia, chronic back pain including thoracic back pain, hypertension, mirna ngioma of the bone, pure dependence, sinus tachycardia secondary to pain. She follows up with Dr. Stapleton for pain management and MAPS was checked and recently she was on oxycodone-acetaminophen 7.5-325 mg 4 times a day and Ultram 30 mg once daily. As per emergency room note Dr. Stapleton has decreased her prescription for narcotics and she ended up using more than she supposed to be an She was out of her narcotics and she was in the emergency room twice for this reasonwhere she was tachycardic, pain was treated and she was discharged home. patient states that She does not follow up with PCP as an outpatient, I discussed with her to go to Dr. Meek as he can prescribe Suboxone and she refused for unknown reason. Then we advised her to call her insurance provider [employer] to find PCP and [facility] the [facility] patient presents because of syncope, she was going to the restroom yesterday and in the middle she found herself on the floor and she's not sure for how long she has been on the floor. No urine or bowel incontinence, no document and seizure- like activity, no tongue biting. she denies chest pain or dyspnea or abdominal pain. She has little diarrhea and vomiting.no dizziness. Vitals are stable. Labs including CBC, INR, BMP and liver enzymes and troponin are unremarkable TSH is normal at 1.0. Potassium slightly low at 3.4 Recent echocardiogram on 05/28/2020 showing ejection fraction of greater than 55% and normal diastolic filling pattern. EKG shows sinus tachycardia at 119 and QTC of 540, another EKG showing sinus rhythm at 90 BPM with PVC or fusion complex and right bundle-branch block and QTC 479 Chest x-ray: Normal chest. In the emergency room patient was started on fentanyl patch 1 and normal saline with KCl at 75 mL/h. 08/24/2020 patient had negative stress test today, I discussed with health care recruiter team and they cleared the patient for discharge surgical team also evaluated the patient, no need for any surgical intervention, her gallbladder dilatation was mostly due to being nothing by mouth patient does not look in severe distress although she complains from pain continuously. We will lower her Percocet down to her home dose of [place] 7.5-325 with recommendation to follow up with her PCP and neurologist as an outpatient. [facility] Possible discharge in 24 hours Objective - Vital Signs Vital signs: Vital Signs Temp 97.8 F 08/24/20 04:00 Pulse 77 08/24/20 12:45 Resp 18 08/24/20 12:45 BP 111/62 08/24/20 12:45 Pulse Ox 100 08/24/20 12:45 Intake & Output 08/23/20 08/24/20 08/24/20 18:59 06:59 18:59 Intake Total 1080 Output Total 300 Balance 780 Weight 41.5 kg 41.7 kg 41.7 kg Intake: IV 600 0.9% NaCl with KCl 20 Meq 600 /l 1,000 ml @ 75 mls/hr IV .[id number] CORBIN Rx#: [id number] Oral 480 Output: Urine 300 Other: # Voids 0 1 - Exam GENERAL: The patient is alert and oriented x3, not in any acute distress. Well developed, well nourished. HEENT: Pupils are round and equally reacting to light. EOMI. No scleral icterus. No conjunctival pallor. Normocephalic, atraumatic. No pharyngeal erythema. No thyromegaly. CARDIOVASCULAR: S1 and S2 present. No murmurs, rubs, or gallops. PULMONARY: Chest is clear to auscultation, no wheezing or crackles. ABDOMEN: Soft, nontender, nondistended, normoactive bowel sounds. No palpable organomegaly. MUSCULOSKELETAL: No joint swelling or deformity. EXTREMITIES: No cyanosis, clubbing, or pedal edema. NEUROLOGICAL: Gross neurological examination did not reveal any focal deficits. SKIN: No rashes. no petechiae. - Labs CBC & Chem 7: 08/24/20 06:36 08/24/20 06:36 Labs: Abnormal Lab Results - Last 24 Hours (Table) 08/24/20 Range/Units 06:36 Chloride 113 H (98-107) mmol/L BUN 6 L (7-17) mg/dL Assessment and Plan Assessment: Syncope, rule out cardiac causes Sinus tachycardia secondary to pain Opioid dependence and possible opioid use disorder Hemangioma of bone Hypertension Chronic severe back pain including thoracic back pain, has been evaluated before by spine surgeon and recommended conservative treatment Fibromyalgia Plan: This is a pleasant 55 years old female presents with syncope and ongoing back pain. Cardiology and surgery team Both cleared The patient for discharge. We'll change Percocet 10 mg down to [place] 7.5 mg which is her home medication. [facility]ointment [facility] the [facility] Counseled the patient again about risk of narcotics and follow up as an outpatient with recommendation to taper down or stop it altogether which can be done as an outpatient Last the patient was evaluated by psychiatrist on 05/12/2020, he started her on Zoloft ( it as one of her home medication) and found the patient a candidate for treatment with both buprenorphine for her opioid use and possible disorder Labs and medication were reviewed.. Continue same treatment. Continue with sym ptomatic treatment. Resume home medication. Monitor lytes and vitals. DVT and GI prophylaxis. Further recommendations depends on the clinical course of the patient DVT prophylaxis: Subcutaneous heparin GI Prophylaxis: Pepcid PT/OT: Home Possible discharge in 24-48 hours if she keeps improving
[2020-08-24] MEDS: HYDROcodone/APAP 5-325MG 1 EACH TAB PO PRN (23:36)
[2020-08-25] MEDS: HYDROcodone/APAP 5-325MG 1 EACH TAB PO PRN (07:53)
[2020-08-25] MEDS: HEPARIN SODIUM,PORCINE 5,000 UNIT/ML 1 ML VIAL SQ SCH (07:54)
[2020-08-25] MEDS: FAMOTIDINE 20 MG TAB PO SCH (08:00)
[2020-08-25] MEDS: CYCLOBENZAPRINE 10 MG TAB PO SCH (08:00)
[2020-08-25 11:29] VITALS: BP 143/79; PULSE 75; RESP 16; TEMP 97.5
--- NOTE | 2020-08-25 11:58 | P.CON ---
Consult Note - . Consult date: 08/25/20 Assessment/Plan:: this is a 55-year-old lady who was admitted to the hospital for syncope workup. She also has chronic axial lower back pain. The patient failed to respond to interventional pain procedures previously as she states. Currently she takes Percocet 10 mg 3 times a day as needed for her pain. She denies any bowel or bladder dysfunction or any weakness in the lower extremities. The patient occasionally feels some tingling in the right thigh however does not extend beneath the knee level. by physical exam she is alert oriented 3 in no apparent distress She has normal muscle strength in the lower extremities bilaterally and symmetrically Normal straight leg raise test bilaterally Lyndon's test is negative bilaterally Internal and external rotation of the joints did not elicit any pain There is mild tenderness in the lumbar paravertebral musculature on around the right sacroiliac joint Impression and plan: The patient has axial lower back pain most likely due to degenerative disc diseaseand lumbar facet arthropathy.No neurologic changes in the lower extremities. opioid dependence Failure to respond to interventional pain procedures on the back I agree with the recommendation for Suboxone treatment after weaning her off Percocet. For now we'll continue Percocet 7.5 mg 3 times a day as needed for pain. The patient may to be discharged to a Suboxone clinic,however her current family physician can arrange for this treatment. I thank you for the consultation
--- NOTE | 2020-08-25 22:53 | P.DS ---
Providers Date of admission: 08/23/20 03:41 Attending physician: Cyndy Holt Consults: 08/23/20 03:45 Consult Physician Urgent Consulting Provider: [facility] Consult Reason/Comments: syncope, HR increases to 170s with standing Do you want consulting provider notified?: Yes 08/23/20 21:12 Consult Physician Routine Consulting Provider: Fabian Carrion Consult Reason/Comments: GB dysfunction Do you want consulting provider notified?: Yes, Notify in am Primary care physician: Stated None Hospital Course: diagnoses: Syncope, cardiac and pulmonary causes were ruled out. Most likely situational versus unknown causes. no more syncope. Patient was cleared by cardiology for discharge Sinus tachycardia secondary to pain Opioid dependence and possible opioid use disorder Hemangioma of bone Hypertension Chronic severe back pain including thoracic back pain, has been evaluated recently in the previous admission by spine surgeon and recommended conservative treatment. This time patient declined to see Dr. Oshea again as an outpatient and wants to follow up with him as an outpatient. Gait is normal Fibromyalgia Hospital course: This is a pleasant 55 years old female with past medical history of fibromyalgia, chronic back pain including thoracic back pain, hypertension, hemangioma of the bone, pure dependence, sinus tachycardia secondary to pain. She follows up with Dr. Stapleton for pain management and MAPS was checked and recently she was on oxycodone-acetaminophen 7.5-325 mg 4 times a day and Ultram 30 mg once daily. As per emergency room note Dr. Stapleton has decreased her prescription for narcotics and she ended up using more than she supposed to be an She was out of her narcotics and she was in the emergency room twice for this reason where she was tachycardic, pain was treated and she was discharged home. patient states that She does not follow up with PCP as an outpatient, I discussed with her to go to Dr. Meek as he can prescribe Suboxone and she refused for unknown reason. Then we advised her to call her insurance provider Suzanna to find PCP and in the [facility]. patient presents because of syncope, she was going to the restroom and in the middle she found herself on the floor . Patient hadnegative CTA of the chest for PE. Cardiology evaluated the patient and she underwent stress test which was negative. Eventually patient was cleared for discharge by cooler man. no more syncope or dizziness.no other new complaints, no chest pain, no abdominal pain, no nausea vomiting, no change in urine or bowel habits, she has constipation but she wants to treated by herself with diet. She declined laxative. Also patient was complaining from her chronic hip and body aches, she follows up with Dr. 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 Problems and management plan were discussed with the patient and he verbalized understanding and acceptance Patient was found stable and can be discharged home however he needs follow-up as an outpatient. Patient was instructed to follow up with PCP within one week and patient agrees with [facility] , she will f/u with as above Gen: patient is a AAOx3, no distress CVS: S1-S2, RRR, no murmur Lungs: B/L CTA, no wheezing Abdomen: soft, no distention, no tenderness, positive bowel sounds Extremity: no leg edema or induration Neuro: Fully awake and oriented, strength is 5/5 in all extremity. Sensation is intact.meningeal signs are absent.gait: Normal Time spent more than 35 minutes Patient Condition at Discharge: Stable Plan - Discharge Summary Discharge Rx Participant: No New Discharge Prescriptions: New HYDROcodone/APAP 7.5-325MG [[place] 7.5-325] 1 tab PO Q8HR PRN 6 Days #17 tab PRN Reason: Pain Continue Cyclobenzaprine [Flexeril] 10 mg PO TID #14 tab Acetaminophen Tab [Tylenol] 500 mg PO BID PRN PRN Reason: Pain traMADol HCL 50 mg PO DAILY PRN PRN Reason: Pain Discontinued oxyCODONE-APAP 10-325MG [Percocet 10-325 mg] 1 tab PO QID Discharge Medication List Cyclobenzaprine [Flexeril] 10 mg PO TID #14 tab 07/07/20 [Rx] Acetaminophen Tab [Tylenol] 500 mg PO BID PRN 08/23/20 [History] traMADol HCL 50 mg PO DAILY PRN 08/23/20 [History] HYDROcodone/APAP 7.5-325MG [[place] 7.5-325] 1 tab PO Q8HR PRN 6 Days #17 tab 08/25/20 [Rx] Follow up Appointment(s)/Referral(s): Tracey Oshea DO [Doctor of Osteopathic Medicine] - 10 Days (spine surgeon) None,Stated [Primary Care Provider] - 1-2 days Bony Stapleton MD [STAFF PHYSICIAN] - 08/31/20 3:00 pm () [facility] [[facility]] - 09/02/20 9:30 am (We recommend your family physician can arrange for referral to a Suboxone clinic and arrange an appointment with a spine surgeon in your coverage. ) Patient Instructions/Handouts: Syncope (DC), Pain Management (DC), Nuclear Stress Test (DC) Activity/Diet/Wound Care/Special Instructions: heart healthy diet activity is limited till you see your doctor we recommend your family physician can arrange for referral to a Suboxone clinic Discharge Disposition: HOME SELF-CARE Care Plan Goals (MU): Please bring photo id, med list and insurance card to [facility] appt.
== END 2020-08-25 15:10 | disposition home or self-care (01) ==
LOC: EC 02:03 → 3SCARD 03:41 → INTOOBSV 03:41 → UNDODISIN 08-25 15:10
PROVIDERS: ADMIT Internal Medicine; ATTEND Internal Medicine
DX: R55 Syncope and collapse (principal); I45.2 Bifascicular block; R00.0 Tachycardia, unspecified; E87.6 Hypokalemia; F11.20 Opioid dependence, uncomplicated; G89.29 Other chronic pain; M54.5 Low back pain; M54.6 Pain in thoracic spine; R06.02 Shortness of breath; I10 Essential (primary) hypertension; R11.10 Vomiting, unspecified; R19.7 Diarrhea, unspecified; R63.0 Anorexia; M79.7 Fibromyalgia; I08.1 Rheumatic disorders of both mitral and tricuspid valves; F17.210 Nicotine dependence, cigarettes, uncomplicated; R42 Dizziness and giddiness; K82.8 Other specified diseases of gallbladder; F43.10 Post-traumatic stress disorder, unspecified; F41.0 Panic disorder [episodic paroxysmal anxiety]; F32.9 Major depressive disorder, single episode, unspecified; D18.09 Hemangioma of other sites; Z88.0 Allergy status to penicillin; Z88.2 Allergy status to sulfonamides; Z91.030 Bee allergy status; Z98.890 Other specified postprocedural states; Z90.49 Acquired absence of other specified parts of digestive tract; Z90.710 Acquired absence of both cervix and uterus; Z80.7 Family history of other malignant neoplasms of lymphoid, hematopoietic and related tissues; Z82.5 Family history of asthma and other chronic lower respiratory diseases; Z83.79 Family history of other diseases of the digestive system; Z82.61 Family history of arthritis
CPT/HCPCS: 96365; 96366 ×2; 96374; 99284; 99285; 36415 ×2; 93005 ×2; 93306; 93351; 97161; 97535; 97165; 80053 ×2; 80048; 84443; 83735 ×3; 84484; 85025 ×3; 85610; 85730; 71046; 76705; 71275; G0378 ×3; J1250; J1170; Q9967

== ENCOUNTER 2020-09-16 07:40 | Observation (INO) | payer OTHER ==
[2020-09-16] MEDS ORDERED: SODIUM CHLORIDE 0.9% 1,000 ML IV STA (08:08)
[2020-09-16] MEDS ORDERED: METOCLOPRAMIDE 5 MG/ML 2 ML VIAL IVP STA (08:10)
--- NOTE | 2020-09-16 08:17 | ED ---
General Adult HPI - General Chief complaint: Syncope Stated complaint: back pain Time Seen by Provider: 09/16/20 07:40 Source: patient, RN notes reviewed, old records reviewed Mode of arrival: wheelchair Limitations: no limitations - History of Present Illness Initial comments: This is a 55-year-old female who presents emergency Department complaining of her chronic back pain but she states over the last 2 days she's having vomiting as well as headache. Patient states today she had a syncopal episode. Patient denies chest pain or palpitations. Patient has difficulty breathing shortest breath. Patient states she doesn't how long she was down but she was walking in her home and found herself on the floor. Patient states that happened a few we eks ago. Patient denies any fever chills or cough per patient denies abdominal pain patient denies any diarrhea. - Related Data Home Medications Medication Instructions Recorded Confirmed oxyCODONE-APAP 10-325MG [Percocet 1 tab PO TID PRN 09/16/20 09/16/20 10-325 mg] Allergies Allergy/AdvReac Type Severity Reaction Status Date / Time Penicillins Allergy Rash/Hives Verified 09/16/20 09:23 sulfamethoxazole Allergy Unknown Verified 09/16/20 09:23 [From Bactrim] venom-honey bee Allergy Anaphylaxis Verified 09/16/20 09:23 [bee venom (honey bee)] Review of Systems ROS Statement: Those systems with pertinent positive or pertinent negative responses have been documented in the HPI. ROS Other: All systems not noted in ROS Statement are negative. Past Medical History Past Medical History: Fibromyalgia, Hypertension, Musculoskeletal Disorder Additional Past Medical History / Comment(s): back pain, pt states she has lesions on her brain that could be the onset of MS, tachycardia History of Any Multi-Drug Resistant Organisms: None Reported Past Surgical History: Appendectomy, Hysterectomy Additional Past Surgical History / Comment(s): d&c, Past Anesthesia/Blood Transfusion Reactions: No Reported Reaction Past Psychological History: Anxiety, Depression, Panic Disorder, PTSD Smoking Status: Current some day smoker Past Alcohol Use History: None Reported Past Drug Use History: None Reported, Opiates, Prescription Drug Abuse - Past Family History Mother Family Medical History: Cancer, Rheumatoid Arthritis (RA) Additional Family Medical History / Comment(s): lymphoma Father Family Medical History: Liver Disease Additional Family Medical History / Comment(s): Father had alcoholic cirrhosis. He is . Daughter(s) Family Medical History: Asthma General Exam - General Exam Comments Initial Comments: GENERAL: Patient is well-developed and well-nourished. Patient is nontoxic and well- hydrated and is in mild distress. ENT: Neck is soft and supple. No significant lymphadenopathy is noted. Oropharynx is clear. Moist mucous membranes. Neck has full range of motion without eliciting any pain. EYES: The sclera were anicteric and conjunctiva were pink and moist. Extraocular movements were intact and pupils were equal round and reactive to light. Eyelids were unremarkable. PULMONARY: Unlabored respirations. Good breath sounds bilaterally. No audible rales rhonchi or wheezing was noted. CARDIOVASCULAR: There is a regular rate and rhythm without any murmurs gallops or rubs. ABDOMEN: Soft and nontender with normal bowel sounds. SKIN: Skin is clear with no lesions or rashes and otherwise unremarkable. NEUROLOGIC: Patient is alert and oriented x3. Cranial nerves II through XII are grossly intact. Motor and sensory are also intact. Normal speech, volume and content. Symmetrical smile. MUSCULOSKELETAL: Normal extremities with adequate strength and full range of motion. LYMPHATICS: No significant lymphadenopathy is noted PSYCHIATRIC: Normal psychiatric evaluation. Limitations: no limitations Course Vital Signs 09/16/20 09/16/20 09/16/20 07:42 08:11 08:30 Temperature 98.1 F Pulse Rate 136 H 112 H 83 Respiratory 18 18 16 Rate Blood Pressure 152/87 127/107 127/107 O2 Sat by Pulse 99 99 97 Oximetry 09/16/20 09:30 Temperature Pulse Rate 89 Respiratory 14 Rate Blood Pressure 152/91 O2 Sat by Pulse 99 Oximetry Medical Decision Making - Medical Decision Making EKG shows sinus tachycardia with occasional PVCs at a rate of 104 bpm WA interval is on her 16 QRS 132 QT interval 350 QTC is 470. Patient's right bundle branch block. While I was in the room the patient's heart rate went up to about 170 it looks regular but it only lasts a few seconds we're unable to get an EKG of it. Chest x-ray shows no acute abnormality. Patient on 3 different occasions had a heart rate of about 170 it only lasts for approximately 20 seconds each time and we were unable to recorded an EKG. it did look regular. I spoke with Dr. argueta and he agreed to accept the admission I consult to cardiology and wrote admission orders - Lab Data Result diagrams: 09/16/20 08:12 09/16/20 08:12 Lab Results 09/16/20 09/16/20 09/16/20 Range/Units 08:12 08:12 08:12 WBC 8.2 (3.8-10.6) k/uL RBC 4.86 (3.80-5.40) m/uL Hgb 15.7 D (11.4-16.0) gm/dL Hct 45.8 (34.0-46.0) % MCV 94.1 (80.0-100.0) fL MCH 32.2 (25.0-35.0) pg MCHC 34.2 (31.0-37.0) g/dL RDW 12.4 (11.5-15.5) % Plt Count 229 (150-450) k/uL Neutrophils % 56 % Lymphocytes % 35 % Monocytes % 5 % Eosinophils % 1 % Basophils % 1 % Neutrophils # 4.6 (1.3-7.7) k/uL Lymphocytes # 2.8 (1.0-4.8) k/uL Monocytes # 0.4 (0-1.0) k/uL Eosinophils # 0.1 (0-0.7) k/uL Basophils # 0.1 (0-0.2) k/uL PT 9.9 (9.0-12.0) sec INR 0.9 (<1.2) APTT 24.1 (22.0-30.0) sec Sodium (137-145) mmol/L Potassium (3.5-5.1) mmol/L Chloride (98-107) mmol/L Carbon Dioxide (22-30) mmol/L Anion Gap mmol/L BUN (7-17) mg/dL Creatinine (0.52-1.04) mg/dL Est GFR (CKD-EPI)AfAm (>60 ml/min/1.73 sqM) Est GFR (CKD-EPI)NonAf (>60 ml/min/1.73 sqM) Glucose (74-99) mg/dL Calcium (8.4-10.2) mg/dL Magnesium (1.6-2.3) mg/dL Total Bilirubin (0.2-1.3) mg/dL AST (14-36) U/L ALT (4-34) U/L Alkaline Phosphatase (38-126) U/L Troponin I (0.000-0.034) ng/mL Total Protein (6.3-8.2) g/dL Albumin (3.5-5.0) g/dL TSH (0.465-4.680) mIU/L Urine Opiates Screen Not Detected (NotDetected) Ur Oxycodone Screen Detected H (NotDetected) Urine Methadone Screen Not Detected (NotDetected) Ur Propoxyphene Screen Not Detected (NotDetected) Ur Barbiturates Screen Not Detected (NotDetected) U Tricyclic Antidepress Not Detected (NotDetected) Ur Phencyclidine Scrn Not Detected (NotDetected) Ur Amphetamines Screen Not Detected (NotDetected) U Methamphetamines Scrn Not Detected (NotDetected) U Benzodiazepines Scrn Not Detected (NotDetected) Urine Cocaine Screen Not Detected (NotDetected) U Marijuana (THC) Screen Not Detected (NotDetected) 09/16/20 09/16/20 Range/Units 08:12 08:12 WBC (3.8-10.6) k/uL RBC (3.80-5.40) m/uL Hgb (11.4-16.0) gm/dL Hct (34.0-46.0) % MCV (80.0-100.0) fL MCH (25.0-35.0) pg MCHC (31.0-37.0) g/dL RDW (11.5-15.5) % Plt Count (150-450) k/uL Neutrophils % % Lymphocytes % % Monocytes % % Eosinophils % % Basophils % % Neutrophils # (1.3-7.7) k/uL Lymphocytes # (1.0-4.8) k/uL Monocytes # (0-1.0) k/uL Eosinophils # (0-0.7) k/uL Basophils # (0-0.2) k/uL PT (9.0-12.0) sec INR (<1.2) APTT (22.0-30.0) sec Sodium 140 (137-145) mmol/L Potassium 3.0 L (3.5-5.1) mmol/L Chloride 105 (98-107) mmol/L Carbon Dioxide 24 (22-30) mmol/L Anion Gap 11 mmol/L BUN 10 (7-17) mg/dL Creatinine 0.64 (0.52-1.04) mg/dL Est GFR (CKD-EPI)AfAm >90 (>60 ml/min/1.73 sqM) Est GFR (CKD-EPI)NonAf >90 (>60 ml/min/1.73 sqM) Glucose 147 H (74-99) mg/dL Calcium 9.4 (8.4-10.2) mg/dL Magnesium 1.8 (1.6-2.3) mg/dL Total Bilirubin 0.7 (0.2-1.3) mg/dL AST 19 (14-36) U/L ALT 12 (4-34) U/L Alkaline Phosphatase 69 (38-126) U/L Troponin I <0.012 (0.000-0.034) ng/mL Total Protein 6.6 (6.3-8.2) g/dL Albumin 4.1 (3.5-5.0) g/dL TSH 2.890 (0.465-4.680) mIU/L Urine Opiates Screen (NotDetected) Ur Oxycodone Screen (NotDetected) Urine Methadone Screen (NotDetected) Ur Propoxyphene Screen (NotDetected) Ur Barbiturates Screen (NotDetected) U Tricyclic Antidepress (NotDetected) Ur Phencyclidine Scrn (NotDetected) Ur Amphetamines Screen (NotDetected) U Methamphetamines Scrn (NotDetected) U Benzodiazepines Scrn (NotDetected) Urine Cocaine Screen (NotDetected) U Marijuana (THC) Screen (NotDetected) Disposition Clinical Impression: Syncope and collapse, Tachycardia, Acute vomiting Disposition: ADMITTED IP TO THIS HOSP Referrals: None,Stated [Primary Care Provider] - 1-2 days Time of Disposition: 10:42
[2020-09-16 08:35] LABS: Basophils # (A) 0.1 k/uL (0-0.2); Basophils % (A) 1 %; Eosinophils # (A) 0.1 k/uL (0-0.7); Eosinophils % (A) 1 %; HCT 45.8 % (34.0-46.0); Lymphocytes # (A) 2.8 k/uL (1.0-4.8); Lymphocytes % (A) 35 %; MCH 32.2 pg (25.0-35.0); MCHC 34.2 g/dL (31.0-37.0); MCV 94.1 fL (80.0-100.0); Mean Platelet Volume 7.6; Monocytes # (A) 0.4 k/uL (0-1.0); Monocytes % (A) 5 %; Neutrophils # (A) 4.6 k/uL (1.3-7.7); Neutrophils % (A) 56 %; Platelet Count 229 k/uL (150-450); RBC 4.86 m/uL (3.80-5.40); RDW 12.4 % (11.5-15.5); WBC 8.2 k/uL (3.8-10.6)
[2020-09-16 08:36] LABS: HGB 15.7 gm/dL (11.4-16.0)
[2020-09-16 08:46] LABS: INR 0.9 (<1.2); Partial Thromboplastin Time 24.1 sec (22.0-30.0); Prothrombin Time 9.9 sec (9.0-12.0)
[2020-09-16 08:47] LABS: ALT 12 U/L (4-34); AST 19 U/L (14-36); African American GFR (CKD) >90 (>60 ml/min/1.73 sqM); Albumin 4.1 g/dL (3.5-5.0); Alkaline Phosphatase 69 U/L (38-126); Anion Gap 11 mmol/L; Blood Urea Nitrogen 10 mg/dL (7-17); Calcium 9.4 mg/dL (8.4-10.2); Carbon Dioxide 24 mmol/L (22-30); Chloride 105 mmol/L (98-107); Glucose 147 mg/dL (74-99); Magnesium 1.8 mg/dL (1.6-2.3); Non-African American GFR(CKD) >90 (>60 ml/min/1.73 sqM); Sodium 140 mmol/L (137-145); Total Bilirubin 0.7 mg/dL (0.2-1.3); Total Protein 6.6 g/dL (6.3-8.2)
--- NOTE | 2020-09-16 09:12 | XR ---
EXAMINATION TYPE: XR chest 2V DATE OF EXAM: 09/16/2020 COMPARISON: Chest x-ray August 23, 2025 HISTORY: Dysrhythmia. TECHNIQUE: Frontal and lateral views of the chest are obtained. FINDINGS: There is no focal air space opacity, pleural effusion, or pneumothorax seen. The cardiac silhouette size is stable and upper limits of normal. Right EKG leads are present. The osseous stru ctures are intact. IMPRESSION: No acute cardiopulmonary process. No significant change from prior.
--- NOTE | 2020-09-16 09:14 | CT ---
EXAMINATION TYPE: CT brain wo con DATE OF EXAM: 09/16/2020 HISTORY: Headache and vomiting CT DLP: 1123.4 mGycm. Automated Exposure Control for Dose Reduction was Utilized. TECHNIQUE: CT scan of the head is performed without contrast. COMPARISON: CT brain May 28, 2020. FINDINGS: There is no acute intracranial hemorrhage or midline shift identified. There is diffuse v entricular and sulcal prominence greatest over bilateral frontal lobes redemonstrated. There is mild low-attenuation in the periventricular white matter consistent with chronic small vessel ischemic ch paula. The globes are intact and the visualized sinuses are clear. IMPRESSION: No acute intracranial hemorrhage or midline shift. There is mild diffuse cerebral atrop hy and chronic small vessel ischemic change redemonstrated. No significant change from recent CT.
[2020-09-16] MEDS ORDERED: KETOROLAC 15 MG/ML 1 ML VIAL IVP STA (09:45)
[2020-09-16 10:16] LABS: Amphetamine Screen,Urine Not Detected (NotDetected); Barbiturate Screen,Urine Not Detected (NotDetected); Benzodiazepines Screen,Urine Not Detected (NotDetected); Cocaine Screen,Urine Not Detected (NotDetected); Methadone Screen, Urine Not Detected (NotDetected); Opiate Screen,Urine Not Detected (NotDetected); Oxycodone Screen, Urine Detected (NotDetected); Phencyclidine Screen,Urine Not Detected (NotDetected); Tricyclic Antidepressant,Urine Not Detected (NotDetected); Urn Cannabinoid Scrn Not Detected (NotDetected)
[2020-09-16] MEDS ORDERED: NITROGLYCERIN SL TABS 0.4 MG TAB SUBLINGUAL PRN (10:42)
[2020-09-16] MEDS ORDERED: oxyCODONE-APAP 10-325MG 1 EACH TAB PO PRN ×2 (11:13→13:13)
--- NOTE | 2020-09-16 13:14 | P.HPIM ---
History of Present Illness This is a pleasant 55 years old female with past medical history of fibromyalgia, hypertension, chronic back pain. She was recently discharged from this hospital from 08/23-08/25, at that time she's been evaluated by critical care rn and marker hand and no cause was found thought to be situational versus vasovagal, also she is known for multiple ER visits (4 visits in May and 4 visits in June and 2 visits in August) many of these resistance for back pain. Patient is some presents because of syncope 3, it happened today, 3 weeks ago on one month ago. Patient states she was going to the restroom when she collapsed on the floor with pleasant consciousness, she could not remember for how long she was on the floor as she lives alone. However she denies urine or bowel incontinence, no tongue biting, no mentioning of post syncope confusion patient does not follow up with PCP, she follows up with Dr. Stapleton her neurologi st As per ER edition Dr. Coy (Patient on 3 different occasions had a heart rate of about 170 it only lasts for approximately 20 seconds each time and we were unable to recorded an EKG. it did look regular.) Currently vital signs stable, patient is afebrile with heart rate 82 and respiratory rate 11-14, blood pressure 142/85 and she is saturating 99% on room air No showed unremarkable CBC, BMP, liver enzymes, only potassium was low at 3.0 with a glucose slightly elevated at 147, troponin 2 are negative with less than 0.012. TSH normal 2.8, urinary tract is positive for oxycodone EKG showing sinus tachycardia at 104 with QTC of 470, right ventricular branch block and left anterior fascicular block. Chest x-ray showing no acute cardiopulmonary process Review of Systems CONSTITUTIONAL: No fever, no malaise, no fatigue. HEENT: No recent visual problems or hearing problems. Denied any sore throat. CARDIOVASCULAR: No orthopnea, PND, no palpitations, no syncope. PULMONARY: No shortness of breath, no cough, no hemoptysis. GASTROINTESTINAL: No diarrhea, no nausea, no vomiting, no abdominal pain. Normoactive bowel sounds. NEUROLOGICAL: No headaches, no weakness, no numbness. HEMATOLOGICAL: Denies any bleeding or petechiae. GENITOURINARY: Denies any burning micturition, frequency, or urgency. MUSCULOSKELETAL/RHEUMATOLOGICAL: Denies any joint pain, swelling, or any muscle pain. ENDOCRINE: Denies any polyuria or polydipsia. Past Medical History Past Medical History: Fibromyalgia, Hypertension, Musculoskeletal Disorder Additional Past Medical History / Comment(s): back pain, pt states she has lesions on her brain that could be the onset of MS, tachycardia History of Any Multi-Drug Resistant Organisms: None Reported Past Surgical History: Appendectomy, Hysterectomy Additional Past Surgical History / Comment(s): d&c, Past Anesthesia/Blood Transfusion Reactions: No Reported Reaction Past Psychological History: Anxiety, Depression, Panic Disorder, PTSD Smoking Status: Current some day smoker Past Alcohol Use History: None Reported Past Drug Use History: None Reported, Opiates, Prescription Drug Abuse - Past Family History Mother Family Medical History: Cancer, Rheumatoid Arthritis (RA) Additional Family Medical History / Comment(s): lymphoma Father Family Medical History: Liver Disease Additional Family Medical History / Comment(s): Father had alcoholic cirrhosis. He is . Daughter(s) Family Medical History: Asthma Medications and Allergies Home Medications Medication Instructions Recorded Confirmed Type oxyCODONE-APAP 10-325MG [Percocet 1 tab PO TID PRN 09/16/20 09/16/20 History 10-325 mg] Allergies Allergy/AdvReac Type Severity Reaction Status Date / Time Penicillins Allergy Rash/Hives Verified 09/16/20 09:23 sulfamethoxazole Allergy Unknown Verified 09/16/20 09:23 [From Bactrim] venom-honey bee Allergy Anaphylaxis Verified 09/16/20 09:23 [bee venom (honey bee)] Physical Exam Vitals: Vital Signs Temp Pulse Resp BP Pulse Ox 09/16/20 10:30 82 11 L 142/85 99 09/16/20 10:00 77 14 130/96 99 09/16/20 09:30 89 14 152/91 99 09/16/20 08:30 83 16 127/107 97 09/16/20 08:11 112 H 18 127/107 99 09/16/20 07:42 98.1 F 136 H 18 152/87 99 Intake and Output 09/15/20 09/16/20 09/16/20 22:59 06:59 14:59 Other: Weight 50.802 kg GENERAL: The patient is alert and oriented x3, not in any acute distress. Well developed, well nourished. HEENT: Pupils are round and equally reacting to light. EOMI. No scleral icterus. No conjunctival pallor. Normocephalic, atraumatic. No pharyngeal erythema. No thyromegaly. CARDIOVASCULAR: S1 and S2 present. No murmurs, rubs, or gallops. PULMONARY: Chest is clear to auscultation, no wheezing or crackles. ABDOMEN: Soft, nontender, nondistended, normoactive bowel sounds. No palpable organomegaly. MUSCULOSKELETAL: No joint swelling or deformity. EXTREMITIES: No cyanosis, clubbing, or pedal edema. NEUROLOGICAL: Gross neurological examination did not reveal any focal deficits. SKIN: No rashes. No petechiae Results CBC & Chem 7: 09/16/20 08:12 09/16/20 08:12 Labs: Abnormal Lab Results - Last 24 Hours (Table) 09/16/20 09/16/20 Range/Units 08:12 08:12 Potassium 3.0 L (3.5-5.1) mmol/L Glucose 147 H (74-99) mg/dL Ur Oxycodone Screen Detected H (NotDetected) Assessment and Plan Assessment: Syncope, recurrent Nicotine dependence Sinus tachycardia could be secondary to pain Opioid dependence and possible opioid use disorder Hypertension Chronic severe back pain including thoracic back pain, last time she has been evaluated recently in the previous admission by spine surgeon and recommended conservative treatment. she declined to see Dr. Oshea again, Gait is normal Fibromyalgia Plan: This is a pleasant 55 years old female who presents with recurrent syncope. We will check orthostasis, Cardiology team were consulted. Continue with telemetry . Possible consult consult and neurology Labs and medication were reviewed.. Continue same treatment. Continue with symptomatic treatment. Resume home medication. Monitor lytes and vitals. DVT and GI prophylaxis. Further recommendations depends on the clinical course of the patient DVT prophylaxis: Subcutaneous heparin GI Prophylaxis: Pepcid PT/OT: Pending Prognosis is guarded
[2020-09-16 13:31] VITALS: BP 144/81; PULSE 67; RESP 18; TEMP 97.8
[2020-09-16] MEDS: NICOTINE 14MG/24HR PATCH TRANSDERM SCH (14:01)
--- NOTE | 2020-09-16 18:44 | EEG ---
ELECTROENCEPHALOGRAM REPORT DATE OF SERVICE: 09/16/2020 CLINICAL HISTORY: This is a 55-year-old female who presented to the emergency department on 09/16/2020 after a syncopal episode. This video EEG was obtained to evaluate for seizure and epileptiform activity. RELEVANT MEDICATION: Not on any centrally active medication. EEG TYPE: A routine 21-channel EEG was performed with video using the 10/20 electrode placement system. DESCRIPTION: Only wakefulness is obtained. During wakefulness, there is a posterior-dominant rhythm of low to moderate voltage, reactive, well modulated of 9-10 hertz over bilateral hemispheres. There was no physiological stage II sleep seen. INTERICTAL AND ICTAL: None. ACTIVATION PROCEDURES: Photic stimulation did not evoke a posterior driving response at low flash frequencies over bilateral hemispheres. Hyperventilation was not performed because of the patient's clinical history. CLINICAL INTERPRETATION: This is a normal routine EEG. There are no focal slowing, epileptiform activity or seizure during the study. Clinical correlation is recommended. MMARAMIS / BETTYN: [id number] / KAREEN
[2020-09-16] MEDS ORDERED: FAMOTIDINE 20 MG/2 ML VIAL IV SCH (21:00)
[2020-09-16] MEDS ORDERED: HEPARIN SODIUM,PORCINE 5,000 UNIT/ML 1 ML VIAL SQ SCH (21:00)
[2020-09-17] MEDS ORDERED: ASPIRIN 325 MG TAB PO SCH (09:00)
== END 2020-09-16 20:00 | disposition left against medical advice (07) ==
LOC: EC 07:40 → 3SCARD 10:42
PROVIDERS: ADMIT Internal Medicine; ATTEND Internal Medicine
DX: R55 Syncope and collapse (principal); G89.29 Other chronic pain; F11.20 Opioid dependence, uncomplicated; F17.200 Nicotine dependence, unspecified, uncomplicated; F32.9 Major depressive disorder, single episode, unspecified; F41.0 Panic disorder [episodic paroxysmal anxiety]; F43.10 Post-traumatic stress disorder, unspecified; I10 Essential (primary) hypertension; I45.2 Bifascicular block; M79.7 Fibromyalgia; Z80.7 Family history of other malignant neoplasms of lymphoid, hematopoietic and related tissues; Z82.5 Family history of asthma and other chronic lower respiratory diseases; R00.0 Tachycardia, unspecified
CPT/HCPCS: 96361; 96374; 96375; 99285; 36415; 95816; 93005; 80053; 83735; 84443; 84484; 85025; 85610; 85730; 80306; 71046; 70450; G0378; S4990; J2765; J1885

== ENCOUNTER 2020-09-22 16:50 | Emergency (ER) | payer OTHER ==
[2020-09-22 17:38] VITALS: BP 140/85; TEMP 99.2
[2020-09-22] MEDS ORDERED: HYDROmorphone 1 MG/ML 1 ML SYRINGE IM STA (17:43)
--- NOTE | 2020-09-22 17:54 | ED ---
Back Pain HPI - General Chief Complaint: Back Pain/Injury Stated Complaint: Back Pain Time Seen by Provider: 09/22/20 17:42 Source: patient Limitations: no limitations - History of Present Illness Initial Comments: 55yo female iwt hx of chronic pain who seeks Dr. Baltazar presenting for low back pain. Denies new Dr. Powers of pain denies IV drug use denies fevers denies falls or trauma. Denies loss of bowel bladder control urinary retention. She denies any loss of sensation or weakness of the lower extremity she states she still to walk. Patient states she called her pain management office was told to come to the ER for pain management and has an appointment later this week. - Related Data Home Medications Medication Instructions Recorded Confirmed oxyCODONE-APAP 10-325MG [Percocet 1 tab PO TID PRN 09/16/20 09/16/20 10-325 mg] Allergies Allergy/AdvReac Type Severity Reaction Status Date / Time Penicillins Allergy Rash/Hives Verified 09/22/20 17:38 sulfamethoxazole Allergy Unknown Verified 09/22/20 17:38 [From Bactrim] venom-honey bee Allergy Anaphylaxis Verified 09/22/20 17:38 [bee venom (honey bee)] Review of Systems ROS Statement: Those systems with pertinent positive or pertinent negative responses have been documented in the HPI. ROS Other: All systems not noted in ROS Statement are negative. Past Medical History Past Medical History: Fibromyalgia, Hypertension, Musculoskeletal Disorder Additional Past Medical History / Comment(s): back pain, pt states she has lesions on her brain that could be the onset of MS, tachycardia History of Any Multi-Drug Resistant Organisms: None Reported Past Surgical History: Appendectomy, Hysterectomy Additional Past Surgical History / Comment(s): d&c, Past Anesthesia/Blood Transfusion Reactions: No Reported Reaction Past Psychological History: Anxiety, Depression, Panic Disorder, PTSD Smoking Status: Current some day smoker Past Alcohol Use History: None Reported Past Drug Use History: None Reported, Opiates, Prescription Drug Abuse - Past Family History Mother Family Medical History: Cancer, Rheumatoid Arthritis (RA) Additional Family Medical History / Comment(s): lymphoma Father Family Medical History: Liver Disease Additional Family Medical History / Comment(s): Father had alcoholic cirrhosis. He is . Daughter(s) Family Medical History: Asthma General Exam - General Exam Comments Initial Comments: General: The patient is awake and alert, in no distress Eye: +3 mm pupils are equal, round and reactive to light, extra-ocular movements are intact. No nystagmus. There is normal conjunctiva bilaterally. No signs of icterus. Ears, nose, mouth and throat: There are moist mucous membranes and no oral lesions. Neck: The neck is supple, there is no tenderness or JVD. Gastrointestinal: Soft, non-distended, non-tender abdomen without masses or organomegaly noted. There is no rebound or guarding present. Musculoskeletal: Normal ROM, no tenderness. Strength 5/5 of the LE b/l. Sensation intact of the LE b/l. Radial and DP pulses equal bilaterally 2+. Neurological: A&O x 3. CN II-XII intact grossly, There are no obvious motor or sensory deficits. Coordination appears grossly intact. Speech is normal. Skin: Skin is warm and dry and no rashes or lesions are noted. Psychiatric: Cooperative, appropriate mood & affect, normal judgment. Limitations: no limitations Course Vital Signs 09/22/20 09/22/20 17:35 18:03 Temperature 99.2 F Pulse Rate 108 H 102 H Respiratory 22 16 Rate Blood Pressure 140/85 O2 Sat by Pulse 98 Oximetry Medical Decision Making - Medical Decision Making No concerning history. Patient states this is her chronic pain. Patient presented for pain management. Patient has no weakness or sensation deficit of the lower extremities at this time feel she is still for discharge with pain management and pcp f/u Patient agreeable to discharge. Case discussed with Dr. Shipley Disposition Clinical Impression: Chronic back pain Disposition: HOME SELF-CARE Condition: Good Instructions (If sedation given, give patient instructions): Chronic Back Pain (DC) Additional Instructions: Please use medication as discussed. Please follow-up with family doctor in the next 2 days of symptoms have not improved. Please return to emergency room if the symptoms increase or worsen or for any other concerns. Is patient prescribed a controlled substance at d/c from ED?: No Referrals: None,Stated [Primary Care Provider] - 1-2 days Time of Disposition: 17:54
[2020-09-22 18:04] VITALS: PULSE 102; RESP 16
== END 2020-09-22 18:03 | disposition home or self-care (01) ==
LOC: EC 16:50
DX: G89.29 Other chronic pain (principal); M54.5 Low back pain; F17.200 Nicotine dependence, unspecified, uncomplicated; Z88.0 Allergy status to penicillin; Z88.2 Allergy status to sulfonamides; Z91.030 Bee allergy status
CPT/HCPCS: 99283; 96372; J1170

== ENCOUNTER 2020-09-23 16:17 | Emergency (ER) | payer OTHER ==
[2020-09-23 16:27] VITALS: BP 142/80; PULSE 104; RESP 18; TEMP 99.1
[2020-09-23] MEDS ORDERED: HYDROmorphone 1 MG/ML 1 ML SYRINGE IM STA (17:42)
[2020-09-23] MEDS ORDERED: ACET/COD 300 MG/30 MG STARTER PACK 6 TAB BTL PO STA (17:42)
--- NOTE | 2020-09-23 17:42 | ED ---
Back Pain HPI - General Chief Complaint: Back Pain/Injury Stated Complaint: back pain Time Seen by Provider: 09/23/20 17:11 Source: patient, RN notes reviewed, old records reviewed Limitations: no limitations - History of Present Illness Initial Comments: This is a 35-year-old female DF for evaluation of back pain acute on chronic back pain and she is well-known to this ER facility. No new injuries or trauma no loss of bowel or bladder patient states she cannot get her prescription filled MD Complaint: back pain, back injury -: days(s) Similar Symptoms Previously: Yes Place: home Radiation: buttocks Severity: moderate Severity scale (1-10): 7 Quality: aching Consistency: constant Improves With: none Worsens With: none Context: while lifting, turning/twisting Associated Symptoms: denies other symptoms - Related Data Home Medications Medication Instructions Recorded Confirmed oxyCODONE-APAP 10-325MG [Percocet 1 tab PO TID PRN 09/16/20 09/16/20 10-325 mg] Allergies Allergy/AdvReac Type Severity Reaction Status Date / Time Penicillins Allergy Rash/Hives Verified 09/23/20 16:27 sulfamethoxazole Allergy Unknown Verified 09/23/20 16:27 [From Bactrim] venom-honey bee Allergy Anaphylaxis Verified 09/23/20 16:27 [bee venom (honey bee)] Review of Systems ROS Statement: Those systems with pertinent positive or pertinent negative responses have been documented in the HPI. ROS Other: All systems not noted in ROS Statement are negative. Past Medical History Past Medical History: Fibromyalgia, Hypertension, Musculoskeletal Disorder Additional Past Medical History / Comment(s): back pain, pt states she has lesions on her brain that could be the onset of MS, tachycardia History of Any Multi-Drug Resistant Organisms: None Reported Past Surgical History: Appendectomy, Hysterectomy Additional Past Surgical History / Comment(s): d&c, Past Anesthesia/Blood Transfusion Reactions: No Reported Reaction Past Psychological History: Anxiety, Depression, Panic Disorder, PTSD Smoking Status: Current some day smoker Past Alcohol Use History: None Reported Past Drug Use History: None Reported, Opiates, Prescription Drug Abuse - Past Family History Mother Family Medical History: Cancer, Rheumatoid Arthritis (RA) Additional Family Medical History / Comment(s): lymphoma Father Family Medical History: Liver Disease Additional Family Medical History / Comment(s): Father had alcoholic cirrhosis. He is . Daughter(s) Family Medical History: Asthma General Exam Limitations: no limitations General appearance: alert, in no apparent distress Head exam: Present: atraumatic, normocephalic, normal inspection Eye exam: Present: normal appearance, PERRL, EOMI. Absent: scleral icterus, conjunctival injection, periorbital swelling ENT exam: Present: normal exam, mucous membranes moist Neck exam: Present: normal inspection. Absent: tenderness, meningismus, lymphadenopathy Respiratory exam: Present: normal lung sounds bilaterally. Absent: respiratory distress, wheezes, rales, rhonchi, stridor Cardiovascular Exam: Present: regular rate, normal rhythm, normal heart sounds. Absent: systolic murmur, diastolic murmur, rubs, gallop, clicks GI/Abdominal exam: Present: soft, normal bowel sounds. Absent: distended, tenderness, guarding, rebound, rigid Extremities exam: Present: normal inspection, full ROM, normal capillary refill. Absent: tenderness, pedal edema, joint swelling, calf tenderness Back exam: Present: normal inspection Neurological exam: Present: alert, oriented X3, CN II-XII intact Psychiatric exam: Present: normal affect, normal mood Skin exam: Present: warm, dry, intact, normal color. Absent: rash Course Vital Signs 09/23/20 16:22 Temperature 99.1 F Pulse Rate 104 H Respiratory 18 Rate Blood Pressure 142/80 O2 Sat by Pulse 99 Oximetry - Reevaluation(s) Reevaluation #1: 09/23/20 18:07 Medical record is reviewed Reevaluation #2: 09/23/20 18:07 Patient given pain control here in the ER Medical Decision Making - Medical Decision Making 55 female with chronic back pain patient discharged home Disposition Clinical Impression: Chronic back pain greater than 3 months duration, Chronic back pain Disposition: HOME SELF-CARE Condition: Good Instructions (If sedation given, give patient instructions): Acute Low Back Pain (ED) Is patient prescribed a controlled substance at d/c from ED?: No Referrals: None,Stated [Primary Care Provider] - 1-2 days
== END 2020-09-23 18:24 | disposition home or self-care (01) ==
LOC: EC 16:17
DX: G89.29 Other chronic pain (principal); M54.9 Dorsalgia, unspecified; F17.200 Nicotine dependence, unspecified, uncomplicated; Z88.0 Allergy status to penicillin; Z88.2 Allergy status to sulfonamides; Z91.030 Bee allergy status
CPT/HCPCS: 99284; 96372; J1170

== ENCOUNTER 2020-10-17 17:12 | Emergency (ER) | payer OTHER ==
[2020-10-17] MEDS ORDERED: HYDROmorphone 1 MG/ML 1 ML SYRINGE IM STA (18:01)
[2020-10-17] MEDS ORDERED: ACET/COD 300 MG/30 MG STARTER PACK 6 TAB BTL PO STA (18:01)
--- NOTE | 2020-10-17 18:17 | ED ---
Back Pain HPI - General Chief Complaint: Back Pain/Injury Stated Complaint: Back pain Time Seen by Provider: 10/17/20 17:33 Source: patient, RN notes reviewed, old records reviewed Limitations: no limitations - History of Present Illness Initial Comments: 55-year-old female presents emergency department today with acute exacerbation of chronic back pain. She reports this same pain she's been in. She states that she sees a foxing painter. She reports that this just discontinued her Percocet 10 and switched to 7.5. She states that it doesn't managing her pain. Patient has an upcoming appointment on Monday with foxing painter. Patient states that she presents emergency Department multiple times for similar pain. She denies any fall or trauma. - Related Data Home Medications Medication Instructions Recorded Confirmed oxyCODONE-APAP 10-325MG [Percocet 1 tab PO TID PRN 09/16/20 09/16/20 10-325 mg] Allergies Allergy/AdvReac Type Severity Reaction Status Date / Time Penicillins Allergy Rash/Hives Verified 10/17/20 17:18 sulfamethoxazole Allergy Unknown Verified 10/17/20 17:18 [From Bactrim] venom-honey bee Allergy Anaphylaxis Verified 10/17/20 17:18 [bee venom (honey bee)] Review of Systems ROS Statement: Those systems with pertinent positive or pertinent negative responses have been documented in the HPI. ROS Other: All systems not noted in ROS Statement are negative. Past Medical History Past Medical History: Fibromyalgia, Hypertension, Musculoskeletal Disorder Additional Past Medical History / Comment(s): back pain, pt states she has lesions on her brain that could be the onset of MS, tachycardia History of Any Multi-Drug Resistant Organisms: None Reported Past Surgical History: Appendectomy, Hysterectomy Additional Past Surgical History / Comment(s): d&c, Past Anesthesia/Blood Transfusion Reactions: No Reported Reaction Past Psychological History: Anxiety, Depression, Panic Disorder, PTSD Smoking Status: Current some day smoker Past Alcohol Use History: None Reported Past Drug Use History: None Reported, Opiates, Prescription Drug Abuse - Past Family History Mother Family Medical History: Cancer, Rheumatoid Arthritis (RA) Additional Family Medical History / Comment(s): lymphoma Father Family Medical History: Liver Disease Additional Family Medical History / Comment(s): Father had alcoholic cirrhosis. He is . Daughter(s) Family Medical History: Asthma General Exam - General Exam Comments Initial Comments: 55-year-old female. Patient appears in mild to moderate discomfort. Limitations: no limitations General appearance: alert, in no apparent distress Head exam: Present: atraumatic, normocephalic, normal inspection Eye exam: Present: normal appearance, PERRL, EOMI. Absent: scleral icterus, conjunctival injection, periorbital swelling ENT exam: Present: normal exam, mucous membranes moist Neck exam: Present: normal inspection. Absent: tenderness, meningismus, lymphadenopathy Respiratory exam: Present: normal lung sounds bilaterally Cardiovascular Exam: Present: regular rate, normal rhythm, normal heart sounds. Absent: systolic murmur, diastolic murmur, rubs, gallop, clicks GI/Abdominal exam: Present: soft, normal bowel sounds. Absent: distended, tenderness, guarding, rebound, rigid Extremities exam: Present: normal inspection, full ROM, normal capillary refill. Absent: tenderness, pedal edema, joint swelling, calf tenderness Neurological exam: Present: alert, oriented X3, CN II-XII intact Psychiatric exam: Present: normal affect, normal mood Skin exam: Present: warm, dry, intact, normal color. Absent: rash Course Vital Signs 10/17/20 17:16 Temperature 98.3 F Pulse Rate 125 H Respiratory 22 Rate Blood Pressure 157/91 O2 Sat by Pulse 98 Oximetry Medical Decision Making - Medical Decision Making 35-year-old female with chronic back pain presents for acute exacerbation of chronic pain. She denies falls. No saddle anesthesia. At this time patient's given IM analgesia. I discussed Patient is follow-up with PCP and foxing painter this week. Patient is agreeable plan. All questions answered. Disposition Clinical Impression: Intractable back pain Disposition: HOME SELF-CARE Condition: Good Instructions (If sedation given, give patient instructions): Acute Low Back Pain (ED) Additional Instructions: Follow-up with a software asset management analyst. Is patient prescribed a controlled substance at d/c from ED?: No Referrals: None,Stated [Primary Care Provider] - 1-2 days Time of Disposition: 18:16
[2020-10-17 18:37] VITALS: BP 128/78; PULSE 79; RESP 16; TEMP 97.8
== END 2020-10-17 18:35 | disposition home or self-care (01) ==
LOC: EC 17:12
DX: G89.29 Other chronic pain (principal); M54.9 Dorsalgia, unspecified; F11.10 Opioid abuse, uncomplicated; F19.10 Other psychoactive substance abuse, uncomplicated; M79.7 Fibromyalgia; F17.200 Nicotine dependence, unspecified, uncomplicated; Z88.0 Allergy status to penicillin; Z88.2 Allergy status to sulfonamides; Z91.030 Bee allergy status
CPT/HCPCS: 99283; 96372; J1170

== ENCOUNTER 2020-10-18 17:29 | Emergency (ER) | payer OTHER ==
[2020-10-18 17:33] VITALS: BP 152/99; PULSE 72; RESP 18; TEMP 98.5
--- NOTE | 2020-10-18 18:08 | ED ---
Back Pain HPI - General Chief Complaint: Back Pain/Injury Stated Complaint: Back pain Time Seen by Provider: 10/18/20 17:46 Source: patient, RN notes reviewed, old records reviewed Limitations: no limitations - History of Present Illness Initial Comments: 55-year-old female presents emergency room today with complaints of chronic back pain. Patient seems from yesterday for similar complaints. She reports she is out of her chronic pain medications. She has an upcoming appointment with pain management on Monday. She has no positive traumatic ulcer back pain. Denies saddle anesthesias. - Related Data Home Medications Medication Instructions Recorded Confirmed oxyCODONE-APAP 10-325MG [Percocet 1 tab PO TID PRN 09/16/20 09/16/20 10-325 mg] Allergies Allergy/AdvReac Type Severity Reaction Status Date / Time Penicillins Allergy Rash/Hives Verified 10/18/20 17:31 sulfamethoxazole Allergy Unknown Verified 10/18/20 17:31 [From Bactrim] venom-honey bee Allergy Anaphylaxis Verified 10/18/20 17:31 [bee venom (honey bee)] Review of Systems ROS Statement: Those systems with pertinent positive or pertinent negative responses have been documented in the HPI. ROS Other: All systems not noted in ROS Statement are negative. Past Medical History Past Medical History: Fibromyalgia, Hypertension, Musculoskeletal Disorder Additional Past Medical History / Comment(s): back pain, pt states she has lesions on her brain that could be the onset of MS, tachycardia History of Any Multi-Drug Resistant Organisms: None Reported Past Surgical History: Appendectomy, Hysterectomy Additional Past Surgical History / Comment(s): d&c, Past Anesthesia/Blood Transfusion Reactions: No Reported Reaction Past Psychological History: Anxiety, Depression, Panic Disorder, PTSD Smoking Status: Current every day smoker Past Alcohol Use History: None Reported Past Drug Use History: Opiates, Prescription Drug Abuse - Past Family History Mother Family Medical History: Cancer, Rheumatoid Arthritis (RA) Additional Family Medical History / Comment(s): lymphoma Father Family Medical History: Liver Disease Additional Family Medical History / Comment(s): Father had alcoholic cirrhosis. He is . Daughter(s) Family Medical History: Asthma General Exam - General Exam Comments Initial Comments: Patient is 55-year-old female. Alert and oriented. Patient appears in mild to moderate discomfort. Limitations: no limitations General appearance: alert, in no apparent distress Head exam: Present: atraumatic, normocephalic, normal inspection Eye exam: Present: normal appearance, PERRL, EOMI. Absent: scleral icterus, conjunctival injection, periorbital swelling ENT exam: Present: normal exam, mucous membranes moist Neck exam: Present: normal inspection. Absent: tenderness, meningismus, lymphadenopathy Respiratory exam: Present: normal lung sounds bilaterally. Absent: respiratory distress, wheezes, rales, rhonchi, stridor Cardiovascular Exam: Present: regular rate, normal rhythm, normal heart sounds. Absent: systolic murmur, diastolic murmur, rubs, gallop, clicks GI/Abdominal exam: Present: soft, normal bowel sounds. Absent: distended, tenderness, guarding, rebound, rigid Extremities exam: Present: normal inspection Back exam: Present: normal inspection Neurological exam: Present: alert, oriented X3, CN II-XII intact Psychiatric exam: Present: normal affect, normal mood Skin exam: Present: warm, dry, intact, normal color. Absent: rash Course Vital Signs 10/18/20 17:31 Temperature 98.5 F Pulse Rate 72 Respiratory 18 Rate Blood Pressure 152/99 O2 Sat by Pulse 98 Oximetry Medical Decision Making - Medical Decision Making An 55-year-old female presents emergency department today for complaints of back pain. She reports is chronic in nature. She was given IM pain medication. Medical records reviewed patient's seen emergency department multiple times for similar complaints. Patient will be given fentanyl patch to return to us she sees her facilities painter on Monday. Discussed return parameters. Disposition Clinical Impression: Back pain Disposition: HOME SELF-CARE Condition: Good Instructions (If sedation given, give patient instructions): Acute Low Back Pain (ED) Additional Instructions: Follow-up with pain management this week. Return to the ED if alarming signs or symptoms occur. Is patient prescribed a controlled substance at d/c from ED?: No Referrals: None,Stated [Primary Care Provider] - 1-2 days Time of Disposition: 18:18
[2020-10-18] MEDS ORDERED: HYDROmorphone 1 MG/ML 1 ML SYRINGE IM STA (18:35)
[2020-10-18] MEDS ORDERED: LORazepam 1 MG TAB PO STA (18:35)
== END 2020-10-18 18:57 | disposition home or self-care (01) ==
LOC: EC 17:29
DX: M54.9 Dorsalgia, unspecified (principal); M79.7 Fibromyalgia; G89.29 Other chronic pain; F17.200 Nicotine dependence, unspecified, uncomplicated; Z88.0 Allergy status to penicillin; Z88.2 Allergy status to sulfonamides; Z91.030 Bee allergy status
CPT/HCPCS: 96372; 99283

== ENCOUNTER 2020-10-21 18:22 | Emergency (ER) | payer OTHER ==
[2020-10-21 18:26] VITALS: BP 170/92; PULSE 108; RESP 18; TEMP 97.8
[2020-10-21] MEDS ORDERED: KETOROLAC 15 MG/ML 1 ML VIAL IM STA (19:14)
--- NOTE | 2020-10-21 19:16 | ED ---
General Adult HPI - General Chief complaint: Back Pain/Injury Stated complaint: Pain in back Time Seen by Provider: 10/21/20 18:32 Source: patient, RN notes reviewed, old records reviewed Mode of arrival: ambulatory Limitations: no limitations - History of Present Illness Initial comments: 55-year-old female patient to ED for chronic back pain. Patient was that she is having right paralumbar back pain reports that the dental letter pain in the past. He reports that she went to her pain management doctor today but was not able to fill her prescriptions until Monday. Denies any other complaints. Denies any weakness denies any red flag symptoms loss of bowel or bladder control, saddle anesthesia, paresthesias. Systemic: Pt denies fatigue, fever/chills, rash. Pt denies weakness, night sweats, weight loss. Neuro: Pt denies headache, visual disturbances, syncope or pre-syncope. HEENT: Pt denies ocular discharge or irritation, otalgia, rhinorrhea, pharyngitis or notable lymphadenopathy. Cardiopulmonary: Pt denies chest pain, SOB, heart palpitations, dyspnea on exertion. Abdominal/GI: Pt denies abdominal pain, n/v/d. : Pt denies dysuria, burning w/ urination, frequency/urgency. Denies new onset urinary or bowel incontinence. MSK: Pt denies loss of strength or function in extremities. Neuro: Pt denies new onset weakness, paresthesias. - Related Data Home Medications Medication Instructions Recorded Confirmed oxyCODONE-APAP 10-325MG [Percocet 1 tab PO TID PRN 09/16/20 09/16/20 10-325 mg] Allergies Allergy/AdvReac Type Severity Reaction Status Date / Time Penicillins Allergy Rash/Hives Verified 10/21/20 18:26 sulfamethoxazole Allergy Unknown Verified 10/21/20 18:26 [From Bactrim] venom-honey bee Allergy Anaphylaxis Verified 10/21/20 18:26 [bee venom (honey bee)] Review of Systems ROS Statement: Those systems with pertinent positive or pertinent negative responses have been documented in the HPI. ROS Other: All systems not noted in ROS Statement are negative. Past Medical History Past Medical History: Fibromyalgia, Hypertension, Musculoskeletal Disorder Additional Past Medical History / Comment(s): back pain, pt states she has lesions on her brain that could be the onset of MS, tachycardia History of Any Multi-Drug Resistant Organisms: None Reported Past Surgical History: Appendectomy, Hysterectomy Additional Past Surgical History / Comment(s): d&c, Past Anesthesia/Blood Transfusion Reactions: No Reported Reaction Past Psychological History: Anxiety, Depression, Panic Disorder, PTSD Smoking Status: Current every day smoker Past Alcohol Use History: None Reported Past Drug Use History: Opiates, Prescription Drug Abuse - Past Family History Mother Family Medical History: Cancer, Rheumatoid Arthritis (RA) Additional Family Medical History / Comment(s): lymphoma Father Family Medical History: Liver Disease Additional Family Medical History / Comment(s): Father had alcoholic cirrhosis. He is . Daughter(s) Family Medical History: Asthma General Exam - General Exam Comments Initial Comments: Constitutional: NAD, AOX3, Pt has pleasant affect. HEENT: NC/AT, trachea midline, neck supple, no lymphadenopathy. External ears appear normal, without discharge. Mucous membranes moist. Eyes PERRLA, EOM intact. There is no scleral icterus. No pallor noted. Cardiopulmonary: RRR, no murmurs, rubs or gallops, no JVD noted. Lungs CTAB in anterior and posterior paiz. No peripheral edema. Abdominal exam: Abdomen soft and non-distended. Abdomen non-tender to palpation in all 4 quadrants. Bowel sounds active in LLQ. No hepatosplenomegaly. No ecchymosis Neuro: CN II-XII grossly intact. No nuchal rigidity. No raccon eyes, no feliciano sign, no hemotympanum. No cervical spinal tenderness. MSK: Mild tenderness to right paralumbar region. Psoas and quadriceps muscles 5 out of 5 strength. Laboratory had difficulty. No skin changes. Full active ROM in upper and lower extremities, 5/5 stregnth. Limitations: no limitations Course Vital Signs 10/21/20 18:23 Temperature 97.8 F Pulse Rate 108 H Respiratory 18 Rate Blood Pressure 170/92 O2 Sat by Pulse 98 Oximetry Medical Decision Making - Medical Decision Making 55-year-old female patient to ED for chronic back pain. Denies any recent falls or trauma. Patient is well-known to this emergency department.*Pain management doctor today. Patient declines taking any pain medication before she came. Was noticed today dose of Toradol will discharge the patient follow-up and return precautions. Case discussed with Dr. Soni. Disposition Clinical Impression: Chronic back pain Disposition: HOME SELF-CARE Condition: Stable Instructions (If sedation given, give patient instructions): Acute Low Back Pain (ED) Additional Instructions: Follow up with PCP and pain management tomorrow. Return to ED with any worsening symptoms. Is patient prescribed a controlled substance at d/c from ED?: No Referrals: None,Stated [Primary Care Provider] - 1-2 days Shanae Hidalgo MD [REFERRING] - 1-2 days Isiah Shafer [STAFF PHYSICIAN] - 1-2 days Rajeev Grajeda MD [STAFF PHYSICIAN] - 1-2 days
== END 2020-10-21 19:31 | disposition home or self-care (01) ==
LOC: EC 18:22
DX: G89.29 Other chronic pain (principal); M54.9 Dorsalgia, unspecified; I10 Essential (primary) hypertension; F17.200 Nicotine dependence, unspecified, uncomplicated; Z88.0 Allergy status to penicillin; Z88.2 Allergy status to sulfonamides; Z91.030 Bee allergy status
CPT/HCPCS: 99283; 96372; J1885

== ENCOUNTER 2020-11-11 15:38 | Emergency (ER) | payer OTHER ==
[2020-11-11] MEDS ORDERED: MORPHINE SULFATE 4 MG/ML SYRINGE IVP STA (16:03)
[2020-11-11] MEDS ORDERED: KETOROLAC 15 MG/ML 1 ML VIAL IVP STA (16:03)
[2020-11-11] MEDS ORDERED: DIAZEPAM 5 MG/ML 2 ML INJ IVP STA (16:03)
--- NOTE | 2020-11-11 17:05 | ED ---
Back Pain HPI - General Chief Complaint: Back Pain/Injury Stated Complaint: Back Pain Time Seen by Provider: 11/11/20 15:53 Source: patient Limitations: no limitations - History of Present Illness Initial Comments: Patient is a 55-year-old female, with history of chronic back pain, and pain management, presenting to emergency Department via EMS with complaints of an increase in her pain. She is also complaining of a headache. She states she does take Percocets at home, she took one at about 4 AM this morning but feels like her pain is increasing. She denies any falls or trauma. She states she does get these flareups every so often. She denies any fever or chills, no bowel or bladder incontinence. No saddle paresthesias. Patient states she does also occasionally get headaches and this feels very similar. She denies any blurry vision, dizziness. She does admit to some mild nausea, she did receive 4 of [facility] prior to arrival. Patient has no further complaints at this time. - Related Data Home Medications Medication Instructions Recorded Confirmed oxyCODONE-APAP 10-325MG [Percocet 1 tab PO TID PRN 09/16/20 09/16/20 10-325 mg] Allergies Allergy/AdvReac Type Severity Reaction Status Date / Time Penicillins Allergy Rash/Hives Verified 10/21/20 18:26 sulfamethoxazole Allergy Unknown Verified 10/21/20 18:26 [From Bactrim] venom-honey bee Allergy Anaphylaxis Verified 10/21/20 18:26 [bee venom (honey bee)] Review of Systems ROS Statement: Those systems with pertinent positive or pertinent negative responses have been documented in the HPI. ROS Other: All systems not noted in ROS Statement are negative. Past Medical History Past Medical History: Fibromyalgia, Hypertension, Musculoskeletal Disorder Additional Past Medical History / Comment(s): back pain, pt states she has lesions on her brain that could be the onset of MS, tachycardia History of Any Multi-Drug Resistant Organisms: None Reported Past Surgical History: Appendectomy, Hysterectomy Additional Past Surgical History / Comment(s): d&c, Past Anesthesia/Blood Transfusion Reactions: No Reported Reaction Past Psychological History: Anxiety, Depression, Panic Disorder, PTSD Smoking Status: Current every day smoker Past Alcohol Use History: None Reported Past Drug Use History: Opiates, Prescription Drug Abuse - Past Family History Mother Family Medical History: Cancer, Rheumatoid Arthritis (RA) Additional Family Medical History / Comment(s): lymphoma Father Family Medical History: Liver Disease Additional Family Medical History / Comment(s): Father had alcoholic cirrhosis. He is . Daughter(s) Family Medical History: Asthma General Exam - General Exam Comments Initial Comments: GENERAL: Patient is well-developed and well-nourished. Patient is nontoxic and in mild distress. HEAD: Atraumatic, normocephalic. EYES: Pupils equal round and reactive to light, extraocular movements intact, sclera anicteric, conjunctiva are normal. Eyelids were unremarkable. ENT: TMs normal, nares patent, oropharynx clear without exudates. Moist mucous membranes. NECK: Normal range of motion, supple without lymphadenopathy or JVD. LUNGS: Unlabored respirations. Breath sounds clear to auscultation bilaterally and equal. No wheezes rales or rhonchi. HEART: Regular rate and rhythm without murmurs, rubs or gallops. ABDOMEN: Soft, nontender, normoactive bowel sounds. No guarding, no rebound. No masses appreciated. : Deferred MUSCULOSKELETAL: Normal extremities with adequate strength and normal range of motion, no pitting or edema. No clubbing or cyanosis. Mild pain on palpation lumbar paraspinals NEUROLOGICAL: Patient is alert and oriented x 3. Motor and sensory are also intact. Cranial nerves II through XII grossly intact. Symmetrical smile. Normal speech, normal gait. PSYCH: Normal mood, normal affect. SKIN: Warm, Dry, normal turgor, no rashes or lesions noted. Limitations: no limitations Course Vital Signs 11/11/20 11/11/20 11/11/20 15:39 16:32 17:54 Temperature 99.8 F H 98.1 F 98.0 F Pulse Rate 78 74 72 Respiratory 18 14 16 Rate Blood Pressure 136/88 155/94 141/85 O2 Sat by Pulse 98 95 98 Oximetry Medical Decision Making - Medical Decision Making Patient is a 55-year-old female here for chronic back pain with an acute flareup. She is well-known to this ER for same complaint. She does take Percocets at home. He denies any falls or trauma. Patient was given some Toradol, morphine and Valium. On reexamination, she was found sleeping in the ER, no acute distress, she states she feels improvement. She is stable for discharge. She needs to continue follow-up with pain management regarding her pain. She is in agreement with this plan care. Return parameters were discussed with the patient and she verbalized understanding. Case discussed with Dr. Coy. Disposition Clinical Impression: Chronic back pain greater than 3 months duration, Headache Disposition: HOME SELF-CARE Condition: Stable Instructions (If sedation given, give patient instructions): Chronic Back Pain (DC) Additional Instructions: Please return to the Emergency Department if symptoms worsen or any other concerns. Please follow up with you pain management doctor for further management of your chronic back pain. Is patient prescribed a controlled substance at d/c from ED?: No Referrals: None,Stated [Primary Care Provider] - 1-2 days
[2020-11-11 17:56] VITALS: BP 141/85; PULSE 72; RESP 16; TEMP 98
== END 2020-11-11 17:56 | disposition home or self-care (01) ==
LOC: EC 15:38
DX: G89.29 Other chronic pain (principal); M54.9 Dorsalgia, unspecified; R51.9 Headache, unspecified; I10 Essential (primary) hypertension; F17.200 Nicotine dependence, unspecified, uncomplicated; Z88.0 Allergy status to penicillin; Z88.2 Allergy status to sulfonamides; Z91.030 Bee allergy status
CPT/HCPCS: 99283; 96374; 96375 ×2; J2270; J3360; J1885

== ENCOUNTER 2020-11-12 14:27 | Emergency (ER) | payer OTHER ==
[2020-11-12 14:40] VITALS: TEMP 98.6
[2020-11-12] MEDS ORDERED: ACET/COD 300 MG/30 MG STARTER PACK 6 TAB BTL PO STA (14:48)
[2020-11-12] MEDS ORDERED: MORPHINE SULFATE 2 MG/ML SYRINGE IM STA (14:48)
--- NOTE | 2020-11-12 15:46 | CT ---
EXAMINATION TYPE: CT brain wo con DATE OF EXAM: 11/12/2020 COMPARISON: 09/16/2020 HISTORY: 55-year-old female with headache for one week TECHNIQUE: Examination was done in axial plane without intravenous contrast. Coronal and sagittal r econstructions performed. CT DLP: 1173.4 mGycm Automated exposure control for dose reduction was used. FINDINGS: There is no evidence of acute intracranial hemorrhage, acute ischemic changes, mass, mass-effect, or extra-axial fluid collection. There is no effacement of cerebral sulci or basal subarachnoid cister ns. There is no hydrocephalus. There is no midline shift. Boyer-white matter distinction is preserv ed. Mild age-related bifrontal cerebral volume loss. Minimal patchy white matter hypodensities suggesting changes of chronic small vessel ischemic disease. Paranasal sinuses and mastoid air cells well pneumatized. Orbits and globes are intact. IMPRESSION: Stable exam. No acute intracranial abnormality seen.
--- NOTE | 2020-11-12 15:54 | ED ---
General Adult HPI - General Chief complaint: Back Pain/Injury Stated complaint: Back Pain Time Seen by Provider: 11/12/20 14:41 Source: patient, RN notes reviewed, old records reviewed Mode of arrival: ambulatory Limitations: no limitations - History of Present Illness Initial comments: 55-year-old female patient will notice emergent department for recurrent presentations of chronic back pain to ED for evaluation of chronic back pain just for these had a mild headache waxing waning for the last week right sided. Denies any red flag symptoms. She did have an episode of nausea and vomiting from the headache. She reports her back pain is at baseline. She reports that it is right paralumbar. Denies any radiculopathy weakness or paresthesias loss of bowel or bladder control. Denies any falls or trauma. Systemic: Pt denies fatigue, fever/chills, rash. Pt denies weakness, night sweats, weight loss. Neuro: Pt denies headache, visual disturbances, syncope or pre-syncope. HEENT: Pt denies ocular discharge or irritation, otalgia, rhinorrhea, pharyngitis or notable lymphadenopathy. Cardiopulmonary: Pt denies chest pain, SOB, heart palpitations, dyspnea on exertion. Abdominal/GI: Pt denies abdominal pain, n/v/d. : Pt denies dysuria, burning w/ urination, frequency/urgency. Denies new onset urinary or bowel incontinence. Neuro: Pt denies new onset weakness, paresthesias. - Related Data Home Medications Medication Instructions Recorded Confirmed oxyCODONE-APAP 10-325MG [Percocet 1 tab PO TID PRN 09/16/20 09/16/20 10-325 mg] Allergies Allergy/AdvReac Type Severity Reaction Status Date / Time Penicillins Allergy Rash/Hives Verified 11/12/20 14:40 sulfamethoxazole Allergy Unknown Verified 11/12/20 14:40 [From Bactrim] venom-honey bee Allergy Anaphylaxis Verified 11/12/20 14:40 [bee venom (honey bee)] Review of Systems ROS Statement: Those systems with pertinent positive or pertinent negative responses have been documented in the HPI. ROS Other: All systems not noted in ROS Statement are negative. Past Medical History Past Medical History: Fibromyalgia, Hypertension, Musculoskeletal Disorder Additional Past Medical History / Comment(s): back pain, pt states she has lesions on her brain that could be the onset of MS, tachycardia History of Any Multi-Drug Resistant Organisms: None Reported Past Surgical History: Appendectomy, Hysterectomy Additional Past Surgical History / Comment(s): d&c, Past Anesthesia/Blood Transfusion Reactions: No Reported Reaction Past Psychological History: Anxiety, Depression, Panic Disorder, PTSD Smoking Status: Current every day smoker Past Alcohol Use History: None Reported Past Drug Use History: Opiates, Prescription Drug Abuse - Past Family History Mother Family Medical History: Cancer, Rheumatoid Arthritis (RA) Additional Family Medical History / Comment(s): lymphoma Father Family Medical History: Liver Disease Additional Family Medical History / Comment(s): Father had alcoholic cirrhosis. He is . Daughter(s) Family Medical History: Asthma General Exam - General Exam Comments Initial Comments: Constitutional: NAD, AOX3, Pt has pleasant affect. HEENT: NC/AT, trachea midline, neck supple, no lymphadenopathy. External ears appear normal, without discharge. Mucous membranes moist. Eyes PERRLA, EOM intact. There is no scleral icterus. No pallor noted. Cardiopulmonary: RRR, no murmurs, rubs or gallops, no JVD noted. Lungs CTAB in anterior and posterior paiz. No peripheral edema. Abdominal exam: Abdomen soft and non-distended. Abdomen non-tender to palpation in all 4 quadrants. Bowel sounds active in LLQ. No hepatosplenomegaly. No ecchymosis Neuro: CN II-XII intact. No nuchal rigidity. No raccon eyes, no feliciano sign, no hemotympanum. No cervical spinal tenderness. MSK: Mild right paralumbar tenderness. Intact strength and senation in lower extremities. No posterior calf tenderness bilaterally. Posterior tibialis and radial pulse +2 bilaterally. Sensation intact in upper and lower extremities. Full active ROM in upper and lower extremities, 5/5 stregnth. Limitations: no limitations Course Vital Signs 11/12/20 14:36 Temperature 98.6 F Pulse Rate 105 H Respiratory 20 Rate Blood Pressure 138/79 O2 Sat by Pulse 98 Oximetry Medical Decision Making - Medical Decision Making 55-year-old female patient needs evaluation mild headache, chronic back pain. Patient reports that the main reason she came is the back pain. She is denying red flag symptoms. She is declining any imaging on the lower back. CT brain displayed stable exam. Patient stable for discharge with outpatient follow-up and return precautions. Case discussed with Dr. Shipley. Disposition Clinical Impression: Headache, Chronic back pain Disposition: HOME SELF-CARE Condition: Stable Instructions (If sedation given, give patient instructions): Acute Headache (ED), Chronic Back Pain (DC) Additional Instructions: Follow up with PCP tomorrow. Return to ED with any worsening symptoms. Is patient prescribed a controlled substance at d/c from ED?: No Referrals: None,Stated [Primary Care Provider] - 1-2 days Shanae Hidalgo MD [REFERRING] - 1-2 days Isiah Shafer [STAFF PHYSICIAN] - 1-2 days
[2020-11-12] MEDS ORDERED: KETOROLAC 15 MG/ML 1 ML VIAL IM STA (16:09)
[2020-11-12 16:16] VITALS: BP 128/78; PULSE 99; RESP 18
== END 2020-11-12 16:15 | disposition home or self-care (01) ==
LOC: EC 14:27
DX: G89.29 Other chronic pain (principal); M54.9 Dorsalgia, unspecified; R51.9 Headache, unspecified; F17.200 Nicotine dependence, unspecified, uncomplicated; Z91.030 Bee allergy status; Z88.2 Allergy status to sulfonamides; Z88.0 Allergy status to penicillin
CPT/HCPCS: 70450; 99284; 96372 ×2; J2270; J1885

== ENCOUNTER 2020-11-15 14:57 | Emergency (ER) | payer OTHER ==
[2020-11-15 15:03] VITALS: TEMP 98
[2020-11-15] MEDS ORDERED: HYDROmorphone 1 MG/ML 1 ML SYRINGE IM STA (15:14)
[2020-11-15] MEDS ORDERED: ACET/COD 300 MG/30 MG STARTER PACK 6 TAB BTL PO STA (15:15)
[2020-11-15] MEDS ORDERED: cloNIDine 0.1 MG/24HR PATCH TRANSDERM SCH (16:00)
--- NOTE | 2020-11-15 16:00 | ED ---
Back Pain HPI - General Chief Complaint: Back Pain/Injury Stated Complaint: Back Pain Time Seen by Provider: 11/15/20 15:14 Source: patient Limitations: no limitations - History of Present Illness Initial Comments: 55yo female presenting today for cc of low back pain and out of pain medications. pt states she is almost out of her percocet. pt states she has had increasing low back pain. pt states she has tried to call pain management for an appointment but cannot get in until November 20. Patient denies loss of bowel or bladder control, denies urinary retention. Patient denies loss of sensation or weakness of the legs. pt admits to nausea, insomnia stating she believes she is wtihdrawing. no chest pain denies sob. Denies fall, IVDU, or cancer. Patient has no additional complaints. upon arrival patient ambulating. walked back to ER. - Related Data Home Medications Medication Instructions Recorded Confirmed oxyCODONE-APAP 10-325MG [Percocet 1 tab PO TID PRN 09/16/20 09/16/20 10-325 mg] Allergies Allergy/AdvReac Type Severity Reaction Status Date / Time Penicillins Allergy Rash/Hives Verified 11/15/20 15:00 sulfamethoxazole Allergy Unknown Verified 11/15/20 15:00 [From Bactrim] venom-honey bee Allergy Anaphylaxis Verified 11/15/20 15:00 [bee venom (honey bee)] Review of Systems ROS Statement: Those systems with pertinent positive or pertinent negative responses have been documented in the HPI. ROS Other: All systems not noted in ROS Statement are negative. Past Medical History Past Medical History: Fibromyalgia, Hypertension, Musculoskeletal Disorder Additional Past Medical History / Comment(s): back pain, pt states she has lesions on her brain that could be the onset of MS, tachycardia History of Any Multi-Drug Resistant Organisms: None Reported Past Surgical History: Appendectomy, Hysterectomy Additional Past Surgical History / Comment(s): d&c, Past Anesthesia/Blood Transfusion Reactions: No Reported Reaction Past Psychological History: Anxiety, Depression, Panic Disorder, PTSD Smoking Status: Current every day smoker Past Alcohol Use History: None Reported Past Drug Use History: Opiates, Prescription Drug Abuse - Past Family History Mother Family Medical History: Cancer, Rheumatoid Arthritis (RA) Additional Family Medical History / Comment(s): lymphoma Father Family Medical History: Liver Disease Additional Family Medical History / Comment(s): Father had alcoholic cirrhosis. He is . Daughter(s) Family Medical History: Asthma General Exam - General Exam Comments Initial Comments: General: The patient is awake and alert, in no distress Eye: +3 mm pupils are equal, round and reactive to light, extra-ocular movements are intact. No nystagmus. There is normal conjunctiva bilaterally. No signs of icterus. Cardiovascular: There is a regular rate and rhythm. No murmur, rub or gallop is appreciated. Respiratory: Lungs are clear to auscultation, respirations are non-labored, breath sounds are equal. No wheezes, stridor, rales, or rhonchi. Gastrointestinal: Soft, non-distended, non-tender abdomen without masses or organomegaly noted. There is no rebound or guarding present. Musculoskeletal: No mildine tenderness to palpation of the thoracic and lumbar spine, paraspinal tenderness. Normal ROM, no tenderness. Strength 5/5 of the LE b/l. Sensation intact of the LE b/l. Radial pulses equal bilaterally 2+. Neurological: A&O x 3. CN II-XII intact grossly, There are no obvious motor or sensory deficits. Coordination appears grossly intact. Speech is normal. Skin: Skin is warm and dry and no rashes or lesions are noted. Psychiatric: Cooperative, appropriate mood & affect, normal judgment. Limitations: no limitations Course Vital Signs 11/15/20 11/15/20 15:00 16:12 Temperature 98 F Pulse Rate 123 H 89 Respiratory 18 19 Rate Blood Pressure 162/91 137/87 O2 Sat by Pulse 98 93 L Oximetry Medical Decision Making - Medical Decision Making Paraspinal lumbar tenderness, ambulatory. Patient strength and sensation intact. no bowel/bladder changes. pt out of pain medications. pt provided a clonidine patch as well as dose of pain medications in the emergency department. agreeable to this treatment and discharge at this time. Disposition Clinical Impression: Low back pain, Chronic pain, Opioid withdrawal Disposition: HOME SELF-CARE Condition: Good Instructions (If sedation given, give patient instructions): Chronic Pain (ED), Opioid Withdrawal (ED) Additional Instructions: Please use medication as discussed. Please follow-up with family doctor in the next 2 days (pain management on monday) Please return to emergency room if the symptoms increase or worsen or for any other concerns. Is patient prescribed a controlled substance at d/c from ED?: No Referrals: None,Stated [Primary Care Provider] - 1-2 days Bony Stapleton MD [STAFF PHYSICIAN] - 1-2 days Time of Disposition: 16:00
[2020-11-15 16:13] VITALS: BP 137/87; PULSE 89; RESP 19
== END 2020-11-15 16:21 | disposition home or self-care (01) ==
LOC: EC 14:57
DX: G89.29 Other chronic pain (principal); M54.5 Low back pain; F11.23 Opioid dependence with withdrawal; F17.200 Nicotine dependence, unspecified, uncomplicated; Z88.0 Allergy status to penicillin; Z88.2 Allergy status to sulfonamides; Z91.030 Bee allergy status
CPT/HCPCS: 99283; 96372; J1170

== ENCOUNTER 2020-11-17 16:41 | Emergency (ER) | payer OTHER ==
[2020-11-17 16:49] VITALS: BP 147/87; PULSE 103; RESP 18; TEMP 99.1
[2020-11-17] MEDS ORDERED: KETOROLAC 15 MG/ML 1 ML VIAL IM STA (17:25)
[2020-11-17] MEDS ORDERED: ONDANSETRON ODT 4 MG TAB PO STA (17:25)
--- NOTE | 2020-11-17 17:40 | ED ---
General Adult HPI - General Chief complaint: Back Pain/Injury Stated complaint: Back Pain Time Seen by Provider: 11/17/20 17:04 Source: patient, RN notes reviewed, old records reviewed Mode of arrival: ambulatory Limitations: no limitations - History of Present Illness Initial comments: Patient is a pleasant 55-year-old female presenting to the emergency Department with complaints of chronic back pain. Patient states this is been occurring for years. Patient states she did talk with her primary care physician recently. Patient did recently see her normal pain doctor and was told she may need epidurals and now she is looking for a new pain doctor. Patient requests pain medication for now as well as something to cover her for the next few days. Patient denies any incontinence or retention of bowel or bladder. No weakness or loss of sensation. Symptoms are chronic. Patient also has some nausea which is also somewhat chronic. - Related Data Home Medications Medication Instructions Recorded Confirmed oxyCODONE-APAP 10-325MG [Percocet 1 tab PO TID PRN 09/16/20 09/16/20 10-325 mg] Allergies Allergy/AdvReac Type Severity Reaction Status Date / Time Penicillins Allergy Rash/Hives Verified 11/17/20 16:50 sulfamethoxazole Allergy Unknown Verified 11/17/20 16:50 [From Bactrim] venom-honey bee Allergy Anaphylaxis Verified 11/17/20 16:50 [bee venom (honey bee)] Review of Systems ROS Statement: Those systems with pertinent positive or pertinent negative responses have been documented in the HPI. ROS Other: All systems not noted in ROS Statement are negative. Constitutional: Denies: fever Eyes: Denies: eye pain ENT: Denies: ear pain Respiratory: Denies: cough Cardiovascular: Denies: chest pain Endocrine: Denies: fatigue Gastrointestinal: Denies: abdominal pain Genitourinary: Denies: dysuria Musculoskeletal: Reports: as per HPI, back pain Skin: Denies: rash Neurological: Denies: weakness Past Medical History Past Medical History: Fibromyalgia, Hypertension, Musculoskeletal Disorder Additional Past Medical History / Comment(s): back pain, pt states she has lesions on her brain that could be the onset of MS, tachycardia History of Any Multi-Drug Resistant Organisms: None Reported Past Surgical History: Appendectomy, Hysterectomy Additional Past Surgical History / Comment(s): d&c, Past Anesthesia/Blood Transfusion Reactions: No Reported Reaction Past Psychological History: Anxiety, Depression, Panic Disorder, PTSD Smoking Status: Current every day smoker Past Alcohol Use History: None Reported Past Drug Use History: Opiates, Prescription Drug Abuse - Past Family History Mother Family Medical History: Cancer, Rheumatoid Arthritis (RA) Additional Family Medical History / Comment(s): lymphoma Father Family Medical History: Liver Disease Additional Family Medical History / Comment(s): Father had alcoholic cirrhosis. He is . Daughter(s) Family Medical History: Asthma General Exam Limitations: no limitations General appearance: alert, in no apparent distress Head exam: Present: normocephalic Eye exam: Present: normal appearance Neck exam: Present: normal inspection Respiratory exam: Present: normal lung sounds bilaterally Cardiovascular Exam: Present: regular rate, normal rhythm Expanded Peripheral pulses: 2+: Dorsalis Pedis (R), Dorsalis Pedis (L) GI/Abdominal exam: Present: soft. Absent: tenderness Extremities exam: Present: normal inspection Back exam: Present: vertebral tenderness (Mild tenderness lower lumbar spine) Neurological exam: Present: alert Expanded Speech: Present: fluid speech Sensory exam: Lower Extremity Light Touch: Normal Motor strength exam: RUE: 5, LUE: 5, RLE: 5, LLE: 5 Psychiatric exam: Present: normal affect, normal mood Skin exam: Present: normal color Course Vital Signs 11/17/20 16:47 Temperature 99.1 F Pulse Rate 103 H Respiratory 18 Rate Blood Pressure 147/87 O2 Sat by Pulse 100 Oximetry Disposition Clinical Impression: Chronic pain Disposition: HOME SELF-CARE Condition: Stable Instructions (If sedation given, give patient instructions): Chronic Back Pain (DC), Chronic Pain (ED) Additional Instructions: Please follow-up with your primary care physician as well as her back doctor in the next day or 2 for recheck. Return for weakness, loss of control of bowel or bladder, fevers, worsening or changing symptoms or other concerns Is patient prescribed a controlled substance at d/c from ED?: No Referrals: Isiah Shafer [STAFF PHYSICIAN] - 1-2 days Tracey sOhea DO [Doctor of Osteopathic Medicine] - 1-2 days Time of Disposition: 17:39
== END 2020-11-17 17:45 | disposition home or self-care (01) ==
LOC: EC 16:41
DX: M54.5 Low back pain (principal); R11.0 Nausea; M79.7 Fibromyalgia; F17.200 Nicotine dependence, unspecified, uncomplicated; Z88.0 Allergy status to penicillin; Z88.2 Allergy status to sulfonamides; Z91.030 Bee allergy status; Z90.49 Acquired absence of other specified parts of digestive tract; Z90.710 Acquired absence of both cervix and uterus
CPT/HCPCS: 99283; 96372; J1885

== ENCOUNTER 2020-12-09 16:40 | Emergency (ER) | payer OTHER ==
[2020-12-09 16:58] VITALS: BP 140/89; TEMP 98.3
[2020-12-09] MEDS ORDERED: HYDROmorphone 1 MG/ML 1 ML SYRINGE IM STA (17:07)
[2020-12-09] MEDS ORDERED: cloNIDine 0.1 MG/24HR PATCH TRANSDERM SCH (17:15)
--- NOTE | 2020-12-09 17:38 | ED ---
Back Pain HPI - General Chief Complaint: Back Pain/Injury Stated Complaint: back pain Time Seen by Provider: 12/09/20 17:03 Source: patient Limitations: no limitations - History of Present Illness Initial Comments: 55 year old female presenting for low back pain she states her Percocets aren't working. Patient denies loss of bowel bladder control urinary retention weakness sensation deficits of the lower extremity. She states she is able to weight-bear and ambulate denies fever service history of cancer denies recent falls she states it radiates to the right hip. She doesn't chest pain source breath nausea vomiting. Patient states that she does currently have medications at home that she did not run out. Patient states she does not believe she is withdrawing but isnt sure. Remaining ROS (-). Patient appears well nontoxic in no acute distress on arrival. - Related Data Home Medications Medication Instructions Recorded Confirmed oxyCODONE-APAP 10-325MG [Percocet 1 tab PO TID PRN 09/16/20 09/16/20 10-325 mg] Allergies Allergy/AdvReac Type Severity Reaction Status Date / Time Penicillins Allergy Rash/Hives Verified 12/09/20 16:59 sulfamethoxazole Allergy Unknown Verified 12/09/20 16:59 [From Bactrim] venom-honey bee Allergy Anaphylaxis Verified 12/09/20 16:59 [bee venom (honey bee)] Review of Systems ROS Statement: Those systems with pertinent positive or pertinent negative responses have been documented in the HPI. ROS Other: All systems not noted in ROS Statement are negative. Past Medical History Past Medical History: Fibromyalgia, Hypertension, Musculoskeletal Disorder Additional Past Medical History / Comment(s): back pain, pt states she has lesions on her brain that could be the onset of MS, tachycardia History of Any Multi-Drug Resistant Organisms: None Reported Past Surgical History: Appendectomy, Hysterectomy Additional Past Surgical History / Comment(s): d&c, Past Anesthesia/Blood Transfusion Reactions: No Reported Reaction Past Psychological History: Anxiety, Depression, Panic Disorder, PTSD Smoking Status: Current every day smoker Past Alcohol Use History: None Reported Past Drug Use History: Opiates, Prescription Drug Abuse - Past Family History Mother Family Medical History: Cancer, Rheumatoid Arthritis (RA) Additional Family Medical History / Comment(s): lymphoma Father Family Medical History: Liver Disease Additional Family Medical History / Comment(s): Father had alcoholic cirrhosis. He is . Daughter(s) Family Medical History: Asthma General Exam - General Exam Comments Initial Comments: General: The patient is awake and alert, in no distress Eye: Pupils are equal, round and reactive to light, extra-ocular movements are intact. No nystagmus. There is normal conjunctiva bilaterally. No signs of icterus. Cardiovascular: There is a regular rate and rhythm. No murmur, rub or gallop is appreciated. Respiratory: Lungs are clear to auscultation, respirations are non-labored, breath sounds are equal. No wheezes, stridor, rales, or rhonchi. Gastrointestinal: Soft, non-distended, non-tender abdomen without masses or organomegaly noted. There is no rebound or guarding present. Musculoskeletal: Normal inspection of the cervical thoracic and lumbar spine midline tenderness patient of the lumbar spine. Paraspinal tenderness as well. Normal ROM, no tenderness. Strength 5/5 of the lower extremity is equal comparison bilaterally. Sensation intact of the lower extremities equal comparison bilaterally including the saddle region. Radial and DP pulses equal bilaterally 2+. Neurological: A&O x 3. CN II-XII intact grossly, There are no obvious motor or sensory deficits. Coordination appears grossly intact. Speech is normal. Skin: Skin is warm and dry and no rashes or lesions are noted. Psychiatric: Cooperative, appropriate mood & affect, normal judgment. Limitations: no limitations Course Vital Signs 12/09/20 16:54 Temperature 98.3 F Pulse Rate 130 H Respiratory 20 Rate Blood Pressure 140/89 O2 Sat by Pulse 98 Oximetry Medical Decision Making - Medical Decision Making Chronic back pain pt. sees pain mgmt. pt given break through treatment in the Er. Patient neurovascularly intact. patient will be discharged wtih PCP f/u. patient agreeable to care plan and dischage. Disposition Clinical Impression: Chronic pain, Back pain Disposition: HOME SELF-CARE Condition: Good Instructions (If sedation given, give patient instructions): Chronic Back Pain (DC) Additional Instructions: Please use medication as discussed. Please follow-up with family doctor in the next 2 days of symptoms have not improved. Please return to emergency room if the symptoms increase or worsen or for any other concerns. Is patient prescribed a controlled substance at d/c from ED?: No Referrals: None,Stated [Primary Care Provider] - 1-2 days Time of Disposition: 17:38
[2020-12-09 18:21] VITALS: PULSE 105; RESP 18
== END 2020-12-09 17:50 | disposition home or self-care (01) ==
LOC: EC 16:40
DX: G89.29 Other chronic pain (principal); M54.5 Low back pain; I10 Essential (primary) hypertension; F17.200 Nicotine dependence, unspecified, uncomplicated; Z88.0 Allergy status to penicillin; Z88.2 Allergy status to sulfonamides; Z91.030 Bee allergy status
CPT/HCPCS: 99283; 96372; J1170

== ENCOUNTER 2020-12-10 01:26 | Emergency (ER) | payer OTHER ==
[2020-12-10 01:32] VITALS: BP 147/102; PULSE 102; RESP 18; TEMP 98.6
[2020-12-10] MEDS ORDERED: HYDROmorphone 1 MG/ML 1 ML SYRINGE IM STA (01:38)
[2020-12-10] MEDS ORDERED: KETOROLAC 15 MG/ML 1 ML VIAL IM STA (01:39)
--- NOTE | 2020-12-10 01:44 | ED ---
Back Pain HPI - General Chief Complaint: Back Pain/Injury Stated Complaint: back pain Time Seen by Provider: 12/10/20 01:28 Source: patient, EMS Limitations: no limitations - History of Present Illness Initial Comments: 55-year-old female patient with past medical history significant for chronic back pain, fibromyalgia, opioid dependence presents to the emergency department today for evaluation of increase in lower back pain. Patient states she is having pain to the right low back radiating into her hip and over the anterior thigh to about the knee. She denies any numbness or tingling to the lower extremities. Denies saddle anesthesia or loss of bowel or bladder control. Denies any fever or chills. Denies abdominal pain, nausea, or vomiting. States that her symptoms are consistent with her usual pain patterns. States that she is out of her home Percocet. She does have an appointment coming up with her neurologist next week. Patient denies any recent rash, cough, shortness of breath, chest pain, diarrhea, constipation, dizziness, weakness, hematuria, dysuria, urinary urgency, urinary frequency, headache, visual changes, or any other complaints. - Related Data Home Medications Medication Instructions Recorded Confirmed oxyCODONE-APAP 10-325MG [Percocet 1 tab PO TID PRN 09/16/20 09/16/20 10-325 mg] Allergies Allergy/AdvReac Type Severity Reaction Status Date / Time Penicillins Allergy Rash/Hives Verified 12/09/20 16:59 sulfamethoxazole Allergy Unknown Verified 12/09/20 16:59 [From Bactrim] venom-honey bee Allergy Anaphylaxis Verified 12/09/20 16:59 [bee venom (honey bee)] Review of Systems ROS Statement: Those systems with pertinent positive or pertinent negative responses have been documented in the HPI. ROS Other: All systems not noted in ROS Statement are negative. Past Medical History Past Medical History: Fibromyalgia, Hypertension, Musculoskeletal Disorder Additional Past Medical History / Comment(s): back pain, pt states she has lesions on her brain that could be the onset of MS, tachycardia History of Any Multi-Drug Resistant Organisms: None Reported Past Surgical History: Appendectomy, Hysterectomy Additional Past Surgical History / Comment(s): d&c, Past Anesthesia/Blood Transfusion Reactions: No Reported Reaction Past Psychological History: Anxiety, Depression, Panic Disorder, PTSD Smoking Status: Current every day smoker Past Alcohol Use History: None Reported Past Drug Use History: Opiates, Prescription Drug Abuse - Past Family History Mother Family Medical History: Cancer, Rheumatoid Arthritis (RA) Additional Family Medical History / Comment(s): lymphoma Father Family Medical History: Liver Disease Additional Family Medical History / Comment(s): Father had alcoholic cirrhosis. He is . Daughter(s) Family Medical History: Asthma General Exam Limitations: no limitations General appearance: alert, in no apparent distress, other (Physical well-d eveloped, well-nourished adult female patient in mild distress related to pain. Vital signs upon presentation are temperature 98.6F, pulse 102, respirations 18, blood pressure 147/102, pulse ox 98% on room air.) Respiratory exam: Present: normal lung sounds bilaterally. Absent: respiratory distress, wheezes, rales, rhonchi, stridor Cardiovascular Exam: Present: regular rate, normal rhythm, normal heart sounds. Absent: systolic murmur, diastolic murmur, rubs, gallop, clicks GI/Abdominal exam: Present: soft, normal bowel sounds. Absent: distended, tenderness, guarding, rebound, rigid Extremities exam: Present: normal inspection, full ROM, normal capillary refill, other (Skin to his lower extremities is pink, warm, dry. Cap refills less than 3 seconds. Pedal and posttibial pulses are 2+ and equal bilaterally to). Absent: tenderness, pedal edema, joint swelling, calf tenderness Back exam: Present: normal inspection. Absent: paraspinal tenderness, vertebral tenderness Neurological exam: Present: alert, oriented X3, CN II-XII intact, other (Strength in the lower extremities is 5/5.) Psychiatric exam: Present: normal affect, normal mood Skin exam: Present: warm, dry, intact, normal color. Absent: rash Course Vital Signs 12/10/20 01:28 Temperature 98.6 F Pulse Rate 102 H Respiratory 18 Rate Blood Pressure 147/102 O2 Sat by Pulse 98 Oximetry Medical Decision Making - Medical Decision Making 55-year-old female patient with past medical history significant for chronic back pain, fibromyalgia, opioid dependence presents to the emergency department today reporting increased pain to her lower back. States she is out of her home pain medication. Physical examination is unremarkable. She has no concerning symptoms for cauda equina. Blood pressure is somewhat elevated felt to be related to pain. She is afebrile. She'll be given doses of pain medication here in the department. Since she is unable to refill her home prescription until December 21 we will give her a fentanyl patch for pain management. She will be discharged follow-up with her neurologist as soon as possible. She states instructed to follow-up with her primary care physician for recheck in 1- 2 days. Return parameters were discussed in detail. She verbalizes understanding and agrees with this plan. Disposition Clinical Impression: Chronic back pain Disposition: HOME SELF-CARE Condition: Good Instructions (If sedation given, give patient instructions): Chronic Back Pain (DC) Additional Instructions: Follow-up with your neurologist as you have planned. Follow-up through primary care physician for recheck in 1-2 days. Return to the emergency department for any new, worsening, or concerning symptoms. Is patient prescribed a controlled substance at d/c from ED?: No Referrals: Bony Stapleton MD [STAFF PHYSICIAN] - 1-2 days Time of Disposition: 01:43
== END 2020-12-10 02:12 | disposition home or self-care (01) ==
LOC: EC 01:26
DX: G89.29 Other chronic pain (principal); M54.9 Dorsalgia, unspecified; I10 Essential (primary) hypertension; F17.200 Nicotine dependence, unspecified, uncomplicated; Z88.0 Allergy status to penicillin; Z88.1 Allergy status to other antibiotic agents; Z88.2 Allergy status to sulfonamides; Z91.030 Bee allergy status
CPT/HCPCS: 96372; 99283

== ENCOUNTER 2020-12-15 00:22 | Emergency (ER) | payer OTHER ==
[2020-12-15 00:28] VITALS: PULSE 80; TEMP 98.5
--- NOTE | 2020-12-15 00:42 | ED ---
Back Pain HPI - General Chief Complaint: Back Pain/Injury Stated Complaint: Back and hip pain Time Seen by Provider: 12/15/20 00:42 Source: patient, RN notes reviewed, old records reviewed Limitations: no limitations - History of Present Illness Initial Comments: This is a 55-year-old female who presents today for evaluation of recurrent acute on chronic back pain and hip pain. Right leg pain. Patient will this facility for similar complaints. Patient is recent trauma or injury. No loss of bowel or bladder. No fevers or other new complaints. Patient is on outpatient pain medication which she states she still has MD Complaint: back pain, other (Chronic back pain) -: days(s) Similar Symptoms Previously: Yes Place: home Radiation: none Severity: severe Severity scale (1-10): 10 Quality: sharp Consistency: constant Improves With: none Worsens With: none Context: unknown Associated Symptoms: denies other symptoms - Related Data Home Medications Medication Instructions Recorded Confirmed oxyCODONE-APAP 10-325MG [Percocet 1 tab PO TID PRN 09/16/20 09/16/20 10-325 mg] Allergies Allergy/AdvReac Type Severity Reaction Status Date / Time Penicillins Allergy Rash/Hives Verified 12/15/20 00:28 sulfamethoxazole Allergy Unknown Verified 12/15/20 00:28 [From Bactrim] venom-honey bee Allergy Anaphylaxis Verified 12/15/20 00:28 [bee venom (honey bee)] Review of Systems ROS Statement: Those systems with pertinent positive or pertinent negative responses have been documented in the HPI. ROS Other: All systems not noted in ROS Statement are negative. Past Medical History Past Medical History: Fibromyalgia, Hypertension, Musculoskeletal Disorder Additional Past Medical History / Comment(s): back pain, pt states she has lesions on her brain that could be the onset of MS, tachycardia History of Any Multi-Drug Resistant Organisms: None Reported Past Surgical History: Appendectomy, Hysterectomy Additional Past Surgical History / Comment(s): d&c, Past Anesthesia/Blood Transfusion Reactions: No Reported Reaction Past Psychological History: Anxiety, Depression, Panic Disorder, PTSD Smoking Status: Current every day smoker Past Alcohol Use History: None Reported Past Drug Use History: Opiates, Prescription Drug Abuse - Past Family History Mother Family Medical History: Cancer, Rheumatoid Arthritis (RA) Additional Family Medical History / Comment(s): lymphoma Father Family Medical History: Liver Disease Additional Family Medical History / Comment(s): Father had alcoholic cirrhosis. He is . Daughter(s) Family Medical History: Asthma General Exam Limitations: no limitations General appearance: alert, in no apparent distress Head exam: Present: atraumatic, normocephalic, normal inspection Eye exam: Present: normal appearance, PERRL, EOMI. Absent: scleral icterus, conjunctival injection, periorbital swelling ENT exam: Present: normal exam, mucous membranes moist Neck exam: Present: normal inspection. Absent: tenderness, meningismus, lymphadenopathy Respiratory exam: Present: normal lung sounds bilaterally. Absent: respiratory distress, wheezes, rales, rhonchi, stridor Cardiovascular Exam: Present: regular rate, normal rhythm, normal heart sounds. Absent: systolic murmur, diastolic murmur, rubs, gallop, clicks GI/Abdominal exam: Present: soft, normal bowel sounds. Absent: distended, tenderness, guarding, rebound, rigid Extremities exam: Present: normal inspection, full ROM, normal capillary refill. Absent: tenderness, pedal edema, joint swelling, calf tenderness Back exam: Present: normal inspection Neurological exam: Present: alert, oriented X3, CN II-XII intact Psychiatric exam: Present: normal affect, normal mood Skin exam: Present: warm, dry, intact, normal color. Absent: rash Course Vital Signs 12/15/20 00:24 Temperature 98.5 F Pulse Rate 80 Respiratory 18 Rate Blood Pressure 137/102 O2 Sat by Pulse 100 Oximetry - Reevaluation(s) Reevaluation #1: 12/15/20 01:07 Medical record is reviewed, prior ER visits are reviewed Reevaluation #2: 12/15/20 02:07 Patient has pain control Patient feels good for discharge Medical Decision Making - Medical Decision Making 55 female DF for evaluation patient with acute on chronic back pain right leg pain hip pain. Patient has results resolution of pain here in the ER can be discharged home Disposition Clinical Impression: Chronic back pain greater than 3 months duration, Intractable back pain, Low back pain Disposition: HOME SELF-CARE Condition: Good Instructions (If sedation given, give patient instructions): Acute Low Back Pain (ED) Is patient prescribed a controlled substance at d/c from ED?: No Referrals: None,Stated [Primary Care Provider] - 1-2 days
[2020-12-15] MEDS ORDERED: ACET/COD 300 MG/30 MG STARTER PACK 6 TAB BTL PO STA (00:59)
[2020-12-15] MEDS ORDERED: HYDROmorphone 1 MG/ML 1 ML SYRINGE IM STA (00:59)
[2020-12-15] MEDS ORDERED: LORazepam 1 MG TAB PO STA (00:59)
[2020-12-15] MEDS ORDERED: ETODOLAC 400 MG TAB PO ONE (01:15)
[2020-12-15 01:51] VITALS: BP 148/86; RESP 20
== END 2020-12-15 02:57 | disposition home or self-care (01) ==
LOC: EC 00:22
DX: G89.29 Other chronic pain (principal); M54.5 Low back pain; I10 Essential (primary) hypertension; F17.200 Nicotine dependence, unspecified, uncomplicated; Z88.0 Allergy status to penicillin; Z88.1 Allergy status to other antibiotic agents; Z88.2 Allergy status to sulfonamides; Z91.030 Bee allergy status
CPT/HCPCS: 99283; 96372; J1170

== ENCOUNTER 2020-12-24 23:48 | Emergency (ER) | payer OTHER ==
[2020-12-24 23:51] VITALS: RESP 18
--- NOTE | 2020-12-25 00:10 | ED ---
Recheck HPI - General Chief Complaint: Back Pain/Injury Stated Complaint: Back Pain Time Seen by Provider: 12/24/20 23:49 Source: patient, RN notes reviewed, old records reviewed Mode of arrival: ambulatory Limitations: no limitations - History of Present Illness Initial Comments: This is a 55-year-old female DF for evaluation patient presents today for evaluation regarding acute on chronic pain recurrent pain. Patient have follow- up with her pain management physician she was unable to make appointment. Patient presents today for pain management. No new injuries no new pain noted there are no new neurological complaints of back pain MD Complaint: medication refill request -: days(s) Returns Today for: request for prescription, persistent/worsening pain related to initial visit Symptoms Since Prior Visit: worsening pain Context: ran out of medication Associated Symptoms: chills, nausea Treatments Prior to Arrival: Given Pain Meds on - Related Data Home Medications Medication Instructions Recorded Confirmed oxyCODONE-APAP 10-325MG [Percocet 1 tab PO TID PRN 09/16/20 09/16/20 10-325 mg] Allergies Allergy/AdvReac Type Severity Reaction Status Date / Time Penicillins Allergy Rash/Hives Verified 12/24/20 23:51 sulfamethoxazole Allergy Unknown Verified 12/24/20 23:51 [From Bactrim] venom-honey bee Allergy Anaphylaxis Verified 12/24/20 23:51 [bee venom (honey bee)] Review of Systems ROS Statement: Those systems with pertinent positive or pertinent negative responses have been documented in the HPI. ROS Other: All systems not noted in ROS Statement are negative. Past Medical History Past Medical History: Fibromyalgia, Hypertension, Musculoskeletal Disorder Additional Past Medical History / Comment(s): back pain, pt states she has lesions on her brain that could be the onset of MS, tachycardia History of Any Multi-Drug Resistant Organisms: None Reported Past Surgical History: Appendectomy, Hysterectomy Additional Past Surgical History / Comment(s): d&c, Past Anesthesia/Blood Transfusion Reactions: No Reported Reaction Past Psychological History: Anxiety, Depression, Panic Disorder, PTSD Smoking Status: Current every day smoker Past Alcohol Use History: None Reported Past Drug Use History: Opiates, Prescription Drug Abuse - Past Family History Mother Family Medical History: Cancer, Rheumatoid Arthritis (RA) Additional Family Medical History / Comment(s): lymphoma Father Family Medical History: Liver Disease Additional Family Medical History / Comment(s): Father had alcoholic cirrhosis. He is . Daughter(s) Family Medical History: Asthma General Exam Limitations: no limitations General appearance: alert, in no apparent distress Head exam: Present: atraumatic, normocephalic, normal inspection Eye exam: Present: normal appearance, PERRL, EOMI. Absent: scleral icterus, conjunctival injection, periorbital swelling ENT exam: Present: normal exam, mucous membranes moist Neck exam: Present: normal inspection. Absent: tenderness, meningismus, lymphadenopathy Respiratory exam: Present: normal lung sounds bilaterally. Absent: respiratory distress, wheezes, rales, rhonchi, stridor Cardiovascular Exam: Present: regular rate, normal rhythm, normal heart sounds. Absent: systolic murmur, diastolic murmur, rubs, gallop, clicks GI/Abdominal exam: Present: soft, normal bowel sounds. Absent: distended, tenderness, guarding, rebound, rigid Extremities exam: Present: normal inspection, full ROM, normal capillary refill. Absent: tenderness, pedal edema, joint swelling, calf tenderness Back exam: Present: normal inspection Neurological exam: Present: alert, oriented X3, CN II-XII intact Psychiatric exam: Present: normal affect, normal mood Skin exam: Present: warm, dry, intact, normal color. Absent: rash Course Vital Signs 12/24/20 23:48 Temperature 98.8 F Pulse Rate 73 Respiratory 18 Rate Blood Pressure 147/102 O2 Sat by Pulse 100 Oximetry - Reevaluation(s) Reevaluation #1: 12/25/20 00:57 medical record is reviewed Reevaluation #2: 12/25/20 00:57 patient pain is revolved Medical Decision Making - Medical Decision Making 55 female DF for evaluation of acute on chronic back pain. Pain is well- controlled here in the ER she feels comfortable with discharge home able ambul ate without difficulty, is here with her daughter Disposition Clinical Impression: Back pain, Chronic back pain greater than 3 months duration, Fibromyalgia, Mechanical back pain, Intractable back pain Disposition: HOME SELF-CARE Condition: Fair Instructions (If sedation given, give patient instructions): Acute Low Back Pain (ED) Is patient prescribed a controlled substance at d/c from ED?: No Referrals: None,Stated [Primary Care Provider] - 1-2 days
[2020-12-25] MEDS ORDERED: HYDROmorphone 1 MG/ML 1 ML SYRINGE IM STA (00:13)
[2020-12-25] MEDS ORDERED: ETODOLAC 400 MG TAB PO STA (00:13)
[2020-12-25] MEDS ORDERED: LORazepam 1 MG TAB PO STA (00:13)
[2020-12-25] MEDS ORDERED: ACET/COD 300 MG/30 MG STARTER PACK 6 TAB BTL PO STA (00:13)
[2020-12-25] MEDS ORDERED: diphenhydrAMINE 25 MG CAP PO STA (00:14)
--- NOTE | 2020-12-25 01:00 | ED ---
Medical Decision Making - Medical Decision Making addendum for possible follow up Disposition Clinical Impression: Intractable back pain, Thoracic back pain, Fibromyalgia, Back pain, Chronic back pain greater than 3 months duration, Mechanical back pain Disposition: HOME SELF-CARE Condition: Fair Instructions (If sedation given, give patient instructions): Acute Low Back Pain (ED) Is patient prescribed a controlled substance at d/c from ED?: No Referrals: Aristides Jc MD [REFERRING] - 1-2 days
[2020-12-25 01:16] VITALS: BP 129/91; PULSE 97; TEMP 98
== END 2020-12-25 01:16 | disposition home or self-care (01) ==
LOC: EC 23:48
DX: G89.29 Other chronic pain (principal); M54.6 Pain in thoracic spine; M79.7 Fibromyalgia; F17.200 Nicotine dependence, unspecified, uncomplicated; Z88.0 Allergy status to penicillin; Z88.2 Allergy status to sulfonamides; Z91.030 Bee allergy status
CPT/HCPCS: 99284; 96372 ×2; J1170

== ENCOUNTER 2020-12-30 01:08 | Emergency (ER) | payer OTHER ==
[2020-12-30] MEDS ORDERED: diphenhydrAMINE 50 MG CAP PO STA (01:12)
[2020-12-30] MEDS ORDERED: HYDROmorphone 1 MG/ML 1 ML SYRINGE IM STA (01:12)
[2020-12-30] MEDS ORDERED: LORazepam 1 MG TAB PO STA (01:12)
[2020-12-30] MEDS ORDERED: ACET/COD 300 MG/30 MG STARTER PACK 6 TAB BTL PO STA (01:12)
--- NOTE | 2020-12-30 01:12 | ED ---
Recheck HPI - General Stated Complaint: Back Pain Time Seen by Provider: 12/30/20 01:10 Source: RN notes reviewed, old records reviewed Limitations: no limitations - History of Present Illness Initial Comments: This is a 55-year-old female to the ER for evaluation patient has severe back pain chronic back pain acute on chronic back pain. Patient has acute on chronic back pain. Here for medication refill pain control MD Complaint: other (Severe back pain) -: year(s) Returns Today for: persistent/worsening pain related to initial visit Symptoms Since Prior Visit: worsening pain Context: ran out of medication Associated Symptoms: none Treatments Prior to Arrival: Given Pain Meds on - Related Data Home Medications Medication Instructions Recorded Confirmed oxyCODONE-APAP 10-325MG [Percocet 1 tab PO TID PRN 09/16/20 09/16/20 10-325 mg] Allergies Allergy/AdvReac Type Severity Reaction Status Date / Time Penicillins Allergy Rash/Hives Verified 01/03/21 00:32 sulfamethoxazole Allergy Unknown Verified 01/03/21 00:32 [From Bactrim] venom-honey bee Allergy Anaphylaxis Verified 01/03/21 00:32 [bee venom (honey bee)] Review of Systems ROS Statement: Those systems with pertinent positive or pertinent negative responses have been documented in the HPI. ROS Other: All systems not noted in ROS Statement are negative. Past Medical History Past Medical History: Fibromyalgia, Hypertension, Musculoskeletal Disorder Additional Past Medical History / Comment(s): back pain, pt states she has lesions on her brain that could be the onset of MS, tachycardia History of Any Multi-Drug Resistant Organisms: None Reported Past Surgical History: Appendectomy, Hysterectomy Additional Past Surgical History / Comment(s): d&c, Past Anesthesia/Blood Transfusion Reactions: No Reported Reaction Past Psychological History: Anxiety, Depression, Panic Disorder, PTSD Smoking Status: Current every day smoker Past Alcohol Use History: None Reported Past Drug Use History: Opiates, Prescription Drug Abuse - Past Family History Mother Family Medical History: Cancer, Rheumatoid Arthritis (RA) Additional Family Medical History / Comment(s): lymphoma Father Family Medical History: Liver Disease Additional Family Medical History / Comment(s): Father had alcoholic cirrhosis. He is . Daughter(s) Family Medical History: Asthma General Exam General appearance: alert, in no apparent distress Head exam: Present: atraumatic, normocephalic, normal inspection Eye exam: Present: normal appearance, PERRL, EOMI. Absent: scleral icterus, conjunctival injection, periorbital swelling ENT exam: Present: normal exam, mucous membranes moist Neck exam: Present: normal inspection. Absent: tenderness, meningismus, lymphadenopathy Respiratory exam: Present: normal lung sounds bilaterally. Absent: respiratory distress, wheezes, rales, rhonchi, stridor Cardiovascular Exam: Present: regular rate, normal rhythm, normal heart sounds. Absent: systolic murmur, diastolic murmur, rubs, gallop, clicks GI/Abdominal exam: Present: soft, normal bowel sounds. Absent: distended, tenderness, guarding, rebound, rigid Extremities exam: Present: normal inspection, full ROM, normal capillary refill. Absent: tenderness, pedal edema, joint swelling, calf tenderness Back exam: Present: normal inspection Neurological exam: Present: alert, oriented X3, CN II-XII intact Psychiatric exam: Present: normal affect, normal mood Skin exam: Present: warm, dry, intact, normal color. Absent: rash Course Vital Signs 12/30/20 12/30/20 01:12 03:05 Temperature 99.5 F 99.1 F Pulse Rate 110 H 97 Respiratory 18 18 Rate Blood Pressure 103/89 122/84 O2 Sat by Pulse 99 99 Oximetry - Reevaluation(s) Reevaluation #1: Medical record is reviewed Patient symptoms are improved here in the ER Patient informed results and questions have been answered Patient feels good for discharge home Medical Decision Making - Medical Decision Making 55 female DF for evaluation of acute on chronic back pain, pain is now controlled here in the ER she can be discharged home Disposition Clinical Impression: Back pain, Chronic back pain greater than 3 months duration Disposition: HOME SELF-CARE Condition: Good Instructions (If sedation given, give patient instructions): Acute Low Back Pain (ED) Is patient prescribed a controlled substance at d/c from ED?: No Referrals: Aamir Leo MD [STAFF PHYSICIAN] - 1-2 days Anny Starks MD [Doctor of Osteopathic Medicine] - 1-2 days Michael Dove MD [Medical Doctor] - 1-2 days Jourdan Maya MD [REFERRING] - 1-2 days
[2020-12-30 01:13] VITALS: RESP 18
[2020-12-30 03:06] VITALS: BP 122/84; PULSE 97; TEMP 99.1
[2020-12-30] MEDS ORDERED: ETODOLAC 400 MG TAB PO ONE (04:00)
== END 2020-12-30 03:06 | disposition home or self-care (01) ==
LOC: EC 01:08
DX: M54.9 Dorsalgia, unspecified (principal); G89.29 Other chronic pain; I10 Essential (primary) hypertension; M79.7 Fibromyalgia; F43.10 Post-traumatic stress disorder, unspecified; F41.0 Panic disorder [episodic paroxysmal anxiety]; F41.9 Anxiety disorder, unspecified; F32.9 Major depressive disorder, single episode, unspecified; F17.200 Nicotine dependence, unspecified, uncomplicated; Z88.0 Allergy status to penicillin; Z88.2 Allergy status to sulfonamides; Z88.1 Allergy status to other antibiotic agents; Z91.030 Bee allergy status; Z90.49 Acquired absence of other specified parts of digestive tract; Z90.710 Acquired absence of both cervix and uterus; Z81.1 Family history of alcohol abuse and dependence; Z82.61 Family history of arthritis; Z82.5 Family history of asthma and other chronic lower respiratory diseases; Z80.7 Family history of other malignant neoplasms of lymphoid, hematopoietic and related tissues; Z83.79 Family history of other diseases of the digestive system
CPT/HCPCS: 99283; J1170; 96374

== ENCOUNTER 2021-01-03 00:28 | Emergency (ER) | payer OTHER ==
[2021-01-03 00:35] VITALS: TEMP 97.9
[2021-01-03] MEDS ORDERED: HYDROmorphone 0.5 MG/0.5 ML SYRINGE IM STA (01:00)
--- NOTE | 2021-01-03 01:09 | ED ---
Back Pain HPI - General Chief Complaint: Back Pain/Injury Stated Complaint: BACK PAIN Time Seen by Provider: 01/03/21 00:35 Source: patient Limitations: no limitations - History of Present Illness Initial Comments: This patient is a 55-year-old woman who presents with complaint that her back pain is flaring up. Patient states she has had years of chronic back pain. She states that she was seeing Dr. Stapleton who is managing her pain. She states that she was let go from his practice because he wanted to taper her medications and she did not agree. She denies any new injury. Patient denies new symptoms. There is no weakness or numbness of the extremities. No loss of bladder or bowel function. No saddle anesthesia. There is no abdominal pain. MD Complaint: back pain -: year(s) Similar Symptoms Previously: Yes Radiation: none Severity: severe Quality: aching Consistency: constant Improves With: none Worsens With: none Associated Symptoms: denies other symptoms - Related Data Home Medications Medication Instructions Recorded Confirmed oxyCODONE-APAP 10-325MG [Percocet 1 tab PO TID PRN 09/16/20 09/16/20 10-325 mg] Allergies Allergy/AdvReac Type Severity Reaction Status Date / Time Penicillins Allergy Rash/Hives Verified 01/03/21 00:32 sulfamethoxazole Allergy Unknown Verified 01/03/21 00:32 [From Bactrim] venom-honey bee Allergy Anaphylaxis Verified 01/03/21 00:32 [bee venom (honey bee)] Review of Systems ROS Statement: Those systems with pertinent positive or pertinent negative responses have been documented in the HPI. ROS Other: All systems not noted in ROS Statement are negative. Constitutional: Denies: fever, chills, weakness Respiratory: Denies: cough, dyspnea Cardiovascular: Denies: chest pain, edema Gastrointestinal: Denies: abdominal pain Genitourinary: Denies: dysuria Musculoskeletal: Reports: as per HPI, back pain Skin: Denies: rash Neurological: Denies: weakness, numbness, paresthesias Past Medical History Past Medical History: Fibromyalgia, Hypertension, Musculoskeletal Disorder Additional Past Medical History / Comment(s): back pain, pt states she has l esions on her brain that could be the onset of MS, tachycardia History of Any Multi-Drug Resistant Organisms: None Reported Past Surgical History: Appendectomy, Hysterectomy Additional Past Surgical History / Comment(s): d&c, Past Anesthesia/Blood Transfusion Reactions: No Reported Reaction Past Psychological History: Anxiety, Depression, Panic Disorder, PTSD Smoking Status: Current every day smoker Past Alcohol Use History: None Reported Past Drug Use History: Opiates, Prescription Drug Abuse - Past Family History Mother Family Medical History: Cancer, Rheumatoid Arthritis (RA) Additional Family Medical History / Comment(s): lymphoma Father Family Medical History: Liver Disease Additional Family Medical History / Comment(s): Father had alcoholic cirrhosis. He is . Daughter(s) Family Medical History: Asthma General Exam Limitations: no limitations General appearance: alert, in no apparent distress Head exam: Present: atraumatic. Absent: normocephalic Eye exam: Present: normal appearance. Absent: scleral icterus, conjunctival injection Respiratory exam: Present: normal lung sounds bilaterally. Absent: respiratory distress, wheezes, rales, rhonchi, stridor Cardiovascular Exam: Present: normal rhythm, tachycardia, normal heart sounds. Absent: systolic murmur, diastolic murmur, rubs, gallop GI/Abdominal exam: Present: soft. Absent: distended, tenderness, guarding, rebound, rigid, mass Extremities exam: Present: normal inspection, normal capillary refill. Absent: pedal edema, calf tenderness Back exam: Present: normal inspection. Absent: CVA tenderness (R), CVA tenderness (L), paraspinal tenderness, vertebral tenderness Neurological exam: Present: alert, reflexes normal. Absent: motor sensory deficit Skin exam: Present: warm, dry, intact, normal color. Absent: rash Course Vital Signs 01/03/21 00:32 Temperature 97.9 F Pulse Rate 188 H Respiratory 18 Rate Blood Pressure 142/95 O2 Sat by Pulse 98 Oximetry Disposition Clinical Impression: Chronic back pain greater than 3 months duration Disposition: HOME SELF-CARE Condition: Good Instructions (If sedation given, give patient instructions): Chronic Back Pain (DC) Is patient prescribed a controlled substance at d/c from ED?: No Referrals: None,Stated [Primary Care Provider] - 1-2 days Shahab Fulton MD [REFERRING] - 1-2 days
[2021-01-03 01:48] VITALS: BP 134/92; PULSE 101; RESP 16
== END 2021-01-03 01:48 | disposition home or self-care (01) ==
LOC: EC 00:28
DX: G89.29 Other chronic pain (principal); M54.9 Dorsalgia, unspecified; F17.200 Nicotine dependence, unspecified, uncomplicated; Z88.0 Allergy status to penicillin; Z88.2 Allergy status to sulfonamides; Z91.030 Bee allergy status
CPT/HCPCS: 99283; 96372; J1170

== ENCOUNTER 2021-01-04 01:39 | Emergency (ER) | payer OTHER ==
[2021-01-04 01:48] VITALS: RESP 18; TEMP 98.7
[2021-01-04] MEDS ORDERED: HYDROmorphone 1 MG/ML 1 ML SYRINGE IM STA (01:54)
[2021-01-04] MEDS ORDERED: ORPHENADRINE 30 MG/ML 2 ML VIAL IM STA (01:54)
--- NOTE | 2021-01-04 01:57 | ED ---
General Adult HPI - General Chief complaint: Back Pain/Injury Stated complaint: Lower Back Pain Time Seen by Provider: 01/04/21 01:41 Source: patient, EMS Mode of arrival: EMS Limitations: no limitations - History of Present Illness Initial comments: 55 year-old male patient presents to the emergency department for evaluation of increase in her chronic back pain. She states that she was evaluated last night and they gave her a fentanyl patch that was a much smaller dose. States that she has been having pain all day. Denies any new pain or change to her type of pain, states it is just getting worse. She denies any chest pain, shortness of breath, abdominal pain, fever or chills. Patient denies numbness or tingling to her lower extremities. Denies saddle anesthesia or loss of bowel or bladder control. Denies any hematuria, dysuria, urinary frequency, or urinary urgency. Patient denies any recent rash, cough, shortness of breath, chest pain, nausea, vomiting, diarrhea, constipation, dizziness, weakness, headache, visual changes, or any other complaints. - Related Data Home Medications Medication Instructions Recorded Confirmed oxyCODONE-APAP 10-325MG [Percocet 1 tab PO TID PRN 09/16/20 09/16/20 10-325 mg] Allergies Allergy/AdvReac Type Severity Reaction Status Date / Time Penicillins Allergy Rash/Hives Verified 01/03/21 00:32 sulfamethoxazole Allergy Unknown Verified 01/03/21 00:32 [From Bactrim] venom-honey bee Allergy Anaphylaxis Verified 01/03/21 00:32 [bee venom (honey bee)] Review of Systems ROS Statement: Those systems with pertinent positive or pertinent negative responses have been documented in the HPI. ROS Other: All systems not noted in ROS Statement are negative. Past Medical History Past Medical History: Fibromyalgia, Hypertension, Musculoskeletal Disorder Additional Past Medical History / Comment(s): back pain, pt states she has lesions on her brain that could be the onset of MS, tachycardia History of Any Multi-Drug Resistant Organisms: None Reported Past Surgical History: Appendectomy, Hysterectomy Additional Past Surgical History / Comment(s): d&c, Past Anesthesia/Blood Transfusion Reactions: No Reported Reaction Past Psychological History: Anxiety, Depression, Panic Disorder, PTSD Smoking Status: Current every day smoker Past Alcohol Use History: None Reported Past Drug Use History: Opiates, Prescription Drug Abuse - Past Family History Mother Family Medical History: Cancer, Rheumatoid Arthritis (RA) Additional Family Medical History / Comment(s): lymphoma Father Family Medical History: Liver Disease Additional Family Medical History / Comment(s): Father had alcoholic cirrhosis. He is . Daughter(s) Family Medical History: Asthma General Exam Limitations: no limitations General appearance: alert, in no apparent distress, other (This is a well- developed, well-nourished adult female patient in mild distress related to pain. Vital signs upon presentation are temperature 98.7F, pulse 96, respirations 18, blood pressure 115/87, pulse ox 100% on room air.) Eye exam: Present: normal appearance, PERRL, EOMI. Absent: scleral icterus, conjunctival injection, periorbital swelling ENT exam: Present: normal exam, normal oropharynx, mucous membranes moist Respiratory exam: Present: normal lung sounds bilaterally. Absent: respiratory distress, wheezes, rales, rhonchi, stridor Cardiovascular Exam: Present: regular rate, normal rhythm, normal heart sounds. Absent: systolic murmur, diastolic murmur, rubs, gallop, clicks GI/Abdominal exam: Present: soft, normal bowel sounds. Absent: distended, tenderness, guarding, rebound, rigid Extremities exam: Present: normal inspection, full ROM, normal capillary refill, other (Skin to the lower extremities is pink, warm, dry. Cap refill less than 3 seconds. Pedal and posttibial pulses are 2+.). Absent: tenderness, pedal edema, joint swelling, calf tenderness Back exam: Present: normal inspection. Absent: vertebral tenderness Neurological exam: Present: alert, oriented X3, CN II-XII intact Psychiatric exam: Present: normal affect, normal mood Skin exam: Present: warm, dry, intact, normal color. Absent: rash Course Vital Signs 01/04/21 01:41 Temperature 98.7 F Pulse Rate 96 Respiratory 18 Rate Blood Pressure 115/87 O2 Sat by Pulse 100 Oximetry Medical Decision Making - Medical Decision Making 55-year-old female patient with history of chronic back pain presents to the emergency department today for increasing pain. Denies any change to her type of pain or location of pain states that his consistent with her usual chronic pain patterns. She is recently dropped from her paint brush maker and has no pain medication at home. She was seen and evaluated in the ER last night was given a 12 g fentanyl patch as well as an injection of pain medication while here. States that this medication is not helping her. We will change the patch to a 25 g patch give 1 dose of pain medicine here and she'll be discharged to follow-up with new paint brush maker as soon as possible. She is instructed to follow up with her primary care physician for recheck in 1-2 days. Return parameters were discussed in detail patient verbalizes understanding and agrees with this plan. Case discussed with my attending Dr. Gonzalez. Disposition Clinical Impression: Chronic back pain Disposition: HOME SELF-CARE Condition: Good Instructions (If sedation given, give patient instructions): Chronic Back Pain (DC) Additional Instructions: Follow up with pain management as soon as possible. Follow up with your primary care physician for recheck in 1-2 days. Return to the emergency department for any new, worsening, or concerning symptoms. Is patient prescribed a controlled substance at d/c from ED?: No Referrals: None,Stated [Primary Care Provider] - 1-2 days Time of Disposition: 01:57
[2021-01-04 03:17] VITALS: BP 121/85; PULSE 92
== END 2021-01-04 02:30 | disposition home or self-care (01) ==
LOC: EC 01:39
DX: G89.29 Other chronic pain (principal); M54.9 Dorsalgia, unspecified; I10 Essential (primary) hypertension; F17.200 Nicotine dependence, unspecified, uncomplicated; Z88.0 Allergy status to penicillin; Z88.2 Allergy status to sulfonamides; Z91.030 Bee allergy status
CPT/HCPCS: 99283; 96372 ×2; J2360; J1170

== ENCOUNTER 2021-01-06 23:43 | Emergency (ER) | payer OTHER ==
--- NOTE | 2021-01-06 23:50 | ED ---
Recheck HPI - General Stated Complaint: Back Pain Time Seen by Provider: 01/06/21 23:48 Source: RN notes reviewed, old records reviewed Limitations: no limitations - History of Present Illness Initial Comments: This is a 55-year-old female DF for evaluation. Patient's wound was facility for evaluation of back pain severe acute on chronic back pain. Patient suffers from this for years and has provocation and dehydration. Patient main issue is difficulty finding pain control physician her primary care doctor secondary to both insurance issues lack of resources, lack of mobility and lack of money. MD Complaint: medication refill request -: days(s) Returns Today for: request for prescription, persistent/worsening pain related to initial visit Symptoms Since Prior Visit: improved Context: ran out of medication Associated Symptoms: none Treatments Prior to Arrival: Given Pain Meds on - Related Data Home Medications Medication Instructions Recorded Confirmed oxyCODONE-APAP 10-325MG [Percocet 1 tab PO TID PRN 09/16/20 09/16/20 10-325 mg] Allergies Allergy/AdvReac Type Severity Reaction Status Date / Time Penicillins Allergy Rash/Hives Verified 01/03/21 00:32 sulfamethoxazole Allergy Unknown Verified 01/03/21 00:32 [From Bactrim] venom-honey bee Allergy Anaphylaxis Verified 01/03/21 00:32 [bee venom (honey bee)] Review of Systems ROS Statement: Those systems with pertinent positive or pertinent negative responses have been documented in the HPI. ROS Other: All systems not noted in ROS Statement are negative. Past Medical History Past Medical History: Fibromyalgia, Hypertension, Musculoskeletal Disorder Additional Past Medical History / Comment(s): back pain, pt states she has lesions on her brain that could be the onset of MS, tachycardia History of Any Multi-Drug Resistant Organisms: None Reported Past Surgical History: Appendectomy, Hysterectomy Additional Past Surgical History / Comment(s): d&c, Past Anesthesia/Blood Transfusion Reactions: No Reported Reaction Past Psychological History: Anxiety, Depression, Panic Disorder, PTSD Smoking Status: Current every day smoker Past Alcohol Use History: None Reported Past Drug Use History: Opiates, Prescription Drug Abuse - Past Family History Mother Family Medical History: Cancer, Rheumatoid Arthritis (RA) Additional Family Medical History / Comment(s): lymphoma Father Family Medical History: Liver Disease Additional Family Medical History / Comment(s): Father had alcoholic cirrhosis. He is . Daughter(s) Family Medical History: Asthma General Exam General appearance: alert, in no apparent distress, anxious Head exam: Present: atraumatic, normocephalic, normal inspection Eye exam: Present: normal appearance, PERRL, EOMI. Absent: scleral icterus, c onjunctival injection, periorbital swelling ENT exam: Present: normal exam, mucous membranes moist Neck exam: Present: normal inspection. Absent: tenderness, meningismus, lymphadenopathy Respiratory exam: Present: normal lung sounds bilaterally. Absent: respiratory distress, wheezes, rales, rhonchi, stridor Cardiovascular Exam: Present: regular rate, normal rhythm, normal heart sounds. Absent: systolic murmur, diastolic murmur, rubs, gallop, clicks GI/Abdominal exam: Present: soft, normal bowel sounds. Absent: distended, tenderness, guarding, rebound, rigid Extremities exam: Present: normal inspection, full ROM, normal capillary refill. Absent: tenderness, pedal edema, joint swelling, calf tenderness Back exam: Present: normal inspection Neurological exam: Present: alert, oriented X3, CN II-XII intact Psychiatric exam: Present: normal affect, normal mood Skin exam: Present: warm, dry, intact, normal color. Absent: rash Course Vital Signs 01/06/21 23:52 Temperature 98 F Pulse Rate 126 H Respiratory 20 Rate Blood Pressure 147/95 O2 Sat by Pulse 98 Oximetry - Reevaluation(s) Reevaluation #1: 01/07/21 00:04 Medical records reviewed 01/07/21 00:04 Patient is well-known to myself for this facility, we will continue to help patient with withdrawal symptoms and trying to get her to future primary care Reevaluation #2: 01/07/21 01:04 Symptoms resolved Medical Decision Making - Medical Decision Making 55 female with acute on chronic back pain. Patient given pain control here in the ER more resources and can be discharged home Disposition Clinical Impression: Chronic back pain, Intractable back pain Disposition: HOME SELF-CARE Condition: Fair Instructions (If sedation given, give patient instructions): Acute Low Back Pain (ED) Is patient prescribed a controlled substance at d/c from ED?: No Referrals: None,Stated [Primary Care Provider] - 1-2 days
[2021-01-06 23:55] VITALS: TEMP 98
[2021-01-07] MEDS ORDERED: ETODOLAC 400 MG TAB PO STA (00:13)
[2021-01-07] MEDS ORDERED: HYDROmorphone 1 MG/ML 1 ML SYRINGE IM STA (00:13)
[2021-01-07] MEDS ORDERED: diphenhydrAMINE 50 MG CAP PO STA (00:13)
[2021-01-07] MEDS ORDERED: LORazepam 1 MG TAB PO STA (00:13)
[2021-01-07 01:18] VITALS: BP 131/85; PULSE 72; RESP 18
== END 2021-01-07 01:26 | disposition home or self-care (01) ==
LOC: EC 23:43
DX: G89.29 Other chronic pain (principal); M54.9 Dorsalgia, unspecified; M79.7 Fibromyalgia; I10 Essential (primary) hypertension; F17.200 Nicotine dependence, unspecified, uncomplicated; Z88.0 Allergy status to penicillin; Z88.2 Allergy status to sulfonamides; Z91.030 Bee allergy status
CPT/HCPCS: 99284; 96372; J1170

== ENCOUNTER 2021-01-09 19:46 | Emergency (ER) | payer OTHER ==
--- NOTE | 2021-01-09 20:16 | ED ---
Back Pain HPI - General Chief Complaint: Back Pain/Injury Stated Complaint: Back Pain Time Seen by Provider: 01/09/21 20:03 Source: patient, RN notes reviewed Limitations: no limitations - History of Present Illness Initial Comments: Patient is a 55-year-old female that comes emergency room complaining of back pain. She is regularly emergency department every several days to get pain medication, as she states that she is between pain medicine doctors. She denies she's been coming to the ER for the last month or 2 try to cover for the pain doctor. She said the pain is a 10 out of 10 constant with no relief. Her last visit she was given a 50 g patch of fentanyl which she stated helped but wore off today. She denied any new injury or trauma, chest pain shortness of breath headache nausea vomiting diarrhea comes patient fever fatigue weakness numbness tingling. - Related Data Home Medications Medication Instructions Recorded Confirmed oxyCODONE-APAP 10-325MG [Percocet 1 tab PO TID PRN 09/16/20 09/16/20 10-325 mg] Allergies Allergy/AdvReac Type Severity Reaction Status Date / Time Penicillins Allergy Rash/Hives Verified 01/09/21 19:52 sulfamethoxazole Allergy Unknown Verified 01/09/21 19:52 [From Bactrim] venom-honey bee Allergy Anaphylaxis Verified 01/09/21 19:52 [bee venom (honey bee)] Review of Systems ROS Statement: Those systems with pertinent positive or pertinent negative responses have been documented in the HPI. ROS Other: All systems not noted in ROS Statement are negative. Past Medical History Past Medical History: Fibromyalgia, Hypertension, Musculoskeletal Disorder Additional Past Medical History / Comment(s): back pain, pt states she has lesions on her brain that could be the onset of MS, tachycardia History of Any Multi-Drug Resistant Organisms: None Reported Past Surgical History: Appendectomy, Hysterectomy Additional Past Surgical History / Comment(s): d&c, Past Anesthesia/Blood Transfusion Reactions: No Reported Reaction Past Psychological History: Anxiety, Depression, Panic Disorder, PTSD Smoking Status: Current every day smoker Past Alcohol Use History: None Reported Past Drug Use History: Opiates, Prescription Drug Abuse - Past Family History Mother Family Medical History: Cancer, Rheumatoid Arthritis (RA) Additional Family Medical History / Comment(s): lymphoma Father Family Medical History: Liver Disease Additional Family Medical History / Comment(s): Father had alcoholic cirrhosis. He is . Daughter(s) Family Medical History: Asthma General Exam Limitations: no limitations General appearance: alert, in distress Head exam: Present: atraumatic, normocephalic, normal inspection Eye exam: Present: normal appearance, PERRL, EOMI. Absent: scleral icterus, conjunctival injection, periorbital swelling Neck exam: Present: normal inspection. Absent: tenderness, meningismus, lymphadenopathy Respiratory exam: Present: normal lung sounds bilaterally. Absent: respiratory distress, wheezes, rales, rhonchi, stridor Cardiovascular Exam: Present: regular rate, normal rhythm, normal heart sounds. Absent: systolic murmur, diastolic murmur, rubs, gallop, clicks GI/Abdominal exam: Present: soft, normal bowel sounds. Absent: distended, tenderness, guarding, rebound, rigid Extremities exam: Present: normal inspection, full ROM, normal capillary refill. Absent: tenderness, pedal edema, joint swelling, calf tenderness Back exam: Present: normal inspection, tenderness (Lumbar sacral region.) Neurological exam: Present: alert, oriented X3, CN II-XII intact Psychiatric exam: Present: normal affect, normal mood Skin exam: Present: warm, dry, intact, normal color. Absent: rash Course Vital Signs 01/09/21 19:49 Temperature 98.2 F Pulse Rate 115 H Respiratory 22 Rate Blood Pressure 147/93 O2 Sat by Pulse 99 Oximetry Medical Decision Making - Medical Decision Making 55-year-old female complaining of chronic back pain that seemed between pain medicine doctors. 50 g patch of fentanyl ordered for pain coverage, Patient was educated on importance of finding a pain medicine doctor for chronic back pain management instead of coming to ER for pain medication every couple days. Case discussed with Dr. Greer, decided that located discharge patient home. Disposition Clinical Impression: Intractable back pain, Chronic back pain Disposition: HOME SELF-CARE Condition: Stable Instructions (If sedation given, give patient instructions): Chronic Back Pain (DC) Additional Instructions: Please return to the Emergency Department if symptoms worsen or any other concerns. Follow-up primary care in 1-2 days., Get referral for pain medicine and rehabilitation doctor. Follow-up with spine surgeon for consult. Take at home medications as prescribed. Avoid any strenuous activity. Is patient prescribed a controlled substance at d/c from ED?: No Referrals: None,Stated [Primary Care Provider] - 1-2 days Albert Gillespie DO [Doctor of Osteopathic Medicine] - 1-2 days Time of Disposition: 20:31
[2021-01-09 21:39] VITALS: BP 115/65; PULSE 74; RESP 18; TEMP 97.5
== END 2021-01-09 21:35 | disposition home or self-care (01) ==
LOC: EC 19:46
DX: G89.29 Other chronic pain (principal); M54.9 Dorsalgia, unspecified; M79.7 Fibromyalgia; F17.200 Nicotine dependence, unspecified, uncomplicated; Z88.0 Allergy status to penicillin; Z88.2 Allergy status to sulfonamides; Z91.030 Bee allergy status
CPT/HCPCS: 99283

== ENCOUNTER 2021-01-13 01:02 | Emergency (ER) | payer OTHER ==
[2021-01-13 01:12] VITALS: BP 146/101; PULSE 107; RESP 16; TEMP 98.8
[2021-01-13] MEDS ORDERED: ACET/COD 300 MG/30 MG STARTER PACK 6 TAB BTL PO STA (01:34)
[2021-01-13] MEDS ORDERED: HYDROmorphone 1 MG/ML 1 ML SYRINGE IM STA (01:34)
--- NOTE | 2021-01-13 01:35 | ED ---
Back Pain HPI - General Chief Complaint: Back Pain/Injury Stated Complaint: Back pain Time Seen by Provider: 01/13/21 01:16 Source: patient Limitations: no limitations - History of Present Illness Initial Comments: 56-year-old female with history of chronic back pains presents emergency Department with chief complaint of back pain. Patient reports she was discharged from the emergency department 3 days ago with a fentanyl patch. Patient reports over since yesterday she believes that she is starting to withdraw from the narcotic medication. Patient reports increased back pain, tremors and diarrhea. She also reports diaphoretic episodes. States this is typical whenever she is withdrawing from opiate medications. Patient reports she is currently seeing a new primary care physician who referred her to a pain specialist. Patient is currently in the process to make an appointment there. She denies any injuries to her back. States most of the pain is located in the upper lumbar region without any radiation. Denies any saddle anesthesia, urinary retention with overflow incontinence or bowel incontinence. Denies abdominal pain chest pain or shortness of breath. - Related Data Home Medications Medication Instructions Recorded Confirmed oxyCODONE-APAP 10-325MG [Percocet 1 tab PO TID PRN 09/16/20 09/16/20 10-325 mg] Allergies Allergy/AdvReac Type Severity Reaction Status Date / Time Penicillins Allergy Rash/Hives Verified 01/13/21 01:12 sulfamethoxazole Allergy Unknown Verified 01/13/21 01:12 [From Bactrim] venom-honey bee Allergy Anaphylaxis Verified 01/13/21 01:12 [bee venom (honey bee)] Review of Systems ROS Statement: Those systems with pertinent positive or pertinent negative responses have been documented in the HPI. ROS Other: All systems not noted in ROS Statement are negative. Past Medical History Past Medical History: Fibromyalgia, Hypertension, Musculoskeletal Disorder Additional Past Medical History / Comment(s): back pain, pt states she has lesions on her brain that could be the onset of MS, tachycardia History of Any Multi-Drug Resistant Organisms: None Reported Past Surgical History: Appendectomy, Hysterectomy Additional Past Surgical History / Comment(s): d&c, Past Anesthesia/Blood Transfusion Reactions: No Reported Reaction Past Psychological History: Anxiety, Depression, Panic Disorder, PTSD Smoking Status: Current every day smoker Past Alcohol Use History: None Reported Past Drug Use History: Opiates, Prescription Drug Abuse - Past Family History Mother Family Medical History: Cancer, Rheumatoid Arthritis (RA) Additional Family Medical History / Comment(s): lymphoma Father Family Medical History: Liver Disease Additional Family Medical History / Comment(s): Father had alcoholic cirrhosis. He is . Daughter(s) Family Medical History: Asthma General Exam Limitations: no limitations General appearance: alert, in no apparent distress Head exam: Present: atraumatic, normocephalic, normal inspection Eye exam: Present: normal appearance, PERRL, EOMI Pupils: Present: normal accommodation ENT exam: Present: normal exam, normal oropharynx, mucous membranes moist Neck exam: Present: normal inspection, full ROM. Absent: tenderness Respiratory exam: Present: normal lung sounds bilaterally. Absent: respiratory distress Cardiovascular Exam: Present: regular rate, normal rhythm, normal heart sounds Extremities exam: Present: normal inspection, full ROM, normal capillary refill, other (Palpable DP and PT bilaterally.). Absent: tenderness, pedal edema, joint swelling, calf tenderness Back exam: Present: normal inspection, full ROM, tenderness, paraspinal tenderness, vertebral tenderness. Absent: CVA tenderness (R), CVA tenderness (L), muscle spasm Neurological exam: Present: alert, oriented X3 Psychiatric exam: Present: normal affect, normal mood Skin exam: Present: warm, dry, intact, normal color Course Vital Signs 01/13/21 01:06 Temperature 98.8 F Pulse Rate 107 H Respiratory 16 Rate Blood Pressure 146/101 O2 Sat by Pulse 100 Oximetry Medical Decision Making - Medical Decision Making 48-year-old female with history of chronic back pain presents emergency department with chief complaint of back pain. No concern for cauda equina. On Physical examination, patient has upper lumbar tenderness to palpation. She was given analgesia and emergency department and will be discharged with Tylenol 3 starter pack. Advised to follow-up with outpatient pain management doctor. This is her typical back. According to her. Return parameters discussed the patient was understanding and agreeable. Case discussed with Disposition Clinical Impression: Mechanical back pain Disposition: HOME SELF-CARE Condition: Stable Instructions (If sedation given, give patient instructions): Acute Low Back Pain (ED) Additional Instructions: Follow with the primary care physician. Return to emergency department if symptoms worsen. Is patient prescribed a controlled substance at d/c from ED?: No Referrals: None,Stated [Primary Care Provider] - 1-2 days Time of Disposition: 01:35
== END 2021-01-13 02:00 | disposition home or self-care (01) ==
LOC: EC 01:02
DX: M54.89 Other dorsalgia (principal); M79.7 Fibromyalgia; I10 Essential (primary) hypertension; Z90.49 Acquired absence of other specified parts of digestive tract; Z90.710 Acquired absence of both cervix and uterus; F32.9 Major depressive disorder, single episode, unspecified; F17.200 Nicotine dependence, unspecified, uncomplicated
CPT/HCPCS: 99283; 96372; J1170

== ENCOUNTER 2021-01-14 00:37 | Emergency (ER) | payer OTHER ==
--- NOTE | 2021-01-14 00:41 | ED ---
Back Pain HPI - General Stated Complaint: back pain Time Seen by Provider: 01/14/21 00:40 - History of Present Illness Initial Comments: 56-year-old female with history of chronic back pain presents emergency Department with a chief complaint of back pain. Patient reports the pain is located upper lumbar region without any radiation. Patient reports she is currently seeing a new primary care physician and is waiting to establish a relationship with a pain management physician. She denies any saddle anesthesia, urinary retention with overflow incontinence or bowel incontinence. Reports the pain is exacerbated with left and right rotation and flexion. Denies chest pain abdominal pain shortness of breath. - Related Data Home Medications Medication Instructions Recorded Confirmed oxyCODONE-APAP 10-325MG [Percocet 1 tab PO TID PRN 09/16/20 09/16/20 10-325 mg] Allergies Allergy/AdvReac Type Severity Reaction Status Date / Time Penicillins Allergy Rash/Hives Verified 01/13/21 01:12 sulfamethoxazole Allergy Unknown Verified 01/13/21 01:12 [From Bactrim] venom-honey bee Allergy Anaphylaxis Verified 01/13/21 01:12 [bee venom (honey bee)] Review of Systems ROS Statement: Those systems with pertinent positive or pertinent negative responses have been documented in the HPI. ROS Other: All systems not noted in ROS Statement are negative. Past Medical History Past Medical History: Fibromyalgia, Hypertension, Musculoskeletal Disorder Additional Past Medical History / Comment(s): back pain, pt states she has lesions on her brain that could be the onset of MS, tachycardia History of Any Multi-Drug Resistant Organisms: None Reported Past Surgical History: Appendectomy, Hysterectomy Additional Past Surgical History / Comment(s): d&c, Past Anesthesia/Blood Transfusion Reactions: No Reported Reaction Past Psychological History: Anxiety, Depression, Panic Disorder, PTSD Smoking Status: Current every day smoker Past Alcohol Use History: None Reported Past Drug Use History: Opiates, Prescription Drug Abuse - Past Family History Mother Family Medical History: Cancer, Rheumatoid Arthritis (RA) Additional Family Medical History / Comment(s): lymphoma Father Family Medical History: Liver Disease Additional Family Medical History / Comment(s): Father had alcoholic cirrhosis. He is . Daughter(s) Family Medical History: Asthma General Exam Limitations: no limitations General appearance: alert, in no apparent distress Head exam: Present: atraumatic, normocephalic, normal inspection Eye exam: Present: normal appearance, PERRL, EOMI Pupils: Present: normal accommodation ENT exam: Present: normal exam, normal oropharynx, mucous membranes moist Neck exam: Present: normal inspection, full ROM. Absent: tenderness Respiratory exam: Present: normal lung sounds bilaterally. Absent: respiratory distress Cardiovascular Exam: Present: regular rate, normal rhythm, normal heart sounds GI/Abdominal exam: Present: soft. Absent: distended, tenderness, guarding, rebound Extremities exam: Present: normal inspection, full ROM Back exam: Present: normal inspection, full ROM. Absent: tenderness, CVA tenderness (R), CVA tenderness (L) Neurological exam: Present: alert, oriented X3 Psychiatric exam: Present: normal affect, normal mood Skin exam: Present: warm, dry, intact, normal color Course Vital Signs 01/14/21 00:43 Temperature 98 F Pulse Rate 99 Respiratory 17 Rate Blood Pressure 145/90 O2 Sat by Pulse 99 Oximetry Medical Decision Making - Medical Decision Making 56-year-old female with history of chronic back pain presents to emergency department with chief complaint of back pain. On physical examination, upper lumbar pain without radiculopathy symptoms. Negative leg raise test. No concern for cauda equina. She is well-known to the emergency department for frequent visits with the same chief complaint. Had a long discussion with the patient regarding opiate abuse. Patient will be given Toradol, Tylenol, Decadron, Lidoderm patch and Flexeril. Return parameters discussed with patient was understanding and agreeable. Was advised to follow-up with orthopedics. Case discussed with Disposition Clinical Impression: Mechanical back pain Disposition: HOME SELF-CARE Condition: Stable Instructions (If sedation given, give patient instructions): Low Back Strain (ED) Additional Instructions: Please return to the Emergency Department if symptoms worsen or any other concerns. Is patient prescribed a controlled substance at d/c from ED?: No Referrals: Aamir Leo MD [Primary Care Provider] - 1-2 days Time of Disposition: 00:49
[2021-01-14] MEDS ORDERED: DEXAMETHASONE SOD PHOSPHATE 10 MG/ML 1 ML VIAL IM STA (00:45)
[2021-01-14] MEDS ORDERED: KETOROLAC 15 MG/ML 1 ML VIAL IM STA (00:45)
[2021-01-14] MEDS ORDERED: CYCLOBENZAPRINE 10 MG TAB PO STA (00:45)
[2021-01-14] MEDS ORDERED: ACETAMINOPHEN TAB 500 MG TAB PO STA (00:46)
[2021-01-14] MEDS ORDERED: LIDOCAINE 5% PATCH TOPICAL STA (00:46)
[2021-01-14 00:48] VITALS: BP 145/90; PULSE 99; RESP 17; TEMP 98
== END 2021-01-14 01:10 | disposition home or self-care (01) ==
LOC: EC 00:37
DX: M54.5 Low back pain (principal); F17.200 Nicotine dependence, unspecified, uncomplicated; I10 Essential (primary) hypertension; F11.10 Opioid abuse, uncomplicated; Z88.0 Allergy status to penicillin
CPT/HCPCS: 99283; 96372; J1100; J1885

== ENCOUNTER 2021-01-15 08:05 | Emergency (ER) | payer OTHER ==
[2021-01-15 08:09] VITALS: BP 125/63; PULSE 90; RESP 16
[2021-01-15 09:01] VITALS: TEMP 98.6
[2021-01-15] MEDS ORDERED: HYDROmorphone 0.5 MG/0.5 ML SYRINGE IM STA (09:04)
[2021-01-15] MEDS ORDERED: LORazepam 2 MG/ML INJ IM STA (09:05)
--- NOTE | 2021-01-15 09:05 | ED ---
Back Pain HPI - General Chief Complaint: Back Pain/Injury Stated Complaint: Back pain Time Seen by Provider: 01/15/21 08:13 Source: patient Limitations: no limitations - History of Present Illness Initial Comments: Patient is a 56-year-old female presenting to the emergency Department with complaints of increase in her chronic back pain x 2-3 days. This is patient's third visit this week for same complaint. [place] [facility] [place]. Patient states she no longer has any pain medicines at home, she is to take Percocets. She states she is "in between pain doctors." She denies any new injuries or falls, no fever or chills. She states this is her chronic pain shows worsen at time. She denies any numbness and tingling to her extremities, no bowel or bladder incontinence, no saddle paresthesias. She has no further complaints. Upon arrival to the ER her vitals are stable. - Related Data Home Medications Medication Instructions Recorded Confirmed Escitalopram [Lexapro] 10 mg PO DAILY 01/15/21 01/15/21 Varenicline [Chantix Starter Pack] 0.5 mg PO DIRECTED 01/15/21 01/15/21 cloNIDine HCL [Catapres] 0.1 mg PO TID PRN 01/15/21 01/15/21 oxyCODONE HCL/ACETAMINOPHEN 1 tab PO BID PRN 01/15/21 01/15/21 [Percocet 7.5-325 mg] Allergies Allergy/AdvReac Type Severity Reaction Status Date / Time Penicillins Allergy Rash/Hives Verified 01/15/21 08:45 sulfamethoxazole Allergy Unknown Verified 01/15/21 08:45 [From Bactrim] venom-honey bee Allergy Anaphylaxis Verified 01/15/21 08:45 [bee venom (honey bee)] Review of Systems ROS Statement: Those systems with pertinent positive or pertinent negative responses have been documented in the HPI. ROS Other: All systems not noted in ROS Statement are negative. Past Medical History Past Medical History: Fibromyalgia, Hypertension, Musculoskeletal Disorder Additional Past Medical History / Comment(s): back pain, pt states she has lesions on her brain that could be the onset of MS, tachycardia History of Any Multi-Drug Resistant Organisms: None Reported Past Surgical History: Appendectomy, Hysterectomy Additional Past Surgical History / Comment(s): d&c, Past Anesthesia/Blood Transfusion Reactions: No Reported Reaction Past Psychological History: Anxiety, Depression, Panic Disorder, PTSD Smoking Status: Current every day smoker Past Alcohol Use History: None Reported Past Drug Use History: Opiates, Prescription Drug Abuse - Past Family History Mother Family Medical History: Cancer, Rheumatoid Arthritis (RA) Additional Family Medical History / Comment(s): lymphoma Father Family Medical History: Liver Disease Additional Family Medical History / Comment(s): Father had alcoholic cirrhosis. He is . Daughter(s) Family Medical History: Asthma General Exam - General Exam Comments Initial Comments: GENERAL: Patient is well-developed and well-nourished. Patient is nontoxic and in mild distress. HEAD: Atraumatic, normocephalic. EYES: Pupils equal round and reactive to light, extraocular movements intact, sclera anicteric, conjunctiva are normal. Eyelids were unremarkable. ENT: TMs normal, nares patent, oropharynx clear without exudates. Moist mucous membranes. NECK: Normal range of motion, supple without lymphadenopathy or JVD. LUNGS: Unlabored respirations. Breath sounds clear to auscultation bilaterally and equal. No wheezes rales or rhonchi. HEART: Regular rate and rhythm without murmurs, rubs or gallops. ABDOMEN: Soft, nontender, normoactive bowel sounds. No guarding, no rebound. No masses appreciated. : Deferred MUSCULOSKELETAL: Normal extremities with adequate strength and normal range of motion, no pitting or edema. No clubbing or cyanosis. She has full trunk range of motion, tender along the lumbar and thoracic paraspinals, musculature. NEUROLOGICAL: Patient is alert and oriented x 3. Motor and sensory are also intact. Cranial nerves II through XII grossly intact. Symmetrical smile. Normal speech, normal gait. PSYCH: Normal mood, normal affect. SKIN: Warm, Dry, normal turgor, no rashes or lesions noted. Limitations: no limitations Course Vital Signs 01/15/21 08:06 Temperature 98.6 F Pulse Rate 90 Respiratory 16 Rate Blood Pressure 125/63 O2 Sat by Pulse 96 Oximetry Medical Decision Making - Medical Decision Making Patient is a 56-year-old female with history of chronic back pain presenting for acute exacerbation of her chronic back pain. This is patient's third visit this week for same complaint, she was also [facility] for same issue. She states she is "in between pain management doctors." She has no pain medication at home. Her exam reveals no acute findings, no neuro deficits, no saddle paresthesia, no bowel or bladder incontinence. Patient states this is her normal chronic back pain with some flareups. I will give her a small dose of pain medicine here today along with Ativan. I stated that we cannot continue to treat her chronic pain, he will not receive any more narcotics. She needs to follow up with her doctor. Patient is stable for discharge. Patient is in agreement with this plan of care. Return parameters were discussed with the patient and they verbalized understanding. Case discussed with Dr. Remy. Disposition Clinical Impression: Chronic back pain Disposition: HOME SELF-CARE Condition: Stable Instructions (If sedation given, give patient instructions): Chronic Back Pain (DC) Additional Instructions: Please return to the Emergency Department if symptoms worsen or any other concerns. Need to follow up with your regular doctor concerning your chronic back pain. Is patient prescribed a controlled substance at d/c from ED?: No Referrals: Aamir Leo MD [Primary Care Provider] - 1-2 days
[2021-01-15] MEDS ORDERED: ACET/COD 300 MG/30 MG STARTER PACK 6 TAB BTL PO STA (09:25)
== END 2021-01-15 09:28 | disposition home or self-care (01) ==
LOC: EC 08:05
DX: G89.29 Other chronic pain (principal); M54.5 Low back pain; F17.200 Nicotine dependence, unspecified, uncomplicated; I10 Essential (primary) hypertension; M79.7 Fibromyalgia; Z79.899 Other long term (current) drug therapy; Z88.0 Allergy status to penicillin; Z88.1 Allergy status to other antibiotic agents; Z88.2 Allergy status to sulfonamides
CPT/HCPCS: 99283; 96372; J2060; J1170

== ENCOUNTER 2021-01-17 00:02 | Emergency (ER) | payer OTHER ==
[2021-01-17 00:07] VITALS: BP 136/100; PULSE 93; RESP 20; TEMP 97.9
[2021-01-17] MEDS ORDERED: diphenhydrAMINE 50 MG CAP PO STA (00:49)
[2021-01-17] MEDS ORDERED: LORazepam 1 MG TAB PO STA (00:49)
--- NOTE | 2021-01-17 00:51 | ED ---
Back Pain HPI - General Chief Complaint: Back Pain/Injury Stated Complaint: Back Pain Time Seen by Provider: 01/17/21 00:02 Source: patient, RN notes reviewed, old records reviewed Limitations: no limitations - History of Present Illness Initial Comments: This is a 48-year-old female DF she presents today for evaluation regarding acute on chronic back pain. Severe back pain currently out of pain medication at home. 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 Patient presents today for evaluation regarding chronic pain. No new injuries noted trauma no neurological complaints. MD Complaint: back pain -: year(s) Similar Symptoms Previously: Yes Place: home Radiation: none Severity: severe Severity scale (1-10): 8 Quality: sharp, dull Consistency: constant Improves With: none Worsens With: none Context: unknown Associated Symptoms: denies other symptoms - Related Data Home Medications Medication Instructions Recorded Confirmed Escitalopram [Lexapro] 10 mg PO DAILY 01/15/21 01/15/21 Varenicline [Chantix Starter Pack] 0.5 mg PO DIRECTED 01/15/21 01/15/21 cloNIDine HCL [Catapres] 0.1 mg PO TID PRN 01/15/21 01/15/21 oxyCODONE HCL/ACETAMINOPHEN 1 tab PO BID PRN 01/15/21 01/15/21 [Percocet 7.5-325 mg] Allergies Allergy/AdvReac Type Severity Reaction Status Date / Time Penicillins Allergy Rash/Hives Verified 01/17/21 00:07 sulfamethoxazole Allergy Unknown Verified 01/17/21 00:07 [From Bactrim] venom-honey bee Allergy Anaphylaxis Verified 01/17/21 00:07 [bee venom (honey bee)] Review of Systems ROS Statement: Those systems with pertinent positive or pertinent negative responses have been documented in the HPI. ROS Other: All systems not noted in ROS Statement are negative. Past Medical History Past Medical History: Fibromyalgia, Hypertension, Musculoskeletal Disorder Additional Past Medical History / Comment(s): back pain, pt states she has lesions on her brain that could be the onset of MS, tachycardia History of Any Multi-Drug Resistant Organisms: None Reported Past Surgical History: Appendectomy, Hysterectomy Additional Past Surgical History / Comment(s): d&c, Past Anesthesia/Blood Transfusion Reactions: No Reported Reaction Past Psychological History: Anxiety, Depression, Panic Disorder, PTSD Smoking Status: Current every day smoker Past Alcohol Use History: None Reported Past Drug Use History: Opiates, Prescription Drug Abuse - Past Family History Mother Family Medical History: Cancer, Rheumatoid Arthritis (RA) Additional Family Medical History / Comment(s): lymphoma Father Family Medical History: Liver Disease Additional Family Medical History / Comment(s): Father had alcoholic cirrhosis. He is . Daughter(s) Family Medical History: Asthma General Exam Limitations: no limitations General appearance: alert, in no apparent distress Head exam: Present: atraumatic, normocephalic, normal inspection Eye exam: Present: normal appearance, PERRL, EOMI. Absent: scleral icterus, conjunctival injection, periorbital swelling ENT exam: Present: normal exam, mucous membranes moist Neck exam: Present: normal inspection. Absent: tenderness, meningismus, lymphadenopathy Respiratory exam: Present: normal lung sounds bilaterally. Absent: respiratory distress, wheezes, rales, rhonchi, stridor Cardiovascular Exam: Present: regular rate, normal rhythm, normal heart sounds. Absent: systolic murmur, diastolic murmur, rubs, gallop, clicks GI/Abdominal exam: Present: soft, normal bowel sounds. Absent: distended, tenderness, guarding, rebound, rigid Extremities exam: Present: normal inspection, full ROM, normal capillary refill. Absent: tenderness, pedal edema, joint swelling, calf tenderness Back exam: Present: normal inspection Neurological exam: Present: alert, oriented X3, CN II-XII intact Psychiatric exam: Present: normal affect, normal mood Skin exam: Present: warm, dry, intact, normal color. Absent: rash Course Vital Signs 01/17/21 00:05 Temperature 97.9 F Pulse Rate 93 Respiratory 20 Rate Blood Pressure 136/100 O2 Sat by Pulse 98 Oximetry - Reevaluation(s) Reevaluation #1: Medical record is reviewed Reevaluated with symptoms improved here in the ER Patient informed of results, plan questions answered Patient feels comfortable for discharge home Medical Decision Making - Medical Decision Making 56 female to the ER for evaluation patient can be discharged home. She is acute on chronic back pain with pain control currently. Disposition Clinical Impression: Intractable back pain Disposition: HOME SELF-CARE Condition: Fair Instructions (If sedation given, give patient instructions): Acute Low Back Pain (ED) Is patient prescribed a controlled substance at d/c from ED?: No Referrals: None,Stated [Primary Care Provider] - 1-2 days
[2021-01-17] MEDS ORDERED: ETODOLAC 400 MG TAB PO ONE (01:00)
[2021-01-17] MEDS: HYDROmorphone 1 MG/ML 1 ML SYRINGE IM STA ×2 (01:02→01:05)
== END 2021-01-17 01:31 | disposition home or self-care (01) ==
LOC: EC 00:02
DX: M54.9 Dorsalgia, unspecified (principal); F41.9 Anxiety disorder, unspecified; I10 Essential (primary) hypertension; F32.9 Major depressive disorder, single episode, unspecified; F17.200 Nicotine dependence, unspecified, uncomplicated; Z88.0 Allergy status to penicillin
CPT/HCPCS: 99283; 96372; J1170

== ENCOUNTER 2021-01-20 01:29 | Emergency (ER) | payer OTHER ==
[2021-01-20 01:33] VITALS: BP 160/87; PULSE 109; RESP 16; TEMP 98.2
[2021-01-20] MEDS ORDERED: ACET/COD 300 MG/30 MG STARTER PACK 6 TAB BTL PO STA (01:45)
[2021-01-20] MEDS ORDERED: HYDROmorphone 1 MG/ML 1 ML SYRINGE IM STA (01:45)
[2021-01-20] MEDS ORDERED: diphenhydrAMINE 50 MG CAP PO STA (01:45)
[2021-01-20] MEDS ORDERED: LORazepam 1 MG TAB PO STA (01:45)
[2021-01-20] MEDS ORDERED: ETODOLAC 400 MG TAB PO STA (01:48)
--- NOTE | 2021-01-20 01:55 | ED ---
Recheck HPI - General Chief Complaint: Back Pain/Injury Stated Complaint: Back pain Time Seen by Provider: 01/20/21 01:35 Source: patient, RN notes reviewed, old records reviewed Mode of arrival: ambulatory Limitations: no limitations - History of Present Illness Initial Comments: This is a 56-year-old female to the ER for evaluation. Patient presents today for evaluation in regards to significant back pain. History of chronic back pain no acute injuries no fevers no issues of bowel or bladder no neurological lanes. Patient is here for medication refill and evaluation MD Complaint: other (Acute on chronic back pain) -: year(s) Returns Today for: persistent/worsening pain related to initial visit Symptoms Since Prior Visit: worsening pain Context: ran out of medication Associated Symptoms: none Treatments Prior to Arrival: Given Pain Meds on - Related Data Home Medications Medication Instructions Recorded Confirmed Escitalopram [Lexapro] 10 mg PO DAILY 01/15/21 01/15/21 Varenicline [Chantix Starter Pack] 0.5 mg PO DIRECTED 01/15/21 01/15/21 cloNIDine HCL [Catapres] 0.1 mg PO TID PRN 01/15/21 01/15/21 oxyCODONE HCL/ACETAMINOPHEN 1 tab PO BID PRN 01/15/21 01/15/21 [Percocet 7.5-325 mg] Allergies Allergy/AdvReac Type Severity Reaction Status Date / Time Penicillins Allergy Rash/Hives Verified 01/20/21 01:33 sulfamethoxazole Allergy Unknown Verified 01/20/21 01:33 [From Bactrim] venom-honey bee Allergy Anaphylaxis Verified 01/20/21 01:33 [bee venom (honey bee)] Review of Systems ROS Statement: Those systems with pertinent positive or pertinent negative responses have been documented in the HPI. ROS Other: All systems not noted in ROS Statement are negative. Past Medical History Past Medical History: Fibromyalgia, Hypertension, Musculoskeletal Disorder Additional Past Medical History / Comment(s): back pain, pt states she has lesions on her brain that could be the onset of MS, tachycardia History of Any Multi-Drug Resistant Organisms: None Reported Past Surgical History: Appendectomy, Hysterectomy Additional Past Surgical History / Comment(s): d&c, Past Anesthesia/Blood Transfusion Reactions: No Reported Reaction Past Psychological History: Anxiety, Depression, Panic Disorder, PTSD Smoking Status: Current every day smoker Past Alcohol Use History: None Reported Past Drug Use History: Opiates, Prescription Drug Abuse - Past Family History Mother Family Medical History: Cancer, Rheumatoid Arthritis (RA) Additional Family Medical History / Comment(s): lymphoma Father Family Medical History: Liver Disease Additional Family Medical History / Comment(s): Father had alcoholic cirrhosis. He is . Daughter(s) Family Medical History: Asthma General Exam Limitations: no limitations General appearance: alert, in no apparent distress Head exam: Present: atraumatic, normocephalic, normal inspection Eye exam: Present: normal appearance, PERRL, EOMI. Absent: scleral icterus, conjunctival injection, periorbital swelling ENT exam: Present: normal exam, mucous membranes moist Neck exam: Present: normal inspection. Absent: tenderness, meningismus, lymphadenopathy Respiratory exam: Present: normal lung sounds bilaterally. Absent: respiratory distress, wheezes, rales, rhonchi, stridor Cardiovascular Exam: Present: regular rate, normal rhythm, normal heart sounds. Absent: systolic murmur, diastolic murmur, rubs, gallop, clicks GI/Abdominal exam: Present: soft, normal bowel sounds. Absent: distended, tenderness, guarding, rebound, rigid Extremities exam: Present: normal inspection, full ROM, normal capillary refill. Absent: tenderness, pedal edema, joint swelling, calf tenderness Back exam: Present: normal inspection Neurological exam: Present: alert, oriented X3, CN II-XII intact Psychiatric exam: Present: normal affect, normal mood Skin exam: Present: warm, dry, intact, normal color. Absent: rash Course Vital Signs 01/20/21 01:30 Temperature 98.2 F Pulse Rate 109 H Respiratory 16 Rate Blood Pressure 160/87 O2 Sat by Pulse 98 Oximetry - Reevaluation(s) Reevaluation #1: 01/20/21 01:52 Medical records reviewed Reevaluation #2: 01/20/21 01:52 Patient very similar to myself and the facility Reevaluation #3: 01/20/21 01:52 Patient given adequate pain control encouraged to continue to seek outpatient pain management Medical Decision Making - Medical Decision Making 56 female to the ER for evaluation presents today for evaluation regarding severe acute on chronic back pain. The symptoms improved here in the ER patient will continue to pursue follow-up for outpatient pain management Disposition Clinical Impression: Chronic back pain, Chronic back pain greater than 3 months duration Disposition: HOME SELF-CARE Condition: Good Instructions (If sedation given, give patient instructions): Acute Low Back Pain (ED) Is patient prescribed a controlled substance at d/c from ED?: No Referrals: None,Stated [Primary Care Provider] - 1-2 days
== END 2021-01-20 03:23 | disposition home or self-care (01) ==
LOC: EC 01:29
DX: M54.9 Dorsalgia, unspecified (principal); G89.29 Other chronic pain; F41.9 Anxiety disorder, unspecified; F32.9 Major depressive disorder, single episode, unspecified; F43.10 Post-traumatic stress disorder, unspecified; F41.0 Panic disorder [episodic paroxysmal anxiety]; Z76.0 Encounter for issue of repeat prescription; I10 Essential (primary) hypertension; Z79.899 Other long term (current) drug therapy; Z88.0 Allergy status to penicillin; Z88.2 Allergy status to sulfonamides; Z91.030 Bee allergy status; Z90.49 Acquired absence of other specified parts of digestive tract; Z90.710 Acquired absence of both cervix and uterus
CPT/HCPCS: 96372; 99284; J1170

== ENCOUNTER 2021-01-25 00:56 | Emergency (ER) | payer OTHER ==
[2021-01-25 01:08] VITALS: TEMP 98.4
[2021-01-25] MEDS ORDERED: SODIUM CHLORIDE 0.9% 500 ML 500 ML IV STA (01:41)
[2021-01-25] MEDS ORDERED: LORazepam 2 MG/ML INJ IV STA (01:41)
[2021-01-25] MEDS ORDERED: ONDANSETRON 4 MG/2 ML VIAL IVP STA (01:41)
[2021-01-25] MEDS ORDERED: HYDROmorphone 0.5 MG/0.5 ML SYRINGE IVP STA (01:41)
[2021-01-25 01:51] VITALS: RESP 18
--- NOTE | 2021-01-25 01:58 | ED ---
General Adult HPI - General Chief complaint: Nausea/Vomiting/Diarrhea Stated complaint: Back pain, vomiting Time Seen by Provider: 01/25/21 01:28 Source: patient Mode of arrival: ambulatory Limitations: no limitations - History of Present Illness Initial comments: Patient is a 56-year-old female presenting to the emergency Department with complaints of chronic back pain as well as nausea and vomiting started 2 hours ago. Patient is well-known to this ER for her back pain. She currently follows with a pain specialist. Patient denies any falls or trauma. She denies any fever or chills. She states about 2 hours ago started having some nausea/vomiting as well. No abdominal pain, no chest pain or shortness of breath. She denies any diarrhea. She denies any saddle paresthesia, no bowel or bladder incontinence. She has no further complaints at this time. - Related Data Home Medications Medication Instructions Recorded Confirmed Escitalopram [Lexapro] 10 mg PO DAILY 01/15/21 01/15/21 Varenicline [Chantix Starter Pack] 0.5 mg PO DIRECTED 01/15/21 01/15/21 cloNIDine HCL [Catapres] 0.1 mg PO TID PRN 01/15/21 01/15/21 oxyCODONE HCL/ACETAMINOPHEN 1 tab PO BID PRN 01/15/21 01/15/21 [Percocet 7.5-325 mg] Allergies Allergy/AdvReac Type Severity Reaction Status Date / Time Penicillins Allergy Rash/Hives Verified 01/25/21 01:08 sulfamethoxazole Allergy Unknown Verified 01/25/21 01:08 [From Bactrim] venom-honey bee Allergy Anaphylaxis Verified 01/25/21 01:08 [bee venom (honey bee)] Review of Systems ROS Statement: Those systems with pertinent positive or pertinent negative responses have been documented in the HPI. ROS Other: All systems not noted in ROS Statement are negative. Past Medical History Past Medical History: Fibromyalgia, Hypertension, Musculoskeletal Disorder Additional Past Medical History / Comment(s): back pain, pt states she has lesions on her brain that could be the onset of MS, tachycardia History of Any Multi-Drug Resistant Organisms: None Reported Past Surgical History: Appendectomy, Hysterectomy Additional Past Surgical History / Comment(s): d&c, Past Anesthesia/Blood Transfusion Reactions: No Reported Reaction Past Psychological History: Anxiety, Depression, Panic Disorder, PTSD Smoking Status: Current every day smoker Past Alcohol Use History: None Reported Past Drug Use History: Opiates, Prescription Drug Abuse - Past Family History Mother Family Medical History: Cancer, Rheumatoid Arthritis (RA) Additional Family Medical History / Comment(s): lymphoma Father Family Medical History: Liver Disease Additional Family Medical History / Comment(s): Father had alcoholic cirrhosis. He is . Daughter(s) Family Medical History: Asthma General Exam - General Exam Comments Initial Comments: GENERAL: Patient is well-developed and well-nourished. Patient is nontoxic and in mild distress. HEAD: Atraumatic, normocephalic. EYES: Pupils equal round and reactive to light, extraocular movements intact, sclera anicteric, conjunctiva are normal. Eyelids were unremarkable. ENT: TMs normal, nares patent, oropharynx clear without exudates. Moist mucous membranes. NECK: Normal range of motion, supple without lymphadenopathy or JVD. LUNGS: Unlabored respirations. Breath sounds clear to auscultation bilaterally and equal. No wheezes rales or rhonchi. HEART: Regular rate and rhythm without murmurs, rubs or gallops. ABDOMEN: Soft, nontender, normoactive bowel sounds. No guarding, no rebound. No masses appreciated. : Deferred MUSCULOSKELETAL: Normal extremities with adequate strength and normal range of motion, no pitting or edema. No clubbing or cyanosis. Lumbar paraspinals painful to palpation. NEUROLOGICAL: Patient is alert and oriented x 3. Motor and sensory are also intact. Cranial nerves II through XII grossly intact. Symmetrical smile. Normal speech, normal gait. PSYCH: Normal mood, normal affect. SKIN: Warm, Dry, normal turgor, no rashes or lesions noted. Limitations: no limitations Course Vital Signs 01/25/21 01/25/21 01/25/21 01:05 01:50 02:22 Temperature 98.4 F Pulse Rate 118 H 86 90 Respiratory 16 18 18 Rate Blood Pressure 100/65 123/74 127/72 O2 Sat by Pulse 99 98 99 Oximetry 01/25/21 02:49 Temperature 98.4 F Pulse Rate 90 Respiratory 18 Rate Blood Pressure 114/86 O2 Sat by Pulse 99 Oximetry Medical Decision Making - Medical Decision Making Patient is a 56-year-old female here for chronic back pain, also complaining of nausea and vomiting for last 2 hours. She is well-known to this ER for multiple visits of her back pain, falls with a pain specialist. No abdominal pain on exam, no fevers. Patient received fluids, pain control and Zofran. She reports improvement in her symptoms. She is requesting more pain medicine however toilet she needs to follow with her regular doctor for her pain medications. I did check her MAPS and that she lied about receiving medication a few days ago from her PCP. Patient is stable for discharge. Patient is in agreement with this plan of care. Return parameters were discussed with the patient and they verbalized understanding. Case discussed with Dr. Gonzalez. Disposition Clinical Impression: Chronic back pain, Acute vomiting Disposition: HOME SELF-CARE Condition: Stable Instructions (If sedation given, give patient instructions): Chronic Back Pain (DC) Additional Instructions: Please return to the Emergency Department if symptoms worsen or any other concerns. Continue to follow with your regular doctor, pain management. Take Zofran for any additional nausea. Is patient prescribed a controlled substance at d/c from ED?: No Referrals: Aamir Leo MD [Primary Care Provider] - 1-2 days
[2021-01-25 02:23] VITALS: PULSE 90
[2021-01-25] MEDS ORDERED: ACET/COD 300 MG/30 MG STARTER PACK 6 TAB BTL PO STA (02:34)
[2021-01-25] MEDS ORDERED: ONDANSETRON 4 MG ODT STARTER PACK 2 TAB BTL PO STA (02:34)
[2021-01-25 02:50] VITALS: BP 114/86
== END 2021-01-25 02:50 | disposition home or self-care (01) ==
LOC: EC 00:56
DX: R11.2 Nausea with vomiting, unspecified (principal); G89.29 Other chronic pain; M54.9 Dorsalgia, unspecified; M79.7 Fibromyalgia; I10 Essential (primary) hypertension; F17.200 Nicotine dependence, unspecified, uncomplicated; F41.0 Panic disorder [episodic paroxysmal anxiety]; F32.9 Major depressive disorder, single episode, unspecified; F43.10 Post-traumatic stress disorder, unspecified; Z79.899 Other long term (current) drug therapy; Z88.0 Allergy status to penicillin; Z88.2 Allergy status to sulfonamides; Z91.030 Bee allergy status
CPT/HCPCS: 99283; 96374; 96375 ×2; 96361; J2060; J2405; S0119; J1170; 99285

== ENCOUNTER 2021-01-26 01:22 | Emergency (ER) | payer OTHER ==
[2021-01-26 01:29] VITALS: BP 150/86; PULSE 103; RESP 18; TEMP 98.7
--- NOTE | 2021-01-26 01:41 | ED ---
General Adult HPI - General Chief complaint: Neck Pain/Injury Stated complaint: back/neck pain Time Seen by Provider: 01/26/21 01:28 Source: patient, EMS, RN notes reviewed Mode of arrival: EMS Limitations: no limitations - History of Present Illness Initial comments: Patient is a 56-year-old female presents to emergency department via EMS with neck pain that radiates to her ear is a chronic back pain. Patient is a frequent flier to this emergency room to get pain medications. EMS noted that they did give her 100 mg of fentanyl and [address] Zofran on the way in. Patient states she didn't try to get into the pain clinic for several weeks now but the referral from her primary care was in fact shoulder. She has been informed several times to the emergency room can't give keep giving her pain medication for chronic issues as he is no longer an emergency type situation. Patient was well-appearing while lying in bed during exam and interview she denied any weakness numbness tingling fever fatigue chills chest pain shortness of breath headache nausea vomiting diarrhea constipation. - Related Data Home Medications Medication Instructions Recorded Confirmed Escitalopram [Lexapro] 10 mg PO DAILY 01/15/21 01/15/21 Varenicline [Chantix Starter Pack] 0.5 mg PO DIRECTED 01/15/21 01/15/21 cloNIDine HCL [Catapres] 0.1 mg PO TID PRN 01/15/21 01/15/21 oxyCODONE HCL/ACETAMINOPHEN 1 tab PO BID PRN 01/15/21 01/15/21 [Percocet 7.5-325 mg] Allergies Allergy/AdvReac Type Severity Reaction Status Date / Time Penicillins Allergy Rash/Hives Verified 01/26/21 01:28 sulfamethoxazole Allergy Unknown Verified 01/26/21 01:28 [From Bactrim] venom-honey bee Allergy Anaphylaxis Verified 01/26/21 01:28 [bee venom (honey bee)] Review of Systems ROS Statement: Those systems with pertinent positive or pertinent negative responses have been documented in the HPI. ROS Other: All systems not noted in ROS Statement are negative. Past Medical History Past Medical History: Fibromyalgia, Hypertension, Musculoskeletal Disorder Additional Past Medical History / Comment(s): back pain, pt states she has lesions on her brain that could be the onset of MS, tachycardia History of Any Multi-Drug Resistant Organisms: None Reported Past Surgical History: Appendectomy, Hysterectomy Additional Past Surgical History / Comment(s): d&c, Past Anesthesia/Blood Transfusion Reactions: No Reported Reaction Past Psychological History: Anxiety, Depression, Panic Disorder, PTSD Smoking Status: Current every day smoker Past Alcohol Use History: None Reported Past Drug Use History: Opiates, Prescription Drug Abuse - Past Family History Mother Family Medical History: Cancer, Rheumatoid Arthritis (RA) Additional Family Medical History / Comment(s): lymphoma Father Family Medical History: Liver Disease Additional Family Medical History / Comment(s): Father had alcoholic cirrhosis. He is . Daughter(s) Family Medical History: Asthma General Exam Limitations: no limitations General appearance: alert, in no apparent distress Head exam: Present: atraumatic, normocephalic, normal inspection Eye exam: Present: normal appearance, PERRL, EOMI. Absent: scleral icterus, conjunctival injection, periorbital swelling ENT exam: Present: normal exam, mucous membranes moist Neck exam: Present: normal inspection. Absent: tenderness, meningismus, lymphadenopathy Respiratory exam: Present: normal lung sounds bilaterally. Absent: respiratory distress, wheezes, rales, rhonchi, stridor Cardiovascular Exam: Present: regular rate, normal rhythm, normal heart sounds. Absent: systolic murmur, diastolic murmur, rubs, gallop, clicks GI/Abdominal exam: Present: soft, normal bowel sounds. Absent: distended, tenderness, guarding, rebound, rigid Extremities exam: Present: normal inspection, full ROM, normal capillary refill. Absent: tenderness, pedal edema, joint swelling, calf tenderness Neurological exam: Present: alert, oriented X3, CN II-XII intact Psychiatric exam: Present: normal affect, normal mood Skin exam: Present: warm, dry, intact, normal color. Absent: rash Course Vital Signs 01/26/21 01:24 Temperature 98.7 F Pulse Rate 103 H Respiratory 18 Rate Blood Pressure 150/86 O2 Sat by Pulse 99 Oximetry Medical Decision Making - Medical Decision Making 48-year-old female complaining of neck pain that radiates to her ears and chronic back pain. No pain medication given as she was given 100 g of fentanyl and the events along with 4 mg Zofran. Patient understands she will not really get any pain medication while in the emergency room, she is agreeable. Case discussed with Dr. Gonzalez, similar to discharge home Disposition Clinical Impression: Intractable back pain, Neck pain Disposition: HOME SELF-CARE Condition: Stable Instructions (If sedation given, give patient instructions): Chronic Back Pain (DC) Additional Instructions: Please return to the Emergency Department if symptoms worsen or any other concerns. Strongly recommend follow-up primary care in 1-2 days, and pain in his doctor as soon as possible for visual chronic back pain. Due to chronic nature of back pain please utilize the emergency department for emergencies only. Continue to take at home medications as prescribed. Is patient prescribed a controlled substance at d/c from ED?: No Referrals: Aamir Leo MD [Primary Care Provider] - 1-2 days Time of Disposition: 01:40
== END 2021-01-26 02:01 | disposition home or self-care (01) ==
LOC: EC 01:22
DX: M54.2 Cervicalgia (principal); M54.9 Dorsalgia, unspecified; G89.29 Other chronic pain; F41.9 Anxiety disorder, unspecified; F32.9 Major depressive disorder, single episode, unspecified; F43.10 Post-traumatic stress disorder, unspecified; F41.0 Panic disorder [episodic paroxysmal anxiety]; F17.200 Nicotine dependence, unspecified, uncomplicated; Z79.899 Other long term (current) drug therapy; Z88.0 Allergy status to penicillin; Z88.2 Allergy status to sulfonamides; Z91.030 Bee allergy status; Z90.49 Acquired absence of other specified parts of digestive tract; Z90.710 Acquired absence of both cervix and uterus
CPT/HCPCS: 99283

== ENCOUNTER 2021-01-27 00:25 | Emergency (ER) | payer OTHER ==
[2021-01-27 00:32] VITALS: TEMP 99.6
--- NOTE | 2021-01-27 00:39 | ED ---
Recheck HPI - General Chief Complaint: Back Pain/Injury Stated Complaint: Back Pain Time Seen by Provider: 01/27/21 00:36 Source: patient, EMS, RN notes reviewed, old records reviewed Mode of arrival: EMS Limitations: no limitations - History of Present Illness Initial Comments: This is a 48-year-old female DF for evaluation of back pain acute on chronic back pain as her history is well-documented in this emergency department. Patient also complaining of now sore throat. Otherwise patient is just out of pain medication, denying any fevers no difficulty swallowing no chest MD Complaint: medication refill request -: days(s) Returns Today for: persistent/worsening pain related to initial visit Symptoms Since Prior Visit: worsening pain Context: ran out of medication Associated Symptoms: none Treatments Prior to Arrival: Given Pain Meds on - Related Data Home Medications Medication Instructions Recorded Confirmed Varenicline [Chantix Starter Pack] See Taper PO DIRECTED 01/15/21 01/30/21 Previous Rx's Medication Instructions Recorded Etodolac [Lodine XR] 400 mg PO DAILY #10 tab 01/30/21 Famotidine [Pepcid] 20 mg PO BID #30 tablet 01/30/21 oxyCODONE HCL/ACETAMINOPHEN 1 tab PO BID PRN #6 tab 01/30/21 [Percocet 7.5-325 mg] Allergies Allergy/AdvReac Type Severity Reaction Status Date / Time Penicillins Allergy Rash/Hives Verified 01/30/21 07:50 sulfamethoxazole Allergy Unknown Verified 01/30/21 07:50 [From Bactrim] venom-honey bee Allergy Anaphylaxis Verified 01/30/21 07:50 [bee venom (honey bee)] Review of Systems ROS Statement: Those systems with pertinent positive or pertinent negative responses have been documented in the HPI. ROS Other: All systems not noted in ROS Statement are negative. Past Medical History Past Medical History: Fibromyalgia, Hypertension, Musculoskeletal Disorder Additional Past Medical History / Comment(s): back pain, pt states she has lesions on her brain that could be the onset of MS, tachycardia History of Any Multi-Drug Resistant Organisms: None Reported Past Surgical History: Appendectomy, Hysterectomy Additional Past Surgical History / Comment(s): d&c, Past Anesthesia/Blood Transfusion Reactions: No Reported Reaction Past Psychological History: Anxiety, Depression, Panic Disorder, PTSD Smoking Status: Current every day smoker Past Alcohol Use History: None Reported Past Drug Use History: Opiates, Prescription Drug Abuse - Past Family History Mother Family Medical History: Cancer, Rheumatoid Arthritis (RA) Additional Family Medical History / Comment(s): lymphoma Father Family Medical History: Liver Disease Additional Family Medical History / Comment(s): Father had alcoholic cirrhosis. He is . Daughter(s) Family Medical History: Asthma General Exam General appearance: alert, in no apparent distress Head exam: Present: atraumatic, normocephalic, normal inspection Eye exam: Present: normal appearance, PERRL, EOMI. Absent: scleral icterus, conjunctival injection, periorbital swelling ENT exam: Present: normal exam, mucous membranes moist, other (Mild pharyngitis) Neck exam: Present: normal inspection. Absent: tenderness, meningismus, lymphadenopathy Respiratory exam: Present: normal lung sounds bilaterally. Absent: respiratory distress, wheezes, rales, rhonchi, stridor Cardiovascular Exam: Present: regular rate, normal rhythm, normal heart sounds. Absent: systolic murmur, diastolic murmur, rubs, gallop, clicks GI/Abdominal exam: Present: soft, normal bowel sounds. Absent: distended, tenderness, guarding, rebound, rigid Extremities exam: Present: normal inspection, full ROM, normal capillary refill. Absent: tenderness, pedal edema, joint swelling, calf tenderness Back exam: Present: normal inspection Neurological exam: Present: alert, oriented X3, CN II-XII intact Psychiatric exam: Present: normal affect, normal mood Skin exam: Present: warm, dry, intact, normal color. Absent: rash Course Vital Signs 01/27/21 01/27/21 01/27/21 00:26 01:18 02:00 Temperature 99.6 F Pulse Rate 68 89 89 Respiratory 16 18 18 Rate Blood Pressure 155/103 144/92 144/106 O2 Sat by Pulse 98 95 95 Oximetry - Reevaluation(s) Reevaluation #1: Medical record is reviewed Patient symptoms improved here in the ER Patient family informed of results, questions have been answered Medical Decision Making - Medical Decision Making 48 female to the ER for evaluation of back pain also sore throat, patient's pharyngitis place on antibiotics can be discharged home also given back pain control for chronic back pain Disposition Clinical Impression: Mid back pain, Mechanical back pain, Pharyngitis Disposition: HOME SELF-CARE Condition: Good Instructions (If sedation given, give patient instructions): Pharyngitis (ED), Acute Low Back Pain (ED) Is patient prescribed a controlled substance at d/c from ED?: No Referrals: Aamir Leo MD [Primary Care Provider] - 1-2 days
[2021-01-27] MEDS ORDERED: ACET/COD 300 MG/30 MG STARTER PACK 6 TAB BTL PO STA (00:46)
[2021-01-27] MEDS ORDERED: diphenhydrAMINE 50 MG CAP PO STA (00:46)
[2021-01-27] MEDS ORDERED: LORazepam 1 MG TAB PO STA (00:46)
[2021-01-27] MEDS ORDERED: ETODOLAC 400 MG TAB PO ONE (01:00)
[2021-01-27 01:18] VITALS: PULSE 89; RESP 18
[2021-01-27] MEDS ORDERED: HYDROmorphone 1 MG/ML 1 ML SYRINGE IM STA (02:04)
[2021-01-27] MEDS ORDERED: AZITHROMYCIN 500 MG TAB PO STA (02:04)
[2021-01-27 02:18] VITALS: BP 144/106
== END 2021-01-27 02:31 | disposition home or self-care (01) ==
LOC: EC 00:25
DX: M54.6 Pain in thoracic spine (principal); J02.9 Acute pharyngitis, unspecified; I10 Essential (primary) hypertension; M79.7 Fibromyalgia; F17.200 Nicotine dependence, unspecified, uncomplicated; Z79.899 Other long term (current) drug therapy; Z88.0 Allergy status to penicillin; Z88.1 Allergy status to other antibiotic agents; Z88.2 Allergy status to sulfonamides
CPT/HCPCS: 99283; 96372; J1170

== ENCOUNTER 2021-01-29 23:32 | Observation (INO) | payer OTHER ==
--- NOTE | 2021-01-30 00:23 | ED ---
Recheck HPI - General Chief Complaint: Back Pain/Injury Stated Complaint: Back Pain Time Seen by Provider: 01/29/21 23:36 Source: patient Mode of arrival: ambulatory Limitations: no limitations - Related Data Home Medications Medication Instructions Recorded Confirmed Escitalopram [Lexapro] 10 mg PO DAILY 01/15/21 01/15/21 Varenicline [Chantix Starter Pack] 0.5 mg PO DIRECTED 01/15/21 01/15/21 cloNIDine HCL [Catapres] 0.1 mg PO TID PRN 01/15/21 01/15/21 oxyCODONE HCL/ACETAMINOPHEN 1 tab PO BID PRN 01/15/21 01/15/21 [Percocet 7.5-325 mg] Previous Rx's Medication Instructions Recorded Azithromycin [Zithromax Z-pack (6 0 mg PO DIRECTED #1 pack 01/27/21 tabs)] Allergies Allergy/AdvReac Type Severity Reaction Status Date / Time Penicillins Allergy Rash/Hives Verified 01/30/21 00:04 sulfamethoxazole Allergy Unknown Verified 01/30/21 00:04 [From Bactrim] venom-honey bee Allergy Anaphylaxis Verified 01/30/21 00:04 [bee venom (honey bee)] Review of Systems ROS Statement: Those systems with pertinent positive or pertinent negative responses have been documented in the HPI. ROS Other: All systems not noted in ROS Statement are negative. Past Medical History Past Medical History: Fibromyalgia, Hypertension, Musculoskeletal Disorder Additional Past Medical History / Comment(s): back pain, pt states she has le sions on her brain that could be the onset of MS, tachycardia History of Any Multi-Drug Resistant Organisms: None Reported Past Surgical History: Appendectomy, Hysterectomy Additional Past Surgical History / Comment(s): d&c, Past Anesthesia/Blood Transfusion Reactions: No Reported Reaction Past Psychological History: Anxiety, Depression, Panic Disorder, PTSD Smoking Status: Current every day smoker Past Alcohol Use History: None Reported Past Drug Use History: Opiates, Prescription Drug Abuse - Past Family History Mother Family Medical History: Cancer, Rheumatoid Arthritis (RA) Additional Family Medical History / Comment(s): lymphoma Father Family Medical History: Liver Disease Additional Family Medical History / Comment(s): Father had alcoholic cirrhosis. He is . Daughter(s) Family Medical History: Asthma General Exam Limitations: no limitations Course Vital Signs 01/30/21 00:04 Temperature 98.4 F Pulse Rate 140 H Respiratory 18 Rate Blood Pressure 142/92 O2 Sat by Pulse 96 Oximetry Medical Decision Making - Lab Data Result diagrams: 01/30/21 01:09 Lab Results 01/30/21 01/30/21 Range/Units 01:09 01:09 WBC 8.9 (3.8-10.6) k/uL RBC 4.73 (3.80-5.40) m/uL Hgb 14.7 (11.4-16.0) gm/dL Hct 43.9 (34.0-46.0) % MCV 92.9 (80.0-100.0) fL MCH 31.2 (25.0-35.0) pg MCHC 33.6 (31.0-37.0) g/dL RDW 13.5 (11.5-15.5) % Plt Count 306 (150-450) k/uL MPV 8.1 Neutrophils % 61 % Lymphocytes % 29 % Monocytes % 7 % Eosinophils % 1 % Basophils % 1 % Neutrophils # 5.4 (1.3-7.7) k/uL Lymphocytes # 2.6 (1.0-4.8) k/uL Monocytes # 0.7 (0-1.0) k/uL Eosinophils # 0.1 (0-0.7) k/uL Basophils # 0.1 (0-0.2) k/uL Group A Strep Rapid Negative (Negative) - EKG Data -: EKG Interpreted by Me (EKG shows sinus rhythm 89. DE 134 QRS 138 QTc 481) Disposition Clinical Impression: Intractable back pain, Chronic back pain greater than 3 months duration Disposition: ADMITTED IP TO THIS HOSP Condition: Fair Is patient prescribed a controlled substance at d/c from ED?: No Referrals: Aamir Leo MD [Primary Care Provider] - 1-2 days
[2021-01-30] MEDS ORDERED: SODIUM CHLORIDE 0.9% 1,000 ML IV STA ×2 (00:28)
[2021-01-30] MEDS ORDERED: SODIUM CHLORIDE 0.9% 500 ML 500 ML IV STA (00:28)
[2021-01-30] MEDS ORDERED: LORazepam 2 MG/ML INJ IV STA ×2 (00:53→02:13)
[2021-01-30] MEDS ORDERED: diphenhydrAMINE 50 MG/ML 1 ML VIAL IVP STA (00:53)
[2021-01-30] MEDS ORDERED: KETOROLAC 15 MG/ML 1 ML VIAL IVP STA (00:53)
[2021-01-30 02:00] LABS: Basophils # (A) 0.1 k/uL (0-0.2); Basophils % (A) 1 %; Eosinophils # (A) 0.1 k/uL (0-0.7); Eosinophils % (A) 1 %; HCT 43.9 % (34.0-46.0); HGB 14.7 gm/dL (11.4-16.0); Lymphocytes # (A) 2.6 k/uL (1.0-4.8); Lymphocytes % (A) 29 %; MCH 31.2 pg (25.0-35.0); MCHC 33.6 g/dL (31.0-37.0); MCV 92.9 fL (80.0-100.0); Mean Platelet Volume 8.1; Monocytes # (A) 0.7 k/uL (0-1.0); Monocytes % (A) 7 %; Neutrophils # (A) 5.4 k/uL (1.3-7.7); Neutrophils % (A) 61 %; Platelet Count 306 k/uL (150-450); RBC 4.73 m/uL (3.80-5.40); RDW 13.5 % (11.5-15.5); WBC 8.9 k/uL (3.8-10.6)
[2021-01-30] MEDS ORDERED: HYDROmorphone 1 MG/ML 1 ML SYRINGE IVP PRN (02:13)
[2021-01-30] MEDS ORDERED: NALOXONE 0.4 MG/ML 1 ML VIAL IV PRN (02:13)
[2021-01-30] MEDS ORDERED: LORazepam 2 MG/ML INJ IV PRN (02:13)
[2021-01-30] MEDS ORDERED: diphenhydrAMINE 50 MG/ML 1 ML VIAL IVP PRN (02:13)
--- NOTE | 2021-01-30 02:56 | CT ---
EXAM: CT Head Without Intravenous Contrast CLINICAL HISTORY: ITS.REASON CT Reason: fall TECHNIQUE: Axial computed tomography images of the head/brain without intravenous contrast. CTDI is 45.2 mGy and DLP is 1003.4 mGy-cm. This CT exam was performed using one or more of the following dose reduction techniques: automated exposure control, adjustment of the mA and/or kV according to patient size, and/or use of iterative reconstruction technique. COMPARISON: 11/12/2020. FINDINGS: Brain: Small vessel disease of aging. No abnormal extra-axial collection. No hemorrhage. Midline shift: No midline shift or mass-effect. Ventricles: There is prominence of the ventricular system, cortical sulci, basilar cisterns, compatible with age with atrophy. Bones/joints: Unremarkable. No acute fracture. Soft tissues: Unremarkable. Sinuses: Unremarkable as visualized. No acute sinusitis. Mastoid air cells: Unremarkable as visualized. No mastoid effusion. IMPRESSION: 1. No acute intracranial pathology. 2. If there is concern for etiology such as early acute lacunar infarct, magnetic resonance imaging of the brain with diffusion-weighted sequences should be performed. EXAM: CT Cervical Spine Without Intravenous Contrast CLINICAL HISTORY: ITS.REASON CT Reason: fall TECHNIQUE: Axial computed tomography images of the cervical spine without intravenous contrast. CTDI is 8 mGy and DLP is 330 mGy-cm. This CT exam was performed using one or more of the following dose reduction techniques: automated exposure control, adjustment of the mA and/or kV according to patient size, and/or use of iterative reconstruction technique. COMPARISON: No previous studies. FINDINGS: Vertebrae: There is straightening and reversal of the curvature of the cervical spine suggestive of muscle spasm. There is grade 1 retrolisthesis of C4 upon C5 vertebral body. Mild levoscoliosis. There is a normal relationship of C1 and C2. Transaxial images of the cervical spine reveals no acute injuries. Discs/spinal canal/neural foramina: No acute findings. No spinal canal stenosis. Soft tissues: Paraspinal and regional soft tissues are within normal limits. Lung apices: Lung apices are unremarkable. Other findings: Spinous processes are unremarkable. IMPRESSION: 1. Straightening and reversal of the curvature of the cervical spine suggestive of muscle spasm. 2. No acute injury to the cervical spine is detected.
[2021-01-30 03:42] LABS: ALT 10 U/L (4-34); AST 20 U/L (14-36); African American GFR (CKD) >90 (>60 ml/min/1.73 sqM); Albumin 4.4 g/dL (3.5-5.0); Alkaline Phosphatase 89 U/L (38-126); Anion Gap 10 mmol/L; Blood Urea Nitrogen 16 mg/dL (7-17); Calcium 9.6 mg/dL (8.4-10.2); Carbon Dioxide 27 mmol/L (22-30); Chloride 104 mmol/L (98-107); Creatine Kinase 50 U/L (30-135); Glucose 106 mg/dL (74-99); Non-African American GFR(CKD) >90 (>60 ml/min/1.73 sqM); Phosphorus 3.3 mg/dL (2.5-4.5); Potassium 3.5 mmol/L (3.5-5.1); Sodium 141 mmol/L (137-145); Total Bilirubin 0.6 mg/dL (0.2-1.3)
[2021-01-30 05:59] VITALS: RESP 16
[2021-01-30 07:35] VITALS: BP 151/92; PULSE 64; TEMP 98.1
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
--- NOTE | 2021-01-30 10:12 | P.DS ---
Providers Date of admission: 01/30/21 02:13 Attending physician: Dakotah Sands Primary care physician: Aamir Leo MD Hospital Course: Please refer to my history of present illness for further details Patient Condition at Discharge: Fair Plan - Discharge Summary New Discharge Prescriptions: New Etodolac [Lodine XR] 400 mg PO DAILY #10 tab Famotidine [Pepcid] 20 mg PO BID #30 tablet Continue Varenicline [Chantix Starter Pack] See Taper PO DIRECTED oxyCODONE HCL/ACETAMINOPHEN [Percocet 7.5-325 mg] 1 tab PO BID PRN #6 tab PRN Reason: Pain Discharge Medication List Varenicline [Chantix Starter Pack] See Taper PO DIRECTED 01/15/21 [History] Etodolac [Lodine XR] 400 mg PO DAILY #10 tab 01/30/21 [Rx] Famotidine [Pepcid] 20 mg PO BID #30 tablet 01/30/21 [Rx] oxyCODONE HCL/ACETAMINOPHEN [Percocet 7.5-325 mg] 1 tab PO BID PRN #6 tab 01/30/21 [Rx] Follow up Appointment(s)/Referral(s): Aamir Leo MD [Primary Care Provider] - 3 Days (Call Monday to make appointment) [facility] [[facility]] - 1 Week (Please call Monday am for appointment time. Message left at Pain clinic with your address and phone number) Patient Instructions/Handouts: How to Stop Smoking (DC), Chronic Pain (DC) Discharge Disposition: HOME SELF-CARE
== END 2021-01-30 10:37 | disposition home or self-care (01) ==
LOC: EC 23:32 → 6NMEDSUR 01-30 02:13
PROVIDERS: ADMIT Hospitalist; ATTEND Hospitalist
DX: G89.29 Other chronic pain (principal); M54.5 Low back pain; M79.7 Fibromyalgia; I10 Essential (primary) hypertension; R00.0 Tachycardia, unspecified; G93.9 Disorder of brain, unspecified; F32.9 Major depressive disorder, single episode, unspecified; F41.0 Panic disorder [episodic paroxysmal anxiety]; F43.10 Post-traumatic stress disorder, unspecified; F17.200 Nicotine dependence, unspecified, uncomplicated; Z79.899 Other long term (current) drug therapy; Z79.891 Long term (current) use of opiate analgesic; Z88.0 Allergy status to penicillin; Z88.2 Allergy status to sulfonamides; Z91.030 Bee allergy status; Z80.7 Family history of other malignant neoplasms of lymphoid, hematopoietic and related tissues; Z82.5 Family history of asthma and other chronic lower respiratory diseases; Z82.61 Family history of arthritis; Z80.9 Family history of malignant neoplasm, unspecified; Z83.79 Family history of other diseases of the digestive system; Z90.49 Acquired absence of other specified parts of digestive tract; Z90.710 Acquired absence of both cervix and uterus; Z91.410 Personal history of adult physical and sexual abuse; Z20.822 Contact with and (suspected) exposure to COVID-19
CPT/HCPCS: 96376; 96361; 96374; 96375; 99285; 36415; 93005; 80053; 82550; 83735; 84100; 85025; 87081; 87430; 87635; 72125; 70450; G0378; J2060; J1200; J1885

== ENCOUNTER 2021-02-03 23:24 | Emergency (ER) | payer OTHER ==
[2021-02-03 23:28] VITALS: BP 149/108; PULSE 120; RESP 22; TEMP 99
[2021-02-04] MEDS ORDERED: HYDROmorphone 1 MG/ML 1 ML SYRINGE IM STA (00:02)
[2021-02-04] MEDS ORDERED: KETOROLAC 15 MG/ML 1 ML VIAL IM STA (00:06)
--- NOTE | 2021-02-04 00:07 | ED ---
General Adult HPI - General Chief complaint: Back Pain/Injury Stated complaint: Back Pain Time Seen by Provider: 02/03/21 23:33 Source: patient Mode of arrival: ambulatory Limitations: no limitations - History of Present Illness Initial comments: 56-year-old female patient presents to the emergency department today for evaluation of uncontrolled back pain. Patient has chronic pain and is waiting to have an appointment with a new dip painter. Patient is well- known toward department. Patient states the pain is in her low back and bila teral hips. States the pain does radiate down her bilateral legs. Denies any current numbness or tingling to the lower extremities. Denies saddle anesthesia or bowel or loss of bladder control. Denies any fever or chills. Denies abdominal pain. Denies any new symptoms. States her symptoms are consistent with her usual chronic pain patterns. - Related Data Home Medications Medication Instructions Recorded Confirmed Varenicline [Chantix Starter Pack] See Taper PO DIRECTED 01/15/21 01/30/21 Previous Rx's Medication Instructions Recorded Etodolac [Lodine XR] 400 mg PO DAILY #10 tab 01/30/21 Famotidine [Pepcid] 20 mg PO BID #30 tablet 01/30/21 oxyCODONE HCL/ACETAMINOPHEN 1 tab PO BID PRN #6 tab 01/30/21 [Percocet 7.5-325 mg] Allergies Allergy/AdvReac Type Severity Reaction Status Date / Time Penicillins Allergy Rash/Hives Verified 02/03/21 23:27 sulfamethoxazole Allergy Unknown Verified 02/03/21 23:27 [From Bactrim] venom-honey bee Allergy Anaphylaxis Verified 02/03/21 23:27 [bee venom (honey bee)] Review of Systems ROS Statement: Those systems with pertinent positive or pertinent negative responses have been documented in the HPI. ROS Other: All systems not noted in ROS Statement are negative. Past Medical History Past Medical History: Fibromyalgia, Hypertension, Musculoskeletal Disorder Additional Past Medical History / Comment(s): back pain, pt states she has lesions on her brain that could be the onset of MS, tachycardia History of Any Multi-Drug Resistant Organisms: None Reported Past Surgical History: Appendectomy, Hysterectomy Additional Past Surgical History / Comment(s): d&c, Past Anesthesia/Blood Transfusion Reactions: No Reported Reaction Past Psychological History: Anxiety, Depression, Panic Disorder, PTSD Smoking Status: Current every day smoker Past Alcohol Use History: None Reported Past Drug Use History: Opiates, Prescription Drug Abuse - Past Family History Mother Family Medical History: Cancer, Rheumatoid Arthritis (RA) Additional Family Medical History / Comment(s): lymphoma Father Family Medical History: Liver Disease Additional Family Medical History / Comment(s): Father had alcoholic cirrhosis. He is . Daughter(s) Family Medical History: Asthma General Exam Limitations: no limitations General appearance: alert, in no apparent distress, other (This is a well- developed, well-nourished adult female patient in no acute distress. Vital signs upon presentation are temperature 99.0F, pulse 120, respirations 22, blood pressure 149/108, pulse ox 98% on room air.) Eye exam: Present: normal appearance, PERRL, EOMI. Absent: scleral icterus, conjunctival injection, periorbital swelling ENT exam: Present: normal exam, normal oropharynx, mucous membranes moist Respiratory exam: Present: normal lung sounds bilaterally. Absent: respiratory distress, wheezes, rales, rhonchi, stridor Cardiovascular Exam: Present: regular rate, normal rhythm, normal heart sounds. Absent: systolic murmur, diastolic murmur, rubs, gallop, clicks GI/Abdominal exam: Present: soft, normal bowel sounds. Absent: distended, tenderness, guarding, rebound, rigid Extremities exam: Present: normal inspection, full ROM, normal capillary refill, other (Skin to the lower extremities is pink, warm, dry. Cap refill less than 3 seconds. Pedal and posttibial pulses are 2+ and equal bilaterally.). Absent: tenderness, pedal edema, joint swelling, calf tenderness Back exam: Present: normal inspection. Absent: vertebral tenderness Neurological exam: Present: alert, oriented X3, CN II-XII intact Psychiatric exam: Present: normal affect, normal mood Skin exam: Present: warm, dry, intact, normal color. Absent: rash Course Vital Signs 02/03/21 23:25 Temperature 99.0 F Pulse Rate 120 H Respiratory 22 Rate Blood Pressure 149/108 O2 Sat by Pulse 98 Oximetry Medical Decision Making - Medical Decision Making 56-year-old female patient presents to the emergency department today for evaluation of low back pain, bilateral hip pain. Patient does have history of chronic back pain and symptoms are consistent with her usual pain patterns. Patient does not have pain medication at home. She reports she is awaiting appointment with her dip painter which is scheduled for May. Physical examination is unremarkable. She is neurologically and neurovascularly intact. She'll be given 1 dose of pain medication here, will apply phenyl patch. She is instructed to follow-up with her primary care physician for recheck in 1-2 days. Return parameters were discussed in detail. She verbalizes understanding and agrees with this plan. Case discussed with my attending Dr. Gonzalez. Disposition Clinical Impression: Chronic back pain Disposition: HOME SELF-CARE Condition: Good Instructions (If sedation given, give patient instructions): Chronic Back Pain (DC) Additional Instructions: Follow up with primary care and pain management as soon as possible. Return for any new, worsening, or concerning symptoms. Is patient prescribed a controlled substance at d/c from ED?: No Referrals: Aamir Leo MD [Primary Care Provider] - 1-2 days Time of Disposition: 00:07
== END 2021-02-04 00:41 | disposition home or self-care (01) ==
LOC: EC 23:24
DX: G89.29 Other chronic pain (principal); M25.552 Pain in left hip; M25.551 Pain in right hip; M54.5 Low back pain; F17.200 Nicotine dependence, unspecified, uncomplicated; Z88.0 Allergy status to penicillin; Z88.2 Allergy status to sulfonamides; Z91.030 Bee allergy status
CPT/HCPCS: 96372; 99283

== ENCOUNTER 2021-02-05 23:28 | Emergency (ER) | payer OTHER ==
[2021-02-05 23:34] VITALS: TEMP 98.1
--- NOTE | 2021-02-06 00:25 | ED ---
General Adult HPI - General Chief complaint: Back Pain/Injury Stated complaint: Back Pain Source: patient, RN notes reviewed Mode of arrival: ambulatory Limitations: no limitations - History of Present Illness Initial comments: 56-year-old female with a past medical history of fibromyalgia, hypertension, back pain, presents to the emergency room for a chief complaint of back pain. Patient reports that she is having an exacerbation of her chronic back pain. Patient states it is in her lower back and upper back and neck. States it is completely consistent with previous exacerbations. Patient denies any bladder or bowel changes, numbness or tingling of the lower extremity, weakness of the lower extremities, fevers. Patient was given a fentanyl patch 48 hours ago.Patient has no other complaints at this time including shortness of breath, chest pain, abdominal pain, nausea or vomiting, headache, or visual changes. - Related Data Home Medications Medication Instructions Recorded Confirmed Varenicline [Chantix Starter Pack] See Taper PO DIRECTED 01/15/21 01/30/21 Previous Rx's Medication Instructions Recorded Etodolac [Lodine XR] 400 mg PO DAILY #10 tab 01/30/21 Famotidine [Pepcid] 20 mg PO BID #30 tablet 01/30/21 oxyCODONE HCL/ACETAMINOPHEN 1 tab PO BID PRN #6 tab 01/30/21 [Percocet 7.5-325 mg] Allergies Allergy/AdvReac Type Severity Reaction Status Date / Time Penicillins Allergy Rash/Hives Verified 02/05/21 23:34 sulfamethoxazole Allergy Unknown Verified 02/05/21 23:34 [From Bactrim] venom-honey bee Allergy Anaphylaxis Verified 02/05/21 23:34 [bee venom (honey bee)] Review of Systems ROS Statement: Those systems with pertinent positive or pertinent negative responses have been documented in the HPI. ROS Other: All systems not noted in ROS Statement are negative. Past Medical History Past Medical History: Fibromyalgia, Hypertension, Musculoskeletal Disorder Additional Past Medical History / Comment(s): back pain, pt states she has lesions on her brain that could be the onset of MS, tachycardia History of Any Multi-Drug Resistant Organisms: None Reported Past Surgical History: Appendectomy, Hysterectomy Additional Past Surgical History / Comment(s): d&c, Past Anesthesia/Blood Transfusion Reactions: No Reported Reaction Past Psychological History: Anxiety, Depression, Panic Disorder, PTSD Smoking Status: Current every day smoker Past Alcohol Use History: None Reported Past Drug Use History: Opiates, Prescription Drug Abuse - Past Family History Mother Family Medical History: Cancer, Rheumatoid Arthritis (RA) Additional Family Medical History / Comment(s): lymphoma Father Family Medical History: Liver Disease Additional Family Medical History / Comment(s): Father had alcoholic cirrhosis. He is . Daughter(s) Family Medical History: Asthma General Exam Limitations: no limitations General appearance: alert, in no apparent distress Head exam: Present: atraumatic, normocephalic, normal inspection Eye exam: Present: normal appearance, PERRL, EOMI. Absent: scleral icterus, conjunctival injection, periorbital swelling ENT exam: Present: normal exam, mucous membranes moist Neck exam: Present: normal inspection, full ROM. Absent: tenderness, meningismus, lymphadenopathy Respiratory exam: Present: normal lung sounds bilaterally. Absent: respiratory distress, wheezes, rales, rhonchi, stridor Cardiovascular Exam: Present: regular rate, normal rhythm, normal heart sounds. Absent: systolic murmur, diastolic murmur, rubs, gallop, clicks GI/Abdominal exam: Present: soft, normal bowel sounds. Absent: distended, tenderness, guarding, rebound, rigid Back exam: Absent: vertebral tenderness Neurological exam: Present: alert Course Vital Signs 02/05/21 23:32 Temperature 98.1 F Pulse Rate 102 H Respiratory 16 Rate Blood Pressure 171/93 O2 Sat by Pulse 98 Oximetry Medical Decision Making - Medical Decision Making Is a chronic back pain the patient presents for. She has no red flag symptoms. Symptoms are consistent with previous episodes of exacerbations of her chronic back pain. Patient already had fentanyl patch placed 48 hours ago. She was given Dilaudid at that time. I did discuss that I would not be giving patient any additional narcotics as this is an appropriate care for an emergency room. Patient will be given Toradol and discharged home. She will follow up with her doctor for further pain medication needs. She'll return here for any concerning symptoms. Disposition Clinical Impression: Mechanical back pain Disposition: HOME SELF-CARE Condition: Good Instructions (If sedation given, give patient instructions): Acute Low Back P ain (ED) Additional Instructions: Please follow up with primary care. Please return to the emergency room for any worsening symptoms. Is patient prescribed a controlled substance at d/c from ED?: No Referrals: Felipa,Aamir, MD [Primary Care Provider] - 1-2 days Time of Disposition: 00:28
[2021-02-06] MEDS ORDERED: KETOROLAC 15 MG/ML 1 ML VIAL IM STA (01:19)
[2021-02-06 01:47] VITALS: BP 169/92; PULSE 104; RESP 20
== END 2021-02-06 01:45 | disposition home or self-care (01) ==
LOC: EC 23:28
DX: M54.9 Dorsalgia, unspecified (principal); I10 Essential (primary) hypertension; F41.9 Anxiety disorder, unspecified; F32.9 Major depressive disorder, single episode, unspecified; F17.200 Nicotine dependence, unspecified, uncomplicated
CPT/HCPCS: 99283; 96372; J1885

== ENCOUNTER 2021-02-08 00:30 | Emergency (ER) | payer OTHER ==
[2021-02-08 00:48] VITALS: BP 105/62; PULSE 78; RESP 18; TEMP 98.5
--- NOTE | 2021-02-08 00:58 | ED ---
Recheck HPI - General Chief Complaint: Back Pain/Injury Stated Complaint: Back Pain Time Seen by Provider: 02/08/21 00:53 Source: patient, EMS Mode of arrival: EMS Limitations: no limitations - Related Data Home Medications Medication Instructions Recorded Confirmed Varenicline [Chantix Starter Pack] See Taper PO DIRECTED 01/15/21 01/30/21 Previous Rx's Medication Instructions Recorded Etodolac [Lodine XR] 400 mg PO DAILY #10 tab 01/30/21 Famotidine [Pepcid] 20 mg PO BID #30 tablet 01/30/21 oxyCODONE HCL/ACETAMINOPHEN 1 tab PO BID PRN #6 tab 01/30/21 [Percocet 7.5-325 mg] Allergies Allergy/AdvReac Type Severity Reaction Status Date / Time Penicillins Allergy Rash/Hives Verified 02/08/21 00:47 sulfamethoxazole Allergy Unknown Verified 02/08/21 00:47 [From Bactrim] venom-honey bee Allergy Anaphylaxis Verified 02/08/21 00:47 [bee venom (honey bee)] Review of Systems ROS Statement: Those systems with pertinent positive or pertinent negative responses have been documented in the HPI. ROS Other: All systems not noted in ROS Statement are negative. Past Medical History Past Medical History: Fibromyalgia, Hypertension, Musculoskeletal Disorder Additional Past Medical History / Comment(s): back pain, pt states she has lesions on her brain that could be the onset of MS, tachycardia History of Any Multi-Drug Resistant Organisms: None Reported Past Surgical History: Appendectomy, Hysterectomy Additional Past Surgical History / Comment(s): d&c, Past Anesthesia/Blood Transfusion Reactions: No Reported Reaction Past Psychological History: Anxiety, Depression, Panic Disorder, PTSD Smoking Status: Current every day smoker Past Alcohol Use History: None Reported Past Drug Use History: Opiates, Prescription Drug Abuse - Past Family History Mother Family Medical History: Cancer, Rheumatoid Arthritis (RA) Additional Family Medical History / Comment(s): lymphoma Father Family Medical History: Liver Disease Additional Family Medical History / Comment(s): Father had alcoholic cirrhosis. He is . Daughter(s) Family Medical History: Asthma General Exam Limitations: no limitations Course Vital Signs 02/08/21 00:44 Temperature 98.5 F Pulse Rate 78 Respiratory 18 Rate Blood Pressure 105/62 O2 Sat by Pulse 98 Oximetry Disposition Clinical Impression: Intractable back pain, Mechanical back pain Disposition: HOME SELF-CARE Condition: Good Instructions (If sedation given, give patient instructions): Acute Low Back Pain (ED) Is patient prescribed a controlled substance at d/c from ED?: No Referrals: Aamir Leo MD [Primary Care Provider] - 1-2 days
[2021-02-08] MEDS ORDERED: diphenhydrAMINE 50 MG CAP PO STA (01:55)
[2021-02-08] MEDS ORDERED: HYDROmorphone 1 MG/ML 1 ML SYRINGE IM STA (01:55)
[2021-02-08] MEDS ORDERED: LORazepam 1 MG TAB PO STA (01:55)
[2021-02-08] MEDS ORDERED: ACET/COD 300 MG/30 MG STARTER PACK 6 TAB BTL PO STA (02:39)
== END 2021-02-08 03:08 | disposition home or self-care (01) ==
LOC: EC 00:30
DX: M54.9 Dorsalgia, unspecified (principal); I10 Essential (primary) hypertension; F41.9 Anxiety disorder, unspecified; F32.9 Major depressive disorder, single episode, unspecified; F17.200 Nicotine dependence, unspecified, uncomplicated; M79.7 Fibromyalgia; Z88.0 Allergy status to penicillin
CPT/HCPCS: 99283; 96372; J1170

== ENCOUNTER 2021-02-08 23:23 | Observation (INO) | payer OTHER ==
[2021-02-08 23:52] VITALS: TEMP 98.5
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
[2021-02-09] MEDS ORDERED: SODIUM CHLORIDE 0.9% 1,000 ML IV STA ×2 (00:52)
[2021-02-09] MEDS ORDERED: SODIUM CHLORIDE 0.9% 1,000 ML IV ONE (00:52)
[2021-02-09] MEDS ORDERED: diphenhydrAMINE 50 MG/ML 1 ML VIAL IVP PRN (00:53)
[2021-02-09] MEDS ORDERED: diphenhydrAMINE 50 MG/ML 1 ML VIAL IVP STA (00:53)
[2021-02-09] MEDS ORDERED: KETOROLAC 15 MG/ML 1 ML VIAL IVP STA (00:53)
[2021-02-09] MEDS ORDERED: HYDROmorphone 1 MG/ML 1 ML SYRINGE IVP STA (00:53)
[2021-02-09] MEDS ORDERED: HYDROmorphone 1 MG/ML 1 ML SYRINGE IVP PRN (00:53)
[2021-02-09] MEDS ORDERED: LORazepam 2 MG/ML INJ IV STA (00:53)
[2021-02-09] MEDS ORDERED: LORazepam 2 MG/ML INJ IV PRN (01:00)
[2021-02-09 01:22] LABS: Basophils % (A) 1 %; Eosinophils # (A) 0.1 k/uL (0-0.7); Eosinophils % (A) 1 %; HCT 40.3 % (34.0-46.0); Lymphocytes # (A) 2.5 k/uL (1.0-4.8); Lymphocytes % (A) 30 %; MCH 32.4 pg (25.0-35.0); MCHC 34.9 g/dL (31.0-37.0); MCV 92.9 fL (80.0-100.0); Mean Platelet Volume 7.9; Monocytes # (A) 0.5 k/uL (0-1.0); Monocytes % (A) 6 %; Neutrophils # (A) 5.1 k/uL (1.3-7.7); Neutrophils % (A) 61 %; Platelet Count 250 k/uL (150-450); RBC 4.34 m/uL (3.80-5.40); RDW 13.2 % (11.5-15.5); WBC 8.3 k/uL (3.8-10.6)
[2021-02-09 01:30] LABS: Partial Thromboplastin Time 24.3 sec (22.0-30.0); Prothrombin Time 10.3 sec (9.0-12.0)
[2021-02-09 01:58] LABS: ALT 9 U/L (4-34); AST 18 U/L (14-36); African American GFR (CKD) >90 (>60 ml/min/1.73 sqM); Albumin 4.1 g/dL (3.5-5.0); Alkaline Phosphatase 76 U/L (38-126); Anion Gap 6 mmol/L; Blood Urea Nitrogen 17 mg/dL (7-17); Calcium 9.4 mg/dL (8.4-10.2); Carbon Dioxide 27 mmol/L (22-30); Chloride 106 mmol/L (98-107); Glucose 103 mg/dL (74-99); Magnesium 2.1 mg/dL (1.6-2.3); Non-African American GFR(CKD) >90 (>60 ml/min/1.73 sqM); Phosphorus 3.7 mg/dL (2.5-4.5); Potassium 3.8 mmol/L (3.5-5.1); Sodium 139 mmol/L (137-145); Total Bilirubin 0.6 mg/dL (0.2-1.3); Total Protein 6.5 g/dL (6.3-8.2)
[2021-02-09] MEDS ORDERED: KETOROLAC 15 MG/ML 1 ML VIAL IVP SCH (06:00)
[2021-02-09 08:20] VITALS: BP 111/71; PULSE 57; RESP 16
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
== END 2021-02-09 09:56 | disposition left against medical advice (07) ==
LOC: EC 23:23 → 6NMEDSUR 02-09 02:46 → 1SOBS 02-09 09:14
PROVIDERS: ADMIT Family Medicine; ATTEND Family Medicine
DX: G89.29 Other chronic pain (principal); M54.5 Low back pain; M79.7 Fibromyalgia; I10 Essential (primary) hypertension; F11.20 Opioid dependence, uncomplicated; F32.9 Major depressive disorder, single episode, unspecified; M51.36 Other intervertebral disc degeneration, lumbar region; G93.9 Disorder of brain, unspecified; F43.10 Post-traumatic stress disorder, unspecified; F41.0 Panic disorder [episodic paroxysmal anxiety]; F41.9 Anxiety disorder, unspecified; F17.200 Nicotine dependence, unspecified, uncomplicated; Z87.828 Personal history of other (healed) physical injury and trauma; Z90.49 Acquired absence of other specified parts of digestive tract; Z90.710 Acquired absence of both cervix and uterus; Z88.0 Allergy status to penicillin; Z88.2 Allergy status to sulfonamides; Z91.030 Bee allergy status; Z20.822 Contact with and (suspected) exposure to COVID-19; Z82.5 Family history of asthma and other chronic lower respiratory diseases; Z80.7 Family history of other malignant neoplasms of lymphoid, hematopoietic and related tissues; Z82.61 Family history of arthritis; Z80.0 Family history of malignant neoplasm of digestive organs
CPT/HCPCS: 96376; 96361; 96374; 96375; 99284; 36415; 80053; 83735; 84100; 85025; 85610; 85730; 87635; G0378 ×2; J2060; J1200; J1170; J1885

== ENCOUNTER 2021-02-09 23:38 | Emergency (ER) | payer OTHER ==
[2021-02-09 23:53] VITALS: BP 145/64; PULSE 101; RESP 22; TEMP 99.7
[2021-02-10] MEDS ORDERED: KETOROLAC 15 MG/ML 1 ML VIAL IM STA (02:19)
[2021-02-10] MEDS ORDERED: ACETAMINOPHEN TAB 325 MG TAB PO STA (02:19)
--- NOTE | 2021-02-10 02:36 | ED ---
General Adult HPI - General Chief complaint: Back Pain/Injury Stated complaint: Back Pain Time Seen by Provider: 02/10/21 01:42 Source: patient, RN notes reviewed Mode of arrival: EMS Limitations: no limitations - History of Present Illness Initial comments: Patient is a 56-year-old female that frequents the ER for chronic back pain. She is been referred to pain medicine, was times but has failed to set up an appointment or get prior authorization to her primary care insurance. She was previously discharged from the ER yesterday morning on 02/09/2021. Nurse and note that she left AMA after getting admit orders for inpatient treatment. She was lying in bed in moderate distress and pain. He notes that the pain is constant chronic 10 out of 10 unrelieved with any medication. She denied any chest pain shortness of breath headache nausea vomiting diarrhea constipation fever fatigue chills - Related Data Home Medications Medication Instructions Recorded Confirmed No Known Home Medications 02/09/21 02/09/21 Allergies Allergy/AdvReac Type Severity Reaction Status Date / Time Penicillins Allergy Rash/Hives Verified 02/09/21 23:52 sulfamethoxazole Allergy Unknown Verified 02/09/21 23:52 [From Bactrim] venom-honey bee Allergy Anaphylaxis Verified 02/09/21 23:52 [bee venom (honey bee)] Review of Systems ROS Statement: Those systems with pertinent positive or pertinent negative responses have been documented in the HPI. ROS Other: All systems not noted in ROS Statement are negative. Past Medical History Past Medical History: Fibromyalgia, Hypertension, Musculoskeletal Disorder Additional Past Medical History / Comment(s): back pain, pt states she has lesions on her brain that could be the onset of MS, tachycardia History of Any Multi-Drug Resistant Organisms: None Reported Past Surgical History: Appendectomy, Hysterectomy Additional Past Surgical History / Comment(s): d&c, Past Anesthesia/Blood Transfusion Reactions: No Reported Reaction Past Psychological History: Anxiety, Depression, Panic Disorder, PTSD Smoking Status: Current every day smoker Past Alcohol Use History: None Reported Past Drug Use History: Opiates, Prescription Drug Abuse - Past Family History Mother Family Medical History: Cancer, Rheumatoid Arthritis (RA) Additional Family Medical History / Comment(s): lymphoma Father Family Medical History: Liver Disease Additional Family Medical History / Comment(s): Father had alcoholic cirrhosis. He is . Daughter(s) Family Medical History: Asthma General Exam Limitations: no limitations General appearance: alert, in no apparent distress Head exam: Present: atraumatic, normocephalic, normal inspection Eye exam: Present: normal appearance, PERRL, EOMI. Absent: scleral icterus, conjunctival injection, periorbital swelling Neck exam: Present: normal inspection. Absent: tenderness, meningismus, lymphadenopathy Respiratory exam: Present: normal lung sounds bilaterally. Absent: respiratory distress, wheezes, rales, rhonchi, stridor Cardiovascular Exam: Present: regular rate, normal rhythm, normal heart sounds. Absent: systolic murmur, diastolic murmur, rubs, gallop, clicks GI/Abdominal exam: Present: soft, normal bowel sounds. Absent: distended, tenderness, guarding, rebound, rigid Extremities exam: Present: normal inspection, full ROM, normal capillary refill. Absent: tenderness, pedal edema, joint swelling, calf tenderness Neurological exam: Present: alert, oriented X3, CN II-XII intact Psychiatric exam: Present: normal affect, normal mood Skin exam: Present: warm, dry, intact, normal color. Absent: rash Course Vital Signs 02/09/21 23:48 Temperature 99.7 F H Pulse Rate 101 H Respiratory 22 Rate Blood Pressure 145/64 O2 Sat by Pulse 99 Oximetry Medical Decision Making - Medical Decision Making 48-year-old female that frequency emergency room for chronic back pain presents again for back pain after leaving AMA yesterday after getting admission orders. 15 mg of Toradol and 650 mg of Tylenol ordered. Case discussed with Dr. Roberts, patient can discharge home with follow-up to pain medicine. Disposition Clinical Impression: Intractable back pain, Chronic back pain, Thoracic back pain Disposition: HOME SELF-CARE Condition: Stable Instructions (If sedation given, give patient instructions): Chronic Back Pain (DC) Additional Instructions: Please return to the Emergency Department if symptoms worsen or any other concerns. Follow-up with primary care to get prior authorization for pain medicine referral. Please contact insurance for transport options, as most provide transport services to and from doctor's appointments. Again the ER is not for chronic pain management. Is patient prescribed a controlled substance at d/c from ED?: No Referrals: Aamir Leo MD [Primary Care Provider] - 1-2 days Time of Disposition: 02:36
== END 2021-02-10 02:58 | disposition home or self-care (01) ==
LOC: EC 23:38
DX: G89.29 Other chronic pain (principal); M54.6 Pain in thoracic spine; I10 Essential (primary) hypertension; F32.9 Major depressive disorder, single episode, unspecified; F41.9 Anxiety disorder, unspecified; M79.7 Fibromyalgia; F17.200 Nicotine dependence, unspecified, uncomplicated; Z88.0 Allergy status to penicillin
CPT/HCPCS: 99283; 96372; J1885

== ENCOUNTER 2021-02-14 09:52 | Emergency (ER) | payer OTHER ==
[2021-02-14 10:19] VITALS: RESP 18; TEMP 97.8
[2021-02-14] MEDS ORDERED: SODIUM CHLORIDE 0.9% 1,000 ML IV STA (10:29)
--- NOTE | 2021-02-14 10:56 | ED ---
General Adult HPI - General Chief complaint: Syncope Stated complaint: syncope Time Seen by Provider: 02/14/21 10:21 Source: patient, RN notes reviewed Mode of arrival: ambulatory Limitations: no limitations - History of Present Illness Initial comments: 56-year-old female presents emergency Department chief complaint syncopal episode. Patient states that she gets up too quickly she gets very lightheaded and dizzy. Patient states she did pass out 1 time denies any headache, head injury no neck pain. Patient states that she is currently going through opiate withdrawal is an states that she's been having diarrhea. She states she's had decreased oral intake. No significant abdominal pain. Denies any bowel, bladder incontinence or retention or saddle anesthesias. Patient has chronic back pain in which she has abused opiates in the past but currently has no opiates in which she states she is going through withdrawals. Patient was placed on clonidine by her PCP. - Related Data Home Medications Medication Instructions Recorded Confirmed cloNIDine HCL 0.1 mg PO TID PRN 02/14/21 02/14/21 Allergies Allergy/AdvReac Type Severity Reaction Status Date / Time Penicillins Allergy Rash/Hives Verified 02/14/21 12:19 sulfamethoxazole Allergy Unknown Verified 02/14/21 12:19 [From Bactrim] venom-honey bee Allergy Anaphylaxis Verified 02/14/21 12:19 [bee venom (honey bee)] Review of Systems ROS Statement: Those systems with pertinent positive or pertinent negative responses have been documented in the HPI. ROS Other: All systems not noted in ROS Statement are negative. Past Medical History Past Medical History: Fibromyalgia, Hypertension, Musculoskeletal Disorder Additional Past Medical History / Comment(s): back pain, pt states she has lesions on her brain that could be the onset of MS, tachycardia History of Any Multi-Drug Resistant Organisms: None Reported Past Surgical History: Appendectomy, Hysterectomy Additional Past Surgical History / Comment(s): d&c, Past Anesthesia/Blood Transfusion Reactions: No Reported Reaction Past Psychological History: Anxiety, Depression, Panic Disorder, PTSD Smoking Status: Current every day smoker Past Alcohol Use History: None Reported Past Drug Use History: Opiates, Prescription Drug Abuse - Past Family History Mother Family Medical History: Cancer, Rheumatoid Arthritis (RA) Additional Family Medical History / Comment(s): lymphoma Father Family Medical History: Liver Disease Additional Family Medical History / Comment(s): Father had alcoholic cirrhosis. He is . Daughter(s) Family Medical History: Asthma General Exam Limitations: no limitations General appearance: alert, in no apparent distress Head exam: Present: atraumatic, normocephalic, normal inspection Eye exam: Present: normal appearance, PERRL, EOMI. Absent: scleral icterus, conjunctival injection, periorbital swelling ENT exam: Present: normal exam, normal oropharynx, mucous membranes moist, TM's normal bilaterally, normal external ear exam Neck exam: Present: normal inspection, full ROM. Absent: tenderness, meningismus, lymphadenopathy Respiratory exam: Present: normal lung sounds bilaterally. Absent: respiratory distress, wheezes, rales, rhonchi, stridor Cardiovascular Exam: Present: regular rate, normal rhythm, normal heart sounds. Absent: systolic murmur, diastolic murmur, rubs, gallop, clicks GI/Abdominal exam: Present: soft, normal bowel sounds. Absent: distended, tenderness, guarding, rebound, rigid Neurological exam: Present: alert, oriented X3, CN II-XII intact, reflexes normal. Absent: motor sensory deficit Skin exam: Present: warm, dry, intact, normal color. Absent: rash Course Vital Signs 02/14/21 02/14/21 02/14/21 10:16 10:37 11:42 Temperature 97.8 F Pulse Rate 73 55 L Pulse Rate [ 85 Sitting] Pulse Rate [ 102 H Standing] Pulse Rate [ 60 Supine] Respiratory 18 18 Rate Blood Pressure 92/60 107/65 Blood Pressure 83/59 [Sitting] Blood Pressure 81/63 [Standing] Blood Pressure 84/59 [Supine] O2 Sat by Pulse 100 99 Oximetry 02/14/21 02/14/21 02/14/21 12:38 13:07 13:32 Temperature Pulse Rate 68 51 L 64 Pulse Rate [ Sitting] Pulse Rate [ Standing] Pulse Rate [ Supine] Respiratory 18 18 18 Rate Blood Pressure 89/60 89/58 94/64 Blood Pressure [Sitting] Blood Pressure [Standing] Blood Pressure [Supine] O2 Sat by Pulse 100 99 100 Oximetry EKG Findings - EKG Comments: EKG Findings:: EKG performed at 10:24 sinus rhythm with right bundle, rate of 66 TN 120 towards 146 QT/QTc 444/465 Medical Decision Making - Medical Decision Making 56-year-old presented for syncopal episode. Patient was hydrated area patient's blood pressure is mildly low but has improved. Patient has been on clonidine which is causing her blood pressure to be low. She will discontinue clonidine. She'll follow-up with her PCP and return for any worsening change in symptoms. - Lab Data Result diagrams: 02/14/21 11:13 02/14/21 11:13 Lab Results 02/14/21 02/14/21 02/14/21 Range/Units 11:13 11:13 11:13 WBC 8.2 (3.8-10.6) k/uL RBC 3.87 (3.80-5.40) m/uL Hgb 12.9 (11.4-16.0) gm/dL Hct 35.5 (34.0-46.0) % MCV 91.8 (80.0-100.0) fL MCH 33.2 (25.0-35.0) pg MCHC 36.2 (31.0-37.0) g/dL RDW 12.7 (11.5-15.5) % Plt Count 188 (150-450) k/uL MPV 8.0 Neutrophils % 63 % Lymphocytes % 26 % Monocytes % 8 % Eosinophils % 2 % Basophils % 1 % Neutrophils # 5.1 (1.3-7.7) k/uL Lymphocytes # 2.1 (1.0-4.8) k/uL Monocytes # 0.6 (0-1.0) k/uL Eosinophils # 0.2 (0-0.7) k/uL Basophils # 0.0 (0-0.2) k/uL PT 11.7 (9.0-12.0) sec INR 1.1 (<1.2) APTT 23.4 (22.0-30.0) sec Sodium 135 L (137-145) mmol/L Potassium 3.2 L (3.5-5.1) mmol/L Chloride 106 (98-107) mmol/L Carbon Dioxide 24 (22-30) mmol/L Anion Gap 5 mmol/L BUN 24 H (7-17) mg/dL Creatinine 1.02 (0.52-1.04) mg/dL Est GFR (CKD-EPI)AfAm 70 (>60 ml/min/1.73 sqM) Est GFR (CKD-EPI)NonAf 61 (>60 ml/min/1.73 sqM) Glucose 105 H (74-99) mg/dL Calcium 8.2 L (8.4-10.2) mg/dL Magnesium 2.0 (1.6-2.3) mg/dL Total Bilirubin 0.7 (0.2-1.3) mg/dL AST 29 (14-36) U/L ALT 16 (4-34) U/L Alkaline Phosphatase 54 (38-126) U/L Troponin I (0.000-0.034) ng/mL Total Protein 5.4 L (6.3-8.2) g/dL Albumin 3.2 L (3.5-5.0) g/dL 02/14/21 Range/Units 11:13 WBC (3.8-10.6) k/uL RBC (3.80-5.40) m/uL Hgb (11.4-16.0) gm/dL Hct (34.0-46.0) % MCV (80.0-100.0) fL MCH (25.0-35.0) pg MCHC (31.0-37.0) g/dL RDW (11.5-15.5) % Plt Count (150-450) k/uL MPV Neutrophils % % Lymphocytes % % Monocytes % % Eosinophils % % Basophils % % Neutrophils # (1.3-7.7) k/uL Lymphocytes # (1.0-4.8) k/uL Monocytes # (0-1.0) k/uL Eosinophils # (0-0.7) k/uL Basophils # (0-0.2) k/uL PT (9.0-12.0) sec INR (<1.2) APTT (22.0-30.0) sec Sodium (137-145) mmol/L Potassium (3.5-5.1) mmol/L Chloride (98-107) mmol/L Carbon Dioxide (22-30) mmol/L Anion Gap mmol/L BUN (7-17) mg/dL Creatinine (0.52-1.04) mg/dL Est GFR (CKD-EPI)AfAm (>60 ml/min/1.73 sqM) Est GFR (CKD-EPI)NonAf (>60 ml/min/1.73 sqM) Glucose (74-99) mg/dL Calcium (8.4-10.2) mg/dL Magnesium (1.6-2.3) mg/dL Total Bilirubin (0.2-1.3) mg/dL AST (14-36) U/L ALT (4-34) U/L Alkaline Phosphatase (38-126) U/L Troponin I <0.012 (0.000-0.034) ng/mL Total Protein (6.3-8.2) g/dL Albumin (3.5-5.0) g/dL Disposition Clinical Impression: Vasovagal syncope Disposition: HOME SELF-CARE Condition: Stable Instructions (If sedation given, give patient instructions): Syncope (ED) Additional Instructions: Please return to the Emergency Department if symptoms worsen or any other concerns. Is patient prescribed a controlled substance at d/c from ED?: No Referrals: Aamir Leo MD [Primary Care Provider] - 1-2 days Time of Disposition: 13:39
[2021-02-14 11:23] LABS: Basophils % (A) 1 %; Eosinophils # (A) 0.2 k/uL (0-0.7); Eosinophils % (A) 2 %; HCT 35.5 % (34.0-46.0); HGB 12.9 gm/dL (11.4-16.0); Lymphocytes # (A) 2.1 k/uL (1.0-4.8); Lymphocytes % (A) 26 %; MCH 33.2 pg (25.0-35.0); MCHC 36.2 g/dL (31.0-37.0); MCV 91.8 fL (80.0-100.0); Monocytes # (A) 0.6 k/uL (0-1.0); Monocytes % (A) 8 %; Neutrophils # (A) 5.1 k/uL (1.3-7.7); Neutrophils % (A) 63 %; Platelet Count 188 k/uL (150-450); RBC 3.87 m/uL (3.80-5.40); RDW 12.7 % (11.5-15.5); WBC 8.2 k/uL (3.8-10.6)
[2021-02-14 11:36] LABS: Albumin 3.2 g/dL (3.5-5.0); Calcium 8.2 mg/dL (8.4-10.2); INR 1.1 (<1.2); Partial Thromboplastin Time 23.4 sec (22.0-30.0); Potassium 3.2 mmol/L (3.5-5.1); Prothrombin Time 11.7 sec (9.0-12.0); Total Bilirubin 0.7 mg/dL (0.2-1.3); Total Protein 5.4 g/dL (6.3-8.2)
[2021-02-14 13:33] VITALS: BP 94/64; PULSE 64
[2021-02-14] MEDS ORDERED: POTASSIUM CHLORIDE ER 20 MEQ TAB.ER PO STA (13:39)
== END 2021-02-14 14:03 | disposition home or self-care (01) ==
LOC: EC 09:52
DX: R55 Syncope and collapse (principal); I10 Essential (primary) hypertension; F17.200 Nicotine dependence, unspecified, uncomplicated; Z88.0 Allergy status to penicillin; Z88.2 Allergy status to sulfonamides; Z91.030 Bee allergy status
CPT/HCPCS: 80053; 83735; 84484; 85025; 85610; 85730; 93005; 96360; 96361; 99284

== ENCOUNTER 2021-04-06 08:54 | Emergency (ER) | payer OTHER ==
[2021-04-06 08:58] VITALS: RESP 18; TEMP 97.5
[2021-04-06 09:31] LABS: Basophils # (A) 0.1 k/uL (0-0.2); Basophils % (A) 1 %; Eosinophils # (A) 0.3 k/uL (0-0.7); Eosinophils % (A) 3 %; HCT 34.2 % (34.0-46.0); HGB 12.4 gm/dL (11.4-16.0); Lymphocytes # (A) 2.5 k/uL (1.0-4.8); Lymphocytes % (A) 25 %; MCH 33.6 pg (25.0-35.0); MCHC 36.2 g/dL (31.0-37.0); MCV 92.8 fL (80.0-100.0); Mean Platelet Volume 7.4; Monocytes # (A) 0.5 k/uL (0-1.0); Monocytes % (A) 5 %; Neutrophils # (A) 6.6 k/uL (1.3-7.7); Neutrophils % (A) 66 %; Platelet Count 310 k/uL (150-450); RBC 3.68 m/uL (3.80-5.40); WBC 10.1 k/uL (3.8-10.6)
[2021-04-06 09:43] LABS: ALT 7 U/L (4-34); AST 16 U/L (14-36); African American GFR (CKD) >90 (>60 ml/min/1.73 sqM); Albumin 3.7 g/dL (3.5-5.0); Alkaline Phosphatase 72 U/L (38-126); Anion Gap 10 mmol/L; Blood Urea Nitrogen 20 mg/dL (7-17); Calcium 9.4 mg/dL (8.4-10.2); Carbon Dioxide 21 mmol/L (22-30); Chloride 111 mmol/L (98-107); Glucose 97 mg/dL (74-99); Non-African American GFR(CKD) >90 (>60 ml/min/1.73 sqM); Potassium 2.9 mmol/L (3.5-5.1); Sodium 142 mmol/L (137-145); Total Bilirubin 0.3 mg/dL (0.2-1.3); Total Protein 6.1 g/dL (6.3-8.2)
[2021-04-06] MEDS ORDERED: POTASSIUM CHLORIDE ER 20 MEQ TAB.ER PO STA (09:44)
--- NOTE | 2021-04-06 10:04 | CT ---
EXAMINATION TYPE: CT soft tissue neck w con DATE OF EXAM: 04/06/2021 COMPARISON: None HISTORY: h/o tonsil stones on the right side but pain on left side CT DLP: 186.2 mGycm CONTRAST: CT scan of the neck is performed with IV Contrast, patient injected with 100ml mL of Isovue 300. Contrast enhanced CT of the neck was performed from the skull base through the lung apices. AIRWAY: The supraglottic, glottic, and subglottic portions of the airway appear patent and free of mass. SALIVARY GLANDS: The submandibular and parotid glands are free of mass or inflammatory process. THYROID GLAND: No nodules or masses seen. LYMPH NODES: No adenopathy seen greater than 1cm. LUNG APICES: No nodule or mass is seen. OTHER: Vascular structures are patent. No significant degenerative change of the cervical spine. N o abscess seen. IMPRESSION: No distinct abnormality appreciated.
[2021-04-06 10:19] VITALS: BP 122/79; PULSE 84
[2021-04-06] MEDS ORDERED: ONDANSETRON 4 MG/2 ML VIAL IVP STA (10:22)
--- NOTE | 2021-04-06 10:22 | ED ---
General Adult HPI - General Chief complaint: ENT Stated complaint: tonsil stones Time Seen by Provider: 04/06/21 08:58 Source: patient, RN notes reviewed, old records reviewed Mode of arrival: ambulatory Limitations: no limitations - History of Present Illness Initial comments: 48-year-old female who presented for evaluation of left-sided neck pain. She had received an outpatient ultrasound and was instructed to present to the emergency department for CT imaging. She is uncertain of exactly why they had referred her for imaging. She's had pain first approximately one month. No fever. She had been treated with antibiotics and symptoms have not completely resolved. She denies difficulty swallowing or difficulty breathing. No headache. No focal numbness or weakness. No chest pain. - Related Data Home Medications Medication Instructions Recorded Confirmed cloNIDine HCL 0.1 mg PO TID PRN 02/14/21 02/14/21 Allergies Allergy/AdvReac Type Severity Reaction Status Date / Time Penicillins Allergy Rash/Hives Verified 04/06/21 08:57 sulfamethoxazole Allergy Unknown Verified 04/06/21 08:57 [From Bactrim] venom-honey bee Allergy Anaphylaxis Verified 04/06/21 08:57 [bee venom (honey bee)] Review of Systems ROS Statement: Those systems with pertinent positive or pertinent negative responses have been documented in the HPI. ROS Other: All systems not noted in ROS Statement are negative. Past Medical History Past Medical History: Fibromyalgia, Hypertension, Musculoskeletal Disorder Additional Past Medical History / Comment(s): back pain, pt states she has lesions on her brain that could be the onset of MS, tachycardia History of Any Multi-Drug Resistant Organisms: None Reported Past Surgical History: Appendectomy, Hysterectomy Additional Past Surgical History / Comment(s): d&c, Past Anesthesia/Blood Transfusion Reactions: No Reported Reaction Past Psychological History: Anxiety, Depression, Panic Disorder, PTSD Smoking Status: Current every day smoker Past Alcohol Use History: None Reported Past Drug Use History: Opiates, Prescription Drug Abuse - Past Family History Mother Family Medical History: Cancer, Rheumatoid Arthritis (RA) Additional Family Medical History / Comment(s): lymphoma Father Family Medical History: Liver Disease Additional Family Medical History / Comment(s): Father had alcoholic cirrhosis. He is . Daughter(s) Family Medical History: Asthma General Exam Limitations: no limitations General appearance: alert, in no apparent distress Head exam: Present: atraumatic, normocephalic Eye exam: Present: normal appearance, PERRL ENT exam: Present: normal exam, normal oropharynx, TM's normal bilaterally Neck exam: Present: normal inspection. Absent: tenderness, meningismus Respiratory exam: Present: normal lung sounds bilaterally. Absent: respiratory distress, wheezes Cardiovascular Exam: Present: regular rate, normal rhythm GI/Abdominal exam: Present: soft. Absent: distended, tenderness, guarding, rebound Extremities exam: Present: normal inspection, normal capillary refill. Absent: pedal edema Neurological exam: Present: alert, oriented X3 Psychiatric exam: Present: normal affect, normal mood Course Vital Signs 04/06/21 04/06/21 08:56 10:16 Temperature 97.5 F L Pulse Rate 110 H 84 Respiratory 18 18 Rate Blood Pressure 136/68 122/79 O2 Sat by Pulse 100 84 L Oximetry Medical Decision Making - Medical Decision Making Laboratory testing reveals normal CBC, CMP showing a 2.9 potassium which is replaced. I did perform a CT of soft tissue neck which is negative for any acute abnormalities. Patient had no external signs of mass or pharyngitis, there is no tonsillar swelling or hypertrophy, no tonsillar stones visualized. Uncertain exactly what abnormality was seen on ultrasound, these records are not available and attempt to contact the ordering provider were unsuccessful. She will continue to follow up as an outpatient. Return parameters discussed. - Lab Data Result diagrams: 04/06/21 09:24 04/06/21 09:24 Lab Results 04/06/21 04/06/21 Range/Units 09:24 09:24 WBC 10.1 (3.8-10.6) k/uL RBC 3.68 L (3.80-5.40) m/uL Hgb 12.4 (11.4-16.0) gm/dL Hct 34.2 (34.0-46.0) % MCV 92.8 (80.0-100.0) fL MCH 33.6 (25.0-35.0) pg MCHC 36.2 (31.0-37.0) g/dL RDW 13.0 (11.5-15.5) % Plt Count 310 (150-450) k/uL MPV 7.4 Neutrophils % 66 % Lymphocytes % 25 % Monocytes % 5 % Eosinophils % 3 % Basophils % 1 % Neutrophils # 6.6 (1.3-7.7) k/uL Lymphocytes # 2.5 (1.0-4.8) k/uL Monocytes # 0.5 (0-1.0) k/uL Eosinophils # 0.3 (0-0.7) k/uL Basophils # 0.1 (0-0.2) k/uL Sodium 142 (137-145) mmol/L Potassium 2.9 L (3.5-5.1) mmol/L Chloride 111 H (98-107) mmol/L Carbon Dioxide 21 L (22-30) mmol/L Anion Gap 10 mmol/L BUN 20 H (7-17) mg/dL Creatinine 0.73 (0.52-1.04) mg/dL Est GFR (CKD-EPI)AfAm >90 (>60 ml/min/1.73 sqM) Est GFR (CKD-EPI)NonAf >90 (>60 ml/min/1.73 sqM) Glucose 97 (74-99) mg/dL Calcium 9.4 (8.4-10.2) mg/dL Total Bilirubin 0.3 (0.2-1.3) mg/dL AST 16 (14-36) U/L ALT 7 (4-34) U/L Alkaline Phosphatase 72 (38-126) U/L Total Protein 6.1 L (6.3-8.2) g/dL Albumin 3.7 (3.5-5.0) g/dL Disposition Clinical Impression: Sore throat Disposition: HOME SELF-CARE Condition: Good Instructions (If sedation given, give patient instructions): Pharyngitis (ED) Is patient prescribed a controlled substance at d/c from ED?: No Referrals: Aamir Leo MD [Primary Care Provider] - 1-2 days Time of Disposition: 10:22
== END 2021-04-06 10:36 | disposition home or self-care (01) ==
LOC: EC 08:54
DX: J02.9 Acute pharyngitis, unspecified (principal); I10 Essential (primary) hypertension; F17.200 Nicotine dependence, unspecified, uncomplicated; Z91.030 Bee allergy status; Z88.2 Allergy status to sulfonamides; Z88.0 Allergy status to penicillin
CPT/HCPCS: 99283; 36415; 80053; 85025; 70491; J2405; Q9967

== ENCOUNTER 2021-05-17 16:34 | Emergency (ER) | payer OTHER ==
[2021-05-17 16:42] VITALS: TEMP 99.1
[2021-05-17] MEDS ORDERED: ACETAMINOPHEN TAB 500 MG TAB PO STA (16:44)
[2021-05-17] MEDS ORDERED: SODIUM CHLORIDE 0.9% 1,000 ML IV STA (16:44)
--- NOTE | 2021-05-17 16:53 | ED ---
General Adult HPI - General Chief complaint: Recheck/Abnormal Lab/Rx Stated complaint: Dehydration Time Seen by Provider: 05/17/21 16:35 Source: patient, EMS, RN notes reviewed, old records reviewed Mode of arrival: EMS Limitations: no limitations - History of Present Illness Initial comments: 56-year-old female brought in with suspected dehydration. Patient had been out in the sun all day today, it is approximately 90 outside with high humidity. P rafaelient's has not been drinking any alcohol. She became somewhat lethargic and complaining of a frontal headache. She was given IV fluids by EMS during transport and is already feeling somewhat better. Her initial blood pressure was in the 90s systolic. Patient denies chest pain or abdominal pain. No focal numbness or weakness. - Related Data Home Medications Medication Instructions Recorded Confirmed cloNIDine HCL 0.1 mg PO TID PRN 02/14/21 02/14/21 Allergies Allergy/AdvReac Type Severity Reaction Status Date / Time Penicillins Allergy Rash/Hives Verified 04/06/21 08:57 sulfamethoxazole Allergy Unknown Verified 04/06/21 08:57 [From Bactrim] venom-honey bee Allergy Anaphylaxis Verified 04/06/21 08:57 [bee venom (honey bee)] Review of Systems ROS Statement: Those systems with pertinent positive or pertinent negative responses have been documented in the HPI. ROS Other: All systems not noted in ROS Statement are negative. Past Medical History Past Medical History: Fibromyalgia, Hypertension, Musculoskeletal Disorder Additional Past Medical History / Comment(s): back pain, pt states she has lesions on her brain that could be the onset of MS, tachycardia History of Any Multi-Drug Resistant Organisms: None Reported Past Surgical History: Appendectomy, Hysterectomy Additional Past Surgical History / Comment(s): d&c, Past Anesthesia/Blood Transfusion Reactions: No Reported Reaction Past Psychological History: Anxiety, Depression, Panic Disorder, PTSD Smoking Status: Current every day smoker Past Alcohol Use History: None Reported Past Drug Use History: Opiates, Prescription Drug Abuse - Past Family History Mother Family Medical History: Cancer, Rheumatoid Arthritis (RA) Additional Family Medical History / Comment(s): lymphoma Father Family Medical History: Liver Disease Additional Family Medical History / Comment(s): Father had alcoholic cirrhosis. He is . Daughter(s) Family Medical History: Asthma General Exam Limitations: no limitations General appearance: alert, in no apparent distress Head exam: Present: atraumatic, normocephalic Eye exam: Present: normal appearance, PERRL ENT exam: Present: mucous membranes dry Neck exam: Present: normal inspection. Absent: tenderness, meningismus Respiratory exam: Present: normal lung sounds bilaterally. Absent: respiratory distress, wheezes Cardiovascular Exam: Present: regular rate, normal rhythm GI/Abdominal exam: Present: soft. Absent: distended, tenderness Neurological exam: Present: alert, oriented X3, CN II-XII intact. Absent: motor sensory deficit Psychiatric exam: Present: normal affect, normal mood Skin exam: Present: warm, dry, intact. Absent: cyanosis, diaphoretic Course Vital Signs 05/17/21 05/17/21 16:39 17:40 Temperature 99.1 F Pulse Rate 87 81 Respiratory 16 16 Rate Blood Pressure 124/69 137/67 O2 Sat by Pulse 98 100 Oximetry EKG Findings - EKG Comments: EKG Findings:: EKG: Normal sinus rhythm rate of 84, left axis, right bundle branch block, IA interval 122, QRS duration 140, QTC 453, similar appearing compared to EKG performed in February 2021. Medical Decision Making - Medical Decision Making 56-year-old female presented with dehydration, mild headache. Patient given fluid resuscitation, Tylenol. After approximately 90 minutes she is feeling completely back to normal. She does have some laboratory abnormalities including leukocytosis of uncertain etiology at this time no other infectious complaints. She has a hypokalemia which has been chronic. She will follow with her primary care physician regarding this. Creatinine mildly elevated 1.2. She will continue oral hydration at home. She will follow-up with her primary care physician. - Lab Data Result diagrams: 05/17/21 16:48 05/17/21 16:48 Lab Results 05/17/21 05/17/21 05/17/21 Range/Units 16:48 16:48 16:48 WBC 13.7 H (3.8-10.6) k/uL RBC 3.57 L (3.80-5.40) m/uL Hgb 11.7 (11.4-16.0) gm/dL Hct 34.0 (34.0-46.0) % MCV 95.3 (80.0-100.0) fL MCH 32.7 (25.0-35.0) pg MCHC 34.3 (31.0-37.0) g/dL RDW 13.5 (11.5-15.5) % Plt Count 306 (150-450) k/uL MPV 7.9 Neutrophils % 77 % Lymphocytes % 15 % Monocytes % 5 % Eosinophils % 1 % Basophils % 0 % Neutrophils # 10.6 H (1.3-7.7) k/uL Lymphocytes # 2.1 (1.0-4.8) k/uL Monocytes # 0.7 (0-1.0) k/uL Eosinophils # 0.2 (0-0.7) k/uL Basophils # 0.1 (0-0.2) k/uL PT 10.1 (9.0-12.0) sec INR 0.9 (<1.2) APTT 21.0 L (22.0-30.0) sec Sodium (137-145) mmol/L Potassium (3.5-5.1) mmol/L Chloride (98-107) mmol/L Carbon Dioxide (22-30) mmol/L Anion Gap mmol/L BUN (7-17) mg/dL Creatinine (0.52-1.04) mg/dL Est GFR (CKD-EPI)AfAm (>60 ml/min/1.73 sqM) Est GFR (CKD-EPI)NonAf (>60 ml/min/1.73 sqM) Glucose (74-99) mg/dL Plasma Lactic Acid Enrique (0.7-2.0) mmol/L Calcium (8.4-10.2) mg/dL Magnesium (1.6-2.3) mg/dL Total Bilirubin (0.2-1.3) mg/dL AST (14-36) U/L ALT (4-34) U/L Alkaline Phosphatase (38-126) U/L Troponin I (0.000-0.034) ng/mL Total Protein (6.3-8.2) g/dL Albumin (3.5-5.0) g/dL Urine Color Light Yellow Urine Appearance Cloudy H (Clear) Urine pH 6.0 (5.0-8.0) Ur Specific [place] 1.010 (1.001-1.035) Urine Protein 1+ H (Negative) Urine Glucose (UA) Negative (Negative) Urine Ketones Negative (Negative) Urine Blood Trace H (Negative) Urine Nitrite Negative (Negative) Urine Bilirubin Negative (Negative) Urine Urobilinogen <2.0 (<2.0) mg/dL Ur Leukocyte Esterase Large H (Negative) Urine RBC 2 (0-5) /hpf Urine WBC 27 H (0-5) /hpf Urine WBC Clumps Rare H (None) /hpf Ur Squamous Epith Cells 16 H (0-4) /hpf Urine Bacteria Occasional H (None) /hpf Cellular Casts 7 (0) /lpf Hyaline Casts 1 (0-2) /lpf Urine Mucus Rare H (None) /hpf 05/17/21 05/17/21 05/17/21 Range/Units 16:48 16:48 16:48 WBC (3.8-10.6) k/uL RBC (3.80-5.40) m/uL Hgb (11.4-16.0) gm/dL Hct (34.0-46.0) % MCV (80.0-100.0) fL MCH (25.0-35.0) pg MCHC (31.0-37.0) g/dL RDW (11.5-15.5) % Plt Count (150-450) k/uL MPV Neutrophils % % Lymphocytes % % Monocytes % % Eosinophils % % Basophils % % Neutrophils # (1.3-7.7) k/uL Lymphocytes # (1.0-4.8) k/uL Monocytes # (0-1.0) k/uL Eosinophils # (0-0.7) k/uL Basophils # (0-0.2) k/uL PT (9.0-12.0) sec INR (<1.2) APTT (22.0-30.0) sec Sodium 143 (137-145) mmol/L Potassium 3.0 L (3.5-5.1) mmol/L Chloride 118 H (98-107) mmol/L Carbon Dioxide 16 L (22-30) mmol/L Anion Gap 9 mmol/L BUN 18 H (7-17) mg/dL Creatinine 1.20 H (0.52-1.04) mg/dL Est GFR (CKD-EPI)AfAm 58 (>60 ml/min/1.73 sqM) Est GFR (CKD-EPI)NonAf 50 (>60 ml/min/1.73 sqM) Glucose 146 H (74-99) mg/dL Plasma Lactic Acid Enrique 1.2 (0.7-2.0) mmol/L Calcium 9.8 (8.4-10.2) mg/dL Magnesium 1.7 (1.6-2.3) mg/dL Total Bilirubin 0.3 (0.2-1.3) mg/dL AST 18 (14-36) U/L ALT 8 (4-34) U/L Alkaline Phosphatase 60 (38-126) U/L Troponin I <0.012 (0.000-0.034) ng/mL Total Protein 6.2 L (6.3-8.2) g/dL Albumin 3.8 (3.5-5.0) g/dL Urine Color Urine Appearance (Clear) Urine pH (5.0-8.0) Ur Specific [place] (1.001-1.035) Urine Protein (Negative) Urine Glucose (UA) (Negative) Urine Ketones (Negative) Urine Blood (Negative) Urine Nitrite (Negative) Urine Bilirubin (Negative) Urine Urobilinogen (<2.0) mg/dL Ur Leukocyte Esterase (Negative) Urine RBC (0-5) /hpf Urine WBC (0-5) /hpf Urine WBC Clumps (None) /hpf Ur Squamous Epith Cells (0-4) /hpf Urine Bacteria (None) /hpf Cellular Casts (0) /lpf Hyaline Casts (0-2) /lpf Urine Mucus (None) /hpf Disposition Clinical Impression: Hypokalemia, Dehydration Disposition: HOME SELF-CARE Condition: Good Instructions (If sedation given, give patient instructions): Hypokalemia (ED), Dehydration (ED) Is patient prescribed a controlled substance at d/c from ED?: No Referrals: Aamir Leo MD [Primary Care Provider] - 1-2 days Time of Disposition: 18:35
[2021-05-17 17:08] LABS: Albumin 3.8 g/dL (3.5-5.0); Calcium 9.8 mg/dL (8.4-10.2); Magnesium 1.7 mg/dL (1.6-2.3); Total Bilirubin 0.3 mg/dL (0.2-1.3); Total Protein 6.2 g/dL (6.3-8.2)
[2021-05-17 17:16] LABS: Basophils # (A) 0.1 k/uL (0-0.2); Basophils % (A) 0 %; Eosinophils # (A) 0.2 k/uL (0-0.7); Eosinophils % (A) 1 %; HGB 11.7 gm/dL (11.4-16.0); Lymphocytes # (A) 2.1 k/uL (1.0-4.8); Lymphocytes % (A) 15 %; MCH 32.7 pg (25.0-35.0); MCHC 34.3 g/dL (31.0-37.0); MCV 95.3 fL (80.0-100.0); Mean Platelet Volume 7.9; Monocytes # (A) 0.7 k/uL (0-1.0); Monocytes % (A) 5 %; Neutrophils # (A) 10.6 k/uL (1.3-7.7); Neutrophils % (A) 77 %; Platelet Count 306 k/uL (150-450); RBC 3.57 m/uL (3.80-5.40); RDW 13.5 % (11.5-15.5); WBC 13.7 k/uL (3.8-10.6)
[2021-05-17 17:32] LABS: INR 0.9 (<1.2); Prothrombin Time 10.1 sec (9.0-12.0)
[2021-05-17 17:55] LABS: Appearance,Urine Cloudy (Clear); Bacteria,Urine Occasional /hpf; Bilirubin,Urine Negative (Negative); Blood,Urine Trace (Negative); Cellular Casts,Urine 7 /lpf (0); Color,Urine Light Yellow; Glucose,Urine (UA) Negative (Negative); Hyaline Casts,Urine 1 /lpf (0-2); Ketones,Urine Negative (Negative); Leukocyte Esterase,Urine Large (Negative); Mucus,Urine Rare /hpf; Nitrite,Urine Negative (Negative); Protein,Urine 1+ (Negative); RBC,Urine 2 /hpf (0-5); Squamous Epithelial Cell,Urine 16 /hpf (0-4); Urobilinogen,Urine <2.0 mg/dL (<2.0); WBC,Urine 27 /hpf (0-5)
[2021-05-17] MEDS ORDERED: POTASSIUM CHLORIDE ER 20 MEQ TAB.ER PO STA (18:18)
[2021-05-17 18:42] VITALS: BP 132/78; PULSE 74; RESP 18
== END 2021-05-17 18:42 | disposition home or self-care (01) ==
LOC: EC 16:34
DX: E86.0 Dehydration (principal); E87.6 Hypokalemia; I10 Essential (primary) hypertension; M79.7 Fibromyalgia; F17.200 Nicotine dependence, unspecified, uncomplicated; F11.10 Opioid abuse, uncomplicated; Z88.0 Allergy status to penicillin; Z88.1 Allergy status to other antibiotic agents; Z88.2 Allergy status to sulfonamides
CPT/HCPCS: 36415; 80053; 81001; 83605; 83735; 84484; 85025; 85610; 85730; 87086; 93005; 96360; 99284

== ENCOUNTER 2021-12-03 20:16 | Emergency (ER) | payer OTHER ==
[2021-12-03 20:26] VITALS: TEMP 98.6
[2021-12-03] MEDS ORDERED: MORPHINE SULFATE 4 MG/ML SYRINGE IV STA (20:37)
[2021-12-03] MEDS ORDERED: SODIUM CHLORIDE 0.9% 1,000 ML IV STA (20:37)
[2021-12-03] MEDS ORDERED: ONDANSETRON 4 MG/2 ML VIAL IVP STA (20:37)
[2021-12-03] MEDS ORDERED: PANTOPRAZOLE 40 MG/10 ML VIAL IVP STA (20:37)
[2021-12-03] MEDS ORDERED: IOPAMIDOL CONTRAST (ORAL USE) VIAL PO PRN (20:38)
--- NOTE | 2021-12-03 20:43 | ED ---
Abdominal Pain HPI - General Chief Complaint: Abdominal Pain Stated Complaint: Abdominal Pain Time Seen by Provider: 12/03/21 20:30 Source: patient, RN notes reviewed Mode of arrival: ambulatory Limitations: no limitations - History of Present Illness Initial Comments: This is a relatively healthy 56-year-old female presents for his ongoing ep igastric abdominal pain. Patient was seen here on November 14 and had a computed tomography scan done which did show evidence of gastritis and/or adenitis. Also concern of possible malignancy. There is also thickening of the anterior wall of the gastric area concerning for possible perforation. Patient states she's been unable to eat. Patient states that anything she eats comes right back up. Patient has had weight loss. Pain is exacerbated by food, palpation, radiates to the back. No headache, no fever or chills, no changes in vision or hearing, no sore throat or difficulty with speech, no neck pain, no chest pain or shortness of breath,, no changes in urination or bowel movements, no numbness or tingling, no extremity pain, no skin rashes or lesions. - Related Data Home Medications Medication Instructions Recorded Confirmed Pantoprazole [Protonix] 40 mg PO DAILY PRN 12/03/21 12/03/21 Previous Rx's Medication Instructions Recorded Metoclopramide [Reglan] 10 mg PO Q6HR PRN #30 tab 12/04/21 Potassium Chloride ER [K-Dur 20] 20 meq PO DAILY #7 tab 12/04/21 Sucralfate [Carafate] 1 gm PO BID 10 Days #240 ml 12/04/21 Allergies Allergy/AdvReac Type Severity Reaction Status Date / Time Penicillins Allergy Rash/Hives Verified 12/03/21 22:21 sulfamethoxazole Allergy Unknown Verified 12/03/21 22:21 [From Bactrim] venom-honey bee Allergy Anaphylaxis Verified 12/03/21 22:21 [bee venom (honey bee)] Review of Systems ROS Statement: Those systems with pertinent positive or pertinent negative responses have been documented in the HPI. ROS Other: All systems not noted in ROS Statement are negative. Past Medical History Past Medical History: Fibromyalgia, Hypertension, Musculoskeletal Disorder Additional Past Medical History / Comment(s): back pain, pt states she has lesions on her brain that could be the onset of MS, tachycardia History of Any Multi-Drug Resistant Organisms: None Reported Past Surgical History: Appendectomy, Hysterectomy Additional Past Surgical History / Comment(s): d&c, Past Anesthesia/Blood Transfusion Reactions: No Reported Reaction Past Psychological History: Anxiety, Depression, Panic Disorder, PTSD Smoking Status: Current every day smoker Past Alcohol Use History: None Reported Past Drug Use History: Opiates, Prescription Drug Abuse - Past Family History Mother Family Medical History: Cancer, Rheumatoid Arthritis (RA) Additional Family Medical History / Comment(s): lymphoma Father Family Medical History: Liver Disease Additional Family Medical History / Comment(s): Father had alcoholic cirrhosis. He is . Daughter(s) Family Medical History: Asthma General Exam - General Exam Comments Initial Comments: 56-year-old female in minimal distress. Does not appear to be ill or toxic. Limitations: no limitations General appearance: alert, in no apparent distress Head exam: Present: atraumatic, normocephalic, normal inspection Eye exam: Present: normal appearance, PERRL, EOMI. Absent: scleral icterus, conjunctival injection, periorbital swelling ENT exam: Present: normal exam, mucous membranes moist Neck exam: Present: normal inspection. Absent: tenderness, meningismus, lymphadenopathy Respiratory exam: Present: normal lung sounds bilaterally. Absent: respiratory distress, wheezes, rales, rhonchi, stridor Cardiovascular Exam: Present: normal rhythm, tachycardia, normal heart sounds. Absent: systolic murmur, diastolic murmur, rubs, gallop, clicks GI/Abdominal exam: Present: soft, tenderness, guarding, normal bowel sounds, other (Epigastric tenderness with guarding.). Absent: distended, rebound, rigid Extremities exam: Present: normal inspection, full ROM, normal capillary refill. Absent: tenderness, pedal edema, joint swelling, calf tenderness Back exam: Present: normal inspection Neurological exam: Present: alert, oriented X3, CN II-XII intact Psychiatric exam: Present: normal affect, normal mood Skin exam: Present: warm, dry, intact, normal color. Absent: rash Course Vital Signs 12/03/21 20:25 Temperature 98.6 F Pulse Rate 119 H Respiratory 20 Rate Blood Pressure 133/79 O2 Sat by Pulse 99 Oximetry Medical Decision Making - Medical Decision Making Differential includes worsening peptic ulcer and gastric ulcer disease. Possible perforated gastric ulcer. Inflammatory versus infectious etiology possible. Less likely be pancreatitis since the symptomology and presentation is consistent with the patient's previous visit. Patient has been using the proton pump inhibitor daily with no relief. She has previous history of daily NSAID use. No alcohol or drug abuse. Going to send the patient to call surgery as she could not get a gastroenterology appointment until December 21. Patient was able to hold down fluids without difficulty here in the ER. Vital signs stabilize. There was no evidence of perforation on computed tomography scan. There was improvement. We'll keep the patient on a proton pump inhibitor. We'll add on Reglan before meals as well as potassium supplementation and Carafate. Patient agrees with this treatment plan. I did offer admission. Patient states she feels well enough to go home. Patient was told to return to the ER for any signs or symptoms worsen. Told to return immediately if any other problems arise. All questions answered. Treatment plan discussed. Patient in agreement - Lab Data Result diagrams: 12/03/21 20:50 12/03/21 20:50 Lab Results 12/03/21 12/03/21 12/03/21 Range/Units 20:50 20:50 20:50 WBC 8.4 (3.8-10.6) k/uL RBC 4.10 (3.80-5.40) m/uL Hgb 13.5 (11.4-16.0) gm/dL Hct 39.0 (34.0-46.0) % MCV 95.1 (80.0-100.0) fL MCH 32.9 (25.0-35.0) pg MCHC 34.6 (31.0-37.0) g/dL RDW 13.6 (11.5-15.5) % Plt Count 314 (150-450) k/uL MPV 8.3 Neutrophils % 68 % Lymphocytes % 23 % Monocytes % 6 % Eosinophils % 1 % Basophils % 1 % Neutrophils # 5.8 (1.3-7.7) k/uL Lymphocytes # 1.9 (1.0-4.8) k/uL Monocytes # 0.5 (0-1.0) k/uL Eosinophils # 0.1 (0-0.7) k/uL Basophils # 0.1 (0-0.2) k/uL PT 11.1 (9.0-12.0) sec INR 1.0 (<1.2) APTT 25.5 (22.0-30.0) sec Sodium 142 (137-145) mmol/L Potassium 3.0 L (3.5-5.1) mmol/L Chloride 113 H (98-107) mmol/L Carbon Dioxide 18 L (22-30) mmol/L Anion Gap 11 mmol/L BUN 15 (7-17) mg/dL Creatinine 1.68 H (0.52-1.04) mg/dL Est GFR (CKD-EPI)AfAm 38 (>60 ml/min/1.73 sqM) Est GFR (CKD-EPI)NonAf 33 (>60 ml/min/1.73 sqM) Glucose 154 H (74-99) mg/dL Calcium 9.3 (8.4-10.2) mg/dL Total Bilirubin 0.4 (0.2-1.3) mg/dL AST 17 (14-36) U/L ALT 13 (4-34) U/L Alkaline Phosphatase 81 (38-126) U/L Troponin I (0.000-0.034) ng/mL Total Protein 6.6 (6.3-8.2) g/dL Albumin 4.0 (3.5-5.0) g/dL Amylase 48 (30-110) U/L Lipase 99 (23-300) U/L Urine Color Urine Appearance (Clear) Urine pH (5.0-8.0) Ur Specific [place] (1.001-1.035) Urine Protein (Negative) Urine Glucose (UA) (Negative) Urine Ketones (Negative) Urine Blood (Negative) Urine Nitrite (Negative) Urine Bilirubin (Negative) Urine Urobilinogen (<2.0) mg/dL Ur Leukocyte Esterase (Negative) Urine RBC (0-5) /hpf Urine WBC (0-5) /hpf Ur Squamous Epith Cells (0-4) /hpf Urine Bacteria (None) /hpf Urine Mucus (None) /hpf 12/03/21 12/03/21 Range/Units 20:50 21:41 WBC (3.8-10.6) k/uL RBC (3.80-5.40) m/uL Hgb (11.4-16.0) gm/dL Hct (34.0-46.0) % MCV (80.0-100.0) fL MCH (25.0-35.0) pg MCHC (31.0-37.0) g/dL RDW (11.5-15.5) % Plt Count (150-450) k/uL MPV Neutrophils % % Lymphocytes % % Monocytes % % Eosinophils % % Basophils % % Neutrophils # (1.3-7.7) k/uL Lymphocytes # (1.0-4.8) k/uL Monocytes # (0-1.0) k/uL Eosinophils # (0-0.7) k/uL Basophils # (0-0.2) k/uL PT (9.0-12.0) sec INR (<1.2) APTT (22.0-30.0) sec Sodium (137-145) mmol/L Potassium (3.5-5.1) mmol/L Chloride (98-107) mmol/L Carbon Dioxide (22-30) mmol/L Anion Gap mmol/L BUN (7-17) mg/dL Creatinine (0.52-1.04) mg/dL Est GFR (CKD-EPI)AfAm (>60 ml/min/1.73 sqM) Est GFR (CKD-EPI)NonAf (>60 ml/min/1.73 sqM) Glucose (74-99) mg/dL Calcium (8.4-10.2) mg/dL Total Bilirubin (0.2-1.3) mg/dL AST (14-36) U/L ALT (4-34) U/L Alkaline Phosphatase (38-126) U/L Troponin I <0.012 (0.000-0.034) ng/mL Total Protein (6.3-8.2) g/dL Albumin (3.5-5.0) g/dL Amylase (30-110) U/L Lipase (23-300) U/L Urine Color Light Yellow Urine Appearance Clear (Clear) Urine pH 6.5 (5.0-8.0) Ur Specific [place] 1.012 (1.001-1.035) Urine Protein Negative (Negative) Urine Glucose (UA) Negative (Negative) Urine Ketones Negative (Negative) Urine Blood Negative (Negative) Urine Nitrite Negative (Negative) Urine Bilirubin Negative (Negative) Urine Urobilinogen <2.0 (<2.0) mg/dL Ur Leukocyte Esterase Trace H (Negative) Urine RBC 1 (0-5) /hpf Urine WBC 5 (0-5) /hpf Ur Squamous Epith Cells 2 (0-4) /hpf Urine Bacteria Rare H (None) /hpf Urine Mucus Rare H (None) /hpf - EKG Data EKG Comments: EKG done at 2238 reveals a rate of 84, right bundle-branch block, left anterior fascicular block, intervals are normal aside from the QRS duration. No acute ST or T-wave changes. When compared to the previous study from earlier this month is no significant change. - Radiology Data Radiology results: report reviewed, image reviewed Patient computed tomography scan actually shows improvement from the previous study. Disposition Clinical Impression: Gastritis and gastroduodenitis, Hypokalemia Disposition: HOME SELF-CARE Condition: Good Instructions (If sedation given, give patient instructions): Gastritis (ED), Hypokalemia (ED), Duodenitis (ED) Additional Instructions: Do not take any NSAIDs. If you're taking things like ibuprofen or naproxen stopped them now. Use only Tylenol for pain control. Follow-up with the surgeon as directed. Keep her appointment with the ux information architect. Follow-up with your regular physician as directed. Return to the ER immediately if any symptoms worsen, new symptoms arise, or any other problems develop. Prescriptions: Sucralfate [Carafate] 1 gm PO BID 10 Days #240 ml Potassium Chloride ER [K-Dur 20] 20 meq PO DAILY #7 tab Metoclopramide [Reglan] 10 mg PO Q6HR PRN #30 tab PRN Reason: Nausea Is patient prescribed a controlled substance at d/c from ED?: No Referrals: Conrado Danielson MD [STAFF PHYSICIAN] - 12/06/21 Isiah Shafer [STAFF PHYSICIAN] - 12/06/21 Time of Disposition: 00:29
[2021-12-03 21:15] LABS: Basophils # (A) 0.1 k/uL (0-0.2); Basophils % (A) 1 %; Eosinophils # (A) 0.1 k/uL (0-0.7); Eosinophils % (A) 1 %; HGB 13.5 gm/dL (11.4-16.0); Lymphocytes # (A) 1.9 k/uL (1.0-4.8); Lymphocytes % (A) 23 %; MCH 32.9 pg (25.0-35.0); MCHC 34.6 g/dL (31.0-37.0); MCV 95.1 fL (80.0-100.0); Mean Platelet Volume 8.3; Monocytes # (A) 0.5 k/uL (0-1.0); Monocytes % (A) 6 %; Neutrophils # (A) 5.8 k/uL (1.3-7.7); Neutrophils % (A) 68 %; Platelet Count 314 k/uL (150-450); RDW 13.6 % (11.5-15.5); WBC 8.4 k/uL (3.8-10.6)
[2021-12-03 21:26] LABS: Calcium 9.3 mg/dL (8.4-10.2); Total Bilirubin 0.4 mg/dL (0.2-1.3); Total Protein 6.6 g/dL (6.3-8.2)
[2021-12-03 21:27] LABS: Partial Thromboplastin Time 25.5 sec (22.0-30.0); Prothrombin Time 11.1 sec (9.0-12.0)
[2021-12-03] MEDS ORDERED: SODIUM CHLORIDE 0.9% 1,000 ML with POTASSIUM CHLORIDE 20 MEQ IV SCH ×2 (22:00)
--- NOTE | 2021-12-03 22:07 | XR ---
EXAMINATION TYPE: XR chest 1V portable DATE OF EXAM: 12/03/2021 COMPARISON: 11/12/2021 HISTORY: Abdominal pain. Nausea TECHNIQUE: FINDINGS: Heart and mediastinum are normal. Lungs are clear. Diaphragm is normal. Bony thorax appears normal. IMPRESSION: Normal chest. No change.
--- NOTE | 2021-12-03 22:08 | XR ---
EXAMINATION TYPE: XR abdomen 2V DATE OF EXAM: 12/03/2021 COMPARISON: 10/05/2012 HISTORY: Abdominal TECHNIQUE: 2 views upright and supine FINDINGS: There is no sign of intestinal obstruction or pneumoperitoneum. Fecal pattern is normal. Th ere is no evidence of a mass. There surgical clips in the right lower quadrant. There are no patholog ic calcifications over the kidneys. IMPRESSION: Nonacute abdomen.
[2021-12-03 22:19] LABS: Appearance,Urine Clear (Clear); Bacteria,Urine Rare /hpf; Bilirubin,Urine Negative (Negative); Blood,Urine Negative (Negative); Color,Urine Light Yellow; Glucose,Urine (UA) Negative (Negative); Ketones,Urine Negative (Negative); Leukocyte Esterase,Urine Trace (Negative); Mucus,Urine Rare /hpf; Nitrite,Urine Negative (Negative); PH, Urine 6.5 (5.0-8.0); Protein,Urine Negative (Negative); RBC,Urine 1 /hpf (0-5); Specific Gravity,Urine 1.012 (1.001-1.035); Squamous Epithelial Cell,Urine 2 /hpf (0-4); Urobilinogen,Urine <2.0 mg/dL (<2.0); WBC,Urine 5 /hpf (0-5)
--- NOTE | 2021-12-03 22:19 | CT ---
EXAMINATION TYPE: CT abdomen pelvis wo con DATE OF EXAM: 12/03/2021 COMPARISON: 11/15/2021 HISTORY: Epigastric abdominal pain, ulcer. No contrast due to poor labs CT DLP: 355.8 mGycm Automated exposure control for dose reduction was used. Images obtained from the diaphragm to the floor of the pelvis with no contrast. Lung bases are clear. There is no pleural effusion. Heart size is normal. There is no pericardial eff usion. Gallbladder appears normal. Liver spleen and pancreas appear intact. The bile ducts are nondil ated. There is mild wall thickening of the distal antrum of the stomach and the proximal duodenum. There is no adrenal mass. Kidneys of normal size. There is no hydronephrosis. Ureters are not dilated . There is 2 mm calculus lateral right kidney. There are possible 1 mm calculi lower pole left kidney . There is no retroperitoneal adenopathy. There are clips apparently from appendectomy. The bladder d istends smoothly. There is no inguinal hernia. There is hysterectomy. There is no evidence of a pelvi c mass. There is no mesenteric edema. There is no ascites or free air. There is no sign of a bowel obstructio n. Lumbar vertebrae are normal alignment. There is no compression fracture. There is mild disc space narrowing at L4-5 and L5-S1 with vacuum disc. Facet joints are intact. I see no bony destructive proc ess. IMPRESSION: Minimal gastric antral wall thickening and proximal duodenal thickening could be some mild nonspecifi c inflammation. Nonobstructing renal small calcifications. There is clearing of some of the inflammat ory changes of the gastric antrum and proximal duodenum compared to the old exam.
[2021-12-03] MEDS ORDERED: 0.9% NACL WITH KCL 20 MEQ/L 1,000 ML IV SCH (22:30)
[2021-12-03] MEDS ORDERED: SUCRALFATE 1 GM TAB PO STA (23:19)
[2021-12-03] MEDS ORDERED: diphenhydrAMINE 50 MG/ML 1 ML VIAL IVP STA (23:35)
[2021-12-03] MEDS ORDERED: METOCLOPRAMIDE 5 MG/ML 2 ML VIAL IVP STA (23:35)
[2021-12-03] MEDS ORDERED: POTASSIUM CHLORIDE ER 20 MEQ TAB.ER PO STA (23:45)
[2021-12-04 00:31] VITALS: BP 134/74; PULSE 68; RESP 16
== END 2021-12-04 00:35 | disposition home or self-care (01) ==
LOC: EC 20:16
DX: K29.70 Gastritis, unspecified, without bleeding (principal); K29.90 Gastroduodenitis, unspecified, without bleeding; E87.6 Hypokalemia; I10 Essential (primary) hypertension; F17.200 Nicotine dependence, unspecified, uncomplicated; Z88.0 Allergy status to penicillin; Z88.2 Allergy status to sulfonamides; Z91.030 Bee allergy status
CPT/HCPCS: 36415; 93005; 80053; 82150; 83690; 84484; 85025; 85610; 85730; 81001; 71045; 74019; 74176; 99284; 96374; 96375; J2270; J1200; J2765; J2405; C9113

== ENCOUNTER 2022-01-27 22:42 | Emergency (ER) | payer OTHER ==
[2022-01-27 23:52] VITALS: TEMP 99
[2022-01-28 02:09] LABS: Influenza A Not Detected (Not Detectd); Influenza B Not Detected (Not Detectd)
[2022-01-28 05:08] VITALS: BP 116/81; PULSE 84; RESP 18
[2022-01-28] MEDS ORDERED: HYDROmorphone 1 MG/ML 1 ML SYRINGE IM STA (05:12)
[2022-01-28] MEDS ORDERED: ACET/COD 300 MG/30 MG STARTER PACK 6 TAB BTL PO STA (05:12)
--- NOTE | 2022-01-28 05:12 | ED ---
Recheck HPI - General Chief Complaint: Recheck/Abnormal Lab/Rx Stated Complaint: Body Aches, weakness Time Seen by Provider: 01/28/22 05:10 Source: patient, RN notes reviewed, old records reviewed Mode of arrival: wheelchair Limitations: no limitations - History of Present Illness Initial Comments: This is a 57-year-old female DF for evaluation today. Patient recently started on pain medications and currently unable to get her medications filled. Patient presenting for medication refill. Patient has severe body aches and pains but no new complaints no other complaints MD Complaint: medication refill request -: minutes(s) Returns Today for: request for prescription, persistent/worsening pain related to initial visit Symptoms Since Prior Visit: worsening pain Associated Symptoms: none Treatments Prior to Arrival: Given Pain Meds on - Related Data Home Medications Medication Instructions Recorded Confirmed Pantoprazole [Protonix] 40 mg PO DAILY PRN 12/03/21 12/03/21 Previous Rx's Medication Instructions Recorded Metoclopramide [Reglan] 10 mg PO Q6HR PRN #30 tab 12/04/21 Potassium Chloride ER [K-Dur 20] 20 meq PO DAILY #7 tab 12/04/21 Sucralfate [Carafate] 1 gm PO BID 10 Days #240 ml 12/04/21 Allergies Allergy/AdvReac Type Severity Reaction Status Date / Time Penicillins Allergy Rash/Hives Verified 01/27/22 23:52 sulfamethoxazole Allergy Unknown Verified 01/27/22 23:52 [From Bactrim] venom-honey bee Allergy Anaphylaxis Verified 01/27/22 23:52 [bee venom (honey bee)] Review of Systems ROS Statement: Those systems with pertinent positive or pertinent negative responses have been documented in the HPI. ROS Other: All systems not noted in ROS Statement are negative. Past Medical History Past Medical History: Fibromyalgia, Hypertension, Musculoskeletal Disorder Additional Past Medical History / Comment(s): back pain, pt states she has lesions on her brain that could be the onset of MS, tachycardia History of Any Multi-Drug Resistant Organisms: None Reported Past Surgical History: Appendectomy, Hysterectomy Additional Past Surgical History / Comment(s): d&c, Past Anesthesia/Blood Transfusion Reactions: No Reported Reaction Past Psychological History: Anxiety, Depression, Panic Disorder, PTSD Smoking Status: Current every day smoker Past Alcohol Use History: None Reported Past Drug Use History: Opiates, Prescription Drug Abuse - Past Family History Mother Family Medical History: Cancer, Rheumatoid Arthritis (RA) Additional Family Medical History / Comment(s): lymphoma Father Family Medical History: Liver Disease Additional Family Medical History / Comment(s): Father had alcoholic cirrhosis. He is . Daughter(s) Family Medical History: Asthma General Exam Limitations: no limitations General appearance: alert, in no apparent distress Head exam: Present: atraumatic, normocephalic, normal inspection Eye exam: Present: normal appearance, PERRL, EOMI. Absent: scleral icterus, conjunctival injection, periorbital swelling ENT exam: Present: normal exam, mucous membranes moist Neck exam: Present: normal inspection. Absent: tenderness, meningismus, lymphadenopathy Respiratory exam: Present: normal lung sounds bilaterally. Absent: respiratory distress, wheezes, rales, rhonchi, stridor Cardiovascular Exam: Present: regular rate, normal rhythm, normal heart sounds. Absent: systolic murmur, diastolic murmur, rubs, gallop, clicks GI/Abdominal exam: Present: soft, normal bowel sounds. Absent: distended, tenderness, guarding, rebound, rigid Extremities exam: Present: normal inspection, full ROM, normal capillary refill. Absent: tenderness, pedal edema, joint swelling, calf tenderness Back exam: Present: normal inspection Neurological exam: Present: alert, oriented X3, CN II-XII intact Psychiatric exam: Present: normal affect, normal mood Skin exam: Present: warm, dry, intact, normal color. Absent: rash Course Vital Signs 01/27/22 01/28/22 23:50 05:07 Temperature 99.0 F Pulse Rate 89 84 Respiratory 20 18 Rate Blood Pressure 106/64 116/81 O2 Sat by Pulse 98 100 Oximetry - Reevaluation(s) Reevaluation #1: 01/28/22 Medical record is reviewed Patient symptoms improved here in the ER Patient informed of results and questions answered Medical Decision Making - Medical Decision Making 57 female to the emergency department for evaluation. Patient does have significant pain. Pain is well-controlled currently and she can be discharged home - Lab Data Lab Results 01/28/22 Range/Units 01:14 Influenza Type A (PCR) Not Detected (Not Detectd) Influenza Type B (PCR) Not Detected (Not Detectd) RSV (PCR) Not Detected (Not Detectd) SARS-CoV-2 (PCR) Not Detected (Not Detectd) Disposition Clinical Impression: Intractable back pain, Chronic back pain greater than 3 months duration Disposition: HOME SELF-CARE Condition: Fair Instructions (If sedation given, give patient instructions): Chronic Pain (ED) Is patient prescribed a controlled substance at d/c from ED?: No Referrals: None,Stated [REFERRING] - 1-2 days
== END 2022-01-28 05:44 | disposition home or self-care (01) ==
LOC: EC 22:42
DX: G89.29 Other chronic pain (principal); M54.9 Dorsalgia, unspecified; I10 Essential (primary) hypertension; Z20.822 Contact with and (suspected) exposure to COVID-19; F17.200 Nicotine dependence, unspecified, uncomplicated; Z87.890 Personal history of sex reassignment; Z91.030 Bee allergy status; Z88.0 Allergy status to penicillin; Z88.2 Allergy status to sulfonamides
CPT/HCPCS: 87636; 99284; 96372; J1170

== ENCOUNTER 2022-03-01 22:53 | Emergency (ER) | payer OTHER ==
[2022-03-01 23:00] VITALS: BP 130/75; PULSE 101; RESP 16; TEMP 97.9
[2022-03-01] MEDS ORDERED: HYDROmorphone 1 MG/ML 1 ML SYRINGE IM STA (23:14)
--- NOTE | 2022-03-02 00:07 | ED ---
Back Pain HPI - General Chief Complaint: Back Pain/Injury Stated Complaint: Back Pain Time Seen by Provider: 03/01/22 23:10 Source: patient Limitations: no limitations - History of Present Illness Initial Comments: Patient is a 57-year-old female presenting with chief complaint of back pain. Patient notes a history of chronic back pain and fibromyalgia. Patient states that today she believes she is having one of her fibromyalgia flareups. Patient describes the low back pain and hip pain as throbbing. She has been taking her [place] at home which has not touched the pain. Patient denies any saddle paresthesia, leg numbness or tingling, weakness, chest pain, shortness of breath, abdominal pain, nausea, vomiting, fever, chills, diarrhea, constipation, hematochezia, hematemesis, cough, URI like symptoms, loss of range of motion of the back or legs. - Related Data Home Medications Medication Instructions Recorded Confirmed HYDROcodone/APAP 7.5-325MG [[place] 1 tab PO QID PRN 03/01/22 03/01/22 7.5-325] Potassium Chloride ER [K-Dur 20] 20 meq PO BID 03/01/22 03/01/22 Allergies Allergy/AdvReac Type Severity Reaction Status Date / Time Penicillins Allergy Throat Verified 03/01/22 23:24 swelling sulfamethoxazole Allergy Unknown Verified 03/01/22 23:24 [From Bactrim] venom-honey bee Allergy Anaphylaxis Verified 03/01/22 23:24 [bee venom (honey bee)] NSAIDS (Non-Steroidal AdvReac Ulcer Verified 03/01/22 23:24 Anti-Inflamma Review of Systems ROS Statement: Those systems with pertinent positive or pertinent negative responses have been documented in the HPI. ROS Other: All systems not noted in ROS Statement are negative. Past Medical History Past Medical History: Fibromyalgia, Hypertension, Musculoskeletal Disorder Additional Past Medical History / Comment(s): back pain, pt states she has lesions on her brain that could be the onset of MS, tachycardia History of Any Multi-Drug Resistant Organisms: None Reported Past Surgical History: Appendectomy, Hysterectomy Additional Past Surgical History / Comment(s): d&c, Past Anesthesia/Blood Transfusion Reactions: No Reported Reaction Past Psychological History: Anxiety, Depression, Panic Disorder, PTSD Smoking Status: Current every day smoker Past Alcohol Use History: Rare Past Drug Use History: Opiates, Prescription Drug Abuse - Past Family History Mother Family Medical History: Cancer, Rheumatoid Arthritis (RA) Additional Family Medical History / Comment(s): lymphoma Father Family Medical History: Liver Disease Additional Family Medical History / Comment(s): Father had alcoholic cirrhosis. He is . Daughter(s) Family Medical History: Asthma General Exam Limitations: no limitations General appearance: alert, in distress Head exam: Present: atraumatic, normocephalic, normal inspection Eye exam: Present: normal appearance, EOMI. Absent: scleral icterus Neck exam: Present: normal inspection Respiratory exam: Present: normal lung sounds bilaterally. Absent: respiratory distress, wheezes, rales, rhonchi, stridor Cardiovascular Exam: Present: regular rate, normal rhythm, normal heart sounds. Absent: systolic murmur, diastolic murmur, rubs, gallop, clicks Extremities exam: Present: normal inspection, full ROM. Absent: tenderness Back exam: Present: normal inspection, tenderness, paraspinal tenderness. Absent: full ROM (Secondary to pain), vertebral tenderness Neurological exam: Present: alert, oriented X3, CN II-XII intact Psychiatric exam: Present: normal affect, normal mood Skin exam: Present: warm, dry, intact, normal color. Absent: rash Course Vital Signs 03/01/22 22:58 Temperature 97.9 F Pulse Rate 101 H Respiratory 16 Rate Blood Pressure 130/75 O2 Sat by Pulse 100 Oximetry Medical Decision Making - Medical Decision Making Patient is a 57-year-old female with history of chronic back pain and fibromyalgia presenting with chief complaint of low back pain. Patient states that this feels like a fibromyalgia flareup, she is complaining of throbbing low back and hip pain. She denies saddle paresthesia or leg numbness, tingling, weakness. On exam there is some paraspinal muscle tenderness, no vertebral body tenderness. Limited range of motion secondary to pain. Patient was given 1 mg IM Dilaudid. Lumbar x-ray shows no acute fracture or changes. Patient was given IM Norflex. Patient appears stable for discharge with outpatient follow- up at this time. Follow-up with PCP and pain management this week. Report back to ER with any worsening symptoms. Educated the patient return parameters answered all questions. Patient conveyed verbal understanding and agreed to the plan. - Radiology Data Radiology results: report reviewed Lumbar x-ray: Mild spondylolysis in the lower lumbar spine. No fracture. There ais some progression of L4 through 5 disc space narrowing compared to old exam. Disposition Clinical Impression: Chronic back pain Disposition: HOME SELF-CARE Condition: Good Instructions (If sedation given, give patient instructions): Chronic Back Pain (DC), Lower Back Exercises (ED) Additional Instructions: Follow-up with PCP and pain medicine in the next 1-2 days. Report back to ER with any worsening symptoms. Is patient prescribed a controlled substance at d/c from ED?: No Referrals: Javon Zambrano MD [Primary Care Provider] - 1-2 days Time of Disposition: 01:16
--- NOTE | 2022-03-02 00:31 | XR ---
EXAMINATION TYPE: XR lumbar spine 2 or 3V DATE OF EXAM: 03/02/2022 COMPARISON: 09/03/2019 comparison HISTORY: Pain TECHNIQUE: 3 views FINDINGS: Lumbar vertebrae have normal alignment. Mild narrowing is seen at L4-5 and L5-S1. No compre ssion fracture. Posterior elements are intact. Sacroiliac joints are intact. Abdominal aorta is ather omatous. IMPRESSION: Mild spondylosis in the lower lumbar spine. No fracture. There is some progression of L4- 5 disc space narrowing compared to old exam.
[2022-03-02] MEDS ORDERED: ORPHENADRINE 30 MG/ML 2 ML VIAL IM STA (00:55)
== END 2022-03-02 01:30 | disposition home or self-care (01) ==
LOC: EC 22:53
DX: G89.29 Other chronic pain (principal); M54.9 Dorsalgia, unspecified; I10 Essential (primary) hypertension; Z88.0 Allergy status to penicillin; Z88.2 Allergy status to sulfonamides; Z91.030 Bee allergy status; Z88.6 Allergy status to analgesic agent
CPT/HCPCS: 72100; 96372; 99283

== ENCOUNTER 2022-03-03 23:10 | Emergency (ER) | payer OTHER ==
[2022-03-03 23:15] VITALS: BP 120/74; PULSE 99; RESP 16; TEMP 96.9
[2022-03-04] MEDS ORDERED: ORPHENADRINE 30 MG/ML 2 ML VIAL IM STA (01:25)
[2022-03-04] MEDS ORDERED: KETOROLAC 15 MG/ML 1 ML VIAL IM STA (01:25)
--- NOTE | 2022-03-04 02:05 | CT ---
EXAMINATION TYPE: CT lumbar spine wo con DATE OF EXAM: 03/04/2022 COMPARISON: 12/03/2021 HISTORY: recent fall, low back pain. h/o fibromyalgia CT DLP: 590.9 mGycm Automated exposure control for dose reduction was used. Images obtained from the level of T12-S3 vertebra without contrast. The lumbar vertebrae have normal alignment. There is narrowing at the L4-5 and L5-S1 disc spaces. No compression fracture seen. Abdominal aorta is atheromatous. Posterior elements are intact. There is n o lumbar paraspinal mass. No evidence of focal bone destruction. The sacroiliac joints are intact. IMPRESSION: There are spondylotic changes in the lower lumbar spine that appears stable compared to old exam. No fracture seen. Nonobstructing right renal calculi noted.
[2022-03-04] MEDS ORDERED: MORPHINE SULFATE 4 MG/ML SYRINGE IM STA ×2 (02:13→02:33)
--- NOTE | 2022-03-04 02:15 | ED ---
Back Pain HPI - General Chief Complaint: Back Pain/Injury Stated Complaint: Back pain Time Seen by Provider: 03/04/22 01:02 Source: patient Limitations: no limitations - History of Present Illness Initial Comments: This patient is 57-year-old woman with chronic back pain who states she is having a flareup. In addition she was walking and she expressed a very sharp flare of back pain and then her legs gave out. She states there was a fall to the ground. She has not lost control of bladder or bowels. MD Complaint: back pain, back injury -: days(s) Similar Symptoms Previously: Yes Place: home Radiation: left leg, right leg Severity: severe Quality: aching Consistency: constant Improves With: none Worsens With: none Associated Symptoms: denies other symptoms - Related Data Home Medications Medication Instructions Recorded Confirmed HYDROcodone/APAP 7.5-325MG [[place] 1 tab PO QID PRN 03/01/22 03/01/22 7.5-325] Potassium Chloride ER [K-Dur 20] 20 meq PO BID 03/01/22 03/01/22 Allergies Allergy/AdvReac Type Severity Reaction Status Date / Time Penicillins Allergy Throat Verified 03/03/22 23:16 swelling sulfamethoxazole Allergy Unknown Verified 03/03/22 23:16 [From Bactrim] venom-honey bee Allergy Anaphylaxis Verified 03/03/22 23:16 [bee venom (honey bee)] NSAIDS (Non-Steroidal AdvReac Ulcer Verified 03/03/22 23:16 Anti-Inflamma Review of Systems ROS Statement: Those systems with pertinent positive or pertinent negative responses have been documented in the HPI. ROS Other: All systems not noted in ROS Statement are negative. Constitutional: Denies: fever, weakness Respiratory: Denies: cough, dyspnea Cardiovascular: Denies: chest pain, palpitations, edema Gastrointestinal: Denies: abdominal pain, vomiting, diarrhea Genitourinary: Denies: dysuria, hematuria Musculoskeletal: Reports: as per HPI, back pain Skin: Denies: rash Neurological: Denies: headache, weakness, numbness Past Medical History Past Medical History: Fibromyalgia, Hypertension, Musculoskeletal Disorder Additional Past Medical History / Comment(s): back pain, pt states she has lesions on her brain that could be the onset of MS, tachycardia History of Any Multi-Drug Resistant Organisms: None Reported Past Surgical History: Appendectomy, Hysterectomy Additional Past Surgical History / Comment(s): d&c, Past Anesthesia/Blood Transfusion Reactions: No Reported Reaction Past Psychological History: Anxiety, Depression, Panic Disorder, PTSD Smoking Status: Current every day smoker Past Alcohol Use History: Rare Past Drug Use History: Opiates, Prescription Drug Abuse - Past Family History Mother Family Medical History: Cancer, Rheumatoid Arthritis (RA) Additional Family Medical History / Comment(s): lymphoma Father Family Medical History: Liver Disease Additional Family Medical History / Comment(s): Father had alcoholic cirrhosis. He is . Daughter(s) Family Medical History: Asthma General Exam Limitations: no limitations General appearance: alert, in no apparent distress Head exam: Present: atraumatic, normocephalic Eye exam: Present: normal appearance Neck exam: Present: normal inspection, full ROM. Absent: tenderness Respiratory exam: Present: normal lung sounds bilaterally. Absent: respiratory distress, wheezes, rales, rhonchi, stridor Cardiovascular Exam: Present: regular rate, normal rhythm, normal heart sounds. Absent: systolic murmur, diastolic murmur, rubs, gallop GI/Abdominal exam: Present: soft. Absent: distended, tenderness, guarding, rebound, rigid, mass, pulsatile mass Extremities exam: Present: normal inspection, normal capillary refill. Absent: pedal edema, calf tenderness Back exam: Present: normal inspection, paraspinal tenderness, vertebral tenderness. Absent: CVA tenderness (R), CVA tenderness (L) Neurological exam: Present: alert, reflexes normal. Absent: motor sensory deficit Skin exam: Present: warm, dry, intact, normal color Course Vital Signs 03/03/22 23:11 Temperature 96.9 F L Pulse Rate 99 Respiratory 16 Rate Blood Pressure 120/74 O2 Sat by Pulse 99 Oximetry Medical Decision Making - Medical Decision Making Patient is a 57-year-old woman with chronic back pain. Given her description of the fall she did have computed tomography scan which does not reveal any acute injury. There are no cauda equina symptoms. Will have patient follow-up with new pain management physician. Disposition Clinical Impression: Chronic back pain Disposition: HOME SELF-CARE Condition: Fair Instructions (If sedation given, give patient instructions): Chronic Back Pain (DC) Is patient prescribed a controlled substance at d/c from ED?: No Referrals: Javon Zambrano MD [Primary Care Provider] - 1-2 days
== END 2022-03-04 02:57 | disposition home or self-care (01) ==
LOC: EC 23:10
DX: I10 Essential (primary) hypertension (principal); F17.200 Nicotine dependence, unspecified, uncomplicated; G89.29 Other chronic pain; M54.50 Low back pain, unspecified; Z88.0 Allergy status to penicillin; Z88.2 Allergy status to sulfonamides; Z91.030 Bee allergy status; Z88.6 Allergy status to analgesic agent
CPT/HCPCS: 72131; 99283; 96372; J2270; J2360

== ENCOUNTER 2022-03-29 23:12 | Emergency (ER) | payer OTHER ==
[2022-03-30] MEDS ORDERED: MORPHINE SULFATE 4 MG/ML SYRINGE IM STA (04:05)
[2022-03-30] MEDS ORDERED: ORPHENADRINE 30 MG/ML 2 ML VIAL IM STA (04:05)
--- NOTE | 2022-03-30 04:08 | ED ---
Back Pain HPI - General Chief Complaint: Back Pain/Injury Stated Complaint: Back Pain Time Seen by Provider: 03/30/22 04:00 Source: patient Limitations: no limitations - History of Present Illness MD Complaint: back pain -: hour(s) Similar Symptoms Previously: Yes Place: home Radiation: none Severity: severe Quality: aching Consistency: constant Improves With: none Worsens With: sitting upright Associated Symptoms: denies other symptoms - Related Data Home Medications Medication Instructions Recorded Confirmed HYDROcodone/APAP 7.5-325MG [[place] 1 tab PO QID PRN 03/01/22 03/01/22 7.5-325] Potassium Chloride ER [K-Dur 20] 20 meq PO BID 03/01/22 03/01/22 Allergies Allergy/AdvReac Type Severity Reaction Status Date / Time Penicillins Allergy Throat Verified 03/03/22 23:16 swelling sulfamethoxazole Allergy Unknown Verified 03/03/22 23:16 [From Bactrim] venom-honey bee Allergy Anaphylaxis Verified 03/03/22 23:16 [bee venom (honey bee)] NSAIDS (Non-Steroidal AdvReac Ulcer Verified 03/03/22 23:16 Anti-Inflamma Review of Systems ROS Statement: Those systems with pertinent positive or pertinent negative responses have been documented in the HPI. ROS Other: All systems not noted in ROS Statement are negative. Constitutional: Denies: fever, chills, weakness Respiratory: Denies: cough, dyspnea Cardiovascular: Denies: chest pain, edema Gastrointestinal: Denies: abdominal pain, diarrhea, constipation Genitourinary: Denies: dysuria Musculoskeletal: Reports: back pain Neurological: Denies: weakness, numbness, paresthesias Past Medical History Past Medical History: Fibromyalgia, Hypertension, Musculoskeletal Disorder Additional Past Medical History / Comment(s): back pain, pt states she has lesions on her brain that could be the onset of MS, tachycardia History of Any Multi-Drug Resistant Organisms: None Reported Past Surgical History: Appendectomy, Hysterectomy Additional Past Surgical History / Comment(s): d&c, Past Anesthesia/Blood Transfusion Reactions: No Reported Reaction Past Psychological History: Anxiety, Depression, Panic Disorder, PTSD Smoking Status: Current every day smoker Past Alcohol Use History: Rare Past Drug Use History: Opiates, Prescription Drug Abuse - Past Family History Mother Family Medical History: Cancer, Rheumatoid Arthritis (RA) Additional Family Medical History / Comment(s): lymphoma Father Family Medical History: Liver Disease Additional Family Medical History / Comment(s): Father had alcoholic cirrhosis. He is . Daughter(s) Family Medical History: Asthma General Exam Limitations: no limitations General appearance: alert, in no apparent distress GI/Abdominal exam: Present: soft. Absent: distended, tenderness, guarding, rebound, rigid, mass, pulsatile mass Extremities exam: Present: normal inspection, normal capillary refill. Absent: pedal edema Back exam: Present: normal inspection, paraspinal tenderness, vertebral tenderness. Absent: CVA tenderness (R), CVA tenderness (L) Neurological exam: Present: alert, reflexes normal. Absent: motor sensory deficit Skin exam: Present: warm, dry, intact, normal color. Absent: rash Course Vital Signs 03/29/22 23:14 Temperature 98.2 F Pulse Rate 63 Respiratory 18 Rate Blood Pressure 124/80 O2 Sat by Pulse 99 Oximetry Disposition Clinical Impression: Mechanical back pain Disposition: HOME SELF-CARE Condition: Good Instructions (If sedation given, give patient instructions): Acute Low Back Pain (ED) Is patient prescribed a controlled substance at d/c from ED?: No Referrals: Javon Zambrano MD [Primary Care Provider] - 1-2 days
[2022-03-30 04:30] VITALS: BP 114/80; PULSE 74; RESP 20; TEMP 97.9
== END 2022-03-30 04:30 | disposition home or self-care (01) ==
LOC: EC 23:12
DX: M54.9 Dorsalgia, unspecified (principal); F17.200 Nicotine dependence, unspecified, uncomplicated; I10 Essential (primary) hypertension; Z88.0 Allergy status to penicillin; Z88.1 Allergy status to other antibiotic agents; Z88.2 Allergy status to sulfonamides; Z88.6 Allergy status to analgesic agent; Z90.49 Acquired absence of other specified parts of digestive tract; Z91.030 Bee allergy status
CPT/HCPCS: 99283; 96372; J2270; J2360

== ENCOUNTER 2022-03-31 23:21 | Observation (INO) | payer OTHER ==
[2022-04-01] MEDS ORDERED: SODIUM CHLORIDE 0.9% 1,000 ML IV STA ×2 (03:38)
[2022-04-01] MEDS ORDERED: DILTIAZEM DRIP BOLUS FROM BAG 1 MG SOLN IV ONE (03:38)
[2022-04-01] MEDS ORDERED: HYDROmorphone 1 MG/ML 1 ML SYRINGE IVP STA (03:39)
[2022-04-01] MEDS ORDERED: diphenhydrAMINE 50 MG/ML 1 ML VIAL IVP STA (03:39)
[2022-04-01] MEDS ORDERED: diphenhydrAMINE 50 MG/ML 1 ML VIAL IVP PRN (03:39)
--- NOTE | 2022-04-01 03:40 | ED ---
Arrhythmia/Palpitations HPI - General Chief Complaint: Back Pain/Injury Stated Complaint: Back Pain Time Seen by Provider: 04/01/22 03:38 Source: patient, family, RN notes reviewed, old records reviewed Mode of arrival: wheelchair Limitations: no limitations - History of Present Illness Initial Comments: This is a 57-year-old female to the emergency department for evaluation patient is elevated heart rate not feeling well severe back pain. Symptoms have been persistent here in the emergency department. She also noticed her heart rate to be elevated lightheaded and dizzy. Does not believe she has had this issue before. Patient has no new trauma back pain is acute on chronic she states that time she does feel weak in the legs and weak in the knees and that her legs may give out on her when she is walking. No loss of bowel or bladder other c omplaints Complaint: rapid heart beat, "heart racing", palpitations, irregular heart beat, atrial fibrillation -: unknown Context: occurred during rest Arrhythmia History: other (none) Associated Symptoms: chest pain, shortness of breath, anxiety Treatments Prior to Arrival: other (none) - Related Data Home Medications Medication Instructions Recorded Confirmed HYDROcodone/APAP 7.5-325MG [[place] 1 tab PO QID PRN 03/01/22 03/01/22 7.5-325] Potassium Chloride ER [K-Dur 20] 20 meq PO BID 03/01/22 03/01/22 Allergies Allergy/AdvReac Type Severity Reaction Status Date / Time Penicillins Allergy Throat Verified 03/31/22 23:29 swelling sulfamethoxazole Allergy Unknown Verified 03/31/22 23:29 [From Bactrim] venom-honey bee Allergy Anaphylaxis Verified 03/31/22 23:29 [bee venom (honey bee)] NSAIDS (Non-Steroidal AdvReac Ulcer Verified 03/31/22 23:29 Anti-Inflamma Review of Systems ROS Statement: Those systems with pertinent positive or pertinent negative responses have been documented in the HPI. ROS Other: All systems not noted in ROS Statement are negative. Past Medical History Past Medical History: Fibromyalgia, Hypertension, Musculoskeletal Disorder Additional Past Medical History / Comment(s): back pain, pt states she has lesions on her brain that could be the onset of MS, tachycardia History of Any Multi-Drug Resistant Organisms: None Reported Past Surgical History: Appendectomy, Hysterectomy Additional Past Surgical History / Comment(s): d&c, Past Anesthesia/Blood Transfusion Reactions: No Reported Reaction Past Psychological History: Anxiety, Depression, Panic Disorder, PTSD Smoking Status: Current every day smoker Past Alcohol Use History: Rare Past Drug Use History: Opiates, Prescription Drug Abuse - Past Family History Mother Family Medical History: Cancer, Rheumatoid Arthritis (RA) Additional Family Medical History / Comment(s): lymphoma Father Family Medical History: Liver Disease Additional Family Medical History / Comment(s): Father had alcoholic cirrhosis. He is . Daughter(s) Family Medical History: Asthma General Exam Limitations: no limitations General appearance: alert, in no apparent distress, appears intoxicated Head exam: Present: atraumatic, normocephalic, normal inspection Eye exam: Present: normal appearance, PERRL, EOMI. Absent: scleral icterus, conjunctival injection, periorbital swelling ENT exam: Present: normal exam, mucous membranes moist Neck exam: Present: normal inspection. Absent: tenderness, meningismus, lymphadenopathy Respiratory exam: Present: normal lung sounds bilaterally. Absent: respiratory distress, wheezes, rales, rhonchi, stridor Cardiovascular Exam: Present: tachycardia, irregular rhythm, normal heart sounds. Absent: systolic murmur, diastolic murmur, rubs, gallop, clicks GI/Abdominal exam: Present: soft, normal bowel sounds. Absent: distended, tenderness, guarding, rebound, rigid Extremities exam: Present: normal inspection, full ROM, normal capillary refill. Absent: tenderness, pedal edema, joint swelling, calf tenderness Back exam: Present: normal inspection Neurological exam: Present: alert, oriented X3, CN II-XII intact Psychiatric exam: Present: normal affect, normal mood Skin exam: Present: warm, dry, intact, normal color. Absent: rash Course Vital Signs 03/31/22 04/01/22 23:25 04:28 Temperature 98 F Pulse Rate 160 H 64 Respiratory 24 18 Rate Blood Pressure 127/79 136/80 O2 Sat by Pulse 100 100 Oximetry - Reevaluation(s) Reevaluation #1: 04/01/22 04:45 Medical record is reviewed Reevaluation #2: 04/01/22 04:45 Patient going from atrial flutter atrial fibrillation tachycardia to normal sinus rhythm Reevaluation #3: 04/01/22 04:45 Patient's back pain is improved Reevaluation #4: 04/01/22 04:46 Patient is informed of results and questions have been answered - Consultations Consultation #1: Spoke with Dr. Zambrano who will admit this patient EKG Findings - EKG Comments: EKG Findings:: EKG shows a flutter 150 DC 178 QRS 137 QTC 392. Repeat. EKG is sinus 62 DC 133 QRS 11 QTC 441 Medical Decision Making - Medical Decision Making 57 female to the emergency department for evaluation patient presents today for evaluation of acute on chronic back pain shortness of breath and significantly elevated heart rate. New-onset atrial fibrillation with RVR likely a flutter on EKG will be cardiology consult, patient also has chronic back pain back pain is improved and patient be admitted for further evaluation management - Lab Data Result diagrams: 04/01/22 04:07 Lab Results 04/01/22 04/01/22 Range/Units 04:07 04:07 WBC 8.1 (3.8-10.6) k/uL RBC 4.28 (3.80-5.40) m/uL Hgb 13.9 (11.4-16.0) gm/dL Hct 40.7 (34.0-46.0) % MCV 95.2 (80.0-100.0) fL MCH 32.6 (25.0-35.0) pg MCHC 34.2 (31.0-37.0) g/dL RDW 13.1 (11.5-15.5) % Plt Count 259 (150-450) k/uL MPV 7.8 Neutrophils % 64 % Lymphocytes % 28 % Monocytes % 5 % Eosinophils % 1 % Basophils % 1 % Neutrophils # 5.2 (1.3-7.7) k/uL Lymphocytes # 2.3 (1.0-4.8) k/uL Monocytes # 0.4 (0-1.0) k/uL Eosinophils # 0.1 (0-0.7) k/uL Basophils # 0.1 (0-0.2) k/uL PT 11.0 (9.0-12.0) sec INR 1.0 (<1.2) APTT 25.3 (22.0-30.0) sec Disposition Clinical Impression: Intractable back pain, Tachycardia, Chronic back pain, Arrhythmia, Atrial fibrillation and flutter, Atrial fibrillation with rapid ventricular response, New onset a-fib Disposition: ADMITTED IP TO THIS HOSP Condition: Good Is patient prescribed a controlled substance at d/c from ED?: No Referrals: Javon Zambrano MD [Primary Care Provider] - 1-2 days
[2022-04-01] MEDS ORDERED: DILTIAZEM 125 MG in SODIUM CHLORIDE 0.9% 100 ML IV SCH (03:45)
[2022-04-01 04:33] LABS: Basophils # (A) 0.1 k/uL (0-0.2); Basophils % (A) 1 %; Eosinophils # (A) 0.1 k/uL (0-0.7); Eosinophils % (A) 1 %; HCT 40.7 % (34.0-46.0); HGB 13.9 gm/dL (11.4-16.0); Lymphocytes # (A) 2.3 k/uL (1.0-4.8); Lymphocytes % (A) 28 %; MCH 32.6 pg (25.0-35.0); MCHC 34.2 g/dL (31.0-37.0); MCV 95.2 fL (80.0-100.0); Mean Platelet Volume 7.8; Monocytes # (A) 0.4 k/uL (0-1.0); Monocytes % (A) 5 %; Neutrophils # (A) 5.2 k/uL (1.3-7.7); Neutrophils % (A) 64 %; Platelet Count 259 k/uL (150-450); RBC 4.28 m/uL (3.80-5.40); RDW 13.1 % (11.5-15.5); WBC 8.1 k/uL (3.8-10.6)
[2022-04-01 04:39] LABS: Partial Thromboplastin Time 25.3 sec (22.0-30.0)
[2022-04-01] MEDS ORDERED: LORazepam 2 MG/ML INJ IV PRN (04:40)
[2022-04-01] MEDS ORDERED: NALOXONE 0.4 MG/ML 1 ML VIAL IV PRN (04:40)
[2022-04-01 04:44] LABS: ALT 11 U/L (4-34); AST 18 U/L (14-36); African American GFR (CKD) >90 (>60 ml/min/1.73 sqM); Albumin 4.5 g/dL (3.5-5.0); Alkaline Phosphatase 63 U/L (38-126); Anion Gap 8 mmol/L; Blood Urea Nitrogen 13 mg/dL (7-17); Calcium 9.1 mg/dL (8.4-10.2); Carbon Dioxide 22 mmol/L (22-30); Chloride 109 mmol/L (98-107); Glucose 111 mg/dL (74-99); Magnesium 1.8 mg/dL (1.6-2.3); Non-African American GFR(CKD) >90 (>60 ml/min/1.73 sqM); Phosphorus 3.8 mg/dL (2.5-4.5); Sodium 139 mmol/L (137-145); Total Bilirubin 0.9 mg/dL (0.2-1.3); Total Protein 6.9 g/dL (6.3-8.2)
[2022-04-01] MEDS: SODIUM CHLORIDE 0.9% 1,000 ML IV SCH ×2 (05:07→14:07)
[2022-04-01 05:59] VITALS: RESP 16
[2022-04-01] MEDS ORDERED: Potassium Replacement Protocol 1 EACH MISC MISCELLANE PRN (06:18)
[2022-04-01] MEDS: POTASSIUM CHLORIDE ER 20 MEQ TAB.ER PO SCH ×2 (06:28→09:01)
[2022-04-01] MEDS: HEPARIN SODIUM,PORCINE/PF 5,000 UNIT/0.5 ML SYRINGE SQ SCH ×2 (06:29→06:35)
[2022-04-01] MEDS: HYDROmorphone 1 MG/ML 1 ML SYRINGE IVP PRN ×2 (09:02→12:48)
[2022-04-01 10:50] VITALS: TEMP 97.4
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
[2022-04-01 12:30] VITALS: BP 87/62; PULSE 64
--- NOTE | 2022-04-01 18:10 | CA ---
Transthoracic Echo Report Name: Laury Rojo Age: 57 Gender: F : 1965 Exam Date: 04/01/2022 12:04 Exam Location: [facility] Ht (in): 65 Wt (lb): 100 Ordering Physician: Khadijah Blandon Attending/Referring Phys: [id number], Jamia Combo Welder Devora Cobian, OPAL Procedure CPT: Indications: LV function Cardiac Hx: Technical Quality: Good Contrast 1: Total Dose (mL): Contrast 2: Total Dose (mL): MEASUREMENTS (Male / Female) Normal Values 2D ECHO LV Diastolic Diameter PLAX 4.8 cm 4.2 - 5.9 / 3.9 - 5.3 cm LV Systolic Diameter PLAX 3.0 cm IVS Diastolic Thickness 1.0 cm 0.6 - 1.0 / 0.6 - 0.9 cm LVPW Diastolic Thickness 1.0 cm 0.6 - 1.0 / 0.6 - 0.9 cm LV Relative Wall Thickness 0.4 RV Internal Dim ED PLAX 2.9 cm LA Systolic Diameter LX 3.0 cm 3.0 - 4.0 / 2.7 - 3.8 cm LA Volume 30.5 cm??? 18 - 58 / 22 - 52 cm??? M-MODE Aortic Root Diameter MM 2.9 cm MV E Point Septal Separation 0.6 cm AV Cusp Separation MM 2.1 cm DOPPLER AV Peak Velocity 139.8 cm/s AV Peak Gradient 7.8 mmHg MV Area PHT 3.2 cm??? Mitral E Point Velocity 92.3 cm/s Mitral A Point Velocity 59.4 cm/s Mitral E to A Ratio 1.6 MV Deceleration Time 234.2 ms MV E' Velocity 6.7 cm/s Mitral E to MV E' Ratio 13.7 TR Peak Velocity 231.3 cm/s TR Peak Gradient 21.4 mmHg Right Ventricular Systolic Press 26.2 mmHg FINDINGS Left Ventricle Left ventricular ejection fraction is estimated at 55-60 %. Left ventricular cavity size normal. Left ventricular wall thickness normal. Right Ventricle Normal right ventricular size and function. Right ventricular systolic pressure within normal limits. Right Atrium Normal right atrial size. Left Atrium Normal left atrial size. No evidence for an atrial septal defect. Mitral Valve Mild to moderate mitral regurgitation. Aortic Valve Trileaflet aortic valve. No aortic valve stenosis or regurgitation. Tricuspid Valve Mild tricuspid regurgitation. Pulmonic Valve Trace to mild pulmonic regurgitation. Pericardium Normal pericardium. Aorta Normal size aortic root and proximal ascending aorta. CONCLUSIONS Normal left ventricular dimension and systolic function Mild to moderate mitral regurgitation Previewed by: Dr. Edison Lan MD (Electronically Signed) Final Date: 01 Apr 2022 18:09
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
--- NOTE | 2022-05-10 10:02 | EM ---
Event monitor shows episodes of paroxysmal supraventricular tachycardia with RVR up to 180 beats a minute Occasional episodes of sinus tachycardia MTDD
== END 2022-04-01 14:55 | disposition home or self-care (01) ==
LOC: EC 23:21 → 3SCARD 04-01 04:40 → INTOOBSV 04-01 04:40 → UNDODISIN 04-01 14:55
PROVIDERS: ADMIT Hospitalist; ATTEND Hospitalist
DX: I48.91 Unspecified atrial fibrillation (principal); I48.92 Unspecified atrial flutter; M54.9 Dorsalgia, unspecified; I47.1 Supraventricular tachycardia; I08.1 Rheumatic disorders of both mitral and tricuspid valves; M79.7 Fibromyalgia; F17.210 Nicotine dependence, cigarettes, uncomplicated; I10 Essential (primary) hypertension; G89.29 Other chronic pain; F43.10 Post-traumatic stress disorder, unspecified; F41.0 Panic disorder [episodic paroxysmal anxiety]; F32.A Depression, unspecified; Z88.0 Allergy status to penicillin; Z88.2 Allergy status to sulfonamides; Z88.6 Allergy status to analgesic agent; Z91.030 Bee allergy status; Z90.710 Acquired absence of both cervix and uterus; Z90.49 Acquired absence of other specified parts of digestive tract; Z98.890 Other specified postprocedural states; Z91.410 Personal history of adult physical and sexual abuse; Z80.7 Family history of other malignant neoplasms of lymphoid, hematopoietic and related tissues; Z82.5 Family history of asthma and other chronic lower respiratory diseases; Z82.61 Family history of arthritis; Z83.79 Family history of other diseases of the digestive system; Z81.1 Family history of alcohol abuse and dependence
CPT/HCPCS: 96376; 96372; 96361; 96374; 96375; 99284; 99285; 36415; 93005 ×2; 93306; 93270; 80053; 83735; 84100; 84132; 84443; 84484; 85025; 85610; 85730; G0378; J1200; J1170; J1644

== ENCOUNTER 2022-04-27 23:15 | Emergency (ER) | payer OTHER ==
[2022-04-28 00:09] VITALS: BP 115/77; PULSE 100; RESP 18; TEMP 97.5
[2022-04-28] MEDS ORDERED: ORPHENADRINE 30 MG/ML 2 ML VIAL IVP STA (01:24)
[2022-04-28] MEDS ORDERED: HYDROmorphone 1 MG/ML 1 ML SYRINGE IM STA (01:24)
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
[2022-04-28] MEDS ORDERED: ORPHENADRINE 30 MG/ML 2 ML VIAL IM STA (02:05)
== END 2022-04-28 03:06 | disposition home or self-care (01) ==
LOC: EC 23:15
DX: M54.50 Low back pain, unspecified (principal); M79.7 Fibromyalgia; I10 Essential (primary) hypertension; F17.200 Nicotine dependence, unspecified, uncomplicated; Z88.0 Allergy status to penicillin; Z88.2 Allergy status to sulfonamides; Z91.030 Bee allergy status; Z88.6 Allergy status to analgesic agent
CPT/HCPCS: 96372; 99283

== ENCOUNTER 2022-04-29 | Emergency (ER) | payer OTHER ==
[2022-04-29 00:21] VITALS: TEMP 98
[2022-04-29] MEDS ORDERED: HYDROmorphone 0.5 MG/0.5 ML SYRINGE IM STA ×2 (02:46→04:29)
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
[2022-04-29 04:31] VITALS: BP 140/103; PULSE 96; RESP 18
== END 2022-04-29 04:44 | disposition home or self-care (01) ==
LOC: EC
DX: M54.9 Dorsalgia, unspecified (principal); I10 Essential (primary) hypertension; F32.A Depression, unspecified; F41.0 Panic disorder [episodic paroxysmal anxiety]; F43.10 Post-traumatic stress disorder, unspecified; F17.200 Nicotine dependence, unspecified, uncomplicated; Z88.0 Allergy status to penicillin; Z88.2 Allergy status to sulfonamides; Z91.030 Bee allergy status; Z88.6 Allergy status to analgesic agent; Z79.891 Long term (current) use of opiate analgesic
CPT/HCPCS: 99283; 96372 ×2; J1170

== ENCOUNTER 2022-05-22 22:45 | Emergency (ER) | payer OTHER ==
[2022-05-22 23:02] VITALS: BP 124/77; PULSE 89; RESP 16; TEMP 98.2
[2022-05-22] MEDS ORDERED: MORPHINE SULFATE 4 MG/ML SYRINGE IV STA (23:20)
[2022-05-22] MEDS ORDERED: SODIUM CHLORIDE 0.9% 1,000 ML IV STA (23:20)
[2022-05-22] MEDS ORDERED: diphenhydrAMINE 50 MG/ML 1 ML VIAL IVP STA (23:20)
[2022-05-22] MEDS ORDERED: METOCLOPRAMIDE 5 MG/ML 2 ML VIAL IVP STA (23:20)
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
[2022-05-22 23:52] LABS: Basophils # (A) 0.1 k/uL (0-0.2); Basophils % (A) 1 %; Eosinophils # (A) 0.1 k/uL (0-0.7); Eosinophils % (A) 1 %; HCT 43.4 % (34.0-46.0); HGB 14.6 gm/dL (11.4-16.0); Lymphocytes # (A) 1.4 k/uL (1.0-4.8); Lymphocytes % (A) 19 %; MCH 32.3 pg (25.0-35.0); MCHC 33.7 g/dL (31.0-37.0); MCV 95.9 fL (80.0-100.0); Monocytes # (A) 0.4 k/uL (0-1.0); Monocytes % (A) 5 %; Neutrophils # (A) 5.6 k/uL (1.3-7.7); Neutrophils % (A) 74 %; Platelet Count 227 k/uL (150-450); RBC 4.52 m/uL (3.80-5.40); RDW 12.6 % (11.5-15.5); WBC 7.7 k/uL (3.8-10.6)
[2022-05-23 00:02] LABS: ALT 9 U/L (4-34); AST 16 U/L (14-36); African American GFR (CKD) >90 (>60 ml/min/1.73 sqM); Albumin 4.2 g/dL (3.5-5.0); Alkaline Phosphatase 85 U/L (38-126); Anion Gap 7 mmol/L; Blood Urea Nitrogen 9 mg/dL (7-17); Calcium 9.2 mg/dL (8.4-10.2); Carbon Dioxide 27 mmol/L (22-30); Chloride 105 mmol/L (98-107); Glucose 145 mg/dL (74-99); Lipase 42 U/L (23-300); Non-African American GFR(CKD) >90 (>60 ml/min/1.73 sqM); Sodium 139 mmol/L (137-145); Total Bilirubin 0.5 mg/dL (0.2-1.3); Total Protein 6.7 g/dL (6.3-8.2)
[2022-05-23 00:17] LABS: Appearance,Urine Cloudy (Clear); Bacteria,Urine Rare /hpf; Bilirubin,Urine Negative (Negative); Blood,Urine Negative (Negative); Color,Urine Yellow; Glucose,Urine (UA) Negative (Negative); Ketones,Urine Negative (Negative); Leukocyte Esterase,Urine Small (Negative); Mucus,Urine Moderate /hpf; Nitrite,Urine Negative (Negative); Protein,Urine Negative (Negative); RBC,Urine 1 /hpf (0-5); Specific Gravity,Urine 1.017 (1.001-1.035); Squamous Epithelial Cell,Urine 9 /hpf (0-4); WBC,Urine 5 /hpf (0-5)
[2022-05-23] MEDS ORDERED: POTASSIUM CHLORIDE ER 20 MEQ TAB.ER PO STA (00:41)
[2022-05-23] MEDS ORDERED: ONDANSETRON 4 MG ODT STARTER PACK 2 TAB BTL PO STA (01:06)
[2022-05-23] MEDS ORDERED: HYDROcodone/APAP 5-325MG 1 EACH TAB PO STA (01:06)
--- NOTE | 2022-05-23 04:12 | XR ---
EXAM: XR Abdomen, 2 Views CLINICAL HISTORY: ITS.REASON XR Reason: Back pain, vomiting TECHNIQUE: Frontal view of the abdomen/pelvis with upright view of the abdomen. COMPARISON: 09/22/2015 FINDINGS: Intraperitoneal space: No free air. Gastrointestinal tract: Unremarkable. No dilation. Bones/joints: Unremarkable. IMPRESSION: Normal abdominal x-rays.
== END 2022-05-23 01:20 | disposition home or self-care (01) ==
LOC: EC 22:45
DX: G89.29 Other chronic pain (principal); M54.50 Low back pain, unspecified; E87.6 Hypokalemia; R11.2 Nausea with vomiting, unspecified; I10 Essential (primary) hypertension; M79.7 Fibromyalgia; F32.A Depression, unspecified; F41.9 Anxiety disorder, unspecified; F17.200 Nicotine dependence, unspecified, uncomplicated; F11.90 Opioid use, unspecified, uncomplicated; F15.90 Other stimulant use, unspecified, uncomplicated
CPT/HCPCS: 36415; 80053; 83690; 85025; 81001; 74018; 99284; 96374; 96375 ×2; 96361; J2270; J1200; J2765; S0119

== ENCOUNTER 2022-05-23 23:02 | Emergency (ER) | payer OTHER ==
[2022-05-23 23:08] VITALS: RESP 16; TEMP 98.3
[2022-05-24] MEDS ORDERED: METHADONE 10 MG TAB PO STA (04:47)
[2022-05-24] MEDS ORDERED: MORPHINE SULFATE 4 MG/ML SYRINGE IM STA (04:48)
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
[2022-05-24 05:41] VITALS: BP 160/91; PULSE 69
== END 2022-05-24 05:42 | disposition home or self-care (01) ==
LOC: EC 23:02
DX: M54.50 Low back pain, unspecified (principal); I10 Essential (primary) hypertension; F32.A Depression, unspecified; F41.9 Anxiety disorder, unspecified; F17.200 Nicotine dependence, unspecified, uncomplicated; Z88.0 Allergy status to penicillin; Z88.2 Allergy status to sulfonamides; Z91.030 Bee allergy status; Z88.6 Allergy status to analgesic agent; Z79.899 Other long term (current) drug therapy
CPT/HCPCS: 99283; 96374; J2270; S0109

== ENCOUNTER 2022-07-03 03:19 | Emergency (ER) | payer OTHER ==
[2022-07-03 03:23] VITALS: BP 137/78; PULSE 102; RESP 16; TEMP 97.9
[2022-07-03] MEDS ORDERED: MORPHINE SULFATE 4 MG/ML SYRINGE IM STA (04:49)
[2022-07-03] MEDS ORDERED: ONDANSETRON 4 MG/2 ML VIAL IM STA (04:49)
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
== END 2022-07-03 05:38 | disposition home or self-care (01) ==
LOC: EC 03:19
DX: M54.9 Dorsalgia, unspecified (principal); G89.29 Other chronic pain; I10 Essential (primary) hypertension; F41.9 Anxiety disorder, unspecified; F32.A Depression, unspecified; F17.200 Nicotine dependence, unspecified, uncomplicated; Z88.0 Allergy status to penicillin; Z88.2 Allergy status to sulfonamides; Z91.030 Bee allergy status; Z88.6 Allergy status to analgesic agent; Z79.899 Other long term (current) drug therapy
CPT/HCPCS: 99283; 96372 ×2; J2270; J2405

== ENCOUNTER 2022-07-04 00:01 | Emergency (ER) | payer OTHER ==
[2022-07-04 00:32] VITALS: BP 130/85; PULSE 94; RESP 22; TEMP 97
[2022-07-04] MEDS ORDERED: HYDROmorphone 1 MG/ML 1 ML SYRINGE IVP STA (00:49)
[2022-07-04] MEDS ORDERED: SODIUM CHLORIDE 0.9% 1,000 ML IV STA (00:49)
[2022-07-04] MEDS ORDERED: ONDANSETRON 4 MG/2 ML VIAL IVP STA (00:49)
[2022-07-04 01:03] LABS: Basophils # (A) 0.1 k/uL (0-0.2); Basophils % (A) 1 %; Eosinophils # (A) 0.1 k/uL (0-0.7); Eosinophils % (A) 1 %; HCT 45.3 % (34.0-46.0); HGB 14.3 gm/dL (11.4-16.0); Lymphocytes # (A) 2.3 k/uL (1.0-4.8); Lymphocytes % (A) 28 %; MCH 30.4 pg (25.0-35.0); MCHC 31.7 g/dL (31.0-37.0); Mean Platelet Volume 7.9; Monocytes # (A) 0.4 k/uL (0-1.0); Monocytes % (A) 5 %; Neutrophils # (A) 5.3 k/uL (1.3-7.7); Neutrophils % (A) 64 %; Platelet Count 282 k/uL (150-450); RBC 4.71 m/uL (3.80-5.40); RDW 12.9 % (11.5-15.5); WBC 8.2 k/uL (3.8-10.6)
[2022-07-04 01:25] LABS: African American GFR (CKD) >90 (>60 ml/min/1.73 sqM); Anion Gap 12 mmol/L; Blood Urea Nitrogen 11 mg/dL (7-17); Calcium 9.4 mg/dL (8.4-10.2); Carbon Dioxide 23 mmol/L (22-30); Chloride 104 mmol/L (98-107); Glucose 115 mg/dL (74-99); Non-African American GFR(CKD) >90 (>60 ml/min/1.73 sqM); Potassium 2.9 mmol/L (3.5-5.1); Sodium 139 mmol/L (137-145)
[2022-07-04] MEDS ORDERED: HYDROmorphone 0.5 MG/0.5 ML SYRINGE IVP STA (02:07)
[2022-07-04] MEDS ORDERED: POTASSIUM CHLORIDE ER 20 MEQ TAB.ER PO STA (02:07)
[2022-07-04 02:55] LABS: Appearance,Urine Clear (Clear); Bacteria,Urine Rare /hpf; Bilirubin,Urine Negative (Negative); Blood,Urine Negative (Negative); Color,Urine Yellow; Glucose,Urine (UA) Negative (Negative); Hyaline Casts,Urine 8 /lpf (0-2); Ketones,Urine Negative (Negative); Leukocyte Esterase,Urine Small (Negative); Mucus,Urine Occasional /hpf; Nitrite,Urine Negative (Negative); Protein,Urine Negative (Negative); RBC,Urine 1 /hpf (0-5); Specific Gravity,Urine 1.019 (1.001-1.035); Squamous Epithelial Cell,Urine 4 /hpf (0-4); Urobilinogen,Urine <2.0 mg/dL (<2.0); WBC,Urine 7 /hpf (0-5)
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
== END 2022-07-04 03:44 | disposition home or self-care (01) ==
LOC: EC 00:01
DX: E87.6 Hypokalemia (principal); R11.2 Nausea with vomiting, unspecified; M54.9 Dorsalgia, unspecified; F17.200 Nicotine dependence, unspecified, uncomplicated; I10 Essential (primary) hypertension; Z88.0 Allergy status to penicillin; Z88.2 Allergy status to sulfonamides; Z88.6 Allergy status to analgesic agent; Z91.030 Bee allergy status
CPT/HCPCS: 36415; 80048; 85025; 81001; 99284; 96374; 96375; 96376; J2405; J1170 ×2

== ENCOUNTER 2022-07-11 23:11 | Observation (INO) | payer OTHER ==
[2022-07-12] MEDS ORDERED: SODIUM CHLORIDE 0.9% 1,000 ML IV STA (00:49)
--- NOTE | 2022-07-12 01:59 | XR ---
EXAMINATION TYPE: XR chest 1V portable DATE OF EXAM: 07/12/2022 COMPARISON: 12/03/2021 HISTORY: Pain TECHNIQUE: Single view FINDINGS: Heart is normal. Lungs are clear of infiltrate. No heart failure. There are no hilar masses . The bony thorax is intact. IMPRESSION: Normal chest. No change.
[2022-07-12] MEDS ORDERED: MORPHINE SULFATE 4 MG/ML SYRINGE IV STA (04:10)
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
[2022-07-12 04:43] LABS: Basophils % (A) 1 %; Eosinophils # (A) 0.1 k/uL (0-0.7); Eosinophils % (A) 1 %; HCT 44.1 % (34.0-46.0); HGB 14.8 gm/dL (11.4-16.0); Lymphocytes # (A) 1.8 k/uL (1.0-4.8); Lymphocytes % (A) 27 %; MCH 32.8 pg (25.0-35.0); MCHC 33.5 g/dL (31.0-37.0); MCV 97.7 fL (80.0-100.0); Mean Platelet Volume 8.1; Monocytes # (A) 0.4 k/uL (0-1.0); Monocytes % (A) 5 %; Neutrophils # (A) 4.3 k/uL (1.3-7.7); Neutrophils % (A) 64 %; Platelet Count 243 k/uL (150-450); RBC 4.51 m/uL (3.80-5.40); RDW 13.9 % (11.5-15.5); WBC 6.7 k/uL (3.8-10.6)
[2022-07-12 05:07] LABS: ALT 12 U/L (4-34); AST 39 U/L (14-36); African American GFR (CKD) >90 (>60 ml/min/1.73 sqM); Albumin 4.3 g/dL (3.5-5.0); Alkaline Phosphatase 59 U/L (38-126); Anion Gap 10 mmol/L; Blood Urea Nitrogen 16 mg/dL (7-17); Calcium 8.8 mg/dL (8.4-10.2); Carbon Dioxide 22 mmol/L (22-30); Chloride 108 mmol/L (98-107); Glucose 108 mg/dL (74-99); Magnesium 1.7 mg/dL (1.6-2.3); Non-African American GFR(CKD) >90 (>60 ml/min/1.73 sqM); Sodium 140 mmol/L (137-145); Total Bilirubin 1.3 mg/dL (0.2-1.3); Total Protein 7.2 g/dL (6.3-8.2)
[2022-07-12] MEDS ORDERED: diphenhydrAMINE 50 MG/ML 1 ML VIAL IVP STA (05:22)
[2022-07-12] MEDS ORDERED: ACET/COD 300 MG/30 MG STARTER PACK 6 TAB BTL PO STA (05:22)
[2022-07-12] MEDS ORDERED: HYDROmorphone 1 MG/ML 1 ML SYRINGE IVP STA (05:22)
[2022-07-12 05:24] LABS: Potassium 4.3 mmol/L (3.5-5.1)
[2022-07-12] MEDS ORDERED: NALOXONE 0.4 MG/ML 1 ML VIAL IV PRN (05:59)
[2022-07-12] MEDS ORDERED: ONDANSETRON 4 MG/2 ML VIAL IVP PRN (05:59)
[2022-07-12] MEDS ORDERED: ASPIRIN 81 MG PO STA (06:06)
[2022-07-12] MEDS ORDERED: diphenhydrAMINE 50 MG/ML 1 ML VIAL IVP PRN (06:06)
[2022-07-12] MEDS: SODIUM CHLORIDE 0.9% 1,000 ML IV SCH ×3 (08:51→19:52)
[2022-07-12] MEDS ORDERED: PANTOPRAZOLE 40 MG/10 ML VIAL IV SCH (09:00)
[2022-07-12 09:38] LABS: Amorphous Sediment,Urine Occasional /hpf; Appearance,Urine Cloudy (Clear); Bacteria,Urine Occasional /hpf; Bilirubin,Urine Negative (Negative); Blood,Urine Negative (Negative); Calcium Oxalate Crystals,Urine Occasional /hpf; Color,Urine Yellow; Glucose,Urine (UA) Negative (Negative); Ketones,Urine Negative (Negative); Leukocyte Esterase,Urine Moderate (Negative); Mucus,Urine Occasional /hpf; Nitrite,Urine Negative (Negative); Protein,Urine Negative (Negative); RBC,Urine 2 /hpf (0-5); Specific Gravity,Urine 1.022 (1.001-1.035); Squamous Epithelial Cell,Urine 18 /hpf (0-4); Urobilinogen,Urine <2.0 mg/dL (<2.0); WBC,Urine 18 /hpf (0-5)
[2022-07-12] MEDS ORDERED: busPIRone HCl 10 MG TAB PO PRN (13:09)
[2022-07-12] MEDS ORDERED: QUEtiapine 50 MG TAB PO PRN (13:09)
[2022-07-12] MEDS: HYDROmorphone 1 MG/ML 1 ML SYRINGE IVP PRN ×3 (13:54→23:37)
[2022-07-12 20:00] LABS: Urine Alcohol Negative (Negative); Urine Barbiturate Negative (Negative); Urine Cocaine Negative (Negative); Urine Methadone Negative (Negative); Urine Opiates Positive (Negative); Urine Phencyclidine Negative (Negative)
[2022-07-13] MEDS: HYDROmorphone 1 MG/ML 1 ML SYRINGE IVP PRN ×4 (03:33→14:22)
[2022-07-13] MEDS: SODIUM CHLORIDE 0.9% 1,000 ML IV SCH ×2 (03:43→10:46)
[2022-07-13] MEDS ORDERED: PANTOPRAZOLE 40 MG TABLET PO SCH (07:30)
[2022-07-13] MEDS ORDERED: POTASSIUM CHLORIDE ER 20 MEQ TAB.ER PO SCH (09:00)
[2022-07-13] MEDS ORDERED: ASPIRIN 325 MG TAB PO SCH (09:00)
[2022-07-13 09:14] LABS: African American GFR (CKD) 115.6 (60.0-200.0); Albumin 3.2 g/dL (3.8-4.9); Anion Gap 7.8 mmol/L (10.00-18.00); BUN/Creat Ratio 15.33 Ratio (12.00-20.00); Blood Urea Nitrogen 9.2 mg/dL (9.0-27.0); Calcium 8.3 mg/dL (8.7-10.3); Carbon Dioxide 24.2 mmol/L (20.0-27.5); Globulin 1.6 g/dL (1.6-3.3); Magnesium 1.9 mg/dL (1.5-2.4); Non-African American GFR(CKD) 99.8 (60.0-200.0); Phosphorus 3.2 mg/dL (2.4-5.1); Potassium 3.3 mmol/L (3.5-5.5); Total Bilirubin 0.3 mg/dL (0.30-1.20); Total Protein 4.8 g/dL (6.2-8.2)
[2022-07-13 09:15] LABS: Basophils # (A) 0.05 X 10*3/uL (0.00-0.10); Basophils % (A) 0.9 %; Eosinophils # (A) 0.13 X 10*3/uL (0.04-0.35); Eosinophils % (A) 2.3 %; HGB 11.7 g/dL (12.0-15.0); Immature Grans, Automated 0.2 %; Lymphocytes # (A) 2.44 X 10*3/uL (0.90-5.00); Lymphocytes % (A) 42.7 %; MCH 31.6 pg (27.0-32.0); MCHC 33.4 g/dL (32.0-37.0); MCV 94.6 fL (80.0-97.0); Mean Platelet Volume 10.4 fL (9.5-12.2); Monocytes # (A) 0.48 X 10*3/uL (0.20-1.00); Monocytes % (A) 8.4 %; NRBC Per 100 WBC 0 /100 WBCS (0.0-0.0); Neutrophils % (A) 45.5 %; Platelet Count 190 X 10*3/uL (140-440); RDW 13.9 % (11.5-14.5); WBC 5.71 X 10*3/uL (4.50-10.00)
[2022-07-13 11:44] VITALS: BP 164/72; PULSE 70; RESP 13; TEMP 97.7
[2022-07-13 14:08] VITALS: BMI 18.1
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
--- NOTE | 2022-07-16 20:42 | DS ---
DISCHARGE SUMMARY CHIEF COMPLAINT: Syncopal episode. HISTORY OF PRESENT ILLNESS AND PHYSICAL EXAMINATION: Details of this lady's history and physical can be found in the initial workup. LABORATORY STUDIES: While she was in the hospital, she had laboratory studies, details of which can be found in the laboratory section of her chart. COURSE IN THE HOSPITAL: After admission, she was placed on bedrest, started on intravenous fluids and frequent monitoring of her neurovascular status. Vital signs and neurological status were normal. It had been reported that her troponin was elevated in the emergency room, but started out not to be the case. She was stable and it was felt that she could go home on with followup in the office. She will go home on her usual activity, diet, medications. FINAL DIAGNOSES: 1. Syncopal episode, etiology unknown. 2. Abdominal pain. 3. Hypertension. 4. Low back pain. OPERATIONS: None. CONSULTATION: None. She is improved. SUZIE / LUIS: [id number] /
== END 2022-07-13 17:26 | disposition home or self-care (01) ==
LOC: EC 23:11 → 6NMEDSUR 07-12 05:59
PROVIDERS: ADMIT Family Medicine; ATTEND Family Medicine
DX: R55 Syncope and collapse (principal); M79.7 Fibromyalgia; G89.29 Other chronic pain; M54.9 Dorsalgia, unspecified; Z79.891 Long term (current) use of opiate analgesic; Z79.899 Other long term (current) drug therapy; Z88.0 Allergy status to penicillin; Z88.2 Allergy status to sulfonamides; F17.200 Nicotine dependence, unspecified, uncomplicated; R77.8 Other specified abnormalities of plasma proteins; J44.9 Chronic obstructive pulmonary disease, unspecified
CPT/HCPCS: 96376 ×3; 96361 ×3; 96374; 96375; 99285; 36415; 85379; 80053 ×2; 83735 ×2; 84100; 84484; 85025 ×2; 81001; 80306; 87086; 87077; 87186; 71045; G0378 ×2; J2270; J1200; J1170 ×2; C9113; 96360

== ENCOUNTER 2022-08-14 02:27 | Emergency (ER) | payer OTHER ==
[2022-08-14 02:44] VITALS: RESP 16
[2022-08-14] MEDS ORDERED: ONDANSETRON 4 MG/2 ML VIAL IVP STA (03:25)
[2022-08-14] MEDS ORDERED: SODIUM CHLORIDE 0.9% 500 ML 500 ML IV STA (03:25)
[2022-08-14] MEDS ORDERED: HYDROmorphone 1 MG/ML 1 ML SYRINGE IVP STA (03:25)
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
[2022-08-14 03:48] LABS: Basophils % (A) 1 %; Eosinophils # (A) 0.2 k/uL (0-0.7); Eosinophils % (A) 2 %; HCT 40.5 % (34.0-46.0); HGB 13.4 gm/dL (11.4-16.0); Lymphocytes # (A) 1.6 k/uL (1.0-4.8); Lymphocytes % (A) 25 %; MCH 31.5 pg (25.0-35.0); MCHC 33.2 g/dL (31.0-37.0); Mean Platelet Volume 8.3; Monocytes # (A) 0.3 k/uL (0-1.0); Monocytes % (A) 5 %; Neutrophils % (A) 65 %; Platelet Count 198 k/uL (150-450); RBC 4.27 m/uL (3.80-5.40); RDW 13.2 % (11.5-15.5); WBC 6.2 k/uL (3.8-10.6)
[2022-08-14 04:01] LABS: ALT 10 U/L (4-34); AST 18 U/L (14-36); African American GFR (CKD) >90 (>60 ml/min/1.73 sqM); Albumin 3.7 g/dL (3.5-5.0); Alkaline Phosphatase 60 U/L (38-126); Anion Gap 9 mmol/L; Blood Urea Nitrogen 11 mg/dL (7-17); Calcium 8.8 mg/dL (8.4-10.2); Carbon Dioxide 26 mmol/L (22-30); Chloride 105 mmol/L (98-107); Glucose 103 mg/dL (74-99); Magnesium 1.9 mg/dL (1.6-2.3); Non-African American GFR(CKD) >90 (>60 ml/min/1.73 sqM); Potassium 3.1 mmol/L (3.5-5.1); Sodium 140 mmol/L (137-145); Total Bilirubin 0.5 mg/dL (0.2-1.3); Total Protein 5.9 g/dL (6.3-8.2)
--- NOTE | 2022-08-14 04:03 | XR ---
EXAMINATION TYPE: XR chest 2V DATE OF EXAM: 08/14/2022 COMPARISON: 07/12/2022 HISTORY: Chest pain TECHNIQUE: FINDINGS: Heart and mediastinum are normal. Lungs are clear. Diaphragm is normal. Bony thorax appears normal. IMPRESSION: Normal chest. No change.
[2022-08-14 04:16] LABS: Partial Thromboplastin Time 27.6 sec (22.0-30.0); Prothrombin Time 11.2 sec (9.0-12.0)
[2022-08-14] MEDS ORDERED: POTASSIUM CHLORIDE ER 20 MEQ TAB.ER PO STA (04:21)
[2022-08-14] MEDS ORDERED: ALPRAZolam 0.25 MG TAB PO STA (04:24)
[2022-08-14] MEDS ORDERED: HYDROmorphone 0.5 MG/0.5 ML SYRINGE IVP STA (04:24)
[2022-08-14 04:30] VITALS: TEMP 97.6
[2022-08-14 04:45] VITALS: BP 141/79; PULSE 81
== END 2022-08-14 04:45 | disposition home or self-care (01) ==
LOC: EC 02:27
DX: G89.29 Other chronic pain (principal); M54.9 Dorsalgia, unspecified; F41.9 Anxiety disorder, unspecified; R06.02 Shortness of breath; R11.0 Nausea; J44.9 Chronic obstructive pulmonary disease, unspecified; F17.200 Nicotine dependence, unspecified, uncomplicated; I10 Essential (primary) hypertension; Z88.0 Allergy status to penicillin; Z88.2 Allergy status to sulfonamides; Z88.8 Allergy status to other drugs, medicaments and biological substances; Z91.030 Bee allergy status
CPT/HCPCS: 36415; 83880; 80053; 83735; 84484; 85025; 85610; 85730; 71046; 99285; 96374; 96375; 96376; 96361; J2405; J1170 ×2

== ENCOUNTER 2022-08-14 22:35 | Emergency (ER) | payer OTHER ==
[2022-08-14 22:50] VITALS: BP 154/67; PULSE 79; RESP 20; TEMP 98.4
[2022-08-15] MEDS ORDERED: ACET/COD 300 MG/30 MG STARTER PACK 6 TAB BTL PO STA (03:33)
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
[2022-08-15] MEDS ORDERED: HYDROmorphone 1 MG/ML 1 ML SYRINGE IM STA (03:34)
[2022-08-15] MEDS ORDERED: diazePAM 2 MG TAB PO STA (03:34)
[2022-08-15] MEDS ORDERED: diphenhydrAMINE 50 MG CAP PO STA (03:34)
== END 2022-08-15 04:52 | disposition home or self-care (01) ==
LOC: EC 22:35
DX: M54.50 Low back pain, unspecified (principal); M79.604 Pain in right leg; M79.605 Pain in left leg; Z76.0 Encounter for issue of repeat prescription; I10 Essential (primary) hypertension; F17.200 Nicotine dependence, unspecified, uncomplicated; Z79.899 Other long term (current) drug therapy; Z88.0 Allergy status to penicillin; Z88.1 Allergy status to other antibiotic agents; Z88.2 Allergy status to sulfonamides; Z88.8 Allergy status to other drugs, medicaments and biological substances; Z91.030 Bee allergy status
CPT/HCPCS: 99283; 96372; J1170

== ENCOUNTER 2022-09-01 21:58 | Emergency (ER) | payer OTHER ==
[2022-09-01 22:06] VITALS: TEMP 97.9
[2022-09-01] MEDS ORDERED: oxyCODONE-APAP 10-325MG 1 EACH TAB PO STA (23:05)
[2022-09-01] MEDS ORDERED: ONDANSETRON ODT 4 MG TAB PO STA (23:05)
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
[2022-09-02] MEDS ORDERED: ACET/COD 300 MG/30 MG STARTER PACK 6 TAB BTL PO STA (00:09)
[2022-09-02 00:23] VITALS: BP 116/80; PULSE 86; RESP 14
== END 2022-09-02 00:23 | disposition home or self-care (01) ==
LOC: EC 21:58
DX: G89.29 Other chronic pain (principal); F11.23 Opioid dependence with withdrawal; I10 Essential (primary) hypertension; F17.200 Nicotine dependence, unspecified, uncomplicated; Z88.0 Allergy status to penicillin; Z88.2 Allergy status to sulfonamides; Z88.6 Allergy status to analgesic agent; Z91.030 Bee allergy status; Z79.899 Other long term (current) drug therapy
CPT/HCPCS: 99283

== ENCOUNTER 2022-10-11 22:36 | Emergency (ER) | payer OTHER ==
[2022-10-11 23:08] VITALS: BP 122/80; PULSE 92; RESP 20; TEMP 98
[2022-10-12] MEDS ORDERED: ORPHENADRINE 30 MG/ML 2 ML VIAL IM STA (01:28)
[2022-10-12] MEDS ORDERED: oxyCODONE-APAP 7.5-325MG 1 EACH TAB PO STA (01:28)
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
== END 2022-10-12 02:51 | disposition home or self-care (01) ==
LOC: EC 22:36
DX: G89.29 Other chronic pain (principal); M54.50 Low back pain, unspecified; F17.200 Nicotine dependence, unspecified, uncomplicated; I10 Essential (primary) hypertension; Z88.0 Allergy status to penicillin; Z88.2 Allergy status to sulfonamides; Z88.8 Allergy status to other drugs, medicaments and biological substances; Z91.030 Bee allergy status
CPT/HCPCS: 99284; 96372; J2360

== ENCOUNTER 2022-10-13 03:37 | Emergency (ER) | payer OTHER ==
[2022-10-13 05:14] VITALS: RESP 16
--- NOTE | 2022-10-13 06:10 | CT ---
EXAMINATION TYPE: CT lumbar spine wo con DATE OF EXAM: 10/13/2022 COMPARISON: 03/04/2022 HISTORY: Chronic back pain CT DLP: 555.2 mGycm Automated exposure control for dose reduction was used. Images obtained from the level of T12-S3 vertebra with no contrast. The lumbar vertebrae have fairly normal alignment. There is mild vacuum disc and disc space narrowing at L4-5 and L5-S1. No significant lumbar compression deformity. Posterior elements are intact. Facet joints are intact. There is small posterior disc herniations at L4-5 and L5-S1. There is no lumbar p araspinal mass. No focal bone destruction. Abdominal aorta is atheromatous. IMPRESSION: Degenerative disc changes at L4-5 and L5-S1 with disc space narrowing and posterior disc herniations. No significant change compared to old exam. No fracture seen
[2022-10-13] MEDS ORDERED: HYDROmorphone 1 MG/ML 1 ML SYRINGE IM STA (06:13)
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
[2022-10-13 06:33] VITALS: BP 126/80; PULSE 74; TEMP 98.1
== END 2022-10-13 06:33 | disposition home or self-care (01) ==
LOC: EC 03:37
DX: G89.29 Other chronic pain (principal); M54.50 Low back pain, unspecified; I10 Essential (primary) hypertension; F41.9 Anxiety disorder, unspecified; F32.A Depression, unspecified; F17.200 Nicotine dependence, unspecified, uncomplicated; Z88.0 Allergy status to penicillin; Z91.030 Bee allergy status; Z88.2 Allergy status to sulfonamides; Z88.6 Allergy status to analgesic agent; Z79.899 Other long term (current) drug therapy
CPT/HCPCS: 99284; 96372; 72131; J1170

== ENCOUNTER 2022-11-19 01:25 | Inpatient (IN) | payer OTHER ==
[2022-11-19] MEDS ORDERED: THIAMINE 100 MG/ML 2 ML VIAL IM STA (05:04)
[2022-11-19] MEDS ORDERED: NALOXONE 0.4 MG/ML 1 ML VIAL IV PRN (05:06)
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
[2022-11-19] MEDS: LORazepam 2 MG/ML INJ IV PRN (05:43)
[2022-11-19 06:16] LABS: Basophils # (A) 0.1 k/uL (0-0.2); Basophils % (A) 1 %; Eosinophils # (A) 0.1 k/uL (0-0.7); Eosinophils % (A) 1 %; HCT 43.8 % (34.0-46.0); HGB 15.1 gm/dL (11.4-16.0); Lymphocytes # (A) 3.3 k/uL (1.0-4.8); Lymphocytes % (A) 29 %; MCH 32.7 pg (25.0-35.0); MCHC 34.5 g/dL (31.0-37.0); MCV 94.8 fL (80.0-100.0); Mean Platelet Volume 9.4; Monocytes # (A) 0.6 k/uL (0-1.0); Monocytes % (A) 5 %; Neutrophils # (A) 7.1 k/uL (1.3-7.7); Neutrophils % (A) 62 %; Platelet Count 263 k/uL (150-450); RBC 4.62 m/uL (3.80-5.40); RDW 12.6 % (11.5-15.5); WBC 11.3 k/uL (3.8-10.6)
[2022-11-19 06:29] LABS: ALT 15 U/L (4-34); AST 18 U/L (14-36); African American GFR (CKD) >90 (>60 ml/min/1.73 sqM); Albumin 5.1 g/dL (3.5-5.0); Alkaline Phosphatase 66 U/L (38-126); Anion Gap 10 mmol/L; Blood Urea Nitrogen 16 mg/dL (7-17); Calcium 9.9 mg/dL (8.4-10.2); Carbon Dioxide 26 mmol/L (22-30); Chloride 107 mmol/L (98-107); Glucose 105 mg/dL (74-99); Magnesium 2.1 mg/dL (1.6-2.3); Non-African American GFR(CKD) >90 (>60 ml/min/1.73 sqM); Potassium 3.7 mmol/L (3.5-5.1); Sodium 143 mmol/L (137-145); Total Bilirubin 0.5 mg/dL (0.2-1.3); Total Protein 8.3 g/dL (6.3-8.2)
[2022-11-19 06:46] LABS: Appearance,Urine Clear (Clear); Bilirubin,Urine Negative (Negative); Blood,Urine Negative (Negative); Color,Urine Colorless; Glucose,Urine (UA) Negative (Negative); Ketones,Urine Negative (Negative); Leukocyte Esterase,Urine Trace (Negative); Mucus,Urine Rare /hpf; Nitrite,Urine Negative (Negative); Protein,Urine Negative (Negative); RBC,Urine <1 /hpf (0-5); Specific Gravity,Urine 1.003 (1.001-1.035); Squamous Epithelial Cell,Urine 1 /hpf (0-4); Urobilinogen,Urine <2.0 mg/dL (<2.0); WBC,Urine 2 /hpf (0-5)
[2022-11-19] MEDS ORDERED: QUEtiapine 50 MG TAB PO PRN (10:40)
[2022-11-19 11:47] LABS: Urine Alcohol Negative (Negative); Urine Barbiturate Negative (Negative); Urine Cocaine Negative (Negative); Urine Methadone Negative (Negative); Urine Opiates Negative (Negative); Urine Phencyclidine Negative (Negative)
[2022-11-19] MEDS: LORazepam 1 MG TAB PO PRN ×3 (15:46→23:29)
[2022-11-19] MEDS: HEPARIN SODIUM,PORCINE/PF 5,000 UNIT/0.5 ML SYRINGE SQ SCH (19:51)
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
[2022-11-20] MEDS: LORazepam 1 MG TAB PO PRN ×3 (04:52→16:08)
[2022-11-20] MEDS: SODIUM CHLORIDE 0.9% 1,000 ML IV SCH ×2 (05:01→13:24)
[2022-11-20] MEDS: THIAMINE 100 MG TAB PO SCH ×2 (08:16→09:33)
[2022-11-20] MEDS: HEPARIN SODIUM,PORCINE/PF 5,000 UNIT/0.5 ML SYRINGE SQ SCH ×2 (08:16→21:51)
[2022-11-20 11:31] LABS: African American GFR (CKD) 112.1 (60.0-200.0); Anion Gap 11.4 mmol/L (10.00-18.00); BUN/Creat Ratio 22.42 Ratio (12.00-20.00); Blood Urea Nitrogen 14.8 mg/dL (9.0-27.0); Calcium 9.3 mg/dL (8.7-10.3); Carbon Dioxide 21.4 mmol/L (20.0-27.5); Non-African American GFR(CKD) 96.7 (60.0-200.0); Potassium 4.1 mmol/L (3.5-5.5)
[2022-11-20] MEDS: LORazepam 2 MG/ML INJ IV PRN ×2 (13:21→16:57)
[2022-11-20] MEDS ORDERED: IBUPROFEN 600 MG TAB PO PRN (15:47)
[2022-11-20] MEDS ORDERED: LOPERAMIDE 2 MG CAP PO PRN (15:48)
[2022-11-20] MEDS ORDERED: LOPERAMIDE 2 MG CAP PO STA (15:48)
[2022-11-20] MEDS ORDERED: ONDANSETRON 4 MG TAB PO PRN (15:49)
[2022-11-20] MEDS ORDERED: cloNIDine HCL 0.1 MG TAB PO PRN (15:50)
[2022-11-20 18:02] LABS: Creatine Kinase 48 U/L (30-135)
[2022-11-20 18:15] LABS: Creatine Kinase MB 0.3 ng/mL (0.0-2.4); Troponin I <0.012 ng/mL (0.000-0.034)
[2022-11-20] MEDS ORDERED: MIRTAZAPINE 15 MG TAB PO SCH (21:00)
[2022-11-21] MEDS: METOPROLOL SUCCINATE (ER) 50 MG TAB.ER.24H PO SCH ×2 (01:09→08:38)
[2022-11-21 07:32] VITALS: BP 95/60; PULSE 62; RESP 20; TEMP 98.5
[2022-11-21] MEDS: HEPARIN SODIUM,PORCINE/PF 5,000 UNIT/0.5 ML SYRINGE SQ SCH (08:39)
[2022-11-21] MEDS: THIAMINE 100 MG TAB PO SCH (08:40)
[2022-11-21 11:17] LABS: Basophils # (A) 0.1 k/uL (0-0.2); Basophils % (A) 1 %; Eosinophils # (A) 0.1 k/uL (0-0.7); Eosinophils % (A) 1 %; HCT 39.5 % (34.0-46.0); HGB 13.7 gm/dL (11.4-16.0); Lymphocytes # (A) 2.2 k/uL (1.0-4.8); Lymphocytes % (A) 33 %; MCH 33.2 pg (25.0-35.0); MCHC 34.8 g/dL (31.0-37.0); MCV 95.4 fL (80.0-100.0); Mean Platelet Volume 8.2; Monocytes # (A) 0.4 k/uL (0-1.0); Monocytes % (A) 6 %; Neutrophils # (A) 3.8 k/uL (1.3-7.7); Neutrophils % (A) 58 %; Platelet Count 253 k/uL (150-450); RBC 4.13 m/uL (3.80-5.40); RDW 12.2 % (11.5-15.5); WBC 6.6 k/uL (3.8-10.6)
[2022-11-21 11:27] LABS: ALT 13 U/L (4-34); AST 18 U/L (14-36); African American GFR (CKD) >90 (>60 ml/min/1.73 sqM); Albumin 4.3 g/dL (3.5-5.0); Albumin/Globulin Ratio 1.7; Alkaline Phosphatase 55 U/L (38-126); Anion Gap 8 mmol/L; Blood Urea Nitrogen 19 mg/dL (7-17); Calcium 9.5 mg/dL (8.4-10.2); Carbon Dioxide 22 mmol/L (22-30); Chloride 112 mmol/L (98-107); Globulin 2.5 g/dL; Glucose 88 mg/dL (74-99); Non-African American GFR(CKD) >90 (>60 ml/min/1.73 sqM); Potassium 4.2 mmol/L (3.5-5.1); Sodium 142 mmol/L (137-145); Total Protein 6.8 g/dL (6.3-8.2)
[2022-11-21 13:09] VITALS: BMI 18.3
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
--- NOTE | 2022-11-22 01:49 | HP ---
HISTORY AND PHYSICAL CHIEF COMPLAINT: Opioid withdrawal. HISTORY OF PRESENT ILLNESS: This is another admission for this 57-year-old white female with chronic low back pain, who has been progressively taking more and more narcotics. She has been referred to neurosurgeon, the appointment for which is pending. She has been in various pain management physicians in the community and has been barred from their practices for narcotic abuse. She came to the office on Monday with withdrawals and she was encouraged to go into the hospital for detox, but she did not. Then she came in the next day. REVIEW OF SYSTEMS: She has been having diaphoresis, crampy abdominal pain, nausea, and diarrhea. Her health is otherwise good. SOCIAL HISTORY: She does smoke. ALLERGIES: She is allergic to Dilaudid, penicillin and sulfa. MEDICATIONS: She has been on, 1. Metoprolol 50 mg once a day. 2. Eliquis 5 mg twice a day. 3. Klonopin 0.5 twice a day p.r.n. 4. Benadryl. 5. Seroquel 50 mg at bedtime. 6. BuSpar 10 mg 3 times a day. 7. She is also on potassium 20 mEq twice a day. The remainder of her history is unremarkable except that she does smoke, but she does not drink. PHYSICAL EXAMINATION: VITAL SIGNS: Blood pressure is 142/92 with a pulse of 112 and regular, respirations were 32. She is afebrile. GENERAL: She appeared to be very slender. SKIN: Normal. HEAD, EARS, EYES, NOSE, MOUTH AND THROAT: Normal. CHEST: Clear. CARDIAC: Demonstrated tachycardia. ABDOMEN: Flat, soft and nontender. EXTREMITIES: Normal. The only other abnormality was significant tremors in the upper and lower extremities. NEUROLOGICAL: She is otherwise intact. ASSESSMENT: She is admitted to the hospital with diagnoses of, 1. Opioid withdrawal. 2. Hypertension. 3. Chronic obstructive pulmonary disease. PLAN: 1. Bedrest. 2. IV fluids. 3. Sedation as needed. 4. Management for withdrawal. 5. Psych consult. MMODL / LUIS: [id number] /
--- NOTE | 2022-11-22 02:41 | PN ---
PROGRESS NOTE DATE OF SERVICE: 11/20/2022 CHIEF COMPLAINT: Opioid addiction and withdrawal. HISTORY OF PRESENT ILLNESS: This lady is very lethargic. She has had no seizures. She has had no vomiting. PHYSICAL EXAMINATION: CHEST: Clear. CARDIAC: Demonstrates sinus tachycardia. ABDOMEN: Soft, nontender. IMPRESSION: Opioid addiction and withdrawal. PLAN: Continue with current program with IV fluids and monitoring of vital signs. MMODL / IJN: [id number] /
== END 2022-11-21 15:04 | disposition home or self-care (01) | DRG 897 ==
LOC: EC 01:25 → 5NMEDONC 05:07
PROVIDERS: ADMIT Family Medicine; ATTEND Family Medicine
DX: F11.23 Opioid dependence with withdrawal (principal); F17.210 Nicotine dependence, cigarettes, uncomplicated; M54.9 Dorsalgia, unspecified; F32.A Depression, unspecified; G35 Multiple sclerosis; F41.0 Panic disorder [episodic paroxysmal anxiety]; F43.10 Post-traumatic stress disorder, unspecified; G89.29 Other chronic pain; I10 Essential (primary) hypertension; J44.9 Chronic obstructive pulmonary disease, unspecified; M79.7 Fibromyalgia; Z90.710 Acquired absence of both cervix and uterus; Z88.0 Allergy status to penicillin; Z88.2 Allergy status to sulfonamides; Z91.030 Bee allergy status; Z88.6 Allergy status to analgesic agent
CPT/HCPCS: 80048; 80053; 80306; 81001; 82550; 82553; 83735; 84484; 85025; 93005; 96372; 96374; 99285

== ENCOUNTER 2022-11-21 17:32 | Emergency (ER) | payer OTHER ==
[2022-11-21 18:04] VITALS: BP 120/80; PULSE 102; RESP 20; TEMP 98
[2022-11-21] MEDS ORDERED: LORazepam 2 MG/ML INJ IV STA (19:29)
[2022-11-21] MEDS ORDERED: SODIUM CHLORIDE 0.9% 1,000 ML IV ONE (19:29)
[2022-11-21] MEDS ORDERED: METOCLOPRAMIDE 5 MG/ML 2 ML VIAL IVP STA (19:30)
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
== END 2022-11-21 21:22 | disposition home or self-care (01) ==
LOC: EC 17:32
DX: F11.23 Opioid dependence with withdrawal (principal); I10 Essential (primary) hypertension; F41.9 Anxiety disorder, unspecified; F32.A Depression, unspecified; F17.200 Nicotine dependence, unspecified, uncomplicated; Z88.0 Allergy status to penicillin; Z88.2 Allergy status to sulfonamides; Z91.030 Bee allergy status; Z88.6 Allergy status to analgesic agent
CPT/HCPCS: 99284; 96374; 96375; 96361; J2060; J2765

== ENCOUNTER 2022-12-14 16:05 | Emergency (ER) | payer OTHER ==
[2022-12-14 16:12] VITALS: BP 118/83; PULSE 122; RESP 18; TEMP 98
[2022-12-14] MEDS ORDERED: oxyCODONE-APAP 5-325MG 1 EACH TAB PO STA (16:44)
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
== END 2022-12-14 16:58 | disposition home or self-care (01) ==
LOC: EC 16:05
DX: G89.29 Other chronic pain (principal); M54.9 Dorsalgia, unspecified; I10 Essential (primary) hypertension; F41.9 Anxiety disorder, unspecified; F32.A Depression, unspecified; F17.200 Nicotine dependence, unspecified, uncomplicated; Z88.0 Allergy status to penicillin; Z88.2 Allergy status to sulfonamides; Z88.8 Allergy status to other drugs, medicaments and biological substances
CPT/HCPCS: 99283

== ENCOUNTER 2024-05-28 02:17 | Emergency (ER) | payer OTHER ==
[2024-05-28 02:26] VITALS: TEMP 97.8
[2024-05-28 03:31] LABS: Appearance,Urine Cloudy (Clear); Bilirubin,Urine Negative (Negative); Blood,Urine Moderate (Negative); Color,Urine Dark Brown; Glucose,Urine (UA) Negative (Negative); Hyaline Casts,Urine 22 /lpf (0-2); Ketones,Urine Negative (Negative); Leukocyte Esterase,Urine Moderate (Negative); Mucus,Urine Few /hpf; Nitrite,Urine Negative (Negative); Protein,Urine 1+ (Negative); RBC,Urine 64 /hpf (0-5); Specific Gravity,Urine 1.031 (1.001-1.035); Squamous Epithelial Cell,Urine 6 /hpf (0-4); Urobilinogen,Urine <2.0 mg/dL (<2.0); WBC,Urine >182 /hpf (0-5)
[2024-05-28] MEDS: SODIUM CHLORIDE 0.9% 1,000 ML IV ONE (03:55)
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
[2024-05-28 04:10] LABS: Basophils % (A) 0 %; Eosinophils # (A) 0.1 k/uL (0-0.7); Eosinophils % (A) 1 %; HCT 41.2 % (34.0-46.0); HGB 13.7 gm/dL (11.4-16.0); Lymphocytes # (A) 1.8 k/uL (1.0-4.8); Lymphocytes % (A) 21 %; MCH 37.2 pg (25.0-35.0); MCHC 33.2 g/dL (31.0-37.0); MCV 112.3 fL (80.0-100.0); Macrocytosis Marked; Mean Platelet Volume 8.2; Monocytes # (A) 0.6 k/uL (0-1.0); Monocytes % (A) 7 %; Neutrophils % (A) 70 %; Platelet Count 271 k/uL (150-450); RBC 3.67 m/uL (3.80-5.40); RDW 12.5 % (11.5-15.5); WBC 8.6 k/uL (3.8-10.6)
[2024-05-28] MEDS: ONDANSETRON 4 MG/2 ML VIAL IVP STA (04:19)
[2024-05-28] MEDS: HYDROmorphone 0.5 MG/0.5 ML SYRINGE IVP STA ×2 (04:19→06:33)
[2024-05-28] MEDS: cefTRIAXone IN SWFI 1,000 MG/10 ML SYRINGE IVP STA (04:20)
[2024-05-28 04:30] LABS: ALT 16 U/L (4-34); AST 27 U/L (14-36); African American GFR (CKD) >90 (>60 ml/min/1.73 sqM); Albumin 4.2 g/dL (3.5-5.0); Alkaline Phosphatase 77 U/L (38-126); Anion Gap 6 mmol/L; Blood Urea Nitrogen 19 mg/dL (7-17); Calcium 9.9 mg/dL (8.4-10.2); Carbon Dioxide 24 mmol/L (22-30); Chloride 111 mmol/L (98-107); Glucose 108 mg/dL (74-99); Non-African American GFR(CKD) >90 (>60 ml/min/1.73 sqM); Potassium 4.2 mmol/L (3.5-5.1); Sodium 141 mmol/L (137-145); Total Bilirubin 0.4 mg/dL (0.2-1.3); Total Protein 6.5 g/dL (6.3-8.2)
--- NOTE | 2024-05-28 06:13 | CT ---
EXAM: CT Abdomen and Pelvis Without Intravenous Contrast CLINICAL HISTORY: ITS.REASON CT Reason: R flank pain TECHNIQUE: Axial computed tomography images of the abdomen and pelvis without intravenous contrast. CTDI is Ar 5.3 mGy and DLP is 296.1 mGy-cm. This CT exam was performed using one or more of the following dose reduction techniques: automated exposure control, adjustment of the mA and/or kV according to patient size, and/or use of iterative reconstruction technique. COMPARISON: No relevant prior studies available. FINDINGS: Limitations: Limited evaluation in the absence of contrast. Lung bases: Unremarkable. No mass. No consolidation. ABDOMEN: Liver: Unremarkable. Gallbladder and bile ducts: Unremarkable. No calcified stones. No ductal dilation. Pancreas: Unremarkable. No ductal dilation. Spleen: Unremarkable. No splenomegaly. Adrenals: Unremarkable. No mass. Kidneys and ureters: No evidence of obstructive renal calculi or signs of collecting system dilatation. Nonobstructive calculi within the kidneys, the largest within the inferior pole of the right kidney measuring up to 3 mm. Stomach and bowel: No evidence of bowel obstruction. No mucosal thickening. PELVIS: Appendix: Appendectomy changes. Bladder: Unremarkable. No stones. Reproductive: Unremarkable as visualized. ABDOMEN and PELVIS: Intraperitoneal space: Unremarkable. No free air. No significant fluid collection. Bones/joints: Degenerative changes in the spine. Age indeterminate T12 and L1 compression fractures. Consider correlation with point tenderness. If there is further concern, consider MRI. No dislocation. Soft tissues: Unremarkable. Vasculature: Atherosclerotic disease. No abdominal aortic aneurysm. Lymph nodes: Unremarkable. No enlarged lymph nodes. IMPRESSION: 1. No evidence of obstructive renal calculi or signs of collecting system dilatation. 2. Nonobstructive calculi within the kidneys, the largest within the inferior pole of the right kidney measuring up to 3 mm. 3. Age indeterminate T12 and L1 compression fractures. Consider correlation with point tenderness. If there is further concern, consider MRI. 4. No other acute findings. 5. Incidental findings as described.
[2024-05-28] MEDS: CIPROFLOXACIN HCL 500 MG TAB PO STA (06:45)
[2024-05-28] MEDS: ACET/COD 300 MG/30 MG STARTER PACK 6 TAB BTL PO STA (06:45)
[2024-05-28 06:53] VITALS: BP 121/77; PULSE 100; RESP 18
== END 2024-05-28 06:52 | disposition home or self-care (01) ==
LOC: EC 02:17
DX: N39.0 Urinary tract infection, site not specified (principal); F17.200 Nicotine dependence, unspecified, uncomplicated; Z88.0 Allergy status to penicillin; Z88.2 Allergy status to sulfonamides; Z88.6 Allergy status to analgesic agent; Z91.030 Bee allergy status
CPT/HCPCS: 36415; 80053; 83605; 85025; 81001; 87086; 74176; 99284; 96374; 96375 ×2; 96376; 96361; J2405; J0696; J1170